=== PATIENT | female | born 1950 | race Caucasian/White ===

== ENCOUNTER 2023-02-24 13:36 | Emergency (ER) | payer OTHER ==
--- OUTSIDE RECORDS SUMMARY | 2023-02-24 13:38 | XMS REPORT | Continuity of Care Document ---
:1950 Author Organization [facility] t Address [address] [facility] [address] [place] [id number] Care Team Providers Name Role Phone KATHERINE NAPIER Primary Care Physician Unavailable Justin Hobbs MD Attending Clinician JUSTIN HOBBS Attending Clinician Unavailable Doctor Unassigned, [place] Attending Clinician Unavailable Radiology Attending Clinician Unavailable RADIOLOGY Attending Clinician Unavailable Justin Hobbs MD Admitting Clinician JUSTIN HOBBS Admitting Clinician Unavailable Payers Payer Name Policy Type Policy Number Effective Date Expiration Date S ource Problems Condition Condition Condition Status Onset Resolution Last Treating Co mments Source Name Details Category Date Date Treatment Clinician Date 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 0-21 [place] [facility] MDD MDD Disease Active 2004-10 Univers 2-14 ity of 00:00: [address] Chronic Chronic Disease Active 2004-10 Univers depressive depressive 2-09 it y of [place] disorder 00 D[place] dical Branch Allergies, Adverse Reactions, Alerts Allergy Allergy Status Severity Reaction(s) Onset Inactive Treating Comm ents Source Name Type Date Date Clinician NO KNOWN Drug Active Univers ALLERGIE Class ity of [facility] Social History Social Habit Start Date Stop Date Quantity Comments Source History of Cigarette Smoker Universi ty of tobacco use [facility] [place] Exposure to 2022-07-02 2022-07-12 Not sure University SARS-CoV-2 00:00:00 16:31:00 [place] [facility] (event) Branch Tobacco use and 2022-07-12 2022-07-12 Smokeless tobacco Un iversity of exposure 00:00:00 00:00:00 non-user [facility] [place] Alcohol intake 2022-07-12 2022-07-12 Current University of 00:00:00 00:00:00 [facility] alcohol [facility]finding) [place] Tobacco Comment 2022-07-12 2022-07-12 Quit smoking in [facility] of 00:00:00 00:00:November, [facility] smoked 1- 1.5 PPD Branch X 30 years Sex Assigned At [birth year] Universit y of 00:00:00 00:00:00 [facility] [place] Smoking Status Start Date Stop Date Source Smokes tobacco daily 2022-07-12 00:00:00 [facility] Former smoker 2016-01-12 00:00:00 2016-01-12 00:00:00 [facility] Medications Ordered Filled Start Stop Current Ordering Indication Dosage Frequency Signature Comments Components Source Medication Medication Date Date Medication? Clinician (SIG) Name Name lactated 2021-10 Yes 1000mL at 100 Unive rs ringers IV 0-17 mL/hr, ity of infusion 13:15: 1,000 [place] 1[place]000 [place] 00 IV Medical Infusion, Branch CONTINUOUS , Starting on Sun07/17/22 at 0815, Until Discontinu ed, Routine, PACU lactated 2021-10- No 1000mL at 100 Univ ers ringers IV 0-17 10-17 mL/hr, ity of infusion 13:15: 16:01 1,000 mL, [place] as 1,000 mL 00 :00 IV Medical Infusion, Branch CONTINUOUS , Starting on Sun07/17/22 at 0815, Until Sun07/17/22 at 1101, Routine, PACU FENTanyl PF 2021-10 Yes 25ug 25 mcg, Uni vers (SUBLIMAZE 0-17 Slow IV ity of (PF)) 13:10: Push, [place] injection 02 Q5MIN PRN, Medi haritha 25 mcg 4 doses, Branch Starting on Sun07/17/22 at 0810, Until Discontinu ed, Routine, Pain (scale 7-10), PACU FENTanyl PF 2021-10 Yes 25ug 25 mcg, Uni vers (SUBLIMAZE 0-17 Slow IV ity of (PF)) 13:10: Push, [place] injection 02 Q5MIN PRN, Medi haritha 25 mcg 4 doses, Branch Starting on Sun07/17/22 at 0810, Until Discontinu ed, Routine, Pain (scale 4-6), PACU ondansetron 2021-10 Yes 4mg 4 mg, Slow Univers (ZOFRAN 0-17 IV Push, ity of (PF)) 13:10: PRN, 1 [place] injection 4 02 dose, Medical mg Starting Branch on Sun07/17/22 at 0810, Until Discontinu ed, Routine, Nausea and Vomiting (N/V), PACU FENTanyl PF 2021-10- No 25ug 25 mcg, Un arely (SUBLIMAZE 0-17 10-17 Slow IV ity o f (PF)) 13:10: 16:01 Push, [place] injection 02 :00 Q5MIN PRN, Medi haritha 25 mcg 4 doses, Branch Starting on Sun07/17/22 at 0810, Until Sun07/17/22 at 1101, Routine, Pain (scale 7-10), PACU FENTanyl PF 2021-10- No 25ug 25 mcg, Un arely (SUBLIMAZE 0-17 10-17 Slow IV ity o f (PF)) 13:10: 16:01 Push, [place] injection 02 :00 Q5MIN PRN, Medi haritha 25 mcg 4 doses, Branch Starting on Sun07/17/22 at 0810, Until Sun07/17/22 at 1101, Routine, Pain (scale 4-6), PACU ondansetron 2021-10- No 4mg 4 mg, Slow Univers (ZOFRAN 0-17 10-17 IV Push, ity of (PF)) 13:10: 16:01 PRN, 1 [place] injection 4 02 :00 dose, Medical mg Starting Branch on Sun07/17/22 at 0810, Until 10/17/22 at 1101, Routine, Nausea and Vomiting (N/V), PACU bupivacaine 2021-10- No PRN, Unive rs -epinephrin 0-17 10-17 Starting ity of e-pf 12:54: 13:55 on Sun [place] (SENSORCAIN 00 :11 07/17/22 Medi haritha E at 0754, Branch W/EPINEPHRI Until Sun NE) 0.25 07/17/22 %-1:200,000 at 0855, injection Routine, Intra-op lactated 2021-10- No 1000mL at 42 Unive rs ringers IV 0-17 10-17 mL/hr, ity of infusion 11:45: 11:58 1,000 mL, [place] as 1,000 mL 00 :00 IV Medical Infusion, Branch ONCE, 1 dose, On Sun07/17/22 at 0645, Routine, DSU Pre-op lactated 2021-10- No 1000mL at 42 Unive rs ringers IV 0-17 10-17 mL/hr, ity of infusion 11:45: 11:58 1,000 mL, [place] as 1,000 mL 00 :00 IV Medical Infusion, Branch ONCE, 1 dose, On Sun07/17/22 at 0645, Routine, DSU Pre-op Doxepin 2021-10 Yes 6mg Take 6 mg Unive rs (SILENOR) 6 0-17 by mouth ity of mg Tab 08:55: daily. [address] oxybutynin 2021-10 Yes 5mg Take 5 mg Un arely chloride 5 0-17 by mouth ity o f mg tablet 08:55: in the [place] [address] morning Medical and 5 mg Branch in the evening. ibuprofen 2021-10 Yes 800mg Take 800 Uni vers 800 mg 0-17 mg by ity of tablet 08:55: mouth in [place] [address] the Medical morning Branch and 800 mg in the evening. Take with meals. donepeziL 2021-10 Yes 10mg Take 10 mg Un arely 10 mg 0-17 by mouth ity of tablet 08:55: in the [place] [address] morning Medical and 10 mg Branch in the evening. amitriptyli 2021-10 Yes 25mg Take 25 mg Univers ne 25 mg 0-17 by mouth ity of tablet 08:55: as needed. [place] [address] 1 or 2 as Medical needed at Branch bedtime aspirin 81 2021-10 Yes 81mg Take 81 mg U nivers mg EC 0-17 by mouth ity of tablet 08:55: in the [place] [address] morning. Medical Branch ARIPiprazol 2021-10 Yes 5mg Take 5 mg U nivers e 5 mg 0-17 by mouth ity of tablet 08:55: in the [place] 52 morning. Medical Branch clonazePAM 2021-10 Yes 1mg Take 1 mg Un arely (KLONOPIN) 0-17 by mouth 3 ity of 1 mg tablet 08:55: (three) [place] as 52 times Medical daily as Branch needed. As nee DULoxetine 2021-10 Yes 120mg Take 120 Un arely (CYMBALTA) 0-17 mg by ity of 60 mg 08:55: mouth in [place] capsule 52 the Medical morning. Branch HYDROmorpho 2021-10 Yes 8mg Take 8 mg U nivers ne 0-17 by mouth 4 ity of (DILAUDID) 08:55: (four) [place] 8 mg tablet 52 times Medical daily. Branch levomefolat 2021-10 Yes 1{capsu Take 1 Cap Univers e-algal oil 0-17 le} by mouth ity of (DEPLIN, 08:55: daily. [place] ALGAL OIL,) 52 Medical 15.314 Branch mg Cap traZODONE 2021-10 Yes 200mg Take Univers (DESYREL) 0-17 200-300 mg ity of 100 mg 08:55: by mouth [place] tablet 52 at Medical bedtime. Branch KCL 2021-10 Yes 20meq Take 20 Univers (KLOR-CON 0-17 mEq by ity of M20) 20 mEq 08:55: mouth [place] tablet 52 daily. Medical Branch amLODIPine 2021-10 Yes 5mg Take 5 mg Un arely (NORVASC) 5 0-17 by mouth 2 it y of mg tablet 08:55: (two) [place] 52 times Medical daily. Branch meloxicam 2021-10 Yes 7.5mg Take 7.5 Uni vers (MOBIC) 7.5 0-17 mg by ity of mg tablet 08:55: mouth [place] 52 daily. Medical Branch Doxepin 2021-10 Yes 6mg Take 6 mg Unive rs (SILENOR) 6 0-17 by mouth ity of mg Tab 08:55: daily. [place] 52 Medical Branch oxybutynin 2021-10 Yes 5mg Take 5 mg Un arely chloride 5 0-17 by mouth ity o f mg tablet 08:55: in the [place] [address] morning Medical and 5 mg Branch in the evening. ibuprofen 2021-10 Yes 800mg Take 800 Uni vers 800 mg 0-17 mg by ity of tablet 08:55: mouth in [place] [address] the Medical morning Branch and 800 mg in the evening. Take with meals. donepeziL 2021-10 Yes 10mg Take 10 mg Un arely 10 mg 0-17 by mouth ity of tablet 08:55: in the [place] [address] morning Medical and 10 mg Branch in the evening. amitriptyli 2021-10 Yes 25mg Take 25 mg Univers ne 25 mg 0-17 by mouth ity of tablet 08:55: as needed. [place] [address] 1 or 2 as Medical needed at Branch bedtime aspirin 81 2021-10 Yes 81mg Take 81 mg U nivers mg EC 0-17 by mouth ity of tablet 08:55: in the [place] [address] morning. Medical Branch ARIPiprazol 2021-10 Yes 5mg Take 5 mg U nivers e 5 mg 0-17 by mouth ity of tablet 08:55: in the [place] [address] morning. Medical Branch clonazePAM 2021-10 Yes 1mg Take 1 mg Un arely (KLONOPIN) 0-17 by mouth 3 ity of 1 mg tablet 08:55: (three) [place] 52 times Medical daily as Branch needed. As nee DULoxetine 2021-10 Yes 120mg Take 120 Un arely (CYMBALTA) 0-17 mg by ity of 60 mg 08:55: mouth in [place] [address] the Medical morning. Branch HYDROmorpho 2021-10 Yes 8mg Take 8 mg U nivers ne 0-17 by mouth 4 ity of (DILAUDID) 08:55: (four) [place] 8 mg tablet 52 times Medical daily. Branch levomefolat 2021-10 Yes 1{capsu Take 1 Cap Univers e-algal oil 0-17 le} by mouth ity of (DEPLIN, 08:55: daily. [place] ALGAL OIL,) Medical 15-90.314 Branch mg Cap traZODONE 2021-10 Yes 200mg Take Univers (DESYREL) 0-17 200-300 mg ity of 100 mg 08:55: by mouth [place] tablet 52 at Medical bedtime. Branch KCL 2021-10 Yes 20meq Take 20 Univers (KLOR-CON 0-17 mEq by ity of M20) 20 mEq 08:55: mouth [place] tablet 52 daily. Medical Branch amLODIPine 2021-10 Yes 5mg Take 5 mg Un arely (NORVASC) 5 0-17 by mouth 2 it y of mg tablet 08:55: (two) [place] [address] times Medical daily. Branch meloxicam 2021-10 Yes 7.5mg Take 7.5 Uni vers (MOBIC) 7.5 0-17 mg by ity of mg tablet 08:55: mouth [place] [address] daily. Medical Branch Doxepin 2021-10 Yes 6mg Take 6 mg Unive rs (SILENOR) 6 0-17 by mouth ity of mg Tab 08:55: daily. [place] [address] Medical Branch oxybutynin 2021-10 Yes 5mg Take 5 mg Un arely chloride 5 0-17 by mouth ity o f mg tablet 08:55: in the [place] [address] morning Medical and 5 mg Branch in the evening. ibuprofen 2021-10 Yes 800mg Take 800 Uni vers 800 mg 0-17 mg by ity of tablet 08:55: mouth in [place] [address] the Medical morning Branch and 800 mg in the evening. Take with meals. donepeziL 2021-10 Yes 10mg Take 10 mg Un arely 10 mg 0-17 by mouth ity of tablet 08:55: in the [place] [address] morning Medical and 10 mg Branch in the evening. amitriptyli 2021-10 Yes 25mg Take 25 mg Univers ne 25 mg 0-17 by mouth ity of tablet 08:55: as needed. [place] [address] 1 or 2 as Medical needed at Branch bedtime aspirin 81 2021-10 Yes 81mg Take 81 mg U nivers mg EC 0-17 by mouth ity of tablet 08:55: in the [place] [address] morning. Medical Branch ARIPiprazol 2021-10 Yes 5mg Take 5 mg U nivers e 5 mg 0-17 by mouth ity of tablet 08:55: in the [place] [address] morning. Medical Branch clonazePAM 2021-10 Yes 1mg Take 1 mg Un arely (KLONOPIN) 0-17 by mouth 3 ity of 1 mg tablet 08:55: (three) [place] 52 times Medical daily as Branch needed. As nee DULoxetine 2021-10 Yes 120mg Take 120 Un arely (CYMBALTA) 0-17 mg by ity of 60 mg 08:55: mouth in [place] capsule 52 the Medical morning. Branch HYDROmorpho 2021-10 Yes 8mg Take 8 mg U nivers ne 0-17 by mouth 4 ity of (DILAUDID) 08:55: (four) [place] 8 mg tablet 52 times Medical daily. Branch levomefolat 2021-10 Yes 1{capsu Take 1 Cap Univers e-algal oil 0-17 le} by mouth ity of (DEPLIN, 08:55: daily. [place] ALGAL OIL,) 52 Medical 1590.314 Branch mg Cap traZODONE 2021-10 Yes 200mg Take Univers (DESYREL) 0-17 200-300 mg ity of 100 mg 08:55: by mouth [place] tablet 52 at Medical bedtime. Branch KCL 2021-10 Yes 20meq Take 20 Univers (KLOR-CON 0-17 mEq by ity of M20) 20 mEq 08:55: mouth [place] tablet 52 daily. Medical Branch amLODIPine 2021-10 Yes 5mg Take 5 mg Un arely (NORVASC) 5 0-17 by mouth 2 it y of mg tablet 08:55: (two) [place] 52 times Medical daily. Branch meloxicam 2021-10 Yes 7.5mg Take 7.5 Uni vers (MOBIC) 7.5 0-17 mg by ity of mg tablet 08:55: mouth [place] 52 daily. Medical Branch ARIPiprazol Yes 10mg Take 10 mg Univers e (ABILIFY) 2-15 by mouth ity of 10 mg 18:29: at [place] tablet 04 bedtime. Medical Branch clonazePAM Yes 1mg Take 1 mg Un arely (KLONOPIN) 2-15 by mouth 3 ity of 1 mg tablet 18:29: (three) [place] as 04 times Medical daily. Branch DULoxetine Yes 120mg Take 120 Un arely (CYMBALTA) 2-15 mg by ity of 60 mg 18:29: mouth at [place] capsule 04 bedtime. Medical Branch HYDROmorpho Yes 8mg Take 8 mg U nivers ne 2-15 by mouth 4 ity of (DILAUDID) 18:29: (four) [place] 8 mg tablet 04 times Medical daily. Branch levomefolat Yes 1{capsu Take 1 Cap Univers e-algal oil 2-15 le} by mouth ity of (DEPLIN, 18:29: daily. [place] ALGAL OIL,) 04 Medical .314 Branch mg Cap traZODONE Yes 200mg Take Univers (DESYREL) 2-15 200-300 mg ity of 100 mg 18:29: by mouth [place] tablet 04 at Medical bedtime. Branch KCL Yes 20meq Take 20 Univers (KLOR-CON 2-15 mEq by ity of M20) 20 mEq 18:29: mouth [place] tablet 04 daily. Medical Branch amLODIPine Yes 5mg Take 5 mg Un arely (NORVASC) 5 2-15 by mouth 2 it y of mg tablet 18:29: (two) [place] 04 times Medical daily. Branch meloxicam Yes 7.5mg Take 7.5 Uni vers (MOBIC) 7.5 2-15 mg by ity of mg tablet 18:29: mouth [place] 04 daily. Medical Branch Doxepin Yes 6mg Take 6 mg Unive rs (SILENOR) 6 2-15 by mouth ity of mg Tab 18:29: daily. [place] [facility] VENLAFAXINE 2004- Yes 1 Cap Oral Univers 75 MG ORAL 2-14 QAM WITH ity o f CP24 00:00: BREAKFAST [place] [facility] QUETIAPINE 2004- Yes 1 tab po Uni vers 300 MG ORAL 2-14 qhs ity of TAB 00:00: [place] [facility] VENLAFAXINE 2004- Yes 1 Cap Oral Univers 75 MG ORAL 2-14 QAM WITH ity o f CP24 00:00: BREAKFAST [place] [facility] QUETIAPINE 2004- Yes 1 tab po Uni vers 300 MG ORAL 2-14 qhs ity of TAB 00:00: [place] [facility] VENLAFAXINE 2004- Yes 1 Cap Oral Univers 75 MG ORAL 2-14 QAM WITH ity o f CP24 00:00: BREAKFAST [place] [facility] QUETIAPINE 2004- Yes 1 tab po Uni vers 300 MG ORAL 2-14 qhs ity of TAB 00:00: [place] 00 Medical Branch Vital Signs Vital Name Observation Time Observation Value Comments Source Heart rate 2022-07-17 13:30:00 76 /min Universi ty of [facility] [place] Respiratory rate 2022-07-17 13:30:00 20 /min Univ ersity of [facility] [place] Oxygen saturation in 2022-07-17 13:30:00 93 /min University of Arterial blood by [facility] Pulse oximetry Branch Systolic blood 2022-07-17 13:30:00 127 mm[Hg] Univer sity of pressure [facility] [place] Diastolic blood 2022-07-17 13:30:00 62 mm[Hg] Unive rsity of pressure [facility] [place] Body temperature 2022-07-17 13:10:00 36.78 [place] Univ ersity of [facility] [place] Body height 2022-07-04 16:26:00 154.9 cm Universi ty of [facility] [place] Body weight 2022-07-04 16:26:00 78 kg Universi ty of [facility] [place] BMI 2022-07-04 16:26:00 32.51 kg/m2 Universi ty of [facility] [place] Systolic blood 2022-07-17 13:30:00 127 mm[Hg] Univer sity of pressure [facility] Branch Diastolic blood 2022-07-17 13:30:00 62 mm[Hg] Unive rsity of [facility] Heart rate 2022-07-17 13:30:00 76 /min Universi ty of [facility] [place] Respiratory rate 2022-07-17 13:30:00 20 /min Univ ersity of [facility] [place] Oxygen saturation in 2022-07-17 13:30:00 93 /min University of Arterial blood by [facility] Pulse oximetry Branch Body temperature 2022-07-17 13:10:00 36.78 [place] Univ ersity of [facility] [place] Body height 2022-07-04 16:26:00 154.9 cm Universi ty of [place] [facility] Body weight 2022-07-04 16:26:00 78 kg Universi ty of [facility] Branch BMI 2022-07-04 16:26:00 32.51 kg/m2 Universi ty of [facility] [place] Procedures Procedure Date / Time Performing Clinician Source Performed INTRATHECAL INFUSION 2022-07-17 12:09:00 Justin Hobbs [facility] ersity of [place] PUMP REVISION Medical [place] DAY SURGERY - ADC 2022-07-17 05:01:00 Doctor Unassigned, No Univ ersity of [place] Name Medical Branch EXTERNAL PROVIDER 2022-06-21 05:01:00 Doctor Unassigned, No Univ ersity of [place] RECORDS Name Medical Branch EXTERNAL PROVIDER 2022-06-21 05:01:00 Doctor Unassigned, No Univ ersity of [place] RECORDS Name [facility] XR ANKLE 3+ VW RIGHT 2021-03-02 17:25:47 Iveth Ramirez iversity of [facility] [place] Encounters Start End Encounter Admission Attending Care Care Encounter Source Date/Time Date/Time Type Type Clinicians Facility Department ID 2022-07-17 2022-07-17 [facility] [id number] Univers 06:33:00 08:54:00 Encounter Justin DE [place] [id number] it[facility] [id number] [place] [id number] [facility] 071 [place] 2022-07-17 2022-07-17 [facility] [id number] Univers 06:33:00 08:54:00 JUSTIN ity of [facility] [place] 2022-07-17 2022-07-17 Surgery [facility] [id number] Univers 07:15:00 08:52:00 Justinnori ELLINGTONCALEB [id number] ity [facility] [id number] [place] [id number] [facility] 020 Branch 2022-07-17 2022-07-17 Orders Doctor LUNDBERG [id number] Univers 00:00:00 00:00:00 Only Unassigned, HARDY [id number] ity of [facility] [facility] [id number] Daniele as [id number] [place] [address] Branch 2022-07-14 2022-07-14 [facility] [id number] Univers 08:15:00 08:15:00 JUSTIN ity of [facility] [place] 2021-03-02 2021-03-02 Hospital Radiology [facility] [id number] Univers 12:13:44 23:59:00 Encounter Nate [id number] ity [place] [id number] [facility] [id number] [facility] 807 Branch 2021-03-02 2021-03-02 Outpatient R RADIOLOGY [facility] [id number] Univers 00:00:00 00:00:00 ity [facility] Results Test Description Test Time Test Comments Results Result Comments Source HEMOGLOBIN A1c 2021-12-28 06:29:45 Test Item Value Reference Range Interpretation Comme nts HEMOGLOBIN A1c (test code = 6.7 % 4.2-5.6 H [employer] 53240) GUIDELINES FOR HGB A1C: PREDIABETES/INC REASED RISK . . . . . . . 5.7-6.4% DIAGNO SIS OF DIABETES . . . . . . . . . >=6.5% WITH CONFIRMATION OR APPROPRIATE SYM PTOMS NOTE: ASSAY MAY BE AFFECTED BY HEM OGLOBINOPATHIES (SICKLE CELL ANEMIA, S- C DISEASE, OTHERS) OR ARTIFICIALLY LO WERED BY DECREASED RED CELL SURVIVAL ( HEMOLYTIC ANEMIAS, BLOOD LOSS, ETC.). CO NSIDER ALTERNATE TESTING OR LABORATORY C ONSULTATION. UNLESS OTHERWISE INDIC ATED, ALL TESTING PERFORMED [facility], [address] DIRECTOR: JACKELINE ANTOINE M.D. CLIA NUMBER [id number] [place] [id number] BASIC METABOLIC [id number] 06:15:06 Test Item Value Reference Range Interpretation Comments GLUCOSE (test code 126 MG/DL 70-99 H = 2216) BUN (test code = 9 MG/DL 8-23 2207) CREATININE (test 0.69 MG/DL 0.60-1.30 code = 2214) eGFR (2020 CKD-EPI) 93 ML/MIN/1.73 >60 (test code = 65505) SODIUM (test code = 140 MEQ/L 614-171 0262) POTASSIUM (test 3.8 MEQ/L 3.5-5.4 code = 2228) CHLORIDE (test code 101 MEQ/L 95-107 = 2215) CARBON DIOXIDE 23 MEQ/L 19-31 (test code = 2206) CALCIUM (test code 9.2 MG/DL 8.5-10.5 UNLESS O THERWISE = 2209) INDICATED, ALL TESTING PERFORM [facility]. [address] [place] [address] [facility] DIRECTOR: Juan J REYESIA NUMBER [id number] CAP ACCREDITATION N O. [id number] XR ANKLE 3+ VW [id number] 17:28:50HISTORY: ?Pain. FINDINGS: AP, lateral, oblique views of right ankle showed slightlyseparated fracture at the base of the fifth metatarsal bone. No significantankle joint effusion. Soft tissue swelling noted along the lateral aspectof ankle. Metallic hardware is seen supporting calcaneum. No hardwarerelated complication seen. Mild subtalar degenerative arthritis andarthritis of the talonavicular jointnoted. CONCLUSIONS: Fracture at the base of right fifth metatarsal bone. [facility], Radiant Results Inft User - 03/02/2021 12:29 PM CDT HISTORY: Pain.FINDINGS: AP, lateral, oblique views of right ankle showed slightlyseparated fracture at the baseof the fifth metatarsal bone. No significantankle joint effusion. Soft tissue swelling noted along the lateral aspectof ankle. Metallic hardware is seen supporting calcaneum. No hardwarerelated complication seen. 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
--- NOTE | 2023-02-24 14:21 | RAD REPORT ---
EXAM DESCRIPTION: RAD - Hip Right 2 View - 02/24/2023 2:01 pm CLINICAL HISTORY: fall COMPARISON: Hip Right 1 View dated 09/19/2022; Hip Right 2 View dated 08/22/2021; Pelvis dated 2022 TECHNIQUE: Right hip, AP and frog-leg views. FINDINGS: Posterosuperior dislocation of the femoral head component of the right total hip arthropla sty. No periprostatic fracture. No acute or destructive bony process seen. Pain pump battery pack is seen on a single two-view. 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
--- NOTE | 2023-02-24 14:30 | RAD REPORT ---
EXAM DESCRIPTION: RAD - Pelvis - 02/24/2023 2:01 pm CLINICAL HISTORY: PAIN COMPARISON: Hip Right 2 View dated 02/24/2023 TECHNIQUE: Single AP view of the pelvis. FINDINGS: Re- demonstration of superior dislocation of the femoral head component of the right total hip arthroplasty relative to the acetabular cup. The visualized pelvic ring is intact. No suspicious osseous lesions. No significant degenerative changes or erosions of the left hip. Right flank pain p ump back and lower aspects of lumbar fusion hardware partially visualized Visualized aspects of the a bdomen and soft tissues are unremarkable. 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
--- NOTE | 2023-02-24 14:32 | RAD REPORT ---
EXAM DESCRIPTION: RAD - Femur Right - 02/24/2023 2:01 pm CLINICAL HISTORY: PAIN COMPARISON: Hip Right 2 View dated 02/24/2023 TECHNIQUE: Right femur, 2 views. FINDINGS: No fracture is identified. Dislocated femoral head component of right total hip arthroplas ty is visualized on the hip radiographs. Total knee arthroplasty components in satisfactory alignment without evidence of complications. There is no periosteal reaction noted. No acute or suspicious bon y finding. Opacification just above the patella, may relate to sequelae of remote injury to the quad riceps. IMPRESSION: As above.
--- NOTE | 2023-02-24 17:00 | EDPHYS ---
Physician Documentation [facility] Name: Suzi Vee Age: 72 yrs Sex: Female : 1950 Arrival Date: 02/24/2023 Time: 13:36 Bed 17 Private MD: ED Physician Александр Grimes HPI: 02/24 13:40 This 72 yrs old Female presents to ER via EMS with complaints of Fall Injury. cp 13:40 The patient or guardian reports decreased range of motion, deformity, an injury. that cp occurred outside of home, sustained from a fall, from standing, the right lower extremity is shortened, The patient is not able to ambulate. Patient is not able to bear weight. 13:40 The complaints affect the right hip. Onset: The symptoms/episode began/occurred just cp prior to arrival. Associated signs and symptoms: Loss of consciousness: the patient experienced no loss of consciousness, Pertinent negatives: abdominal pain, chest pain, fever. Patient reports having total hip replacement surgery by DR Harrison in August 2022. Historical: - Allergies: 13:43 No Known Allergies; db - PMHx: 13:43 Chronic Lumbar Pain; Depression; Weak Bladder; db - Immunization history:: Client reports receiving the 2nd dose of the Covid vaccine. - Social history:: Smoking status: Patient/guardian denies using tobacco, Stopped _ months ago 5. - Immunization history: Last tetanus immunization: unknown. ROS: 13:45 MS/extremity: Positive for injury or acute deformity, decreased range of motion, pain, cp tenderness. 13:45 Constitutional: Negative for body aches, chills, fever, poor PO intake. cp 13:45 Cardiovascular: Negative for chest pain, palpitations. 13:45 Abdomen/GI: Negative for abdominal pain, nausea, vomiting, and diarrhea. 13:45 Back: Negative for pain at rest, pain with movement. 13:45 Neuro: Negative for altered mental status, headache, loss of consciousness, syncope, near syncope. Exam: 13:50 Constitutional: The patient appears in no acute distress, alert, awake, non-toxic, well cp developed, well nourished, uncomfortable. 13:50 Head/Face: Normocephalic, atraumatic. cp 13:50 Eyes: Periorbital structures: appear normal, Conjunctiva: normal, no exudate, no injection, Sclera: no appreciated abnormality, Lids and lashes: appear normal, bilaterally. 13:50 ENT: External ear(s): are unremarkable, Nose: is normal, Mouth: Lips: moist, Oral mucosa: pink and intact, moist, Posterior pharynx: is normal, airway is patent, no erythema, no exudate. 13:50 Neck: ROM/movement: is normal, is supple, without pain, no range of motions limitations. 13:50 Chest/axilla: Inspection: normal, Palpation: is normal, no crepitus, no tenderness. 13:50 Cardiovascular: Rate: normal, Rhythm: regular, Edema: is not appreciated, JVD: is not appreciated. 13:50 Respiratory: the patient does not display signs of respiratory distress, Respirations: normal, no use of accessory muscles, no retractions, labored breathing, is not present, Breath sounds: are clear throughout, no decreased breath sounds, no stridor, no wheezing. 13:50 Abdomen/GI: Inspection: abdomen appears normal, Palpation: abdomen is soft and non-tender, in all quadrants. 13:50 Back: pain, is absent, ROM is normal. 13:50 Musculoskeletal/extremity: Extremities: grossly normal except: noted in the right hip: decreased ROM, deformity, pain, ROM: limited passive range of motion, in the right hip, Pulses: noted to be 2+ in the right dorsalis pedis artery, the right leg and right hip Sensation intact. 13:50 Neuro: Orientation: to person, place \T\ time. Mentation: is normal, Motor: moves all fours, strength is normal. Vital Signs: 13:39 BP 143 / 67; Pulse 69; Resp 16; Temp 98.2(O); Pulse Ox 97% ; Weight 58.06 kg; Height 5 db ft. 1 in. ; Pain 8/10; 15:15 BP 161 / 69; Pulse 65; Resp 18; Pulse Ox 100% on 2 lpm NC; db 15:20 BP 132 / 69; Pulse 61; Resp 16; Pulse Ox 100% on 2 lpm NC; db 15:25 BP 153 / 70; Pulse 62; Resp 16; Pulse Ox 100% on 4 lpm NC; db 15:30 BP 146 / 65; Pulse 63; Resp 16; Pulse Ox 100% on 4 lpm NC; db 15:35 BP 165 / 63; Pulse 65; Resp 12; Pulse Ox 100% on 4 lpm NC; db 15:45 BP 164 / 66; Pulse 64; Resp 16; Pulse Ox 100% on 2 lpm NC; db 15:55 BP 139 / 65; Pulse 64; Resp 16; Pulse Ox 100% on R/A; db 16:00 BP 154 / 60; Pulse 72; Resp 18; Pulse Ox 100% on R/A; db 16:15 BP 146 / 65; Pulse 66; Resp 14; Pulse Ox 100% on R/A; db 16:45 BP 131 / 54; Pulse 68; Resp 16; Pulse Ox 100% on R/A; db 17:30 BP 118 / 63; Pulse 64; Resp 12; Pulse Ox 100% on R/A; db 13:39 Body Mass Index 24.19 (58.06 kg, 154.94 cm) db 13:39 Pain Scale: Adult db Yadira Coma Score: 13:45 Eye Response: spontaneous(4). Motor Response: obeys commands(6). Verbal Response: db oriented(5). Total: 15. Trauma Score (Adult): 13:45 Eye Response: spontaneous(1); Verbal Response: oriented(1); Motor Response: obeys db commands(2); Systolic BP: > 89 mm Hg(4); Respiratory Rate: 10 to 29 per min(4); Yadira Score: 15; Trauma Score: 12 Procedures: 15:34 Reduction: of the right hip, using traction, Patient tolerated well. Post reduction cp film - reveals normal alignment. Moderate sedation: Pre-procedure assessment: the patient has been NPO 2 hour(s) prior to arrival, Airway assessment: able to hyperextend neck, able to maintain airway, can open mouth without difficulty, Monitoring during procedure: diagnostic cardiac sonographer, continuous pulse oximetry, nurse at bedside at all times, Medications employed: Etomidate, 10 mg(s), Versed, 4 mg(s), Post-procedure assessment: a reversal agent was not used. MDM: 13:43 Patient medically screened. jmm 15:57 Data reviewed: vital signs, nurses notes, radiologic studies, plain films. cp Consideration of Admission/Observation Escalation of care including admission/observation considered. Independent interpretation of the following test(s) in the Emergency Department X-Ray: My interpretation is post reduction xrays of right hip show normal alignment. Response to treatment: the patient's symptoms have markedly improved after treatment. 02/24 13:38 Order name: Hip Right 2 View XRAY; Complete Time: 14:44 eb 02/24 13:44 Order name: XRAY Pelvis; Complete Time: 14:44 cp 02/24 13:46 Order name: XRAY Femur RIGHT; Complete Time: 14:44 cp 02/24 15:47 Order name: XRAY Hip RIGHT 2 view; Complete Time: 18:11 cp 02/24 18:11 Interpretation: Report reviewed. cp 02/24 13:46 Order name: IV; Complete Time: 14:40 cp 02/24 15:49 Order name: Wrist Splint; Complete Time: 18:08 cp Administered Medications: 13:46 CANCELLED (Physician Discretion): morphine IVP or IV 2 mg IVP once over 4 mins cp 13:46 CANCELLED (Physician Discretion): morphine IVP or IV 2 mg IVP once over 4 mins cp 14:35 Drug: Ondansetron IVP 4 mg Route: IVP; Site: right forearm; db 17:40 Follow up: Response: No adverse reaction db 14:35 Drug: morphine IVP or IV 4 mg Route: IVP; Infused Over: 4 mins; Site: right forearm; db 17:40 Follow up: Response: No adverse reaction db 14:35 Drug: NS 0.9% IV 500 ml Route: IV; Rate: 75 ml/hr; Site: right forearm; db 17:40 Follow up: IV Status: Completed infusion; IV Intake: 500ml db 15:23 Drug: Midazolam IVP or IV 4 mg Route: IVP; Site: right forearm; db 18:08 Follow up: Response: No adverse reaction db 15:25 Drug: Etomidate IVP 10 mg Route: IVP; Site: right forearm; db 18:08 Follow up: Response: No adverse reaction db 15:41 Not Given (Physician Discretion; patient did not needd): Etomidate IVP 10 mg IVP once db Disposition Summary: 02/24/23 16:59 Discharge Ordered Location: Home cp Problem: new cp Symptoms: have improved cp Condition: Stable cp Diagnosis - Posterior dislocation of right hip, initial encounter cp Followup: cp - With: Oscar Harrison MD - When: 2 - 3 days - Reason: Recheck today's complaints Discharge Instructions: - Discharge Summary Sheet cp - Hip Dislocation cp Forms: - Medication Reconciliation Form cp - Thank You Letter cp - Antibiotic Education cp - Prescription Opioid Use cp Signatures: Dispatcher [employer] EDKrystian Gallardo PA PA jmm Page, Corey, PA PA cp Benton, Danielle, RN RN db Corrections: (The following items were deleted from the chart) 13:46 13:46 morphine IVP or IV 2 mg IVP once over 4 mins ordered. cp cp 13:46 13:46 morphine IVP or IV 2 mg IVP once over 4 mins ordered. cp cp
--- NOTE | 2023-02-24 17:00 | ER ---
Nurse's Notes [facility] Name: Suzi Vee Age: 72 yrs Sex: Female : 1950 Arrival Date: 02/24/2023 Time: 13:36 Bed 17 Private MD: Diagnosis: Posterior dislocation of right hip, initial encounter Presentation: 02/24 13:39 Chief complaint: EMS states: right hip injury after a fall today [employer]. slipped and fell db outside while working on [employer]. Coronavirus screen:. Ebola Screen: Patient negative for fever greater than or equal to 101.5 degrees Fahrenheit, and additional compatible Ebola Virus Disease symptoms Patient denies exposure to infectious person. Patient denies travel to an Ebola-affected area in the 21 days before illness onset. No symptoms or risks identified at this time. Initial Sepsis Screen: Does the patient meet any 2 criteria? No. Patient's initial sepsis screen is negative. Does the patient have a suspected source of infection? No. Patient's initial sepsis screen is negative. Risk Assessment: Do you want to hurt yourself or someone else? Patient reports no desire to harm self or others. Onset of symptoms was February 24, 2023. Mechanism of Injury: Fall from standing position. 13:39 Method Of Arrival: EMS: [facility] 13:39 Acuity: NIEVES 3 17:40 Care prior to arrival: None. Trauma event details: Injury occurred in the [facility]. 17:40 Mechanism of Injury: Fall. db Triage Assessment: 13:42 General: Appears in no apparent distress. comfortable, Behavior is calm, cooperative. db Pain: Complains of pain in right leg. Trauma Activation: Not Applicable Physician: ED Physician; Name: ; Notified At: ; Arrived At: Physician: General Surgeon; Name: ; Notified At: ; Arrived At: Physician: Radiology; Name: ; Notified At: ; Arrived At: Physician: Respiratory; Name: ; Notified At: ; Arrived At: Physician: Lab; Name: ; Notified At: ; Arrived At: Historical: - Allergies: 13:43 No Known Allergies; db - PMHx: 13:43 Chronic Lumbar Pain; Depression; Weak Bladder; db - Immunization history:: Client reports receiving the 2nd dose of the Covid vaccine. - Social history:: Smoking status: Patient/guardian denies using tobacco, Stopped _ months ago 5. - Immunization history: Last tetanus immunization: unknown. Screenin:44 [facility] ED Fall Risk Assessment (Adult) History of falling in the last 3 months, db including since admission Yes- fall prone (multiple falls) (3 pts) Confusion or Disorientation No (0 pts) Intoxicated or Sedated No (0 pts) Impaired Gait Yes (1 pt) Mobility Assist Device Used Yes (1 pt) Altered Elimination No (0 pt) Score/Fall Risk Level 3 or more points = High Risk Oriented to surroundings, Maintained a safe environment, Educated pt \T\ family on fall prevention, incl call for assistance when getting out of bed. Abuse screen: Denies threats or abuse. Denies injuries from another. Nutritional screening: No deficits noted. Tuberculosis screening: No symptoms or risk factors identified. Primary Survey: 13:45 NO uncontrolled hemorrhage observed. A: The client is awake and alert. The airway is db patent. The client is alert. Airway: patent, No supplemental oxygen in use on arrival. Breathing/Chest: Spontaneous respiratory effort, equal unlabored respirations, breath sounds clear bilaterally, regular pattern, symmetrical chest rise and fall. Respiratory effort: spontaneous, unlabored, Breath sounds: clear, Respiratory pattern: regular, Chest inspection: symmetrical rise and fall of the chest. Circulation: No external hemorrhage present. Regular and strong central pulse, skin warm/dry/normal color. Disability Pupils are equal, round, reactive to light and accommodation. Client is alert. Exposure/Environment: All clothing and personal items were removed. There is no evidence of uncontrolled external bleeding. Obvious injury(ies) are noted at this time: right hip A warming method has been applied: A warm blanket has been provided to the patient. Reassessment Alertness and Airway: Awake and alert. The airway is patent. Airway Patent Oxygen No O2 Breathing: Spontaneous respiratory effort, equal unlabored respirations, breath sounds clear bilaterally, regular pattern with symmetrical chest rise and fall. Respiratory effort Spontaneous Unlabored Breath sounds Clear Respiratory pattern Regular Chest inspection Symmetrical Circulation: No external hemorrhage noted. Regular and strong central pulse, skin warm/dry/normal color. Disability: Alert. Assessment: 13:43 Reassessment: xray at bedside. db 14:00 Reassessment: Patient appears in no apparent distress at this time. Patient and/or db family updated on plan of care and expected duration. Pain level reassessed. Patient is alert, oriented x 3, equal unlabored respirations, skin warm/dry/pink. 15:00 Reassessment: Patient appears in no apparent distress at this time. Patient and/or db family updated on plan of care and expected duration. Pain level reassessed. Patient is alert, oriented x 3, equal unlabored respirations, skin warm/dry/pink. Pain: Complains of pain in right hip. Neuro: Level of Consciousness is awake, alert, obeys commands, Oriented to person, place, time, situation. 15:20 Reassessment: Time out for procedure done. db 15:30 Reassessment: Patient appears in no apparent distress at this time. post reduction. db Radiology at patient bedside. See Conscious sedation flow sheet. Consents signed and on chart. 16:48 Reassessment: patient family is at bedside. db 16:48 Reassessment: Patient appears in no apparent distress at this time. Patient and/or db family updated on plan of care and expected duration. Pain level reassessed. Patient is alert, oriented x 3, equal unlabored respirations, skin warm/dry/pink. General: Appears in no apparent distress. comfortable, Behavior is calm, cooperative. 17:40 Reassessment: Patient appears in no apparent distress at this time. Patient and/or db family updated on plan of care and expected duration. Pain level reassessed. Patient is alert, oriented x 3, equal unlabored respirations, skin warm/dry/pink. Patient states feeling better. Patient states symptoms have improved. Vital Signs: 13:39 BP 143 / 67; Pulse 69; Resp 16; Temp 98.2(O); Pulse Ox 97% ; Weight 58.06 kg; Height 5 db ft. 1 in. ; Pain 8/10; 15:15 BP 161 / 69; Pulse 65; Resp 18; Pulse Ox 100% on 2 lpm NC; db 15:20 BP 132 / 69; Pulse 61; Resp 16; Pulse Ox 100% on 2 lpm NC; db 15:25 BP 153 / 70; Pulse 62; Resp 16; Pulse Ox 100% on 4 lpm NC; db 15:30 BP 146 / 65; Pulse 63; Resp 16; Pulse Ox 100% on 4 lpm NC; db 15:35 BP 165 / 63; Pulse 65; Resp 12; Pulse Ox 100% on 4 lpm NC; db 15:45 BP 164 / 66; Pulse 64; Resp 16; Pulse Ox 100% on 2 lpm NC; db 15:55 BP 139 / 65; Pulse 64; Resp 16; Pulse Ox 100% on R/A; db 16:00 BP 154 / 60; Pulse 72; Resp 18; Pulse Ox 100% on R/A; db 16:15 BP 146 / 65; Pulse 66; Resp 14; Pulse Ox 100% on R/A; db 16:45 BP 131 / 54; Pulse 68; Resp 16; Pulse Ox 100% on R/A; db 17:30 BP 118 / 63; Pulse 64; Resp 12; Pulse Ox 100% on R/A; db 13:39 Body Mass Index 24.19 (58.06 kg, 154.94 cm) db 13:39 Pain Scale: Adult db Yadira Coma Score: 13:45 Eye Response: spontaneous(4). Motor Response: obeys commands(6). Verbal Response: db oriented(5). Total: 15. Trauma Score (Adult): 13:45 Eye Response: spontaneous(1); Verbal Response: oriented(1); Motor Response: obeys db commands(2); Systolic BP: > 89 mm Hg(4); Respiratory Rate: 10 to 29 per min(4); [place] Score: 15; Trauma Score: 12 ED Course: 13:37 Patient arrived in ED. am2 13:39 Christine Cruz, RN is Primary Nurse. db 13:42 Triage completed. db 13:42 Arm band placed on Patient placed in an exam room. db 13:43 Krystian Patino PA is PHCP. jmm 13:43 Александр Grimes MD is Attending Physician. jmm 13:44 PHCP role handed off by Krystian Patino PA cp 13:44 Александр Jimenez PA is PHCP. cp 14:03 Hip Right 2 View XRAY In Process Unspecified. EDMS 14:03 XRAY Pelvis In Process Unspecified. EDMS 14:03 XRAY Femur RIGHT In Process Unspecified. EDMS 14:30 Inserted saline lock: 20 gauge in right forearm, using aseptic technique. db 15:10 Warm blanket given. db 15:44 Patient has correct armband on for positive identification. Placed in gown. Bed in low db position. Call light in reach. Side rails up X2. Client placed on continuous cardiac and pulse oximetry monitoring. NIBP monitoring applied. 16:08 XRAY Hip RIGHT 2 view In Process Unspecified. EDMS 16:59 Oscar Harrison MD is Referral Physician. cp 17:00 Thermoregulation: warm blanket given to patient. db 17:40 No provider procedures requiring assistance completed. IV discontinued, intact, db bleeding controlled, No redness/swelling at site. 17:40 Patient maintains SpO2 saturation greater than 95% on room air. db 17:40 right wrist. db Administered Medications: 13:46 CANCELLED (Physician Discretion): morphine IVP or IV 2 mg IVP once over 4 mins cp 13:46 CANCELLED (Physician Discretion): morphine IVP or IV 2 mg IVP once over 4 mins cp 14:35 Drug: Ondansetron IVP 4 mg Route: IVP; Site: right forearm; db 17:40 Follow up: Response: No adverse reaction db 14:35 Drug: morphine IVP or IV 4 mg Route: IVP; Infused Over: 4 mins; Site: right forearm; db 17:40 Follow up: Response: No adverse reaction db 14:35 Drug: NS 0.9% IV 500 ml Route: IV; Rate: 75 ml/hr; Site: right forearm; db 17:40 Follow up: IV Status: Completed infusion; IV Intake: 500ml db 15:23 Drug: Midazolam IVP or IV 4 mg Route: IVP; Site: right forearm; db 18:08 Follow up: Response: No adverse reaction db 15:25 Drug: Etomidate IVP 10 mg Route: IVP; Site: right forearm; db 18:08 Follow up: Response: No adverse reaction db 15:41 Not Given (Physician Discretion; patient did not needd): Etomidate IVP 10 mg IVP once db Medication: 17:40 VIS not applicable for this client. db Intake: 17:40 IV: 500ml; Total: 500ml. db 17:40 PO: 0ml; Total: 500ml. db Outcome: 16:59 Discharge ordered by . cp 17:40 Discharged to home via wheelchair, with family. db 17:40 Condition: stable 17:40 Patient's length of stay in the Emergency Department was greater than 2 hours. HIp reductionPatient's length of stay extended due to 17:40 Discharge instructions given to patient, friend, Instructed on discharge instructions, db follow up and referral plans. 18:12 Patient left the ED. eb Signatures: Dispatcher [employer] EDKrystian Gallardo PA PA jmm Page, Corey, PA PA cp Moreno, Amanda am2 Botello, Elizabeth eb Benton, Danielle, RN RN db
--- NOTE | 2023-02-24 18:07 | RAD REPORT ---
EXAM DESCRIPTION: RAD - Hip Right 2 View - 02/24/2023 4:07 pm CLINICAL HISTORY: post reduction COMPARISON: Hip Right 2 View dated 02/24/2023; Hip Right 1 View dated 09/19/2022 TECHNIQUE: Right hip, AP and frog-leg views. FINDINGS: Improved alignment of the right total hip arthroplasty following closed reduction. There i s shallow positioning of the femoral head component within the acetabular socket however. No peripros thetic fractures. Other aspects of the visualized pelvic ring are intact. IMPRESSION: Improved alignment of the right total hip arthroplasty although there is shadow position ing of the femoral head component within the acetabular cup.
[2023-02-24 19:00] VITALS: TEMP 98.6
[2023-02-24 19:02] VITALS: O2SAT 99
[2023-02-24 19:04] VITALS: BP 148/88
== END 2023-02-24 18:12 | disposition home or self-care (01) ==
LOC: ER 13:36
PROC: 0SS9XZZ Reposition Right Hip Joint, External Approach (ICD-10-PCS; principal; 2023-02-24)
DX: T84.020A Dislocation of internal right hip prosthesis, initial encounter (principal)
CPT/HCPCS: 72170; 96361; 96374; 96375; 99285

== ENCOUNTER 2023-02-25 13:12 | Emergency (ER) | payer OTHER ==
--- OUTSIDE RECORDS SUMMARY | 2023-02-25 13:16 | XMS REPORT | Continuity of Care Document ---
:1950 Author Organization [facility] t Address [address] [facility] [address] [place] [id number] Care Team Providers Name Role Phone KATHERINE NAPIER Primary Care Physician Unavailable Justin Hobbs MD Attending Clinician JUSTIN HOBBS Attending Clinician Unavailable Doctor Unassigned, [place] Attending Clinician Unavailable Radiology Attending Clinician Unavailable [...] [place] [facility] MDD MDD Disease Active 2004-10 Univers 2-14 ity of 00:00: [address] Chronic Chronic Disease Active 2004-10 Univers depressive depressive 2-09 it y of [place] y disorder 00 [place] d[place] Branch Allergies, Adverse Reactions, Alerts Allergy Allergy Status Severity Reaction(s) Onset Inactive Treating Comm ents Source Name Type Date Date Clinician NO KNOWN Drug Active Univers ALLERGIE Class ity of [facility] Social History Social Habit Start Date Stop Date Quantity Comments Source History of Cigarette Smoker Universi ty of tobacco use [facility] Exposure to 2022-07-02 2022-07-12 Not sure University SARS-CoV-2 00:00:00 16:31:00 [place] [facility] (event) Branch Tobacco use and 2022-07-12 2022-07-12 Smokeless tobacco Un iversity of exposure 00:00:00 00:00:00 non-user [facility] Alcohol intake 2022-07-12 2022-07-12 Current University of 00:00:00 00:00:00 non-drinker of [facility] alcohol (finding) [place] Tobacco Comment 2022-07-12 2022-07-12 Quit smoking in [facility] of 00:00:00 00:00:November, [facility] smoked 1- 1.5 PPD Branch X 30 years Sex Assigned At [birth year] Universit y of 00:00:00 00:00:00 [facility] Smoking Status Start Date Stop Date Source Smokes tobacco daily 2022-07-12 00:00:00 [facility] Former smoker 2016-01-12 00:00:00 2016-01-12 00:00:00 [facility] Medications Ordered Filled Start Stop Current Ordering [...] ity of e-pf 12:54: 13:55 on Sun [place] (SENSORCAIN 00 :11 07/17/22 Medi haritha E [...] mouth ity of mg Tab 08:55: daily. [address] oxybutynin 2021-10 Yes 5mg Take 5 mg Un arely chloride 5 0-17 by mouth ity o f mg tablet 08:55: in the [place] [address] morning Medical and 5 mg Branch in the evening. ibuprofen 2021-10 Yes 800mg Take 800 Uni vers 800 mg 0-17 mg by ity of tablet 08:55: mouth in [place] [address] the Medical morning Branch and 800 mg in the evening. Take with meals. donepeziL 2021-10 Yes 10mg Take 10 mg Un arely 10 mg 0-17 by mouth ity of tablet 08:55: in the [place] [address] morning Medical and 10 mg Branch in the evening. amitriptyli 2021-10 Yes 25mg Take 25 mg Univers ne 25 mg 0-17 by mouth ity of tablet 08:55: as needed. [place] [address] 1 or 2 as Medical needed at Branch bedtime aspirin 81 2021-10 Yes 81mg Take 81 mg U nivers mg EC 0-17 by mouth ity of tablet 08:55: in the [place] [address] morning. Medical Branch ARIPiprazol 2021-10 Yes 5mg Take 5 mg U nivers e 5 mg 0-17 by mouth ity of tablet 08:55: in the [place] 52 morning. Medical Branch clonazePAM 2021-10 Yes 1mg Take 1 mg Un arely (KLONOPIN) 0-17 by mouth 3 ity of 1 mg tablet 08:55: (three) [place] 52 times Medical daily as Branch needed. As nee DULoxetine 2021-10 Yes 120mg Take 120 Un arely (CYMBALTA) 0-17 mg by ity of 60 mg 08:55: mouth in [place] capsule 52 the Medical morning. Branch HYDROmorpho 2021-10 Yes 8mg Take 8 mg U nivers ne 0-17 by mouth 4 ity of (DILAUDID) 08:55: (four) [place] 8 mg tablet 52 times Medical daily. Branch levomefolat 2021-10 Yes 1{capsu Take 1 Cap Univers e-algal oil 0-17 le} by mouth ity of (DEPLIN, 08:55: daily. [place] ALGAL OIL,) 52 Medical 15.314 Branch mg [...] o f mg tablet 08:55: in the [place] [address] morning Medical and 5 mg Branch in the evening. ibuprofen 2021-10 Yes 800mg Take 800 Uni vers 800 mg 0-17 mg by ity of tablet 08:55: mouth in [place] [address] the Medical morning Branch and 800 mg in the evening. Take with meals. donepeziL 2021-10 Yes 10mg Take 10 mg Un arely 10 mg 0-17 by mouth ity of tablet 08:55: in the [place] [address] morning Medical and 10 mg Branch in the evening. amitriptyli 2021-10 Yes 25mg Take 25 mg Univers ne 25 mg 0-17 by mouth ity of tablet 08:55: as needed. [place] [address] 1 or 2 as Medical needed at Branch bedtime aspirin 81 2021-10 Yes 81mg Take 81 mg U nivers mg EC 0-17 by mouth ity of tablet 08:55: in the [place] [address] morning. Medical Branch ARIPiprazol 2021-10 Yes 5mg Take 5 mg U nivers e 5 mg 0-17 by mouth ity of tablet 08:55: in the [place] [address] morning. Medical Branch clonazePAM 2021-10 Yes 1mg Take 1 mg Un arely (KLONOPIN) 0-17 by mouth 3 ity of 1 mg tablet 08:55: (three) [place] 52 times Medical daily as Branch needed. As nee DULoxetine 2021-10 Yes 120mg Take 120 Un arely (CYMBALTA) 0-17 mg by ity of 60 mg 08:55: mouth in [place] [address] the Medical morning. Branch HYDROmorpho 2021-10 Yes 8mg Take 8 mg U nivers ne 0-17 by mouth 4 ity of (DILAUDID) 08:55: (four) [place] 8 mg tablet 52 times Medical daily. Branch levomefolat 2021-10 Yes 1{capsu Take 1 Cap Univers e-algal oil 0-17 le} by mouth ity of (DEPLIN, 08:55: daily. [place] ALGAL OIL,) Medical 15-90.314 Branch mg Cap [...] it y of mg tablet 08:55: (two) [place] [address] times Medical daily. Branch meloxicam 2021-10 Yes 7.5mg Take 7.5 Uni vers (MOBIC) 7.5 0-17 mg by ity of mg tablet 08:55: mouth [place] [address] daily. Medical Branch Doxepin 2021-10 Yes 6mg Take 6 mg Unive rs (SILENOR) 6 0-17 by mouth ity of mg Tab 08:55: daily. [place] [address] Medical Branch oxybutynin 2021-10 Yes 5mg Take 5 mg Un arely chloride 5 0-17 by mouth ity o f mg tablet 08:55: in the [place] [address] morning Medical and 5 mg Branch in the evening. ibuprofen 2021-10 Yes 800mg Take 800 Uni vers 800 mg 0-17 mg by ity of tablet 08:55: mouth in [place] [address] the Medical morning Branch and 800 mg in the evening. Take with meals. donepeziL 2021-10 Yes 10mg Take 10 mg Un arely 10 mg 0-17 by mouth ity of tablet 08:55: in the [place] [address] morning Medical and 10 mg Branch in the evening. amitriptyli 2021-10 Yes 25mg Take 25 mg Univers ne 25 mg 0-17 by mouth ity of tablet 08:55: as needed. [place] [address] 1 or 2 as Medical needed at Branch bedtime aspirin 81 2021-10 Yes 81mg Take 81 mg U nivers mg EC 0-17 by mouth ity of tablet 08:55: in the [place] [address] morning. Medical Branch ARIPiprazol 2021-10 Yes 5mg Take 5 mg U nivers e 5 mg 0-17 by mouth ity of tablet 08:55: in the [place] [address] morning. Medical Branch clonazePAM 2021-10 Yes 1mg [...] mouth ity of mg Tab 18:29: daily. [place] [facility] VENLAFAXINE 2004- Yes 1 Cap Oral Univers 75 MG ORAL 2-14 QAM WITH ity o f CP24 00:00: BREAKFAST [place] [facility] QUETIAPINE 2004- Yes 1 tab po Uni vers 300 MG ORAL 2-14 qhs ity of TAB 00:00: [place] [facility] VENLAFAXINE 2004- Yes 1 Cap Oral Univers 75 MG ORAL 2-14 QAM WITH ity o f CP24 00:00: BREAKFAST [place] [facility] QUETIAPINE 2004- Yes 1 tab po Uni vers 300 MG ORAL 2-14 qhs ity of TAB 00:00: [place] [facility] VENLAFAXINE 2004- Yes 1 Cap Oral Univers 75 MG ORAL 2-14 QAM WITH ity o f CP24 00:00: BREAKFAST [place] [facility] QUETIAPINE 2004- Yes 1 tab po Uni vers 300 MG ORAL 2-14 qhs ity of TAB 00:00: [place] 00 Medical Branch Vital Signs Vital Name Observation Time Observation Value Comments Source Heart rate 2022-07-17 13:30:00 76 /min Universi ty of [facility] Respiratory rate 2022-07-17 13:30:00 20 /min Univ ersity of [facility] Oxygen saturation in 2022-07-17 13:30:00 93 /min University of Arterial blood by [facility] Pulse oximetry Branch Systolic blood 2022-07-17 13:30:00 127 mm[Hg] Univer sity of pressure [facility] Diastolic blood 2022-07-17 13:30:00 62 mm[Hg] Unive rsity of pressure [facility] Body temperature 2022-07-17 13:10:00 36.78 Monica Univ ersity of [facility] Body height 2022-07-04 16:26:00 154.9 cm Universi ty of [facility] Body weight 2022-07-04 16:26:00 78 kg Universi ty of [facility] BMI 2022-07-04 16:26:00 32.51 kg/m2 Universi ty of [facility] Systolic blood 2022-07-17 13:30:00 127 mm[Hg] Univer sity of pressure [facility] Branch Diastolic blood 2022-07-17 13:30:00 62 mm[Hg] Unive rsity of [facility] Heart rate 2022-07-17 13:30:00 76 /min Universi ty of [facility] Respiratory rate 2022-07-17 13:30:00 20 /min Univ ersity of [facility] Oxygen saturation in 2022-07-17 13:30:00 93 /min University of Arterial blood by [facility] Pulse oximetry Branch Body temperature 2022-07-17 13:10:00 36.78 [place] Univ ersity of [facility] Body height 2022-07-04 16:26:00 154.9 cm Universi ty of [place] [facility] Body weight 2022-07-04 16:26:00 78 kg Universi ty of [facility] Branch BMI 2022-07-04 16:26:00 32.51 kg/m2 Universi ty of [facility] Procedures Procedure Date / Time Performing Clinician Source Performed INTRATHECAL INFUSION 2022-07-17 12:09:00 Justin Hobbs [facility] ersity of [place] PUMP REVISION Medical [place] DAY SURGERY - ADC 2022-07-17 05:01:00 Doctor Unassigned, No Univ ersity of [place] Name Medical Branch EXTERNAL PROVIDER 2022-06-21 05:01:00 Doctor Unassigned, No Univ ersity of [place] RECORDS Name Medical Branch EXTERNAL PROVIDER 2022-06-21 05:01:00 Doctor Unassigned, No Univ ersity of [place] RECORDS Name [facility] XR ANKLE 3+ VW RIGHT 2021-03-02 17:25:47 Iveth Ramirez iversity of [facility] Encounters Start End Encounter Admission Attending Care Care Encounter Source Date/Time Date/Time Type Type Clinicians Facility Department ID 2022-07-17 2022-07-17 [facility] [id number] Univers 06:33:00 08:54:00 Encounter Justin DE [place] [id number] [facility] [id number] [id number] 071 [place] 2022-07-17 2022-07-17 [facility] [id number] Univers 06:33:00 08:54:00 JUSTIN ity of [facility] 2022-07-17 2022-07-17 Surgery [facility] [id number] Univers 07:15:00 08:52:00 Justinnori ELLINGTONCALEB [id number] [facility] [id number] [id number] [facility] 020 Branch 2022-07-17 2022-07-17 Orders Doctor LUNDBERG [id number] Univers 00:00:00 00:00:00 Only Unassigned, HARDY [id number] ity of [facility] [id number] Daniele as [id number] [place] [address] Branch 2022-07-14 2022-07-14 [facility] [id number] Univers 08:15:00 08:15:00 JUSTIN ity of [facility] 2021-03-02 2021-03-02 Hospital Radiology [facility] [id number] Univers 12:13:44 23:59:00 Encounter Nate [id number] ity [place] [id number] [facility] [id number] [facility] 807 Branch 2021-03-02 2021-03-02 Outpatient R RADIOLOGY [facility] [id number] Univers 00:00:00 00:00:00 ity [facility] Results Test Description Test Time Test Comments Results Result Comments Source HEMOGLOBIN A1c 2021-12-28 06:29:45 Test Item Value Reference Range Interpretation Comme nts HEMOGLOBIN A1c (test code = 6.7 % 4.2-5.6 H [employer] 93357) GUIDELINES FOR HGB A1C: PREDIABETES/INC REASED RISK [...] UNLESS OTHERWISE INDIC ATED, ALL TESTING PERFORMED [facility], [address] DIRECTOR: JACKELINE ANTOINE M.D. CLIA NUMBER [id number] [facility] [place]. [id number] BASIC METABOLIC [id number] 06:15:06 Test Item Value Reference Range Interpretation Comments GLUCOSE (test code 126 MG/DL 70-99 H = 2216) BUN (test code = 9 MG/DL 8-23 2207) CREATININE (test 0.69 MG/DL 0.60-1.30 code = 2214) eGFR (2020 CKD-EPI) 93 ML/MIN/1.73 >60 (test code = 88955) SODIUM (test code = 140 MEQ/L 719-306 0280) POTASSIUM (test 3.8 MEQ/L 3.5-5.4 code = 2228) CHLORIDE (test code 101 MEQ/L 95-107 = 2215) CARBON DIOXIDE 23 MEQ/L 19-31 (test code = 2206) CALCIUM (test code 9.2 MG/DL 8.5-10.5 UNLESS O THERWISE = 2209) INDICATED, ALL TESTING PERFORM ED ATCLINICAL PATH [facility], [facility]. [address] [place] [address] [facility] DIRECTOR: Juan J REYESIA NUMBER [id number] CAP ACCREDITATION N O. [id number] XR ANKLE 3+ VW [id number] 17:28:50HISTORY: ?Pain. FINDINGS: AP, lateral, oblique views of right ankle showed slightlyseparated fracture at the base of the fifth metatarsal bone. No significantankle joint effusion. Soft tissue swelling noted along the lateral aspectof ankle. Metallic hardware is seen supporting calcaneum. No hardwarerelated complication seen. Mild subtalar degenerative arthritis andarthritis of the talonavicular jointnoted. CONCLUSIONS: Fracture at the base of right fifth metatarsal bone. [facility], Radiant Results Inft User - 03/02/2021 [...] at the base of right fifth metatarsal bone.[facility]
[2023-02-25] MEDS ORDERED: MORPHINE 4 MG/ML SYR ONE (13:48)
[2023-02-25 13:59] LABS: Absolute Lymphocytes (CBC) 1.4 K/uL (0.7-4.9); Hematocrit 34.4 % (36.0-45.0); Lymphocytes % 14.2 % (15.3-44.8); MCV 84.5 fL (80-100); RBC Red Blood Cell Count 4.08 M/uL (3.86-4.86)
[2023-02-25 14:03] LABS: Protime INR 1.12
--- NOTE | 2023-02-25 14:04 | RAD REPORT ---
EXAM DESCRIPTION: RAD - Pelvis - 02/25/2023 1:49 pm CLINICAL HISTORY: hip pain COMPARISON: Pelvis dated 02/24/2023; Hip Right 2 View dated 02/24/2023 FINDINGS/IMPRESSION: Dislocated right hip arthroplasty. The arthroplasty is dislocated superiorly an d laterally. No fractures seen. Fusion hardware in the lower lumbar spine. Epidural pain pump.
--- NOTE | 2023-02-25 14:04 | RAD REPORT ---
EXAM DESCRIPTION: RAD - Hip Right 2 View - 02/25/2023 1:49 pm CLINICAL HISTORY: PAIN COMPARISON: Hip Right 2 View dated 02/24/2023; Hip Right 2 View dated 02/24/2023 FINDINGS/IMPRESSION: The right hip arthroplasty is dislocated superiorly and laterally. No fracture.
[2023-02-25] MEDS ORDERED: FENTANYL CITR 100 MCG/2 ML ONE (15:37)
[2023-02-25] MEDS ORDERED: MIDAZOLAM HCL 2 MG/2 ML INJ ONE (15:37)
[2023-02-25] MEDS ORDERED: ETOMIDATE 20 MG/10 ML VIAL IV ONE (15:37)
[2023-02-25] MEDS ORDERED: ONDANSETRON 4 MG/2 ML VIAL ONE (15:37)
[2023-02-25] MEDS ORDERED: NA CHLORIDE 0.9% 500 ML ONE (15:38)
[2023-02-25 16:06] LABS: Potassium 4.3 mEq/L (3.5-5.1)
--- NOTE | 2023-02-25 16:33 | RAD REPORT ---
EXAM DESCRIPTION: RAD - Hip Right 2 View - 02/25/2023 4:22 pm CLINICAL HISTORY: post reduction COMPARISON: Hip Right 2 View dated 02/25/2023; Hip Right 2 View dated 02/24/2023 FINDINGS/IMPRESSION: Relocated right hip arthroplasty. No fracture.
--- NOTE | 2023-02-25 17:37 | ER ---
Nurse's Notes [facility] Name: Suzi Vee Age: 72 yrs Sex: Female : 1950 Arrival Date: 02/25/2023 Time: 13:12 Bed 8 Private MD: Diagnosis: Posterior dislocation of right hip, initial encounter Presentation: 02/25 13:20 Chief complaint: EMS states: Seen in ED yesterday for right hip dislocation, reports hb increased pain upon waking today. Denies new injury. Right leg shortened and internally rotated. Coronavirus screen: At this time, the client does not indicate any symptoms associated with coronavirus-19. Ebola Screen: No symptoms or risks identified at this time. Initial Sepsis Screen: Does the patient meet any 2 criteria? No. Patient's initial sepsis screen is negative. Does the patient have a suspected source of infection? No. Patient's initial sepsis screen is negative. Risk Assessment: Do you want to hurt yourself or someone else? Patient reports no desire to harm self or others. Onset of symptoms was February 25, 2023. 13:20 Method Of Arrival: EMS: [facility] hb 13:20 Acuity: NIEVES 3 hb Historical: - Allergies: 13:24 No Known Allergies; hb - PMHx: 13:24 Chronic Lumbar Pain; Depression; Weak Bladder; hb - PSHx: 13:24 Total Knee Replacement - Right; Back; Appendectomy; Cholecystectomy; Hysterectomy; hb - Immunization history:: Adult Immunizations up to date. - Social history:: Smoking status: Patient denies any tobacco usage or history of. Screenin:46 [facility] ED Fall Risk Assessment (Adult) History of falling in the last 3 months, ko1 including since admission Yes- single mechanical fall (1 pt) Confusion or Disorientation No (0 pts) Intoxicated or Sedated No (0 pts) Impaired Gait Yes (1 pt) Mobility Assist Device Used Yes (1 pt) Altered Elimination No (0 pt) Score/Fall Risk Level 0 - 2 = Low Risk Oriented to surroundings, Maintained a safe environment, Educated pt \T\ family on fall prevention, incl call for assistance when getting out of bed, Assessed \T\ reinforced patient's understanding of fall precautions, Provided non-skid footwear, Hourly rounding (assess needs \T\ fall precautionary measures) done, Used ambulatory aids as needed (educated on \T\ assisted with), Used gait belt as appropriate. Abuse screen: Denies threats or abuse. Denies injuries from another. Nutritional screening: No deficits noted. Tuberculosis screening: No symptoms or risk factors identified. Assessment: 13:47 General: Appears in no apparent distress. uncomfortable, Behavior is calm, cooperative, ko1 appropriate for age. Pain: Complains of pain in hip. Neuro: No deficits noted. Cardiovascular: No deficits noted. Respiratory: No deficits noted. GI: No deficits noted. : No deficits noted. EENT: No deficits noted. Derm: No deficits noted. Musculoskeletal: right leg rotated and shortened. 16:00 Reassessment: PT CONSENTED FOR CLOSED REDUCTION OF RIGHT HIP WITH CONSCIOUS SEDATION, bp PLACED ON FULL MONITORING WITH 2LNC. 16:57 Reassessment: PT RETURNED TO BASELINE MENTATION, XRAY CONFIRMS REDUCTION OF R HIP PER bp MD. Vital Signs: 13:20 BP 137 / 63; Pulse 65; Resp 16; Temp 98.4(O); Pulse Ox 98% on R/A; Weight 58.06 kg; hb Height 5 ft. 0 in. ; Pain 8/10; 13:46 BP 142 / 53; Pulse 66; Resp 18; Pulse Ox 98% ; ko1 16:00 BP 128 / 63; Pulse 61; Resp 15; Pulse Ox 100% ; bp 17:00 BP 134 / 49; Pulse 60; Resp 18; Pulse Ox 100% ; ko1 13:20 Body Mass Index 25.00 (58.06 kg, 152.4 cm) hb 13:20 Pain Scale: Adult hb ED Course: 13:13 Patient arrived in ED. eb 13:18 Александр Jimenez PA is PHCP. cp 13:18 Александр Grimes MD is Attending Physician. cp 13:21 Adolph Kelly, RN is Primary Nurse. bp 13:24 Triage completed. hb 13:46 Patient has correct armband on for positive identification. Bed in low position. Call ko1 light in reach. Side rails up X 1. Pulse ox on. NIBP on. Door closed. Noise minimized. Warm blanket given. Head of bed elevated. 13:50 Inserted saline lock: 22 gauge in right forearm, using aseptic technique. Blood bp collected. 13:51 XRAY Hip RIGHT 2 view In Process Unspecified. EDMS 13:51 XRAY Pelvis In Process Unspecified. EDMS 16:24 XRAY Hip RIGHT 2 view In Process Unspecified. EDMS 17:34 Oscar Harrison MD is Referral Physician. cp 17:44 IV discontinued, intact, bleeding controlled, No redness/swelling at site. Pressure ko1 dressing applied. Administered Medications: 13:50 Drug: morphine IVP or IV 4 mg Route: IVP; Infused Over: 4 mins; Site: right forearm; bp 16:53 Follow up: Response: No adverse reaction bp 15:48 Drug: NS 0.9% IV 500 ml Route: IV; Rate: 75 ml/hr; Site: right forearm; ko1 15:49 Drug: Ondansetron IVP 4 mg Route: IVP; Site: right forearm; ko1 16:53 Follow up: Response: No adverse reaction bp 15:50 Drug: Midazolam IVP or IV 2 mg Route: IVP; Site: right antecubital; bp 16:50 Follow up: Response: No adverse reaction bp 16:00 Drug: Midazolam IVP or IV 2 mg Route: IVP; Site: right antecubital; bp 16:50 Follow up: Response: No adverse reaction bp 16:00 Drug: Etomidate IVP 10 mg Route: IVP; Site: right antecubital; bp 16:50 Follow up: Response: No adverse reaction bp 16:30 Not Given (Physician Discretion): fentaNYL (PF) IVP 25 mcg IVP once bp 16:31 Not Given (Physician Discretion): Etomidate IVP 10 mg IVP once bp Medication: 13:46 VIS not applicable for this client. ko1 Outcome: 17:36 Discharge ordered by . cp 18:38 Patient left the ED. hb Signatures: Dispatcher [employer] EDMS Александр Jimenez PA PA cp Baxter, Heather RN RN Adolph Olmedo, RN RN Sri Funes Kathy, RN RN ko1
--- NOTE | 2023-02-25 17:37 | EDPHYS ---
Physician Documentation [facility] Name: Suzi Vee Age: 72 yrs Sex: Female : 1950 Arrival Date: 02/25/2023 Time: 13:12 Bed 8 Private MD: ED Physician Александр Grimes HPI: 02/25 13:40 This 72 yrs old Female presents to ER via EMS with complaints of Hip Injury. cp 13:40 The patient or guardian reports decreased range of motion, deformity, pain. sustained cp from unknown reason, The patient is not able to ambulate. Patient is not able to bear weight. Patient reports she awoke today with pain to right hip and attempted to ambulate with use of walker to restroom. The complaints affect the right hip. Historical: - Allergies: 13:24 No Known Allergies; hb - PMHx: 13:24 Chronic Lumbar Pain; Depression; Weak Bladder; hb - PSHx: 13:24 Total Knee Replacement - Right; Back; Appendectomy; Cholecystectomy; Hysterectomy; hb - Immunization history:: Adult Immunizations up to date. - Social history:: Smoking status: Patient denies any tobacco usage or history of. ROS: 13:45 MS/extremity: Positive for decreased range of motion, deformity, pain, of the right hip.cp 13:45 Abdomen/GI: Negative for abdominal pain, vomiting, diarrhea, constipation. cp Exam: 13:50 Constitutional: The patient appears in no acute distress, alert, awake, non-toxic, well cp developed, well nourished, uncomfortable. 13:50 Head/Face: Normocephalic, atraumatic. cp 13:50 Eyes: Periorbital structures: appear normal, Conjunctiva: normal, no exudate, no injection, Sclera: no appreciated abnormality, Lids and lashes: appear normal, bilaterally. 13:50 ENT: External ear(s): are unremarkable, Nose: is normal, Mouth: Lips: moist, Oral mucosa: moist, Posterior pharynx: is normal, airway is patent, no erythema, no exudate. 13:50 Neck: ROM/movement: is normal, is supple, without pain, no range of motions limitations. 13:50 Chest/axilla: Inspection: normal, Palpation: is normal, no crepitus, no tenderness. 13:50 Cardiovascular: Rate: normal, Rhythm: regular, Edema: is not appreciated, JVD: is not appreciated. 13:50 Respiratory: the patient does not display signs of respiratory distress, Respirations: normal, no use of accessory muscles, no retractions, labored breathing, is not present, Breath sounds: are clear throughout, no decreased breath sounds, no stridor, no wheezing. 13:50 Abdomen/GI: Inspection: abdomen appears normal, Bowel sounds: active, all quadrants, Palpation: abdomen is soft and non-tender, in all quadrants. 13:50 Back: pain, is absent, ROM is normal. 13:50 Musculoskeletal/extremity: Extremities: grossly normal except: noted in the right hip: decreased ROM, deformity, pain, tenderness, ROM: limited active range of motion, in the right hip, Pulses: noted to be 2+ in the right dorsalis pedis artery. 13:50 Neuro: Orientation: to person, place \T\ time. Mentation: is normal. Vital Signs: 13:20 BP 137 / 63; Pulse 65; Resp 16; Temp 98.4(O); Pulse Ox 98% on R/A; Weight 58.06 kg; hb Height 5 ft. 0 in. ; Pain 8/10; 13:46 BP 142 / 53; Pulse 66; Resp 18; Pulse Ox 98% ; ko1 16:00 BP 128 / 63; Pulse 61; Resp 15; Pulse Ox 100% ; bp 17:00 BP 134 / 49; Pulse 60; Resp 18; Pulse Ox 100% ; ko1 13:20 Body Mass Index 25.00 (58.06 kg, 152.4 cm) hb 13:20 Pain Scale: Adult hb Procedures: 17:35 Reduction: of the right hip, using traction, Patient tolerated well. Post reduction cp film - reveals improved alignment. 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 MDM: 13:19 Patient medically screened. phong 14:07 Independent interpretation of the following test(s) in the Emergency Department X-Ray: cp My interpretation is xrays right hip show superior and lateral dislocation. 14:10 ED course: consult with DR Harrison who will not be available to assist with cp relocation. 15:00 Differential diagnosis: femoral shaft fracture, fractured hardware, pelvic fracture. cp 17:35 Data reviewed: vital signs, nurses notes, radiologic studies, plain films. 17:35 Consideration of Admission/Observation Escalation of care including cp admission/observation considered. 17:35 I considered the following discharge prescriptions or medication management in the emergency department Medications were administered in the Emergency Department. See MAR. Counseling: I had a detailed discussion with the patient and/or guardian regarding: the historical points, exam findings, and any diagnostic results supporting the discharge/admit diagnosis, radiology results, the need for outpatient follow up, a orthopedic surgeon, to return to the emergency department if symptoms worsen or persist or if there are any questions or concerns that arise at home. Response to treatment: the patient's symptoms have resolved after treatment, right hip reduced. 02/25 13:25 Order name: CBC with Diff; Complete Time: 14:20 cp 02/25 14:21 Interpretation: Normal except: HGB 11.4; HCT 34.4; PLT 447; MPV 7.0; KARENA% 74.3; LYM% cp 14.2. 02/25 13:25 Order name: BMP; Complete Time: 16:20 cp 02/25 16:20 Interpretation: Normal except: GLUC 107. cp 02/25 13:25 Order name: PT-INR; Complete Time: 14:20 cp 02/25 13:25 Order name: XRAY Hip RIGHT 2 view; Complete Time: 14:20 cp 02/25 13:25 Order name: XRAY Pelvis; Complete Time: 14:20 cp 02/25 16:10 Order name: XRAY Hip RIGHT 2 view; Complete Time: 16:36 cp 02/25 13:25 Order name: IV; Complete Time: 13:52 cp 02/25 14:15 Order name: Labs - recollect needed: recollect chemistries; Complete Time: 15:23 eb 02/25 16:40 Order name: Jeanmarie Wrap: pelvis; Complete Time: 17:36 cp Administered Medications: 13:50 Drug: morphine IVP or IV 4 mg Route: IVP; Infused Over: 4 mins; Site: right forearm; bp 16:53 Follow up: Response: No adverse reaction bp 15:48 Drug: NS 0.9% IV 500 ml Route: IV; Rate: 75 ml/hr; Site: right forearm; ko1 15:49 Drug: Ondansetron IVP 4 mg Route: IVP; Site: right forearm; ko1 16:53 Follow up: Response: No adverse reaction bp 15:50 Drug: Midazolam IVP or IV 2 mg Route: IVP; Site: right antecubital; bp 16:50 Follow up: Response: No adverse reaction bp 16:00 Drug: Midazolam IVP or IV 2 mg Route: IVP; Site: right antecubital; bp 16:50 Follow up: Response: No adverse reaction bp 16:00 Drug: Etomidate IVP 10 mg Route: IVP; Site: right antecubital; bp 16:50 Follow up: Response: No adverse reaction bp 16:30 Not Given (Physician Discretion): fentaNYL (PF) IVP 25 mcg IVP once bp 16:31 Not Given (Physician Discretion): Etomidate IVP 10 mg IVP once bp Disposition Summary: 02/25/23 17:36 Discharge Ordered Location: Home cp Problem: new cp Symptoms: have improved cp Condition: Stable cp Diagnosis - Posterior dislocation of right hip, initial encounter cp Followup: cp - With: Oscar Harrison MD - When: 2 - 3 days - Reason: Recheck today's complaints Discharge Instructions: - Discharge Summary Sheet cp - Hip Dislocation cp Forms: - Medication Reconciliation Form cp - Thank You Letter cp - Antibiotic Education cp - Prescription Opioid Use cp Signatures: Dispatcher [employer] EDMS Александр Grimes MD MD cha Page, Corey, PA PA cp Sheila Garcia RN RN hb Peltier, Brian, RN RN Sri Funes Kathy, RN RN ko1 Corrections: (The following items were deleted from the chart) 16:40 16:36 Jeanmarie wrap-joint ordered. cp cp 17:37 14:07 Independent interpretation of the following test(s) in the Emergency Department cp X-Ray: My interpretation is xrays right hip show superior and inferior dislocation. cp
[2023-02-25 19:13] VITALS: TEMP 98.4
[2023-02-25 19:29] VITALS: O2SAT 100
[2023-02-25 19:31] VITALS: BP 134/49
== END 2023-02-25 18:38 | disposition home or self-care (01) ==
LOC: ER 13:12
PROC: 0SS9XZZ Reposition Right Hip Joint, External Approach (ICD-10-PCS; principal; 2023-02-25)
DX: S73.014A Posterior dislocation of right hip, initial encounter (principal); Z96.651 Presence of right artificial knee joint
CPT/HCPCS: 85025; 80048; 36415; 85610; 72170; 73502 ×2; 99284; 27252; J2250; J3010; J2405; J7040

== ENCOUNTER 2023-02-28 08:45 | Emergency (ER) | payer OTHER ==
--- OUTSIDE RECORDS SUMMARY | 2023-02-28 09:20 | XMS REPORT | Continuity of Care Document ---
:[address] [facility] t Address [address] [place] [id number] Care Team Providers Name Role Phone KATHERINE NAPIER Primary Care Physician Unavailable Justin Hobbs MD Attending Clinician JUSTIN HOBBS Attending Clinician Unavailable Doctor Unassigned, [place] Attending Clinician Unavailable Radiology Attending Clinician Unavailable [...] [place] [facility] MDD MDD Disease Active 2004-10 Univers 2-14 ity of 00:00: [address] Chronic Chronic Disease Active 2004-10 Univers depressive depressive 2-09 it y of [place]it [place] y disorder 00 N[place] dical Branch Allergies, Adverse Reactions, Alerts Allergy Allergy Status Severity Reaction(s) Onset Inactive Treating Comm ents Source Name Type Date Date Clinician NO KNOWN Drug Active Univers ALLERGIE Class ity of [facility] Social History Social Habit Start Date Stop Date Quantity Comments Source History of Cigarette Smoker Universi ty of tobacco use [facility] Exposure to 2022-07-02 2022-07-12 Not sure University SARS-CoV-2 00:00:00 16:31:00 [place] [facility] (event) Branch Tobacco use and 2022-07-12 2022-07-12 Smokeless tobacco Un iversity of exposure 00:00:00 00:00:00 non-user [facility] Alcohol intake 2022-07-12 2022-07-12 Current University of 00:00:00 00:00:00 non-drinker of [facility] alcohol (finding) [place] Tobacco Comment 2022-07-12 2022-07-12 Quit smoking in [facility] of 00:00:00 00:00:November, [facility] smoked 1- 1.5 PPD Branch X 30 years Sex Assigned At [birth year] Universit y of 00:00:00 00:00:00 [facility] Smoking Status Start Date Stop Date Source Smokes tobacco daily 2022-07-12 00:00:00 [facility] Former smoker 2016-01-12 00:00:00 2016-01-12 00:00:00 [facility] Medications Ordered Filled Start Stop [...] mouth ity of mg Tab 08:55: daily. [address] oxybutynin 2021-10 Yes 5mg Take 5 mg Un arely chloride 5 0-17 by mouth ity o f mg tablet 08:55: in the [place] [address] morning Medical and 5 mg Branch in the evening. ibuprofen 2021-10 Yes 800mg Take 800 Uni vers 800 mg 0-17 mg by ity of tablet 08:55: mouth in [place] [address] the Medical morning Branch and 800 mg in the evening. Take with meals. donepeziL 2021-10 Yes 10mg Take 10 mg Un arely 10 mg 0-17 by mouth ity of tablet 08:55: in the [place] [address] morning Medical and 10 mg Branch in the evening. amitriptyli 2021-10 Yes 25mg Take 25 mg Univers ne 25 mg 0-17 by mouth ity of tablet 08:55: as needed. [place] [address] 1 or 2 as Medical needed at Branch bedtime aspirin 81 2021-10 Yes 81mg Take 81 mg U nivers mg EC 0-17 by mouth ity of tablet 08:55: in the [place] [address] morning. Medical Branch ARIPiprazol 2021-10 Yes 5mg [...] o f mg tablet 08:55: in the [place] [address] morning Medical and 5 mg Branch in the evening. ibuprofen 2021-10 Yes 800mg Take 800 Uni vers 800 mg 0-17 mg by ity of tablet 08:55: mouth in [place] [address] the Medical morning Branch and 800 mg in the evening. Take with meals. donepeziL 2021-10 Yes 10mg Take 10 mg Un arely 10 mg 0-17 by mouth ity of tablet 08:55: in the [place] [address] morning Medical and 10 mg Branch in the evening. amitriptyli 2021-10 Yes 25mg Take 25 mg Univers ne 25 mg 0-17 by mouth ity of tablet 08:55: as needed. [place] [address] 1 or 2 as Medical needed at Branch bedtime aspirin 81 2021-10 Yes 81mg Take 81 mg U nivers mg EC 0-17 by mouth ity of tablet 08:55: in the [place] [address] morning. Medical Branch ARIPiprazol 2021-10 Yes 5mg Take 5 mg U nivers e 5 mg 0-17 by mouth ity of tablet 08:55: in the [place] [address] morning. Medical Branch clonazePAM 2021-10 Yes 1mg Take 1 mg Un arely (KLONOPIN) 0-17 by mouth 3 ity of 1 mg tablet 08:55: (three) Daniele as 52 times Medical daily as Branch needed. As nee DULoxetine 2021-10 Yes 120mg Take 120 Un arely (CYMBALTA) 0-17 mg by ity of 60 mg 08:55: mouth in [place] [address] the Medical morning. Branch HYDROmorpho 2021-10 Yes [...] it y of mg tablet 08:55: (two) [place] [address] times Medical daily. Branch meloxicam 2021-10 Yes 7.5mg Take 7.5 Uni vers (MOBIC) 7.5 0-17 mg by ity of mg tablet 08:55: mouth [place] [address] daily. Medical Branch Doxepin 2021-10 Yes 6mg Take 6 mg Unive rs (SILENOR) 6 0-17 by mouth ity of mg Tab 08:55: daily. [place] [address] Medical Branch oxybutynin 2021-10 Yes 5mg Take 5 mg Un arely chloride 5 0-17 by mouth ity o f mg tablet 08:55: in the [place] [address] morning Medical and 5 mg Branch in the evening. ibuprofen 2021-10 Yes 800mg Take 800 Uni vers 800 mg 0-17 mg by ity of tablet 08:55: mouth in [place] [address] the Medical morning Branch and 800 mg in the evening. Take with meals. donepeziL 2021-10 Yes 10mg Take 10 mg Un arely 10 mg 0-17 by mouth ity of tablet 08:55: in the [place] [address] morning Medical and 10 mg Branch in the evening. amitriptyli 2021-10 Yes 25mg Take 25 mg Univers ne 25 mg 0-17 by mouth ity of tablet 08:55: as needed. [place] [address] 1 or 2 as Medical needed at Branch bedtime aspirin 81 2021-10 Yes 81mg Take 81 mg U nivers mg EC 0-17 by mouth ity of tablet 08:55: in the [place] [address] morning. Medical Branch ARIPiprazol 2021-10 Yes 5mg Take 5 mg U nivers e 5 mg 0-17 by mouth ity of tablet 08:55: in the [place] [address] morning. Medical Branch clonazePAM 2021-10 Yes 1mg [...] 2022-07-17 13:30:00 76 /min Universi ty of [facility] Respiratory rate 2022-07-17 13:30:00 20 /min Univ ersity of [facility] Oxygen saturation in 2022-07-17 13:30:00 93 /min University of Arterial blood by [facility] Pulse oximetry Branch Systolic blood 2022-07-17 13:30:00 127 mm[Hg] Univer sity of pressure [facility] Diastolic blood 2022-07-17 13:30:00 62 mm[Hg] Unive rsity of pressure [facility] Body temperature 2022-07-17 13:10:00 36.78 Monica Univ ersity of [facility] Body height 2022-07-04 16:26:00 154.9 cm Universi ty of [facility] Body weight 2022-07-04 16:26:00 78 kg Universi ty of [facility] BMI 2022-07-04 16:26:00 32.51 kg/m2 Universi ty of [facility] Systolic blood 2022-07-17 13:30:00 127 mm[Hg] Univer sity of pressure [facility] Branch Diastolic blood 2022-07-17 13:30:00 62 mm[Hg] Unive rsity of [facility] Heart rate 2022-07-17 13:30:00 76 /min Universi ty of [facility] Respiratory rate 2022-07-17 13:30:00 20 /min Univ ersity of [facility] Oxygen saturation in 2022-07-17 13:30:00 93 /min University of Arterial blood by [facility] Pulse oximetry Branch Body temperature 2022-07-17 13:10:00 36.78 [place] Univ ersity of [facility] Body height 2022-07-04 16:26:00 154.9 cm Universi ty of [place] [facility] Body weight 2022-07-04 16:26:00 78 kg Universi ty of [facility] Branch BMI 2022-07-04 16:26:00 32.51 kg/m2 Universi ty of [facility] Procedures Procedure Date / Time Performing Clinician Source Performed INTRATHECAL INFUSION 2022-07-17 12:09:00 Justin Hobbs [facility] ersity of [place] PUMP REVISION Medical [place] DAY SURGERY - ADC 2022-07-17 05:01:00 Doctor Unassigned, No Univ ersity of [place] Name Medical Branch EXTERNAL PROVIDER 2022-06-21 05:01:00 Doctor Unassigned, No Univ ersity of [place] RECORDS Name Medical Branch EXTERNAL PROVIDER 2022-06-21 05:01:00 Doctor Unassigned, No Univ ersity of [place] RECORDS Name [facility] XR ANKLE 3+ VW RIGHT 2021-03-02 17:25:47 Iveth Ramirez iversity of [facility] Encounters Start End Encounter Admission Attending Care Care Encounter Source Date/Time Date/Time Type Type Clinicians Facility Department ID 2022-07-17 2022-07-17 [facility] [id number] Univers 06:33:00 08:54:00 Encounter Justin DE [place] [id number] [facility]y [facility] [id number] [id number] [facility] 071 [place] 2022-07-17 2022-07-17 [facility] [id number] Univers 06:33:00 08:54:00 JUSTIN ity of [facility] 2022-07-17 2022-07-17 Surgery [facility] [id number] Univers 07:15:00 08:52:00 Justinnori ELLINGTONCALEB [id number] ity [facility] [id number] [id number] [facility] 020 Branch 2022-07-17 2022-07-17 Orders Doctor LUNDBERG [id number] Univers 00:00:00 00:00:00 Only Unassigned, HARDY [id number] ity of [place] [facility] [id number] Daniele as [id number] [place] [address] Branch 2022-07-14 2022-07-14 [facility] [id number] Univers 08:15:00 08:15:00 JUSTIN ity of [facility] 2021-03-02 2021-03-02 Hospital Radiology [facility] [id number] Univers 12:13:44 23:59:00 Encounter Nate [id number] ity [place] 4.2.7.2.686 [facility] [id number] [facility] 807 Branch 2021-03-02 2021-03-02 Outpatient R RADIOLOGY [facility] [id number] Univers 00:00:00 00:00:00 ity [facility] Results Test Description Test Time Test Comments Results Result Comments Source HEMOGLOBIN A1c 2021-12-28 06:29:45 Test Item Value Reference Range Interpretation Comme nts HEMOGLOBIN A1c (test code = 6.7 % 4.2-5.6 H [employer] 32102) GUIDELINES FOR HGB A1C: PREDIABETES/INC REASED RISK [...] UNLESS OTHERWISE INDIC ATED, ALL TESTING PERFORMED [facility], [address] DIRECTOR: JACKELINE ANTOINE M.D. CLIA NUMBER [id number] [place] [id number] BASIC METABOLIC [id number] 06:15:06 Test Item Value Reference Range Interpretation Comments GLUCOSE (test code 126 MG/DL 70-99 H = 2216) BUN (test code = 9 MG/DL 8-23 2207) CREATININE (test 0.69 MG/DL 0.60-1.30 code = 2214) eGFR (2020 CKD-EPI) 93 ML/MIN/1.73 >60 (test code = 74731) SODIUM (test code = 140 MEQ/L 778-492 8054) POTASSIUM (test 3.8 MEQ/L 3.5-5.4 code = 2228) CHLORIDE (test code 101 MEQ/L 95-107 = 2215) CARBON DIOXIDE 23 MEQ/L 19-31 (test code = 2206) CALCIUM (test code 9.2 MG/DL 8.5-10.5 UNLESS O THERWISE = 2209) INDICATED, ALL TESTING PERFORM ED ATCLINICAL PATH [facility] [address] [place] [address] [facility] DIRECTOR: Juan J REYESIA NUMBER [id number] CAP ACCREDITATION N O. [id number] XR ANKLE 3+ VW [id number] 17:28:50HISTORY: ?Pain. FINDINGS: AP, lateral, oblique views of right ankle showed slightlyseparated fracture at the base of the fifth metatarsal bone. No significantankle joint effusion. Soft tissue swelling noted along the lateral aspectof ankle. Metallic hardware is seen supporting calcaneum. No hardwarerelated complication seen. Mild subtalar degenerative arthritis andarthritis of the talonavicular jointnoted. CONCLUSIONS: Fracture at the base of right fifth metatarsal bone. [facility], Radiant Results Inft User - 03/02/2021 [...] at the base of right fifth metatarsal bone.[facility]
[2023-02-28] MEDS ORDERED: MORPHINE 4 MG/ML SYR ONE (09:23)
[2023-02-28] MEDS ORDERED: ONDANSETRON 4 MG/2 ML VIAL ONE (09:23)
[2023-02-28] MEDS ORDERED: propofoL 200 MG/20 ML VIAL IV ONE (09:24)
[2023-02-28] MEDS ORDERED: NA CHLORIDE 0.9% 500 ML ONE (09:24)
--- NOTE | 2023-02-28 10:02 | RAD REPORT ---
EXAM DESCRIPTION: RAD - Hip Right 2 View - 02/28/2023 9:36 am CLINICAL HISTORY: Right hip pain FINDINGS: Right hip arthroplasty Right femoral prosthesis is dislocated superior laterally. No fracture seen
--- NOTE | 2023-02-28 11:49 | RAD REPORT ---
EXAM DESCRIPTION: RAD - Hip Right 2 View - 02/28/2023 11:43 am CLINICAL HISTORY: Right hip dislocation FINDINGS: Previously described femoral prostatic dislocation appears reduced on this single view
--- NOTE | 2023-02-28 12:07 | ER ---
Nurse's Notes [facility] Name: Suzi Vee Age: 72 yrs Sex: Female : 1950 Arrival Date: 02/28/2023 Time: 08:45 Bed 4 Private MD: Adán Vega Diagnosis: Recurrent dislocation, right hip Presentation: 02/28 09:01 Chief complaint: Patient states: SPONTANEOUS R HIP DISLOCATION, DENIES FALL OR OTHER bp TRAUMA. SEEN FOR SAME REPEATEDLY. Coronavirus screen: At this time, the client does not indicate any symptoms associated with coronavirus-19. Ebola Screen: No symptoms or risks identified at this time. Initial Sepsis Screen: Does the patient meet any 2 criteria? No. Patient's initial sepsis screen is negative. Does the patient have a suspected source of infection? No. Patient's initial sepsis screen is negative. Risk Assessment: Do you want to hurt yourself or someone else? Patient reports no desire to harm self or others. Onset of symptoms is unknown. 09:01 Method Of Arrival: Wheelchair bp 09:01 Acuity: NIEVES 3 bp Triage Assessment: 09:03 General: Appears distressed, uncomfortable, Behavior is calm, cooperative, appropriate bp for age. Pain: Complains of pain in right hip. EENT: No deficits noted. Neuro: No deficits noted. Cardiovascular: No deficits noted. Respiratory: No deficits noted. GI: No signs and/or symptoms were reported involving the gastrointestinal system. : No signs and/or symptoms were reported regarding the genitourinary system. Derm: No deficits noted. Musculoskeletal: Bony deformity noted of right hip. Injury Description: Deformity sustained to right hip. - Immunization history:: Adult Immunizations up to date. - Social history:: Smoking status: Patient denies any tobacco usage or history of. - Family history:: not pertinent. - Hospitalizations: : No recent hospitalization is reported. Screenin:04 [facility] ED Fall Risk Assessment (Adult) History of falling in the last 3 months, bp including since admission Yes- single mechanical fall (1 pt). Abuse screen: Denies threats or abuse. Denies injuries from another. Nutritional screening: No deficits noted. Tuberculosis screening: No symptoms or risk factors identified. Assessment: 09:04 General: SEE TRIAGE NOTE. bp 10:00 Reassessment: AFTER MD C/S WITH ORTHO, PT CONSENTED FOR CLOSED R HIP REDUCTION WITH bp CONSCIOUS SEDATION. PLACED ON FULL MONITORING WITH 2LNC, CRASH CART AND SUCTION AT B/S. 10:28 Reassessment: PROCEDURE UNSUCCESSFUL. PT TOLERATED WELL, VS WITHIN 10% OF BASELINE. bp ORTHO NOTIFIED AND WILL RE-ATTEMPT \T\1200. 12:56 Reassessment: DC HOME VIA WC WITH FAMILY. bp Vital Signs: 09:15 BP 168 / 67; Pulse 74; Resp 16; Temp 98; Pulse Ox 97% ; bp 10:05 BP 122 / 90; Pulse 70; Resp 16; Pulse Ox 100% ; bp 10:30 BP 116 / 50; Pulse 64; Resp 12; Pulse Ox 100% ; bp 12:56 BP 167 / 60; Pulse 59; Resp 15; Pulse Ox 100% ; bp ED Course: 08:50 Patient arrived in ED. am2 08:50 Adán Vega MD is Private Physician. am2 08:51 [facility]aly [facility]C [facility] iw 08:54 Adolph Kelly, [place] is Primary Nurse. bp 08:55 Lalo Massey MD is Attending Physician. rn 09:02 Triage completed. bp 09:03 Arm band placed on. bp 09:04 Patient has correct armband on for positive identification. Bed in low position. Call bp light in reach. Side rails up X2. 09:21 Inserted saline lock: 22 gauge in right forearm, using aseptic technique. Blood bp collected. 09:38 XRAY Hip RIGHT 2 view In Process Unspecified. EDMS 10:05 Assist provider with reduction of right pathologic or non traumatic hip using bp manipulation, Set up for procedure. Performed by Lalo Massey MD Immobilized with knee immobilizer Patient tolerated well. Knee immobilizer applied on right knee. 11:44 XRAY Hip RIGHT 2 view In Process Unspecified. EDMS 12:06 Oscar Harrison MD is Referral Physician. rn 12:56 IV discontinued, intact, bleeding controlled, No redness/swelling at site. Pressure bp dressing applied. Administered Medications: 09:20 Drug: morphine IVP or IV 4 mg Route: IVP; Infused Over: 4 mins; Site: right forearm; bp 09:20 Drug: Ondansetron IVP 4 mg Route: IVP; Site: right forearm; bp 10:05 Drug: NS 0.9% IV 500 ml Route: IV; Rate: bolus; Site: right forearm; bp 10:05 Drug: Propofol IVP 70 mg Route: IVP; Site: right forearm; bp Medication: 09:04 VIS not applicable for this client. bp Outcome: 12:07 Discharge ordered by . rn 12:57 Patient left the ED. iw 12:58 Discharged to home via wheelchair, with family. bp 12:58 Condition: stable bp 12:58 Discharge instructions given to patient, Instructed on discharge instructions, follow up and referral plans. medication usage, Demonstrated understanding of instructions, follow-up care, medications, splint care, Prescriptions given X 1. Signatures: Dispatcher [employer] EDMS Rosmery Killian RN RN iw Lalo Massey MD MD rn Moreno, Amanda am2 Peltier, Brian, RN RN bp Corrections: (The following items were deleted from the chart) 09:04 09:01 General: Appears distressed, uncomfortable, Behavior is calm, cooperative, bp appropriate for age, bp 09:04 09:01 Pain: bp bp 10:31 10:28 Reassessment: PROCEDURE UNSUCCESSFUL. PT TOLERATED WELL, VS WITHIN 10% OF bp BASELINE. ORTHO NOTIFIED bp
--- NOTE | 2023-02-28 12:07 | EDPHYS ---
Physician Documentation [facility] Name: Suzi Vee Age: 72 yrs Sex: Female : 1950 Arrival Date: 02/28/2023 Time: 08:45 Bed 4 Private MD: Adán Vega ED Physician Lalo Massey HPI: 02/28 09:03 This 72 yrs old Female presents to ER via Wheelchair with complaints of Hip Pain. rn 09:03 The patient or guardian reports decreased range of motion, deformity, possible rn dislocation. that occurred at home, sustained from walking, twisting the right lower extremity is shortened, The patient is able to ambulate with assistance. The complaints affect the right hip. Onset: The symptoms/episode began/occurred last night. Modifying factors: The symptoms are alleviated by nothing, the symptoms are aggravated by any movement. Associated signs and symptoms: Pertinent negatives: incontinence, weakness. Severity of symptoms: At their worst the symptoms were moderate, in the emergency department the symptoms are unchanged. The patient has experienced similar episodes in the past. The patient has been recently seen by a physician:. Sent by Dr. Harrison for dislocated hip, has been dislocated twice recently, reports walking and flexed leg with rotation, and felt it pop out, went to Dr. Harrison's office. No fall or trauma. . - Immunization history:: Adult Immunizations up to date. - Social history:: Smoking status: Patient denies any tobacco usage or history of. - Family history:: not pertinent. - Hospitalizations: : No recent hospitalization is reported. ROS: 09:03 Constitutional: Negative for fever, chills, and weight loss, Cardiovascular: Negative rn for chest pain, palpitations, and edema, Respiratory: Negative for shortness of breath, cough, wheezing, and pleuritic chest pain, Abdomen/GI: Negative for abdominal pain, nausea, vomiting, diarrhea, and constipation, Back: Negative for injury and pain, MS/Extremity: + right hip pain Skin: Negative for injury, rash, and discoloration, Neuro: Negative for headache, weakness, numbness, tingling, and seizure. Exam: 09:03 Constitutional: This is a well developed, well nourished patient who is awake, alert, rn and in no acute distress. Cardiovascular: Regular rate and rhythm. No pulse deficits. Skin: Warm, dry, no cyanosis MS/ Extremity: Pulses equal, no cyanosis. RLE shortened and rotated Neuro: Awake and alert, GCS 15 Vital Signs: 09:15 BP 168 / 67; Pulse 74; Resp 16; Temp 98; Pulse Ox 97% ; bp 10:05 BP 122 / 90; Pulse 70; Resp 16; Pulse Ox 100% ; bp 10:30 BP 116 / 50; Pulse 64; Resp 12; Pulse Ox 100% ; bp 12:56 BP 167 / 60; Pulse 59; Resp 15; Pulse Ox 100% ; bp Procedures: 12:02 Reduction: of the right hip, using traction, manipulation, Immobilized with knee rn immobilizer ( per Dr. Harrison's request). Patient tolerated well. Post reduction film - reveals normal alignment. Moderate sedation: Pre-procedure assessment: the patient has been NPO 8 hour(s) prior to arrival, ASA physical classification: I - healthy, no underlying organic disease, Airway assessment: able to hyperextend neck, able to maintain airway, can open mouth without difficulty, Monitoring during procedure: monitoring coordinator, continuous pulse oximetry, nurse at bedside at all times, Medications employed: propofol, Post-procedure assessment: the patient is not sedated, Respiratory status: even and unlabored, a reversal agent was not used. MDM: 08:55 Patient medically screened. rn 12:02 Differential diagnosis: hip fracture, femoral neck fracture, femoral shaft fracture, rn hip dislocation. Data reviewed: vital signs, nurses notes, radiologic studies, plain films, and as a result, I will discharge patient. Independent interpretation of the following test(s) in the Emergency Department X-Ray: My interpretation is Xray right hip images show dislocation, and post-reduction shows successful reduction per my interpretation. Counseling: I had a detailed discussion with the patient and/or guardian regarding: the historical points, exam findings, and any diagnostic results supporting the discharge/admit diagnosis, radiology results, the need for outpatient follow up, to return to the emergency department if symptoms worsen or persist or if there are any questions or concerns that arise at home. Special discussion: I discussed with the patient/guardian in detail that at this point there is no indication for admission to the hospital. It is understood, however, that if the symptoms persist or worsen the patient needs to return immediately for re-evaluation. Based on the history and exam findings, there is no indication for further emergent testing or inpatient evaluation. I discussed with the patient/guardian the need to see the orthopedic surgeon for further evaluation of the symptoms. ED course: Pt evaluated in ER by Dr. Harrison, believes hip is back in, patient feels better, post reduction xray shows successful reduction, will dc home in knee immobilizer per Dr. Harrison. He is going to make her an appt with revision specialist in [place].. 02/28 09:02 Order name: XRAY Hip RIGHT 2 view; Complete Time: 10:03 rn 02/28 11:16 Order name: XRAY Hip RIGHT 2 view; Complete Time: 12:02 rn 02/28 09:02 Order name: IV Start; Complete Time: 09:21 rn Administered Medications: 09:20 Drug: morphine IVP or IV 4 mg Route: IVP; Infused Over: 4 mins; Site: right forearm; bp 09:20 Drug: Ondansetron IVP 4 mg Route: IVP; Site: right forearm; bp 10:05 Drug: NS 0.9% IV 500 ml Route: IV; Rate: bolus; Site: right forearm; bp 10:05 Drug: Propofol IVP 70 mg Route: IVP; Site: right forearm; bp Disposition Summary: 02/28/23 12:07 Discharge Ordered Location: Home rn Problem: new rn Symptoms: have improved rn Condition: Stable rn Diagnosis - Recurrent dislocation, right hip rn Followup: rn - With: Oscar Harrison MD - When: As needed - Reason: Recheck today's complaints, Re-evaluation by your physician Discharge Instructions: - Discharge Summary Sheet rn - Hip Dislocation rn Forms: - Medication Reconciliation Form rn - Thank You Letter rn - 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
[2023-02-28 13:39] VITALS: TEMP 98
[2023-02-28 13:40] VITALS: O2SAT 100
[2023-02-28 13:42] VITALS: BP 167/60
== END 2023-02-28 12:57 | disposition home or self-care (01) ==
LOC: ER 08:45
PROC: 0SS9XZZ Reposition Right Hip Joint, External Approach (ICD-10-PCS; principal; 2023-02-28)
DX: M24.451 Recurrent dislocation, right hip (principal)
CPT/HCPCS: 73502 ×2; 96375; 96374; 99285; 27252; J2704; J2405; J7040

== ENCOUNTER 2023-03-01 09:44 | Emergency (ER) | payer OTHER ==
--- OUTSIDE RECORDS SUMMARY | 2023-03-01 09:48 | XMS REPORT | Continuity of Care Document ---
:1950 Author Organization [facility] t Address [address] [facility] [address] [place] [id number] Care Team Providers Name Role Phone KATHERINE NAPIER Primary Care Physician Unavailable Justin Hobbs MD Attending Clinician JUSTIN HOBBS Attending Clinician Unavailable Doctor Unassigned, [place] Attending Clinician Unavailable Radiology Attending Clinician Unavailable [...] [place] [facility] MDD MDD Disease Active 2004-10 Univers 2-14 ity of 00:00: [address] Chronic Chronic Disease Active 2004-10 Univers depressive depressive 2-09 it y of [place] disorder 00 Sd dical Branch Allergies, Adverse Reactions, Alerts Allergy Allergy Status Severity Reaction(s) Onset Inactive Treating Comm ents Source Name Type Date Date Clinician NO KNOWN Drug Active Univers ALLERGIE Class ity of [facility] Social History Social Habit Start Date Stop Date Quantity Comments Source History of Cigarette Smoker Universi ty of tobacco use [facility] Exposure to 2022-07-02 2022-07-12 Not sure University SARS-CoV-2 00:00:00 16:31:00 [place] [facility] (event) Branch Tobacco use and 2022-07-12 2022-07-12 Smokeless tobacco Un iversity of exposure 00:00:00 00:00:00 non-user [facility] Alcohol intake 2022-07-12 2022-07-12 Current University of 00:00:00 00:00:00 non-drinker of [facility] alcohol (finding) [place] Tobacco Comment 2022-07-12 2022-07-12 Quit smoking in [facility] of 00:00:00 00:00:November, [facility] smoked 1- 1.5 PPD Branch X 30 years Sex Assigned At [birth year] Universit y of 00:00:00 00:00:00 [facility] Smoking Status Start Date Stop Date Source Smokes tobacco daily 2022-07-12 00:00:00 [facility] Former smoker 2016-01-12 00:00:00 2016-01-12 00:00:00 [facility] Medications Ordered Filled Start Stop [...] ity of e-pf 12:54: 13:55 on Sun [place] (SENSORCAIN 00 :11 07/17/22 Medi haritha E [...] mouth ity of mg Tab 08:55: daily. [address] oxybutynin 2021-10 Yes 5mg Take 5 mg Un arely chloride 5 0-17 by mouth ity o f mg tablet 08:55: in the [place] [address] morning Medical and 5 mg Branch in the evening. ibuprofen 2021-10 Yes 800mg Take 800 Uni vers 800 mg 0-17 mg by ity of tablet 08:55: mouth in [place] [address] the Medical morning Branch and 800 mg in the evening. Take with meals. donepeziL 2021-10 Yes 10mg Take 10 mg Un arely 10 mg 0-17 by mouth ity of tablet 08:55: in the [place] [address] morning Medical and 10 mg Branch in the evening. amitriptyli 2021-10 Yes 25mg Take 25 mg Univers ne 25 mg 0-17 by mouth ity of tablet 08:55: as needed. [place] [address] 1 or 2 as Medical needed at Branch bedtime aspirin 81 2021-10 Yes 81mg Take 81 mg U nivers mg EC 0-17 by mouth ity of tablet 08:55: in the [place] [address] morning. Medical Branch ARIPiprazol 2021-10 Yes 5mg Take 5 mg U nivers e 5 mg 0-17 by mouth ity of tablet 08:55: in the [place] 52 morning. Medical Branch clonazePAM 2021-10 Yes 1mg Take 1 mg Un arely (KLONOPIN) 0-17 by mouth 3 ity of 1 mg tablet 08:55: (three) [place] 52 times Medical daily as Branch needed. As nee DULoxetine 2021-10 Yes 120mg Take 120 Un arely (CYMBALTA) 0-17 mg by ity of 60 mg 08:55: mouth in [place] capsule 52 the Medical morning. Branch HYDROmorpho 2021-10 Yes 8mg Take 8 mg U nivers ne 0-17 by mouth 4 ity of (DILAUDID) 08:55: (four) [place] 8 mg tablet 52 times Medical daily. Branch levomefolat 2021-10 Yes 1{capsu Take 1 Cap Univers e-algal oil 0-17 le} by mouth ity of (DEPLIN, 08:55: daily. [place] ALGAL OIL,) 52 Medical 15.314 Branch mg [...] o f mg tablet 08:55: in the [place] [address] morning Medical and 5 mg Branch in the evening. ibuprofen 2021-10 Yes 800mg Take 800 Uni vers 800 mg 0-17 mg by ity of tablet 08:55: mouth in [place] [address] the Medical morning Branch and 800 mg in the evening. Take with meals. donepeziL 2021-10 Yes 10mg Take 10 mg Un arely 10 mg 0-17 by mouth ity of tablet 08:55: in the [place] [address] morning Medical and 10 mg Branch in the evening. amitriptyli 2021-10 Yes 25mg Take 25 mg Univers ne 25 mg 0-17 by mouth ity of tablet 08:55: as needed. [place] [address] 1 or 2 as Medical needed at Branch bedtime aspirin 81 2021-10 Yes 81mg Take 81 mg U nivers mg EC 0-17 by mouth ity of tablet 08:55: in the [place] [address] morning. Medical Branch ARIPiprazol 2021-10 Yes 5mg Take 5 mg U nivers e 5 mg 0-17 by mouth ity of tablet 08:55: in the [place] [address] morning. Medical Branch clonazePAM 2021-10 Yes 1mg Take 1 mg Un arely (KLONOPIN) 0-17 by mouth 3 ity of 1 mg tablet 08:55: (three) [place] 52 times Medical daily as Branch needed. As nee DULoxetine 2021-10 Yes 120mg Take 120 Un arely (CYMBALTA) 0-17 mg by ity of 60 mg 08:55: mouth in [place] [address] the Medical morning. Branch HYDROmorpho 2021-10 Yes 8mg Take 8 mg U nivers ne 0-17 by mouth 4 ity of (DILAUDID) 08:55: (four) [place] 8 mg tablet 52 times Medical daily. Branch levomefolat 2021-10 Yes 1{capsu Take 1 Cap Univers e-algal oil 0-17 le} by mouth ity of (DEPLIN, 08:55: daily. [place] ALGAL OIL,) Medical 15-90.314 Branch mg Cap [...] it y of mg tablet 08:55: (two) [place] [address] times Medical daily. Branch meloxicam 2021-10 Yes 7.5mg Take 7.5 Uni vers (MOBIC) 7.5 0-17 mg by ity of mg tablet 08:55: mouth [place] [address] daily. Medical Branch Doxepin 2021-10 Yes 6mg Take 6 mg Unive rs (SILENOR) 6 0-17 by mouth ity of mg Tab 08:55: daily. [place] [address] Medical Branch oxybutynin 2021-10 Yes 5mg Take 5 mg Un arely chloride 5 0-17 by mouth ity o f mg tablet 08:55: in the [place] [address] morning Medical and 5 mg Branch in the evening. ibuprofen 2021-10 Yes 800mg Take 800 Uni vers 800 mg 0-17 mg by ity of tablet 08:55: mouth in [place] [address] the Medical morning Branch and 800 mg in the evening. Take with meals. donepeziL 2021-10 Yes 10mg Take 10 mg Un arely 10 mg 0-17 by mouth ity of tablet 08:55: in the [place] [address] morning Medical and 10 mg Branch in the evening. amitriptyli 2021-10 Yes 25mg Take 25 mg Univers ne 25 mg 0-17 by mouth ity of tablet 08:55: as needed. [place] [address] 1 or 2 as Medical needed at Branch bedtime aspirin 81 2021-10 Yes 81mg Take 81 mg U nivers mg EC 0-17 by mouth ity of tablet 08:55: in the [place] [address] morning. Medical Branch ARIPiprazol 2021-10 Yes 5mg Take 5 mg U nivers e 5 mg 0-17 by mouth ity of tablet 08:55: in the [place] [address] morning. Medical Branch clonazePAM 2021-10 Yes 1mg [...] mouth ity of mg Tab 18:29: daily. [place] [facility] VENLAFAXINE 2004- Yes 1 Cap Oral Univers 75 MG ORAL 2-14 QAM WITH ity o f CP24 00:00: BREAKFAST [place] [facility] QUETIAPINE 2004- Yes 1 tab po Uni vers 300 MG ORAL 2-14 qhs ity of TAB 00:00: [place] [facility] VENLAFAXINE 2004- Yes 1 Cap Oral Univers 75 MG ORAL 2-14 QAM WITH ity o f CP24 00:00: BREAKFAST [place] [facility] QUETIAPINE 2004- Yes 1 tab po Uni vers 300 MG ORAL 2-14 qhs ity of TAB 00:00: [place] [facility] VENLAFAXINE 2004- Yes 1 Cap Oral Univers 75 MG ORAL 2-14 QAM WITH ity o f CP24 00:00: BREAKFAST [place] [facility] QUETIAPINE 2004- Yes 1 tab po Uni vers 300 MG ORAL 2-14 qhs ity of TAB 00:00: [place] 00 Medical Branch Vital Signs Vital Name Observation Time Observation Value Comments Source Heart rate 2022-07-17 13:30:00 76 /min Universi ty of [facility] Respiratory rate 2022-07-17 13:30:00 20 /min Univ ersity of [facility] Oxygen saturation in 2022-07-17 13:30:00 93 /min University of Arterial blood by [facility] Pulse oximetry Branch Systolic blood 2022-07-17 13:30:00 127 mm[Hg] Univer sity of pressure [facility] Diastolic blood 2022-07-17 13:30:00 62 mm[Hg] Unive rsity of pressure [facility] Body temperature 2022-07-17 13:10:00 36.78 Monica Univ ersity of [facility] Body height 2022-07-04 16:26:00 154.9 cm Universi ty of [facility] Body weight 2022-07-04 16:26:00 78 kg Universi ty of [facility] BMI 2022-07-04 16:26:00 32.51 kg/m2 Universi ty of [facility] Systolic blood 2022-07-17 13:30:00 127 mm[Hg] Univer sity of pressure [facility] Branch Diastolic blood 2022-07-17 13:30:00 62 mm[Hg] Unive rsity of [facility] Heart rate 2022-07-17 13:30:00 76 /min Universi ty of [facility] Respiratory rate 2022-07-17 13:30:00 20 /min Univ ersity of [facility] Oxygen saturation in 2022-07-17 13:30:00 93 /min University of Arterial blood by [facility] Pulse oximetry Branch Body temperature 2022-07-17 13:10:00 36.78 Monica Univ ersity of [facility] Body height 2022-07-04 16:26:00 154.9 cm Universi ty of [place] [facility] Branch Body weight 2022-07-04 16:26:00 78 kg Universi ty of [facility] Branch BMI 2022-07-04 16:26:00 32.51 kg/m2 Universi ty of [facility] Procedures Procedure Date / Time Performing Clinician Source Performed INTRATHECAL INFUSION 2022-07-17 12:09:00 Justin Hobbs [facility] ersity of [place] PUMP REVISION Medical [place] DAY SURGERY - ADC 2022-07-17 05:01:00 Doctor Unassigned, No Univ ersity of [place] Name Medical Branch EXTERNAL PROVIDER 2022-06-21 05:01:00 Doctor Unassigned, No Univ ersity of [place] RECORDS Name Medical Branch EXTERNAL PROVIDER 2022-06-21 05:01:00 Doctor Unassigned, No Univ ersity of [place] RECORDS Name [facility] XR ANKLE 3+ VW RIGHT 2021-03-02 17:25:47 Iveth Ramirez iversity of [facility] Encounters Start End Encounter Admission Attending Care Care Encounter Source Date/Time Date/Time Type Type Clinicians Facility Department ID 2022-07-17 2022-07-17 [facility] [id number] Univers 06:33:00 08:54:00 Encounter Justin DE LA ROSA [id number] ity of [facility] [id number] [place] [id number] [facility] 071 [place] 2022-07-17 2022-07-17 [facility] [id number] Univers 06:33:00 08:54:00 JUSTIN ity of [facility] 2022-07-17 2022-07-17 Surgery formerly [facility] [id number] Univers 07:15:00 08:52:00 Justinnori ELLINGTONCALEB [id number] ity of [facility] [id number] [place] [id number] [facility] 020 Branch 2022-07-17 2022-07-17 Orders Doctor LUNDBERG [id number] Univers 00:00:00 00:00:00 Only Unassigned, HARDY [id number] ity of [place] [facility] [id number] [place] [id number] [place] [address] Branch 2022-07-14 2022-07-14 [facility] [id number] Univers 08:15:00 08:15:00 JUSTIN ity of [facility] 2021-03-02 2021-03-02 Hospital Radiology [facility] [id number] Univers 12:13:44 23:59:00 Encounter Nate [id number] ity [place] 4.2.7.2.686 [facility] [id number] [facility] 807 Branch 2021-03-02 2021-03-02 Outpatient R RADIOLOGY [facility] [id number] Univers 00:00:00 00:00:00 ity [facility] Results Test Description Test Time Test Comments Results Result Comments Source HEMOGLOBIN A1c 2021-12-28 06:29:45 Test Item Value Reference Range Interpretation Comme nts HEMOGLOBIN A1c (test code = 6.7 % 4.2-5.6 H [employer] 35911) GUIDELINES FOR HGB A1C: PREDIABETES/INC REASED RISK [...] UNLESS OTHERWISE INDIC ATED, ALL TESTING PERFORMED [facility], [address] DIRECTOR: JACKELINE ANTOINE M.D. CLIA NUMBER [id number] [place] [id number] BASIC METABOLIC [id number] 06:15:06 Test Item Value Reference Range Interpretation Comments GLUCOSE (test code 126 MG/DL 70-99 H = 2216) BUN (test code = 9 MG/DL 8-23 2207) CREATININE (test 0.69 MG/DL 0.60-1.30 code = 2214) eGFR (2020 CKD-EPI) 93 ML/MIN/1.73 >60 (test code = 85307) SODIUM (test code = 140 MEQ/L 183-841 0559) POTASSIUM (test 3.8 MEQ/L 3.5-5.4 code = 2228) CHLORIDE (test code 101 MEQ/L 95-107 = 2215) CARBON DIOXIDE 23 MEQ/L 19-31 (test code = 2206) CALCIUM (test code 9.2 MG/DL 8.5-10.5 UNLESS O THERWISE = 2209) INDICATED, ALL TESTING PERFORM ED ATCLINICAL PATH [facility], [facility]. [address] [place] [address] [facility] DIRECTOR: Juan J REYESIA NUMBER [id number] CAP ACCREDITATION N O. [id number] XR ANKLE 3+ VW [id number] 17:28:50HISTORY: ?Pain. FINDINGS: AP, lateral, oblique views of right ankle showed slightlyseparated fracture at the base of the fifth metatarsal bone. No significantankle joint effusion. Soft tissue swelling noted along the lateral aspectof ankle. Metallic hardware is seen supporting calcaneum. No hardwarerelated complication seen. Mild subtalar degenerative arthritis andarthritis of the talonavicular jointnoted. CONCLUSIONS: Fracture at the base of right fifth metatarsal bone. [facility], Radiant Results Inft User - 03/02/2021 [...] at the base of right fifth metatarsal bone.[facility]
--- NOTE | 2023-03-01 11:05 | RAD REPORT ---
EXAM DESCRIPTION: RAD - Hip Right 2 View - 03/01/2023 10:58 am CLINICAL HISTORY: PAIN COMPARISON: Hip Right 2 View dated 02/28/2023; Hip Right 2 View dated 02/28/2023 FINDINGS/IMPRESSION: Dislocated right hip arthroplasty. No fracture. The dislocation is superior and lateral. .
--- NOTE | 2023-03-01 11:38 | ER ---
Nurse's Notes [facility] Name: Suzi Vee Age: 72 yrs Sex: Female : 1950 Arrival Date: 03/01/2023 Time: 09:44 Bed 8 Private MD: Diagnosis: Dislocation of internal right hip prosthesis;Anemia, unspecified Presentation: 03/01 09:48 Chief complaint: EMS states: patient called due to right hip popped out of place again. ko1 Coronavirus screen: At this time, the client does not indicate any symptoms associated with coronavirus-19. Ebola Screen: No symptoms or risks identified at this time. Initial Sepsis Screen: Does the patient meet any 2 criteria? No. Patient's initial sepsis screen is negative. Does the patient have a suspected source of infection? No. Patient's initial sepsis screen is negative. Risk Assessment: Do you want to hurt yourself or someone else? Patient reports no desire to harm self or others. Onset of symptoms. 09:48 Method Of Arrival: EMS: [facility] ko1 09:48 Acuity: NIEVES 3 ko1 Triage Assessment: 09:49 General: Appears in no apparent distress. uncomfortable, Behavior is calm, cooperative, ko1 appropriate for age. Pain: Complains of pain in right hip. Historical: - PMHx: 09:49 Chronic Lumbar Pain; Depression; Weak Bladder; ko1 - PSHx: 09:49 Appendectomy; hysterectomy; Cholecystectomy; back; Total Knee Replacement - Right; ko1 - Immunization history:: Adult Immunizations up to date. - Social history:: Smoking status: Patient denies any tobacco usage or history of. Screenin:27 [facility] ED Fall Risk Assessment (Adult) History of falling in the last 3 months, bp including since admission No falls in past 3 months (0 pts). Abuse screen: Denies threats or abuse. Denies injuries from another. Nutritional screening: No deficits noted. Tuberculosis screening: No symptoms or risk factors identified. Assessment: 11:50 General: PT CONSENTED FOR CLOSED REDUCTION OF R HIP WITH CONSCIOUS SEDATION. PT PLACED bp ON FULL MONITORING WITH 2LNC, CRASH CART AND SUCTION AT B/S. PT STATES UNDERSTANDING OF INTENDED PROCEDURE AND MEDICATION.. 12:15 Reassessment: REDUCTION CONFIRMED BY XRAY. PT TOLERATED PROCEDURE WELL, VS REMAINED bp WITHIN 10% OF BASELINE. TRANSFER INITIATED. 14:00 Reassessment: No changes from previously documented assessment. Patient is alert, bp oriented x 3, equal unlabored respirations, skin warm/dry/pink. TRANSFER INITIATED. 16:00 Reassessment: No changes from previously documented assessment. Patient is alert, bp oriented x 3, equal unlabored respirations, skin warm/dry/pink. 18:00 Reassessment: No changes from previously documented assessment. Patient is alert, bp oriented x 3, equal unlabored respirations, skin warm/dry/pink. 19:00 Reassessment: Patient appears in no apparent distress at this time. Patient and/or jb4 family updated on plan of care and expected duration. Pain level reassessed. Patient is alert, oriented x 3, equal unlabored respirations, skin warm/dry/pink. 19:57 Reassessment: Patient appears in no apparent distress at this time. Patient and/or jb4 family updated on plan of care and expected duration. Pain level reassessed. Patient is alert, oriented x 3, equal unlabored respirations, skin warm/dry/pink. 20:55 Reassessment: Patient appears in no apparent distress at this time. Patient and/or jb4 family updated on plan of care and expected duration. Pain level reassessed. Patient is alert, oriented x 3, equal unlabored respirations, skin warm/dry/pink. 22:09 Reassessment: Patient appears in no apparent distress at this time. Patient and/or jb4 family updated on plan of care and expected duration. Pain level reassessed. Patient is alert, oriented x 3, equal unlabored respirations, skin warm/dry/pink. 22:58 Reassessment: Patient appears in no apparent distress at this time. Patient and/or jb4 family updated on plan of care and expected duration. Pain level reassessed. Patient is alert, oriented x 3, equal unlabored respirations, skin warm/dry/pink. Vital Signs: 11:50 BP 130 / 56; Pulse 66; Resp 19; Temp 98; Pulse Ox 100% ; bp 12:15 BP 123 / 52; Pulse 61; Resp 16; Pulse Ox 100% ; bp 14:00 BP 123 / 79; Pulse 71; Resp 17; Pulse Ox 99% ; bp 16:00 BP 142 / 64; Pulse 67; Resp 12; Pulse Ox 98% ; bp 18:00 BP 155 / 67; Pulse 77; Resp 18; Pulse Ox 99% ; bp 19:57 BP 151 / 51; Pulse 70; Resp 14; Pulse Ox 96% on R/A; jb4 20:55 BP 144 / 76; Pulse 74; Resp 11; Pulse Ox 94% on R/A; jb4 22:09 BP 141 / 62; Pulse 61; Resp 14; Pulse Ox 97% on R/A; jb4 22:58 BP 156 / 67; Pulse 64; Resp 20; Pulse Ox 100% on R/A; jb4 ED Course: 09:48 Patient arrived in ED. ko1 09:48 Christelle Collado, RN is Primary Nurse. ko1 09:49 Triage completed. ko1 09:49 Claude Villar DO is Attending Physician. ms3 09:49 Arm band placed on right wrist. Patient placed in an exam room, on a stretcher, on ko1 pulse oximetry, Patient notified of wait time. 10:59 Hip Right 2 View XRAY In Process Unspecified. EDMS 11:30 Inserted saline lock: 22 gauge in right forearm, using aseptic technique. Blood bp collected. 12:15 CALLED TRANSFER CENTER TO REQUEST TRANSFER 1215. kj1 12:34 Hip Right 2 View XRAY In Process Unspecified. EDMS 14:23 1400 CALLED BACK TRANSFER CENTER ,[place] SAID THE DR FOR APPROVAL AND CONSULT WAS kaylin IN SURGERY, AND AND SOON SHE HEARD BACK FROM HIM SHE WOULD CALL BACK ABOUT TRANSFER ,I THEN INFORMED DR VILLAR OF SITUATION. 19:00 Patient has correct armband on for positive identification. Call light in reach. Side jb4 rails up X 1. Client placed on continuous cardiac and pulse oximetry monitoring. NIBP monitoring applied. shelter monitor on. 20:37 Attending Physician role handed off by Claude Villar DO phong 20:37 Александр Grimes MD is Attending Physician. phong 20:39 Pt accepted to [facility] Rm [address] Rodgers. rv1 22:58 No provider procedures requiring assistance completed. Patient transferred, IV remains jb4 in place. Administered Medications: 19:26 Not Given (Other Intervention Used): morphine IVP or IV 4 mg IVP once over 4 mins jb4 19:34 Drug: HYDROmorphone IVP 0.5 mg Route: IVP; Site: right forearm; jb4 Medication: 22:58 VIS not applicable for this client. jb4 Outcome: 11:38 ER care complete, transfer ordered by . ms3 22:58 Transferred by ground EMS to [facility], Transfer form completed. jb4 X-rays sent w/ patient. 22:58 Condition: stable 22:58 Discharge instructions given to patient, Instructed on the need for transfer, Demonstrated understanding of instructions. 22:59 Patient left the ED. jb4 Signatures: Dispatcher [employer] EDАлександр Mann MD MD cha Bryson, James, RN RN jb4 Adolph Kelly, RN RN Jayshree Urrutia kj1 Claude Villar DO DO ms3 Christelle Collado, RN RN ko1 Deanna [place] rv1
--- NOTE | 2023-03-01 11:38 | EDPHYS ---
Physician Documentation [facility] Name: Suzi Vee Age: 72 yrs Sex: Female : 1950 Arrival Date: 03/01/2023 Time: 09:44 Bed 8 Private MD: ED Physician Александр Grimes HPI: 03/01 10:08 This 72 yrs old Female presents to ER via EMS with complaints of hip dislocation. ms3 10:08 72-year-old female with past medical history of chronic lumbar pain, depression, weak ms3 bladder presents via [facility] for right hip dislocation. Patient states she has been seen in the emergency department multiple times this week for hip dislocation. Patient states Dr. Harrison was to send her to [place] for her hip to be fixed.. Historical: - PMHx: 09:49 Chronic Lumbar Pain; Depression; Weak Bladder; ko1 - PSHx: 09:49 Appendectomy; hysterectomy; Cholecystectomy; back; Total Knee Replacement - Right; ko1 - Immunization history:: Adult Immunizations up to date. - Social history:: Smoking status: Patient denies any tobacco usage or history of. ROS: 10:08 Constitutional: Negative for fever, and chills. ENT: Negative for injury, pain, and ms3 discharge, Neck: Negative for injury, pain, and swelling, Cardiovascular: Negative for chest pain, and palpitations. Respiratory: Negative for shortness of breath, cough, wheezing, and pleuritic chest pain, Abdomen/GI: Negative for abdominal pain, nausea, vomiting, diarrhea, and constipation. 10:08 MS/extremity: Positive for Right hip dislocation. 10:08 All other systems are negative. Exam: 10:08 Constitutional: This is a well developed, well nourished patient who is awake, alert, ms3 and in no acute distress. Head/Face: Normocephalic, atraumatic. Chest/axilla: Normal chest wall appearance and motion. Nontender with no deformity. Cardiovascular: Regular rate and rhythm with a normal S1 and S2. No gallops, murmurs, or rubs. Normal PMI, no JVD. No pulse deficits. Respiratory: Lungs have equal breath sounds bilaterally, clear to auscultation and percussion. No rales, rhonchi or wheezes noted. No increased work of breathing, no retractions or nasal flaring. Abdomen/GI: Soft, non-tender, with normal bowel sounds. No distension or tympany. No guarding or rebound. No evidence of tenderness throughout. Skin: Warm, dry with normal turgor. Normal color with no rashes, no lesions, and no evidence of cellulitis. 10:08 Musculoskeletal/extremity: Extremities: noted in the right hip: tenderness. Vital Signs: 11:50 BP 130 / 56; Pulse 66; Resp 19; Temp 98; Pulse Ox 100% ; bp 12:15 BP 123 / 52; Pulse 61; Resp 16; Pulse Ox 100% ; bp 14:00 BP 123 / 79; Pulse 71; Resp 17; Pulse Ox 99% ; bp 16:00 BP 142 / 64; Pulse 67; Resp 12; Pulse Ox 98% ; bp 18:00 BP 155 / 67; Pulse 77; Resp 18; Pulse Ox 99% ; bp 19:57 BP 151 / 51; Pulse 70; Resp 14; Pulse Ox 96% on R/A; jb4 20:55 BP 144 / 76; Pulse 74; Resp 11; Pulse Ox 94% on R/A; jb4 22:09 BP 141 / 62; Pulse 61; Resp 14; Pulse Ox 97% on R/A; jb4 22:58 BP 156 / 67; Pulse 64; Resp 20; Pulse Ox 100% on R/A; jb4 Procedures: 11:58 Reduction: of the right hip, using traction, Patient tolerated well. Post reduction ms3 film - reveals normal alignment. Moderate sedation: Pre-procedure assessment: ASA physical classification: I - healthy, no underlying organic disease, Airway assessment: able to hyperextend neck, able to maintain airway, can open mouth without difficulty, Mallampati classification of tongue size: II - faucial pillars and soft palate can be visualized, but uvula is masked by the base of the tongue, Monitoring during procedure: electrician deck, continuous pulse oximetry, nurse at bedside at all times, Medications employed: Propofol 30 mg, Post-procedure assessment: the patient is not sedated, Respiratory status: even and unlabored, a reversal agent was not used. MDM: 10:05 Patient medically screened. ms3 10:08 Differential diagnosis: Prosthetic hip dislocation. ms3 11:57 Data reviewed: vital signs, nurses notes, radiologic studies, plain films, and as a ms3 result, I will transfer. Management of patient was discussed with the following: Juke Box Mechanic: Dr Harrison- Patient with hip replacement 6 months ago. S/P with multiple dislocations. Patient will need transfer to medical center for hip revision. Unable to perform hip revision at [facility]. 15:40 ED course: Discussed case with Dr Patel at [facility]. [facility] total joint surgeon is out ms3 of town at this time. [facility] has referred to [facility] to see if possible acceptance.. 18:13 ED course: Discussed case with Dr Miller at [facility]. 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 Recommends discharge and make an appointment for follow up.. 03/01 12:22 Order name: CBC with Diff; Complete Time: 13:11 ms3 03/01 12:22 Order name: BMP; Complete Time: 13:11 ms3 03/01 10:05 Order name: Hip Right 2 View XRAY; Complete Time: 11:07 ms3 03/01 11:55 Order name: Hip Right 2 View XRAY; Complete Time: 13:35 ms3 Administered Medications: 19:26 Not Given (Other Intervention Used): morphine IVP or IV 4 mg IVP once over 4 mins jb4 19:34 Drug: HYDROmorphone IVP 0.5 mg Route: IVP; Site: right forearm; jb4 Disposition Summary: 03/01/23 11:38 Transfer Ordered Reason: Higher level of care ms3 Condition: Stable ms3 Problem: new ms3 Symptoms: are unchanged ms3 Transfer Location: [facility](03/01/23 20:39) phong Accepting Physician: to [facility](03/01/23 22:59) jb4 Diagnosis - Dislocation of internal right hip prosthesis ms3 - Anemia, unspecified ms3 Forms: - Medication Reconciliation Form ms3 - SBAR form ms3 Signatures: Dispatcher [employer] EDАлександр Mann MD MD cha Bryson, James, RN RN jb4 Claude Maharaj DO DO ms3 Christelle Collado, RN RN ko1 Corrections: (The following items were deleted from the chart) 18:25 11:38 Dr rivers ms3 18:25 18:25 Dr Vishal may3 ms3 20:38 11:38 [facility] ms3 phong 20:38 18:25 Dr Rodgers ms3 phong 20:39 20:38 to сергей darling phong 20:39 20:[address] [facility] phong phong 22:59 20:39 to [facility] phong jb4
[2023-03-01] MEDS ORDERED: propofoL 200 MG/20 ML VIAL IV ONE (11:53)
[2023-03-01] MEDS ORDERED: NA CHLORIDE 0.9% 500 ML ONE (11:55)
[2023-03-01 12:40] LABS: Absolute Lymphocytes (CBC) 1.9 K/uL (0.7-4.9); Hematocrit 29.4 % (36.0-45.0); Lymphocytes % 16.7 % (15.3-44.8); MCV 84.4 fL (80-100); MPV 6.5 fL (7.6-11.3); RBC Red Blood Cell Count 3.48 M/uL (3.86-4.86)
[2023-03-01 12:54] LABS: Potassium 3.7 mEq/L (3.5-5.1)
--- NOTE | 2023-03-01 13:15 | RAD REPORT ---
EXAM DESCRIPTION: RAD - Hip Right 2 View - 03/01/2023 12:32 pm CLINICAL HISTORY: Post - reduction COMPARISON: Hip Right 2 View dated 03/01/2023; Hip Right 2 View dated 02/28/2023 TECHNIQUE: Right hip, 2 views. FINDINGS: Improved alignment of right hip arthroplasty following closed reduction. Stable crescentic density posterior to the greater trochanter, which may be related to heterotopic opacification. The visualized aspects of the bony pelvis are intact appear IMPRESSION: Improved alignment of the right hip total arthroplasty following closed reduction.
[2023-03-01] MEDS ORDERED: MORPHINE 4 MG/ML SYR ONE (19:28)
[2023-03-01] MEDS ORDERED: HYDROMORPHONE HCL 0.5 MG/0.5 ML INJ ONE (19:36)
[2023-03-01 23:28] VITALS: TEMP 98
[2023-03-01 23:38] VITALS: BP 156/67; O2SAT 100
== END 2023-03-01 22:59 | disposition short-term general hospital (02) ==
LOC: ER 09:44
PROC: 0SS9XZZ Reposition Right Hip Joint, External Approach (ICD-10-PCS; principal; 2023-03-01)
DX: T84.020A Dislocation of internal right hip prosthesis, initial encounter (principal); Z96.651 Presence of right artificial knee joint
CPT/HCPCS: 85025; 80048; 36415; 73502 ×2; 96374; 99285; 27250; J2704; J1170; J7040

== ENCOUNTER 2023-03-30 16:08 | Emergency (ER) | payer OTHER ==
--- OUTSIDE RECORDS SUMMARY | 2023-03-30 16:13 | XMS REPORT | Continuity of Care Document ---
:1950 Author Organization [facility] t Address [address] [place] [address] Care Team Providers Name Role Phone MEHRDADANNIAHECTOR KATHERINE Primary Care Physician Unavailable DIMITRIS PARRY Attending Clinician Unavailable Dimitris Parry MD Attending Clinician [phone] Aisha LUNA, Cj Aden Attending Clinician Chucky Dwyer MD Attending Clinician Kris LUNA, Eden Stevenson Attending Clinician [phone] Chito Mccullough MD Attending Clinician Lady Hardwick MD Attending Clinician CHITO MCCULLOUGH Attending Clinician Unavailable FOG_A_Provider Attending Clinician Unavailable Justin Hobbs MD Attending Clinician JUSTIN HOBBS Attending Clinician Unavailable Doctor Unassigned, [place] Attending Clinician Unavailable Radiology Attending Clinician Unavailable RADIOLOGY Attending Clinician Unavailable DIMITRIS PARRY Admitting Clinician Unavailable LADY HARDWICK Admitting Clinician Unavailable FOG_A_Provider Admitting Clinician Unavailable Justin Hobbs MD Admitting Clinician JUSTIN HOBBS Admitting Clinician Unavailable Payers Payer Name Policy Type Policy Number Effective Date Expiration Date Rony NIELSON MEDICARE PPO [id number] 2022 00:00:00 [facility] [id number] (PPO) 00:00:00 Problems Condition Condition Condition Status Onset Resolution Last Treating Co mments Source Name Details Category Date Date Treatment Clinician Date History of History of Disease Active [facility] total hip total hip 608 [facility] arthroplas arthroplas 00:00: Me dical ty, right ty, right 00 Cent er Closed Closed Disease Active [facility] dislocatio 02 Luisa kes n of right n of right 00:00: Me dical hip, hip, 00 Center subsequent subsequent encounter encounter 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 0-21 [place] 00 [facility] MDD MDD Disease Active 2004-10 Univers 2-14 ity of 00:00: [place] 00 [facility] Branch Chronic Chronic Disease Active 2004-10 Univers depressive depressive 2-09 [place] y [place] disorder 00 [facility] Allergies, Adverse Reactions, Alerts Allergy Allergy Status Severity Reaction(s) Onset Inactive Treating Comm ents Source Name Type Date Date Clinician NO KNOWN Allergy Active TETE H[facility] NO KNOWN Drug Active Univers ALLERGIE Class ity of S [facility] Social History Social Habit Start Date Stop Date Quantity Comments Source History of Current smoker [facility] tobacco use [facility] Cent[facility] Alcohol intake 2023-03-09 2023-03-09 Ex-drinker [facility] 00:[facility]00 00:00:00 (finding) Medical Center Exposure to 2023-02-26 2023-03-[address] [facility] SARS-CoV-2 00:00:00 10:55:00 Medical Center (event) Tobacco use and 2023-03-08 2023-03-[address] [facility] exposure 00:00:00 00:00:00 non-user Medical Center Tobacco Comment 2022-07-12 2022-07-12 Quit smoking in Univ ersity of 00:00:00 00:00:November, [facility] [place] [facility] smoked 1- 1.5 PPD Branch X 30 years Sex Assigned At [birth year] TETE [facility] 00:00:00 00:00:00 Medical Center Smoking Status Start Date Stop Date Source Ex-smoker 2023-03-08 00:00:00 2023-03-08 00:00:00 TETE [facility] Smokes tobacco daily 2022-07-12 00:00:00 Univers ity [facility] Medications Ordered Filled Start Stop Current Ordering Indication Dosage Frequency Signature Comments Components Source Medication Medication Date Date Medication? Clinician (SIG) Name Name oxybutynin 2022-0 Yes 5mg Q.5D Take 1 [facility] (DITROPAN) 6-09 tablet (5 Luke s 5 MG tablet 14:27: mg total) M edical 38 by mouth Center in the morning and 1 tablet (5 mg total) before bedtime. DULoxetine 2022-0 Yes anxiety 120mg QD Take [address] (CYMBALTA) 6-09 with capsules [facility] 60 MG 14:27: depression (120 mg Med ical capsule 38 total) by Center mouth in the morning. ARIPiprazol 3-0 Yes 5mg QD Take [address] [facility] (ABILIFY) 6-09 tablet (5 [facility] es 5 MG tablet 14:27: mg total) M edical 38 by mouth Center in the morning. donepeziL 2022-0 Yes 10mg Q.5D Take [address] (ARICEPT) 6-09 tablet (10 Luke s 10 MG 14:27: mg total) Medical tablet 38 by mouth Center in the morning and 1 tablet (10 mg total) before bedtime. aspirin 81 3-0 Yes 81mg QD Take 1 [facility] MG EC 6-09 tablet (81 [facility] tablet 14:27: mg total) Medica l 38 by mouth Center in the morning. clonazePAM 3-0 Yes .5mg Take 1 [facility] (KlonoPIN) 6-09 tablet [facility] 0.5 MG 14:27: (0.5 mg Medical tablet 38 total) by Center mouth 2 (two) times daily as needed for Anxiety. acetaminoph 2022-0 Yes 1{tbl} Take [address] en-codeine 6-09 tablet by Ben alvarenga (TYLENOL 14:27: mouth Medical #3) 300-30 38 every 4 Center mg per (four) tablet hours as needed for Pain. senna-docus 2022-0 Yes 1{tbl} QD Take [address] ate 6-09 tablet by Johana (SENOKOT S) 14:27: mouth in Me dical 8.6-50 mg 38 the Center per tablet morning. meloxicam 2022-0 Yes 7.5mg Q.5D Take 1 [facility] (MOBIC) 7.5 6-09 tablet [facility] MG tablet 14:27: (7.5 mg Medic al 38 total) by Center mouth in the morning and 1 tablet (7.5 mg total) before bedtime. ibuprofen 2022-0 3- No pain 800mg Q.5D Take [address] (ADVIL,MOTR 03-08 tablet [facility] IN) 800 MG 15:50: 00:00 (800 mg Med ical tablet 02 :00 total) by Center mouth in the morning and 1 tablet (800 mg total) before bedtime. acetaminoph 2022-0 2022- No pain 1000mg Take [address] en 03-08- tablets [facility]ukes (TYLENOL) 15:50: 00:00 (1,000 mg Me dical 500 MG 02 :00 total) by Center tablet mouth every 6 (six) hours as needed for Pain. oxybutynin 2022-0 Yes 5mg Q.5D Take 1 [facility] (DITROPAN) - tablet (5 Luke s 5 MG tablet 16:30: mg total) M edical 58 by mouth Center in the morning and 1 tablet (5 mg total) before bedtime. DULoxetine 2022-0 Yes anxiety 120mg QD Take [address] (CYMBALTA) -07 with capsules [facility] 60 MG 16:30: depression (120 mg Med ical capsule 58 total) by Center mouth in the morning. ARIPiprazol 3-0 Yes 5mg QD Take [address] (ABILIFY) - tablet (5 Dayana es 5 MG tablet 16:30: mg total) M edical 58 by mouth Center in the morning. donepeziL 2023-0 Yes 10mg Q.5D Take [address] (ARICEPT) 6-07 tablet (10 Luke s 10 MG 16:30: mg total) Medical tablet 58 by mouth Center in the morning and 1 tablet (10 mg total) before bedtime. aspirin 81 2023-0 Yes 81mg QD Take 1 [facility] MG EC 6-07 tablet (81 [facility] tablet 16:30: mg total) Medica l 58 by mouth Center in the morning. clonazePAM 2023-0 Yes .5mg Take 1 [facility] (KlonoPIN) 6-07 tablet [facility] 0.5 MG 16:30: (0.5 mg Medical tablet 58 total) by Center mouth 2 (two) times daily as needed for Anxiety. Max Daily Amount: 1 mg acetaminoph 2023-0 Yes 1{tbl} Take [address] en-codeine 6-07 tablet by Ben al[place]ga (TYLENOL 16:30: mouth Medical #3) 300-30 58 every 4 Center mg per (four) tablet hours as needed for Pain. Max Daily Amount: 6 tablets senna-docus 3-0 Yes 1{tbl} QD Take [address] ate 6-07 tablet by Johana (sennosides 16:30: mouth in Ut dical -docusate 58 the Center sodium) morning. 8.6-50 mg per tablet meloxicam 3-0 Yes 7.5mg Q.5D Take 1 [facility] (MOBIC) 7.5 6-07 tablet [facility] MG tablet 16:30: (7.5 mg Medic al 58 total) by Center mouth in the morning and 1 tablet (7.5 mg total) before bedtime. oxybutynin 2023-0 Yes 5mg Q.5D Take 1 [facility] (DITROPAN) 6-07 tablet (5 Luke s 5 MG tablet 16:12: mg total) M edical 36 by mouth Center in the morning and 1 tablet (5 mg total) before bedtime. DULoxetine 3-0 Yes anxiety 120mg QD Take [address] (CYMBALTA) 6-07 with capsules [facility] 60 MG 16:12: depression (120 mg Med ical capsule 36 total) by Center mouth in the morning. ARIPiprazol 2023-0 Yes 5mg QD Take [address] [facility] (ABILIFY) 6-07 tablet (5 Dayana es 5 MG tablet 16:12: mg total) M edical 36 by mouth Center in the morning. donepeziL 2023-0 Yes 10mg Q.5D Take [address] (ARICEPT) 6-07 tablet (10 Luke s 10 MG 16:12: mg total) Medical tablet 36 by mouth Center in the morning and 1 tablet (10 mg total) before bedtime. aspirin 81 3-0 Yes 81mg QD Take 1 [facility] MG EC 6-07 tablet (81 [facility] tablet 16:12: mg total) Medica l 36 by mouth Center in the morning. clonazePAM 2023-0 Yes .5mg Take 1 [facility] (KlonoPIN) 6-07 tablet [facility] 0.5 MG 16:12: (0.5 mg Medical tablet 36 total) by Center mouth 2 (two) times daily as needed for Anxiety. Max Daily Amount: 1 mg acetaminoph 3-0 Yes 1{tbl} Take [address] en-codeine -07 tablet by Ben alvarenga (TYLENOL 16:12: mouth Medical #3) 300-30 36 every 4 Center mg per (four) tablet hours as needed for Pain. Max Daily Amount: 6 tablets senna-docus 3-0 Yes 1{tbl} QD Take [address] ate 6-07 tablet by Johana (sennosides 16:12: mouth in Ut dical -docusate 36 the Center sodium) morning. 8.6-50 mg per tablet meloxicam 3-0 Yes 7.5mg Q.5D Take 1 [facility] (MOBIC) 7.5 6-07 tablet [facility] MG tablet 16:12: (7.5 mg Medic al 36 total) by Center mouth in the morning and 1 tablet (7.5 mg total) before bedtime. ibuprofen 3-0 2023- No pain 800mg Q.5D Take [address] (ADVIL,MOTR -04 05-07 tablet [facility] IN) 800 MG 09:06: 00:00 (800 mg Med ical tablet 56 :00 total) by Center mouth in the morning and 1 tablet (800 mg total) before bedtime. acetaminoph 2023-0 2023- No pain 1000mg Take [address] en 03-07- tablets [facility]ukes (TYLENOL) 09:06: 00:00 (1,000 mg Me dical 500 MG 56 :00 total) by Center tablet mouth every 6 (six) hours as needed for Pain. ibuprofen 2022- No pain 800mg Q.5D Take [address] (ADVIL,MOTR 03-07 tablet [facility] IN) 800 MG 09:06: 00:00 (800 mg Med ical tablet 56 :00 total) by Center mouth in the morning and 1 tablet (800 mg total) before bedtime. acetaminoph 2022- No pain 1000mg Take [address] en 03-07- tablets [facility]ukes (TYLENOL) 09:06: 00:00 (1,000 mg Me dical 500 MG 56 :00 total) by Center tablet mouth every 6 (six) hours as needed for Pain. amLODIPine 0 2023- Yes 10mg QD Take [address] (NORVASC) 03-07- tablet (10 Dayana es 10 MG 00:00: 23:59 mg total) Medica l tablet 00 :00 by mouth Center in the morning. amLODIPine 2023- Yes 10mg QD Take [address] (NORVASC) 03-07- tablet (10 Day[facility] es 10 MG 00:00: 23:59 mg total) Medica l tablet 00 :00 by mouth Center in the morning. amLODIPine 2023- Yes 10mg QD Take [address] (NORVASC) 03-07- tablet (10 Dayana es 10 MG 00:00: 23:59 mg total) Medica l tablet 00 :00 by mouth Center in the morning. traMADoL 2022-0 Yes 50mg Take [address] [facility] (ULTRAM) 50 5-31 tablet (50 Luisa kes mg tablet 00:00: mg total) Med ical 00 by mouth Center every 8 (eight) hours as needed. Max Daily Amount: 150 mg traMADoL 2022-0 Yes 50mg Take [address] (ULTRAM) 50 5-31 tablet (50 Luisa kes mg tablet 00:00: mg total) Med ical 00 by mouth Center every 8 (eight) hours as needed. Max Daily Amount: 150 mg traMADoL Yes 50mg Take [address] (ULTRAM) 50 5-31 tablet (50 Luisa kes mg tablet 00:00: mg total) Med ical 00 by mouth Center every 8 (eight) hours as needed. lactated 2021-10 Yes 1000mL at 100 Unive [...] Pain (scale 7-10), PACU FENTanyl PF 2021-10 No 25ug 25 mcg, Un arely (SUBLIMAZE 007-17 Slow IV ity o f (PF)) 13:10: 16:01 Push, [place] injection 02 :00 Q5MIN PRN, Medi haritha 25 mcg 4 doses, Branch Starting on Sun07/17/22 at 0810, Until Sun07/17/22 at 1101, Routine, Pain (scale 4-6), PACU ondansetron 2021-10 No 4mg 4 mg, Slow Univers (ZOFRAN 07-17 IV Push, ity of (PF)) 13:10: 16:01 PRN, 1 [place] injection 4 02 :00 dose, Medical mg Starting Branch on Sun07/17/22 at 0810, Until Sun07/17/22 at 1101, Routine, Nausea and Vomiting (N/V), PACU bupivacaine 2021-10- No PRN, Unive rs -epinephrin 007-17 Starting ity of e-pf 12:54: 13:55 on Sun [place] (SENSORCAIN 00 :11 07/17/22 Medi haritha E at 0754, Branch W/EPINEPHRI Until [facility] [place]) 0.25 07/17/22 %-1:200,000 at 0855, injection [...] On Sun07/17/22 at 0645, Routine, DSU Pre-op ARIPiprazol 2021-10 Yes 5mg Take 5 mg U nivers e 5 mg 0-17 by mouth ity of tablet 08:55: in the [place] [address] morning. Medical Branch clonazePAM 2021-10 Yes 1mg [...] by mouth ity of (DEPLIN, 08:55: daily. [place] ALGAL OIL,) 52 Medical 15.314 Branch mg [...] mouth ity of mg Tab 08:55: daily. [place] [address] Medical Branch oxybutynin 2021-10 Yes 5mg Take 5 mg Un arely chloride 5 0-17 by mouth ity o f mg tablet 08:55: in the [place] [address] morning Medical and 5 mg Branch in the evening. ibuprofen 2021-10 Yes 800mg Take 800 Uni vers 800 mg 0-17 mg by ity of tablet 08:55: mouth in [place] 52 the Medical morning Branch and 800 mg in the evening. Take with meals. donepeziL 2021-10 Yes 10mg Take 10 mg Un arely 10 mg 0-17 by mouth ity of tablet 08:55: in the [place] [address] morning Medical and 10 mg Branch in the evening. amitriptyli 2021-10 Yes 25mg Take 25 mg Univers ne 25 mg 0-17 by mouth ity of tablet 08:55: as needed. [place] [address] 1 or 2 as Medical needed at Branch bedtime aspirin 81 2021-10 Yes 81mg Take 81 mg U nivers mg EC 0-17 by mouth ity of tablet 08:55: in the [place] [address] morning. Medical Branch ARIPiprazol 2021-10 Yes 5mg Take 5 mg U nivers e 5 mg 0-17 by mouth ity of tablet 08:55: in the [place] [address] morning. Medical Branch clonazePAM 2021-10 Yes 1mg Take 1 mg Un arely (KLONOPIN) 0-17 by mouth 3 ity of 1 mg tablet 08:55: (three) Daniele as 52 times Medical daily as Branch needed. As nee DULoxetine 2021-10 Yes 120mg Take 120 Un arely (CYMBALTA) 0-17 mg by ity of 60 mg 08:55: mouth in [place] [address] the Medical morning. Branch HYDROmorpho 2021-10 Yes 8mg Take 8 mg U nivers ne 0-17 by mouth 4 ity of (DILAUDID) 08:55: (four) [place] 8 mg tablet 52 times Medical daily. Branch levomefolat 2021-10 Yes 1{capsu Take 1 Cap Univers e-algal oil 0-17 le} by mouth ity of (DEPLIN, 08:55: daily. [place] ALGAL OIL,) 52 Medical 15.314 Branch mg [...] mouth ity of mg Tab 08:55: daily. [place] [address] Medical Branch oxybutynin 2021-10 Yes 5mg Take 5 mg Un arely chloride 5 0-17 by mouth ity o f mg tablet 08:55: in the [place] [address] morning Medical and 5 mg Branch in the evening. ibuprofen 2021-10 Yes 800mg Take 800 Uni vers 800 mg 0-17 mg by ity of tablet 08:55: mouth in [place] [address] the Medical morning Branch and 800 mg in the evening. Take with meals. donepeziL 2021-10 Yes 10mg Take 10 mg Un arely 10 mg 0-17 by mouth ity of tablet 08:55: in the [place] [address] morning Medical and 10 mg Branch in the evening. amitriptyli 2021-10 Yes 25mg Take 25 mg Univers ne 25 mg 0-17 by mouth ity of tablet 08:55: as needed. [place] [address] 1 or 2 as Medical needed at Branch bedtime aspirin 81 2021-10 Yes 81mg Take 81 mg U nivers mg EC 0-17 by mouth ity of tablet 08:55: in the [place] [address] morning. Medical Branch ARIPiprazol 2021-10 Yes 5mg Take 5 mg U nivers e 5 mg 0-17 by mouth ity of tablet 08:55: in the [place] [address] morning. Medical Branch clonazePAM 2021-10 Yes 1mg Take 1 mg Un arely (KLONOPIN) 0-17 by mouth 3 ity of 1 mg tablet 08:55: (three) [place] as 52 times Medical daily as Branch needed. As nee DULoxetine 2021-10 Yes 120mg Take 120 Un arely (CYMBALTA) 0-17 mg by ity of 60 mg 08:55: mouth in [place] capsule 52 the Medical morning. Branch HYDROmorpho 2021-10 Yes 8mg Take 8 mg U nivers ne 0-17 by mouth 4 ity of (DILAUDID) 08:55: (four) [place] 8 mg tablet 52 times Medical daily. Branch levomefolat 2021-10 Yes 1{capsu Take 1 Cap Univers e-algal oil 0-17 le} by mouth ity of (DEPLIN, 08:55: daily. [place] ALGAL OIL,) 52 Medical 15.314 Branch mg [...] it y of mg tablet 08:55: (two) [place] 52 times Medical daily. Branch meloxicam 2021-10 Yes 7.5mg Take 7.5 Uni vers (MOBIC) 7.5 0-17 mg by ity of mg tablet 08:55: mouth [place] [address] daily. Medical Branch Doxepin 2021-10 Yes 6mg Take 6 mg Unive rs (SILENOR) 6 0-17 by mouth ity of mg Tab 08:55: daily. [place] [address] Medical Branch oxybutynin 2021-10 Yes 5mg Take 5 mg Un arely chloride 5 0-17 by mouth ity o f mg tablet 08:55: in the [place] [address] morning Medical and 5 mg Branch in the evening. ibuprofen 2021-10 Yes 800mg Take 800 Uni vers 800 mg 0-17 mg by ity of tablet 08:55: mouth in [place] [address] the Medical morning Branch and 800 mg in the evening. Take with meals. donepeziL 2021-10 Yes 10mg Take 10 mg Un arely 10 mg 0-17 by mouth ity of tablet 08:55: in the [place] [address] morning Medical and 10 mg Branch in the evening. amitriptyli 2021-10 Yes 25mg Take 25 mg Univers ne 25 mg 0-17 by mouth ity of tablet 08:55: as needed. [place] 52 1 or 2 as Medical needed at Branch bedtime aspirin 81 2021-10 Yes 81mg Take 81 mg U nivers mg EC 0-17 by mouth ity of tablet 08:55: in the [place] 52 morning. Medical Branch ARIPiprazol Yes 10mg Take 10 [...] mouth [place] 04 daily. Medical Branch Doxepin 2015-0 Yes 6mg Take 6 mg Unive rs (SILENOR) 6 2-15 by mouth ity of mg Tab 18:29: daily. [address] VENLAFAXINE 2004- Yes 1 Cap Oral Univers 75 MG ORAL 2-14 QAM WITH ity o f CP24 00:00: BREAKFAST [place] [facility] Branch QUETIAPINE 2004-10 Yes 1 tab po Uni vers 300 MG ORAL 2-14 qhs ity of TAB 00:00: [address] Branch VENLAFAXINE 2004- Yes 1 Cap Oral Univers 75 MG ORAL 2-14 QAM WITH ity o f CP24 00:00: BREAKFAST [address] Branch QUETIAPINE 2004- Yes 1 tab po Uni vers 300 MG ORAL 2-14 qhs ity of TAB 00:00: [address] Branch VENLAFAXINE 2004- Yes 1 Cap Oral Univers 75 MG ORAL 2-14 QAM WITH ity o f CP24 00:00: BREAKFAST [address] Branch QUETIAPINE 2004-10 Yes 1 tab po Uni vers 300 MG ORAL 2-14 qhs ity of TAB 00:00: [address] Vital Signs Vital Name Observation Time Observation Value Comments Source HEIGHT 2023-03-08 11:13:00 154.9 cm WEIGHT 2023-03-08 11:13:00 55.475 kg HEIGHT 2023-03-08 11:13:00 154.9 cm WEIGHT 2023-03-08 11:13:00 55.475 kg HEIGHT 2023-03-08 11:13:00 154.9 cm WEIGHT 2023-03-08 11:13:00 55.475 kg WEIGHT 2023-03-05 07:35:00 61.508 kg HEIGHT 2023-03-02 18:26:00 155 cm WEIGHT 2023-03-02 18:26:00 135 kg WEIGHT 2023-03-05 07:35:00 61.508 kg HEIGHT 2023-03-02 18:26:00 155 cm WEIGHT 2023-03-02 18:26:00 135 kg WEIGHT 2023-03-05 07:35:00 61.508 kg HEIGHT 2023-03-02 18:26:00 155 cm WEIGHT 2023-03-02 18:26:00 135 kg Systolic blood 2022-07-17 13:30:00 127 mm[Hg] Univer sity of pressure [place] [facility] Diastolic blood 2022-07-17 13:30:00 62 mm[Hg] Unive rsity of pressure [place] [facility] Heart rate 2022-07-17 13:30:00 76 /min [facility] [place] [facility] Respiratory rate 2022-07-17 13:30:00 20 /min Univ ersity of [place] [facility] Oxygen saturation in 2022-07-17 13:30:00 93 /min University of Arterial blood by [facility] haritha Pulse oximetry Branch Body temperature 2022-07-17 13:10:00 36.78 Monica [facility] [place] [facility] Body height 2022-07-04 16:26:00 154.9 cm [facility] [place] [facility] Body weight 2022-07-04 16:26:00 78 kg [facility] [place] [facility] BMI 2022-07-04 16:26:00 32.51 kg/m2 [facility] [place] [facility] Systolic blood 2022-07-17 13:30:00 127 mm[Hg] Univer sity of pressure [place] [facility] Diastolic blood 2022-07-17 13:30:00 62 mm[Hg] Unive rsity of pressure [place] [facility] Heart rate 2022-07-17 13:30:00 76 /min [facility] [place] [facility] Respiratory rate 2022-07-17 13:30:00 20 /min Univ ersity [facility] [place] [facility] Oxygen saturation in 2022-07-17 13:30:00 93 /min University of Arterial blood by [facility] haritha Pulse oximetry Branch Body temperature 2022-07-17 13:10:00 36.78 Monica [facility] [place] [facility] Body height 2022-07-04 16:26:00 154.9 cm [facility] [place] [facility] Body weight 2022-07-04 16:26:00 78 kg [facility] [place] [facility] BMI 2022-07-04 16:26:00 32.51 kg/m2 [facility] [place] [facility] Systolic blood 2023-03-09 06:57:00 160 mm[Hg] [facility] Diastolic blood 2023-03-09 06:57:00 70 mm[Hg] [facility] Heart rate 2023-03-09 06:57:00 60 /min [facility] Body temperature 2023-03-09 06:57:00 36.89 Monica [facility] Respiratory rate 2023-03-09 06:57:00 18 /min [facility] Oxygen saturation in 2023-03-09 06:57:00 99 /min [facility] Arterial blood by Medical Ce nter Pulse oximetry Body height 2023-03-08 11:13:00 154.9 cm [facility] Body weight 2023-03-08 11:13:00 55.475 kg [facility] BMI 2023-03-08 11:13:00 23.11 kg/m2 [facility] Systolic blood 2023-03-08 07:16:00 132 mm[Hg] [facility] Diastolic blood 2023-03-08 07:16:00 65 mm[Hg] [facility] Heart rate 2023-03-08 07:16:00 74 /min [facility] Body temperature 2023-03-08 07:16:00 37.17 Monica [facility] Respiratory rate 2023-03-08 07:16:00 18 /min [facility] Oxygen saturation in 2023-03-08 07:16:00 97 /min [facility] Arterial blood by Medical Ce nter Pulse oximetry Systolic blood 2023-03-07 14:19:00 139 mm[Hg] [facility] Diastolic blood 2023-03-07 14:19:00 64 mm[Hg] [facility] Heart rate 2023-03-07 14:19:00 77 /min [facility] Body temperature 2023-03-07 14:19:00 37 Monica [facility] Respiratory rate 2023-03-07 14:19:00 18 /min [facility] Oxygen saturation in 2023-03-07 14:19:00 97 /min [facility] Arterial blood by Medical Ce nter Pulse oximetry Body weight 2023-03-05 07:35:00 61.508 kg [facility] BMI 2023-03-05 07:35:00 25.60 kg/m2 [facility] Body height 2023-03-02 18:26:00 155 cm [facility] Procedures Procedure Date / Time Performing Clinician Source Performed HEMOGLOBIN AND 2023-03-09 05:10:00 Steven Garcia [facility] HEMATOCRIT [facility] XR PELVIS 1 OR 2 VIEWS 2023-03-08 15:24:26 Odilia Robles [facility] ARTHROPLASTY, HIP 2023-03-08 13:33:00 Parry, Dimitris [facility] ARTHROPLASTY, HIP 2023-03-08 13:30:00 Parry, Dimitris [facility] ARTHROPLASTY, HIP 2023-03-08 13:28:00 Parry, [facility] ECG 12-LEAD 2023-03-08 11:46:24 Unknown, Hl7 Doctor [facility] TYPE AND SCREEN, 2023-03-07 18:13:00 Mer Middleton [facility] AUTOMATED [place] BASIC METABOLIC PANEL 2023-03-07 05:29:00 [facility] CBC W/PLT COUNT & AUTO 2023-03-07 05:29:00 [facility] DIFFERENTIAL [place] CBC W/PLT COUNT & AUTO 2023-03-07 05:29:00 [facility] CBC W/PLT COUNT & AUTO 2023-03-05 05:18:00 Paul [facility] DIFFERENTIAL [facility] CBC W/PLT COUNT & AUTO 2023-03-05 05:18:00 [facility] DIFFERENTIAL [facility] BASIC METABOLIC PANEL 2023-03-05 05:15:00 Paul [facility] BASIC METABOLIC PANEL 2023-03-03 12:20:00 Paul [facility] CBC W/PLT COUNT & AUTO 2023-03-03 12:20:00 Miller [facility] DIFFERENTIAL [facility] CBC W/PLT COUNT & AUTO 2023-03-03 12:20:00 Americo Miller [facility] DIFFERENTIAL [facility] XR HIP 1 VIEW RIGHT 2023-03-02 10:56:00 Arely Browning Brittani [facility] XR BILATERAL HIPS TO 2023-03-02 10:13:00 Lady Hardwick [facility] INCLUDE PELVIS Center ABORH, MANUAL 2023-03-02 04:38:00 Aracelis Lovett [facility] CBC W/PLT COUNT & AUTO 2023-03-02 02:53:00 Lady Hardwick [facility] DIFFERENTIAL Center COMPREHENSIVE METABOLIC 2023-03-02 02:53:00 Lady Hardwick [facility] PANEL Center PROTHROMBIN TIME/INR 2023-03-02 02:53:00 Lady Hardwick [facility] TYPE AND SCREEN, 2023-03-02 02:53:00 Lady Hardwick [facility] AUTOMATED Center CBC W/PLT COUNT & AUTO 2023-03-02 02:53:00 Lady Hardwick [facility] DIFFERENTIAL Center INTRATHECAL INFUSION 2022-07-17 12:09:00 Justin Hobbs [facility] PUMP REVISION Medical Branch DAY SURGERY - ADC 2022-07-17 05:01:00 Doctor Unassigned, No [facility] EXTERNAL PROVIDER 2022-06-21 05:01:00 Doctor Unassigned, No [facility] Medical Branch EXTERNAL PROVIDER 2022-06-21 05:01:00 Doctor Unassigned, No [facility] Medical Branch XR ANKLE 3+ VW RIGHT 2021-03-02 17:25:47 [facility] Planned Activity Planned Date Details Comments Source Future Scheduled 2024-03-[address] [facility] 00:00:00 Counseling and Medical Cente r Screening (12+) [code = Tobacco Cessation Counseling and Screening (12+)] Future Scheduled 2023-06-[address] [facility] 00:00:00 (Season Ended) [code = Medic al Center INFLUENZA VACCINE (Season Ended)] Future Scheduled 2023-06-[address] [facility] 00:00:00 (Season Ended) [code = Medic al Center INFLUENZA VACCINE (Season Ended)] Future Scheduled 2023-06-[address] [facility] 00:00:00 (Season Ended) [code = Medic al Center Influenza Vaccine (Season Ended)] Future Scheduled 2022-10-01 FALLS RISK SCREENING [facility] 00:00:00 [code = FALLS RISK Medical C enter SCREENING] Future Scheduled 2022-10-01 FALLS RISK SCREENING [facility] 00:00:00 [code = FALLS RISK Medical C enter SCREENING] Future Scheduled 2022-10-01 FALLS RISK SCREENING [facility] 00:00:00 [code = FALLS RISK Medical C enter SCREENING] Future Scheduled 2016 PNEUMOCOCCAL 65+ YRS ([address] [facility] 00:00:00 - PCV) [code = Medical Cente r PNEUMOCOCCAL 65+ YRS (1 - PCV)] Future Scheduled 2016 PNEUMOCOCCAL 65+ YRS ([address] [facility] 00:00:00 - PCV) [code = Medical Cente r PNEUMOCOCCAL 65+ YRS (1 - PCV)] Future Scheduled 2016 PNEUMOCOCCAL 65+ YRS ([address] [facility] 00:00:00 - PCV) [code = Medical Cente r PNEUMOCOCCAL 65+ YRS (1 - PCV)] Future Scheduled 2001 SHINGLES VACCINES ([address] [facility] 00:00:00 2) [code = SHINGLES Medical Center VACCINES (1 of 2)] Future Scheduled 2001 SHINGLES VACCINES ([address] [facility] 00:00:00 2) [code = SHINGLES Medical Center VACCINES (1 of 2)] Future Scheduled 2001 SHINGLES VACCINES ([address] [facility] 00:00:00 2) [code = SHINGLES Medical Center VACCINES (1 of 2)] Future Scheduled 1970 DTAP/TDAP/TD [facility]ACCINES [facility] 00:00:00 (1 - Tdap) [code = Medical C enter DTAP/TDAP/TD VACCINES (1 - Tdap)] Future Scheduled 1970 DTAP/TDAP/TD [facility]ACCINES [facility] 00:00:00 (1 - Tdap) [code = Medical C enter DTAP/TDAP/TD VACCINES (1 - Tdap)] Future Scheduled 1970 DTAP/TDAP/TD [facility]ACCINES [facility] 00:00:00 (1 - Tdap) [code = Medical C enter DTAP/TDAP/TD VACCINES (1 - Tdap)] Future Scheduled 1969 HEPATITIS C [facility]CRE[facility]ING [facility]:00 [code = HEPATITIS C Medical Center SCREENING] Future Scheduled 1969 HEPATITIS C [facility]CRE[facility]ING [facility]:00 [code = HEPATITIS C Medical Center SCREENING] Future Scheduled 1969 HEPATITIS C [facility]CRE[facility]ING [facility]:00:00 [code = HEPATITIS C Medical Center SCREENING] Future Scheduled [address] [facility] 00:00:00 Counseling and Medical Cente r Screening (12+) [code = Tobacco Cessation Counseling and Screening (12+)] Future Scheduled [address] [facility] 00:00:00 Counseling and Medical Cente r Screening (12+) [code = Tobacco Cessation Counseling and Screening (12+)] Future Scheduled 1952[birth year]-26 COVID-19 VACCINE (#1) [facility] 00:00:00 [code = COVID-[address] VACCINE (#1)] Future Scheduled 1951-03-26 COVID-19 VACCINE (#1) [facility] 00:00:00 [code = COVID-[address] VACCINE (#1)] Future Scheduled 1951-03-26 COVID-19 VACCINE (#1) [facility] 00:00:00 [code = COVID-[address] VACCINE (#1)] Future Scheduled 1950 Screening for malignant [facility] 00:00:00 neoplasm of colon Medical Ce nter (procedure) [code = 730126704] Future Scheduled 1950 Screening for malignant [facility] 00:00:00 neoplasm of colon Medical Ce nter (procedure) [code = 436356858] Future Scheduled 1950 Sigmoidoscopy [code = [facility] r Future Scheduled 1950 Screening for malignant [facility] 00:00:00 neoplasm of breast Medical C enter (procedure) [code = 108308651] Future Scheduled 1950 CT Colonography (combo) [facility] 00:00:00 [code = CT Colonography [facility] (combo)] Future Scheduled 1950 Screening for malignant [facility] 00:00:00 neoplasm of colon Medical Ce nter (procedure) [code = 151474776] Future Scheduled 1951 Screening for malignant [facility] 00:00:00 neoplasm of colon Medical Ce nter (procedure) [code = 932323744] Future Scheduled 1950 DXA SCAN [code = DXA [facility] 00:00:00 SCAN] [facility] Future Scheduled 1950 Screening for malignant [facility] 00:00:00 neoplasm of colon Medical Ce nter (procedure) [code = 828054176] Future Scheduled 1951 Screening for malignant [facility] 00:00:00 neoplasm of colon Medical Ce nter (procedure) [code = 206575093] Future Scheduled 1950 S[facility]oid[facility] 1950 Screening for malignant [facility] 00:00:00 neoplasm of breast Medical C enter (procedure) [code = 270133238] Future Scheduled 1951 CT Colonography (combo) [facility] 00:00:00 [code = CT Colonography [facility] (combo)] Future Scheduled 1951 Screening for malignant [facility] 00:00:00 neoplasm of colon Medical Ce nter (procedure) [code = 457865779] Future Scheduled 1951 Screening for malignant [facility] 00:00:00 neoplasm of colon Medical Ce nter (procedure) [code = 949821019] Future Scheduled 1950 DXA SCAN [code = DXA [facility] 00:00:00 SCAN] [facility] Future Scheduled 1951 Screening for malignant [facility] 00:00:00 neoplasm of breast Medical C enter (procedure) [code = 487410905] Future Scheduled 1951 CT Colonography (combo) [facility] 00:00:00 [code = CT Colonography [facility] (combo)] Future Scheduled 1951 Screening for malignant [facility] 00:00:00 neoplasm of colon Medical Ce nter (procedure) [code = 293431267] Future Scheduled 1951 Screening for malignant [facility] 00:00:00 neoplasm of colon Medical Ce nter (procedure) [code = 255766725] Future Scheduled 1950 DXA SCAN [code = DXA [facility] 00:00:00 SCAN] [facility] Future Scheduled 1951 Screening for malignant [facility] 00:00:00 neoplasm of colon Medical Ce nter (procedure) [code = 389991902] Future Scheduled 1951 Screening for malignant [facility] 00:00:00 neoplasm of colon Medical Ce nter (procedure) [code = 015343657] Future Scheduled 1950 Sigmoidoscopy [code = [facility] S[facility]oidoscopy] Medical [facility] Encounters Start End Encounter Admission Attending Care Care Encounter Source Date/Time Date/Time Type Type Clinicians Facility Department ID 2023-03-08 Inpatient ESTHELA PARRY [facility] [id number] SLE 15:16:15 DIMITRIS 2023-03-08 Inpatient SOHAN [facility] [id number] SLE 11:54:44 DIMITRIS 2023-03-07 2023-03-09 [facility] [id number] [id number] 16:30:00 14:26:00 Encounter Dimitris alvarenga [facility] 2023-03-07 2023-03-09 Outpatient ESTHELA PARRY [facility] Orthopedics [id number] SLE 16:30:00 14:26:00 DIMITRIS 2023-03-08 2023-03-08 Surgery [facility] [id number] 13:30:00 15:30:00 [facility] 2023-03-08 2023-03-08 Anesthesia Cj Leonard [facility] [id number] 13:30:00 15:17:00 Event Chucky Dwyer [facility] 2023-03-08 2023-03-08 Surgery Parry, [facility] [id number] 13:00:00 15:00:00 [facility] 2023-03-08 2023-03-08 Anesthesia , [facility] [id number] 13:33:00 13:33:00 Event Chucky [facility] 2023-03-08 2023-03-08 Travel [facility] [id number] [facility] 00:[facility]:00 [facility] 2023-03-02 2023-03-07 [facility] [id number] [facility] 00[facility] 15:50:00 [facility] 2023-03-07 [facility] [id number] [facility] 00:19:00 15:50:00 Encounter Chito Mccullough [facility] 2023-03-02 2023-03-07 [facility] Orthopaedic [id number] [facility] 00:19:00 15:50:00 , CHITO 2023-03-02 2023-03-02 Outpatient FOG_A_Provi AOSM AOSM [id number] Christine 00:00:00 00:00:00 ami [id number] Orthop e dic Sports Medicin e 2022-07-17 2022-07-17 [facility] [id number] Univers 06:33:00 08:54:00 Encounter Justin [place] [id number] [place] [id number] [facility] 071 Branch 2022-07-17 2022-07-17 Outpatient R [facility] ANS [id number] Univers 06:33:00 08:54:00 JUSTIN ity [facility] 2022-07-17 2022-07-17 Surgery [facility] [id number] Univers 07:15:00 08:52:00 Justin S [place] [id number] [place] [id number] [facility] 020 Branch 2022-07-17 2022-07-17 Orders Doctor TOÑO [id number] Univers 00:00:00 00:00:00 Only Unassigned, HARDY 350.1.13.10 ity of [place] [facility] 4.2.7.2.686 Daniele as [id number] [facility] 009 Branch 2022-07-14 2022-07-14 Outpatient R [facility] [id number] Univers 08:15:00 08:15:00 JUSTIN ity [facility] 2021-03-02 2021-03-02 Hospital Radiology [facility] [id number] Univers 12:13:44 23:59:00 Encounter [place] [id number] [place] [id number] [facility] 807 Branch 2021-03-02 2021-03-02 Outpatient R RADIOLOGY [facility] [id number] Univers 00:00:00 00:00:00 ity of [facility] Results Test Description Test Time Test Comments Results Result Comments Source HEMOGLOBIN AND HEMATOCRIT 2023-03-09 05:43:27 Test Item Value Reference Range Interpretation Comme nts HEMOGLOBIN (BEAKER) (test code = 410) 10.1 GM/DL 11.2-15.7 L HEMATOCRIT (BEAKER) (test code = 411) 31.1 % 34.1-44.9 L XR PELVIS 1 OR 2 [id number] 15:30:53 [facility] CENTERName: STALIN GILLIS : 1950 Sex: FRight hip one view:HISTORY: Postop evaluationCompared to 03/02/2023.The film was obtained with attentionto the right hip, excluding theiliac crests. The visualized bony structures appear intact, with noevidence of fracture. A new right hip replacement is now noted, with aconstraining ring projecting overthe proximal femoral neck component.BASIC METABOLIC [id number] 07:00:24 Test Item Value Reference Range Interpretation Comments SODIUM (BEAKER) 141 meq/L 136-145 (test code = 381) POTASSIUM 3.9 meq/L 3.5-5.1 (BEAKER) (test code = 379) CHLORIDE (BEAKER) 105 meq/L 98-107 (test code = 382) CO2 (BEAKER) 28 meq/L 22-29 (test code = 355) BLOOD UREA 21 mg/dL 7-21 NITROGEN (BEAKER) (test code = 354) CREATININE 0.71 mg/dL 0.57-1.25 (BEAKER) (test code = 358) GLUCOSE RANDOM 141 mg/dL 70-105 H (BEAKER) (test code = 652) CALCIUM (BEAKER) 8.8 mg/dL 8.4-10.2 (test code = 697) EGFR (BEAKER) 91 Interpretatio n of eGFR (test code = mL/min/1.73 values Stage De scription 1092) sq m Result G1 Renee l or high >=90 G2 Mildly decreased 60-89 G3a Mildl y to moderately 45-5 9 G3b Moderately to s everely 30-44 G4 Severl y decreased 15-29 G5 Kidney failure <15Reported eGF R is based on the CKD-EPI 2020 equation that d oes not use a race coefficientEsti mated GFR is not as accur ate as Creatinine Amanda lawson in predicting glom erular filtration rate . Estimated GFR is not appl icable for dialysis patien ts Solar Energy Engineer ID - ADMINCBC W/PLT COUNT & AUTO [id number] 06:01:08 Test Item Value Reference Range Interpretation Comments WHITE BLOOD CELL COUNT (BEAKER) 11.5 K/ L 3.5-10.5 H (test code = 775) RED BLOOD CELL COUNT (BEAKER) 4.19 M/ L 3.93-5.22 (test code = 761) HEMOGLOBIN (BEAKER) (test code = 11.7 GM/DL 11.2-15.7 410) HEMATOCRIT (BEAKER) (test code = 37.0 % 34.1-44.9 411) MEAN CORPUSCULAR VOLUME (BEAKER) 88 fL 79-95 (test code = 753) MEAN CORPUSCULAR HEMOGLOBIN 27.9 pg 25.6-32.2 (BEAKER) (test code = 751) MEAN CORPUSCULAR HEMOGLOBIN CONC 31.6 GM/DL 32.2-35.5 L (BEAKER) (test code = 752) RED CELL DISTRIBUTION WIDTH 14.5 % 11.7-14.4 H (BEAKER) (test code = 412) PLATELET COUNT (BEAKER) (test 432 K/CU MM 150-450 code = 756) MEAN PLATELET VOLUME (BEAKER) 8.8 fL 9.4-12.3 L (test code = 754) NUCLEATED RED BLOOD CELLS 0 /100 WBC 0-0 (BEAKER) (test code = 413) NEUTROPHILS RELATIVE PERCENT 65 % (BEAKER) (test code = 429) LYMPHOCYTES RELATIVE PERCENT 21 % (BEAKER) (test code = 430) MONOCYTES RELATIVE PERCENT 7 % (BEAKER) (test code = 431) EOSINOPHILS RELATIVE PERCENT 5 % (BEAKER) (test code = 432) BASOPHILS RELATIVE PERCENT 1 % (BEAKER) (test code = 437) NEUTROPHILS ABSOLUTE COUNT 7.42 K/ L 1.56-6.13 H (BEAKER) (test code = 670) LYMPHOCYTES ABSOLUTE COUNT 2.44 K/ L 1.18-3.74 (BEAKER) (test code = 414) MONOCYTES ABSOLUTE COUNT (BEAKER) 0.79 K/ L 0.24-0.36 H (test code = 415) EOSINOPHILS ABSOLUTE COUNT 0.56 K/ L 0.04-0.36 H (BEAKER) (test code = 416) BASOPHILS ABSOLUTE COUNT (BEAKER) 0.06 K/ L 0.01-0.08 (test code = 417) IMMATURE GRANULOCYTES-RELATIVE 1.60 % 0.00-1.00 H PERCENT (BEAKER) (test code = 2801) BASIC METABOLIC [id number] 06:31:27 Test Item Value Reference Range Interpretation Comments SODIUM (BEAKER) 140 meq/L 136-145 (test code = 381) POTASSIUM 4.6 meq/L 3.5-5.1 (BEAKER) (test code = 379) CHLORIDE (BEAKER) 104 meq/L 98-107 (test code = 382) CO2 (BEAKER) 28 meq/L 22-29 (test code = 355) BLOOD UREA 11 mg/dL 7-21 NITROGEN (BEAKER) (test code = 354) CREATININE 0.66 mg/dL 0.57-1.25 (BEAKER) (test code = 358) GLUCOSE RANDOM 106 mg/dL 70-105 H (BEAKER) (test code = 652) CALCIUM (BEAKER) 9.0 mg/dL 8.4-10.2 (test code = 697) EGFR (BEAKER) 94 Interpretatio n of eGFR (test code = mL/min/1.73 values Stage De scription 1092) sq m Result G1 Renee l or high >=90 G2 Mildly decreased 60-89 G3a Mildl y to moderately 45-5 9 G3b Moderately to s everely 30-44 G4 Severl y decreased 15-29 G5 Kidney failure <15Reported eGF R is based on the CKD-EPI 2021 equation that d oes not use a race coefficientEsti mated GFR is not as accur ate as Creatinine Amanda lawson in predicting glom erular filtration rate . Estimated GFR is not appl icable for dialysis patien ts Solar Energy Engineer ID - EDWIGE WCBC W/PLT COUNT & AUTO [id number] 06:09:24 Test Item Value Reference Range Interpretation Comments WHITE BLOOD CELL COUNT (BEAKER) 9.7 K/ L 3.5-10.5 (test code = 775) RED BLOOD CELL COUNT (BEAKER) 4.11 M/ L 3.93-5.22 (test code = 761) HEMOGLOBIN (BEAKER) (test code = 11.2 GM/DL 11.2-15.7 410) HEMATOCRIT (BEAKER) (test code = 35.5 % 34.1-44.9 411) MEAN CORPUSCULAR VOLUME (BEAKER) 86 fL 79-95 (test code = 753) MEAN CORPUSCULAR HEMOGLOBIN 27.3 pg 25.6-32.2 (BEAKER) (test code = 751) MEAN CORPUSCULAR HEMOGLOBIN CONC 31.5 GM/DL 32.2-35.5 L (BEAKER) (test code = 752) RED CELL DISTRIBUTION WIDTH 14.0 % 11.7-14.4 (BEAKER) (test code = 412) PLATELET COUNT (BEAKER) (test 445 K/CU MM 150-450 code = 756) MEAN PLATELET VOLUME (BEAKER) 8.8 fL 9.4-12.3 L (test code = 754) NUCLEATED RED BLOOD CELLS 0 /100 WBC 0-0 (BEAKER) (test code = 413) NEUTROPHILS RELATIVE PERCENT 58 % (BEAKER) (test code = 429) LYMPHOCYTES RELATIVE PERCENT 27 % (BEAKER) (test code = 430) MONOCYTES RELATIVE PERCENT 9 % (BEAKER) (test code = 431) EOSINOPHILS RELATIVE PERCENT 5 % (BEAKER) (test code = 432) BASOPHILS RELATIVE PERCENT 1 % (BEAKER) (test code = 437) NEUTROPHILS ABSOLUTE COUNT 5.55 K/ L 1.56-6.13 (BEAKER) (test code = 670) LYMPHOCYTES ABSOLUTE COUNT 2.64 K/ L 1.18-3.74 (BEAKER) (test code = 414) MONOCYTES ABSOLUTE COUNT (BEAKER) 0.86 K/ L 0.24-0.36 H (test code = 415) EOSINOPHILS ABSOLUTE COUNT 0.47 K/ L 0.04-0.36 H (BEAKER) (test code = 416) BASOPHILS ABSOLUTE COUNT (BEAKER) 0.06 K/ L 0.01-0.08 (test code = 417) IMMATURE GRANULOCYTES-RELATIVE 0.80 % 0.00-1.00 PERCENT (BEAKER) (test code = 2801) CBC W/PLT COUNT & AUTO [id number] 13:08:23 Test Item Value Reference Range Interpretation Comments WHITE BLOOD CELL COUNT (BEAKER) 10.3 K/ L 3.5-10.5 (test code = 775) RED BLOOD CELL COUNT (BEAKER) 3.92 M/ L 3.93-5.22 L (test code = 761) HEMOGLOBIN (BEAKER) (test code = 11.0 GM/DL 11.2-15.7 L 410) HEMATOCRIT (BEAKER) (test code = 33.7 % 34.1-44.9 L 411) MEAN CORPUSCULAR VOLUME (BEAKER) 86 fL 79-95 (test code = 753) MEAN CORPUSCULAR HEMOGLOBIN 28.1 pg 25.6-32.2 (BEAKER) (test code = 751) MEAN CORPUSCULAR HEMOGLOBIN CONC 32.6 GM/DL 32.2-35.5 (BEAKER) (test code = 752) RED CELL DISTRIBUTION WIDTH 13.7 % 11.7-14.4 (BEAKER) (test code = 412) PLATELET COUNT (BEAKER) (test 411 K/CU MM 150-450 code = 756) MEAN PLATELET VOLUME (BEAKER) 9.0 fL 9.4-12.3 L (test code = 754) NUCLEATED RED BLOOD CELLS 0 /100 WBC 0-0 (BEAKER) (test code = 413) NEUTROPHILS RELATIVE PERCENT 75 % (BEAKER) (test code = 429) LYMPHOCYTES RELATIVE PERCENT 15 % (BEAKER) (test code = 430) MONOCYTES RELATIVE PERCENT 7 % (BEAKER) (test code = 431) EOSINOPHILS RELATIVE PERCENT 2 % (BEAKER) (test code = 432) BASOPHILS RELATIVE PERCENT 0 % (BEAKER) (test code = 437) NEUTROPHILS ABSOLUTE COUNT 7.65 K/ L 1.56-6.13 H (BEAKER) (test code = 670) LYMPHOCYTES ABSOLUTE COUNT 1.58 K/ L 1.18-3.74 (BEAKER) (test code = 414) MONOCYTES ABSOLUTE COUNT (BEAKER) 0.73 K/ L 0.24-0.36 H (test code = 415) EOSINOPHILS ABSOLUTE COUNT 0.25 K/ L 0.04-0.36 (BEAKER) (test code = 416) BASOPHILS ABSOLUTE COUNT (BEAKER) 0.03 K/ L 0.01-0.08 (test code = 417) IMMATURE GRANULOCYTES-RELATIVE 0.50 % 0.00-1.00 PERCENT (BEAKER) (test code = 2801) BASIC METABOLIC [id number] 13:02:37 Test Item Value Reference Range Interpretation Comments SODIUM (BEAKER) 142 meq/L 136-145 (test code = 381) POTASSIUM 4.1 meq/L 3.5-5.1 (BEAKER) (test code = 379) CHLORIDE (BEAKER) 104 meq/L 98-107 (test code = 382) CO2 (BEAKER) 29 meq/L 22-29 (test code = 355) BLOOD UREA 9 mg/dL 7-21 NITROGEN (BEAKER) (test code = 354) CREATININE 0.59 mg/dL 0.57-1.25 (BEAKER) (test code = 358) GLUCOSE RANDOM 117 mg/dL 70-105 H (BEAKER) (test code = 652) CALCIUM (BEAKER) 8.9 mg/dL 8.4-10.2 (test code = 697) EGFR (BEAKER) 96 Interpretatio n of eGFR (test code = mL/min/1.73 values Stage De scription 1092) sq m Result G1 Renee l or high >=90 G2 Mildly decreased 60-89 G3a Mildl y to moderately 45-5 9 G3b Moderately to s everely 30-44 G4 Severl y decreased 15-29 G5 Kidney failure <15Reported eGF R is based on the CKD-EPI 2020 equation that d oes not use a race coefficientEsti mated GFR is not as accur ate as Creatinine Amanda renny in predicting glom erular filtration rate . Estimated GFR is not appl icable for dialysis patien ts Solar Energy Engineer ID - mmRAD, HIPS, BILATERALTO INCLUDE [id number] 14:57:00Reason for exam:->recent right hip dislocation [facility] CENTERName: STALIN GILLIS : 1950 Sex: FFINAL REPORT CLINICAL HISTORY: possible DAMIAN dislocation TECHNIQUE: AP view of the pelvis with AP and lateral views of the bilateral hips. COMPARISON: None IMPRESSION: The patient isstatus post right total hip arthroplasty. The acetabular component appears slightly rotated within the acetabulum and comparison with earlier imaging is recommended to evaluate for abnormal movement. However, the femoral arthroplasty component is not dislocated out of the acetabular component. There is no evidence for an acute pelvic fracture or hip fracture. Signed: Frank Sortoort Verified Date/Time: 03/02/2023 14:57:54 , HIP, 1 VIEW, [id number] 14:57:00Please obtain cross table lateralReason for exam:->possible DAMIAN dislocationShould this be performed at the bedside?->No [facility] 1950 Sex: FFINAL REPORT CLINICAL HISTORY: possible DAMIAN dislocation TECHNIQUE: AP view of thepelvis with AP and lateral views of the bilateral hips. COMPARISON: None IMPRESSION: The patient is status post right total hip arthroplasty. The acetabular component appears slightly rotated within the acetabulum and comparison with earlier imaging is recommended to evaluate for abnormal movement. However, the femoral arthroplasty component is not dislocated out of the acetabular component. There isno evidence for an acute pelvic fracture or hip fracture. Signed: Sorto, Frank MDReport Verified Date/Time: 03/02/2023 14:57:54 REHENSIVE METABOLIC [id number] 05:48:30 Test Item Value Reference Range Interpretation Comments TOTAL PROTEIN 6.8 gm/dL 6.0-8.3 (BEAKER) (test code = 770) ALBUMIN (BEAKER) 3.3 g/dL 3.5-5.0 L (test code = 1145) ALKALINE 124 U/L 40-150 PHOSPHATASE (BEAKER) (test code = 346) BILIRUBIN TOTAL 0.3 mg/dL 0.2-1.2 (BEAKER) (test code = 377) SODIUM (BEAKER) 140 meq/L 136-145 (test code = 381) POTASSIUM (BEAKER) 3.9 meq/L 3.5-5.1 (test code = 379) CHLORIDE (BEAKER) 101 meq/L 98-107 (test code = 382) CO2 (BEAKER) (test 27 meq/L 22-29 code = 355) BLOOD UREA 10 mg/dL 7-21 NITROGEN (BEAKER) (test code = 354) CREATININE 0.64 mg/dL 0.57-1.25 (BEAKER) (test code = 358) GLUCOSE RANDOM 154 mg/dL 70-105 H (BEAKER) (test code = 652) CALCIUM (BEAKER) 9.2 mg/dL 8.4-10.2 (test code = 697) AST (SGOT) 39 U/L 5-34 H (BEAKER) (test code = 353) ALT (SGPT) 31 U/L 6-55 (BEAKER) (test code = 347) EGFR (BEAKER) 94 Interpretatio n of eGFR (test code = 1092) mL/min/1.[address] age Description sq m Result G1 Renee l or high >=90 G2 Mildly decreased 60-89 G3a Mildl y to moderately 45-5 9 G3b Moderately to s everely 30-44 G4 Severl y decreased 15-29 G5 Kidney failure <15Reported eGF R is based on the CKD-EPI 2020 equation that d oes not use a race coefficientEsti mated GFR is not as accur ate as Creatinine Amanda renny in predicting glom erular filtration rate . Estimated GFR is not appl icable for dialysis patien ts [employer] ID - [id number] W/PLT COUNT & AUTO [id number] 03:28:55 Test Item Value Reference Range Interpretation Comments WHITE BLOOD CELL COUNT (BEAKER) 12.1 K/ L 3.5-10.5 H (test code = 775) RED BLOOD CELL COUNT (BEAKER) 3.97 M/ L 3.93-5.22 (test code = 761) HEMOGLOBIN (BEAKER) (test code = 11.1 GM/DL 11.2-15.7 L 410) HEMATOCRIT (BEAKER) (test code = 34.7 % 34.1-44.9 411) MEAN CORPUSCULAR VOLUME (BEAKER) 87 fL 79-95 (test code = 753) MEAN CORPUSCULAR HEMOGLOBIN 28.0 pg 25.6-32.2 (BEAKER) (test code = 751) MEAN CORPUSCULAR HEMOGLOBIN CONC 32.0 GM/DL 32.2-35.5 L (BEAKER) (test code = 752) RED CELL DISTRIBUTION WIDTH 13.7 % 11.7-14.4 (BEAKER) (test code = 412) PLATELET COUNT (BEAKER) (test 436 K/CU MM 150-450 code = 756) MEAN PLATELET VOLUME (BEAKER) 8.8 fL 9.4-12.3 L (test code = 754) NUCLEATED RED BLOOD CELLS 0 /100 WBC 0-0 (BEAKER) (test code = 413) NEUTROPHILS RELATIVE PERCENT 81 % (BEAKER) (test code = 429) LYMPHOCYTES RELATIVE PERCENT 11 % (BEAKER) (test code = 430) MONOCYTES RELATIVE PERCENT 5 % (BEAKER) (test code = 431) EOSINOPHILS RELATIVE PERCENT 2 % (BEAKER) (test code = 432) BASOPHILS RELATIVE PERCENT 0 % (BEAKER) (test code = 437) NEUTROPHILS ABSOLUTE COUNT 9.77 K/ L 1.56-6.13 H (BEAKER) (test code = 670) LYMPHOCYTES ABSOLUTE COUNT 1.33 K/ L 1.18-3.74 (BEAKER) (test code = 414) MONOCYTES ABSOLUTE COUNT (BEAKER) 0.64 K/ L 0.24-0.36 H (test code = 415) EOSINOPHILS ABSOLUTE COUNT 0.24 K/ L 0.04-0.36 (BEAKER) (test code = 416) BASOPHILS ABSOLUTE COUNT (BEAKER) 0.03 K/ L 0.01-0.08 (test code = 417) IMMATURE GRANULOCYTES-RELATIVE 0.70 % 0.00-1.00 PERCENT (BEAKER) (test code = 2801) PROTHROMBIN [id number] 03:25:27 Test Item Value Reference Range Interpretation Comments PROTIME (BEAKER) (test code = 13.9 seconds 11.9-14.2 759) INR (BEAKER) (test code = 370) 1.09 <=5.90 RECOMMENDED COUMADIN/WARFARIN INR THERAPY RANGESSTANDARD DOSE: 2.0 - 3.0 Includes: PROPHYLAXIS for venous thrombosis, systemic embolization; TREATMENT for venous thrombosis and/or pulmonary embolus.HIGH RISK: Target INR is 2.5-3.5 for patients with mechanical heart valves.HEMOGLOBIN [id number] 06:29:45 Test Item Value Reference Range Interpretation Comments HEMOGLOBIN A1c (test 6.7 % 4.2-5.6 H [employer] AN DIABETES code = 88954) ASSOCIATION IDELINES FOR HGB A1C: PREDIABETES/INC REASED RISK . . . . . . . 5.7 -6.4% DIAGNOSIS OF DI ABETES . . . . . . . . . >=6 .5% WITH CONFIRMATION OR APPROPRIATE SYMPTOMS NOTE: ASSAY MAY BE AFFECTED BY HEMOGLOBINOPATH IES (SICKLE CELL ANEMIA, S- C DISEASE, OTHERS) OR MANAN FICIALLY LOWERED BY DECR EASED RED CELL SURVIVAL ( HEMOLYTIC ANEMIAS, BLOOD LOSS, ETC.). CONSIDER ALTERN ATE TESTING OR LABORATORY C ONSULTATION. UNLESS OTHERWIS E INDICATED, ALL TESTING PER FORMED ATCLINICAL PATH [facility], [facility]. [address] [place] [address] 3917 LABORATORY DIRE CTOR: JACKELINE ANTOINE M.D. CLIA NUMBER [id number] [place]. [id number] BASIC METABOLIC [id number] 06:15:06 Test Item Value Reference Range Interpretation Comments GLUCOSE (test code 126 MG/DL 70-99 H = 7) BUN (test code = 9 MG/DL 8-2207) CREATININE (test 0.69 MG/DL 0.60-1.30 code = 2214) eGFR (2020 CKD-EPI) 93 ML/MIN/1.73 >60 (test code = 23219) SODIUM (test code = 140 MEQ/L 561-475 4963) POTASSIUM (test 3.8 MEQ/L 3.5-5.4 code = 2228) CHLORIDE (test code 101 MEQ/L 95-107 = 2215) CARBON DIOXIDE 23 MEQ/L 19-31 (test code = 2206) CALCIUM (test code 9.2 MG/DL 8.5-10.5 UNLESS O THERWISE = 2209) INDICATED, ALL TESTING PERFORM ED ATCLINICAL PATH [facility], [facility]. [address] [place] [address] [facility] DIRECTOR: JACKELINE ANTOINE M.D. CLIA NUMBER [id number] CAP ACCREDITATION N O. [id number] XR ANKLE 3+ VW [id number] 17:28:50HISTORY: ?Pain. FINDINGS: AP, lateral, oblique views of right ankle showed slightlyseparated fracture at the base of the fifth metatarsal bone. No significantankle joint effusion. Soft tissue swelling noted along the lateral aspectof ankle. Metallic hardware is seen supporting calcaneum. No hardwarerelated complication seen. Mild subtalar degenerative arthritis andarthritis of the talonavicular jointnoted. CONCLUSIONS: Fracture at the base of right fifth metatarsal bone. 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 POSTOPERATIVE DIAGNOSIS: Recurrent instability w ith dislocation of right total hip arthroplasty. PROCEDURE: Revision of right total hip arthropla sty with exchange of femoral head and placement of a cons trained acetabular liner. CPT code 37446-07. ASSISTANTS: 1. Jose Ohara MD. 2. Beau Garcia MD. ANESTHESIA: General endotracheal anesthesia. ESTIMATED BLOOD LOSS: 300 cc. IV FLUIDS: 1500 mL of crystalloid. COMPLICATIONS: None. SPECIMENS REMOVED: Prosthesis. IMPLANTS: Viola 6.5 mm bone screw placed in th e acetabulum with a Trident constrained acetabular liner size E for a 22 mm head and a C-taper LFIT femoral head size 22 mm/ +5. INDICATIONS: The patient is a 72-year-old woman with a history of lumbar spine fusion, who underwent a right to lizbet hip arthroplasty in August 2022 at an outside inst [facility]. Postoperatively, she sustained approximately fou r dislocations. The initials were all treated with closed reduc tion in the emergency department. She sustained another disl ocation around March 01 and was transferred to [facility] for further management. Radiographs demon strated an intra-prosthetic dislocation of her dual mobilit y liner. The patient was therefore felt to be indicated for r evision surgery. Her components appeared to be in satisf actory position. Given the recurrence of her instabilit y, it was felt that she would best be served by revision to a c onstrained acetabular liner. Preoperatively, the nature of the procedure, the risks, benefits, and alternatives were discu ssed in detail with the patient. She appeared to understand the se many issues and desired to proceed with surgery. All of her questions were answered preoperatively. DESCRIPTION OF PROCEDURE: On the afternoon of 2022, the patient was brought to the operating room an d following administration of general endotracheal anesthesi a by the anesthesiology service, the patient was given 2 g of Ancef IV as antibiotic prophylaxis. She was also given 1 g of tranexamic acid IV. She was placed on the operat ing table in a lateral decubitus position with right side up. S he was held in position using hip positioners. An axillary roll was placed. Care was taken to pad all bony prominences inclu ding the ulnar and peroneal nerves. Her right lower extremity w as then prepped and draped in the usual sterile fashion. Following time-out to again identify the appropr iate operative site which had been previously marked, her previ ous Sparkle-Langenbeck incision was used in its entir ety. Dissection was carried through the skin and subc utaneous tissue down to the deep fascia. Distally, the IT band w as divided in line with the incision proximally. The fascia an d fibers of the gluteus tracie were identified. The hip was noted to be dislocated posteriorly. The dual mobility bearin g was in the posterior soft tissues and was removed. The femo ral head was mobilized into the wound and the femoral head wa s disimpacted. The femoral component was noted to be well fixed . Scar tissue was debrided around the interface for exposure a nd there was some scar tissue in the anterior trochanter that was also debrided. The acetabulum was then exposed. The r emaining intervening capsule and labral tissues were exci sed. The dual mobility liner was able to be removed without di fficulty. The acetabular component appeared to be well fixed. The overall position was felt to be satisfactory. It was sli ghtly abducted, but anteversion was appropriate. It sh ould be noted that prior to removal of the implants, the hip w as reduced with a trial dual mobility liner. The hip was stable for the most part through range of motion; however, at nikhil l flexion and maximum internal rotation, there was a posterior -superior dislocation due to impingement of some scar tiss ue anteriorly off the trochanter. All of the impinging tissue was debrided. The wound was copiously irrigated with several l iters of pulsatile lavage normal saline soaked with Betad ine and the 10-degree lipped constrained liner was placed. T he elevation of the liner was placed posterior superiorly at approximately the 10 o'clock position. The liner seated well. It was elected to place a 22 +5 mm femoral head to prov fei slight lengthening and more importantly increased offse t to avoid impingement. The 22 mm/+5 head was impacted onto the well prepared and dried Mitchell taper and then reduced into the constrained liner. The patient's hip was noted t o be stable through a full range of motion without further i mpingement. This was felt to be acceptable. The wound was co piously irrigated with pulsatile lavage normal saline so lution. Hemostasis was achieved and attention was turned to wound closure. The deep fascia was closed with #1 PDS sutures. Subcutaneous tissues were closed in layers using 0 and 2-0 Monocryl sutures. The skin was closed with 2-0 n ylon sutures and a MICHELE incisional VAC dressing was placed. T he patient was awakened, extubated, and taken to the recovery r oom in stable condition. The patient tolerated this procedure well. MICHAEL/PRINCESS /[id number] Electronically signed by: DIMITRIS PARRY at 2023-03-09 18:56:24.000
--- NOTE | 2023-03-30 16:53 | EDPHYS ---
Physician Documentation [facility] Name: Suzi Vee Age: 72 yrs Sex: Female : 1950 Arrival Date: 03/30/2023 Time: 16:08 Bed 2 Private MD: ED Physician Александр Grimes HPI: 03/30 16:43 This 72 yrs old Female presents to ER via EMS with complaints of Hip Injury. phong 16:43 The patient or guardian reports decreased range of motion, deformity, possible phong dislocation, swelling. that occurred at home, sustained from a fall, the right lower extremity is shortened, The patient is not able to ambulate. Patient is not able to bear weight. There is no radiation of the patient's discomfort. The complaints affect the right hip. Onset: The symptoms/episode began/occurred just prior to arrival. Modifying factors: The symptoms are alleviated by remaining still, the symptoms are aggravated by any movement. Associated signs and symptoms: Loss of consciousness: the patient experienced no loss of consciousness. Severity of symptoms: At their worst the symptoms were moderate, in the emergency department the symptoms are unchanged. The patient has experienced similar episodes in the past, several times. Historical: - Allergies: 16:20 No Known Allergies; hb - PMHx: 16:20 Chronic Lumbar Pain; Depression; Weak Bladder; hb - PSHx: 16:20 Appendectomy; back; Cholecystectomy; hysterectomy; Total Knee Replacement - Right; hb - Immunization history: Last tetanus immunization: - up to date. - Social history:: Smoking status: Patient denies any tobacco usage or history of. ROS: 16:46 Constitutional: Negative for fever, chills, and weight loss, Eyes: Negative for injury, phong pain, redness, and discharge, ENT: Negative for injury, pain, and discharge, Neck: Negative for injury, pain, and swelling, Cardiovascular: Negative for chest pain, palpitations, and edema, Respiratory: Negative for shortness of breath, cough, wheezing, and pleuritic chest pain, Abdomen/GI: Negative for abdominal pain, nausea, vomiting, diarrhea, and constipation, Back: Negative for injury and pain, : Negative for injury, bleeding, discharge, and swelling, Neuro: Negative for headache, weakness, numbness, tingling, and seizure, Psych: Negative for depression, anxiety, suicide ideation, homicidal ideation, and hallucinations, Allergy/Immunology: Negative for hives, rash, and allergies, Endocrine: Negative for neck swelling, polydipsia, polyuria, polyphagia, and marked weight changes, Hematologic/Lymphatic: Negative for swollen nodes, abnormal bleeding, and unusual bruising. 16:46 MS/extremity: Positive for decreased range of motion, laceration, pain, swelling, of the right hip. Exam: 16:46 Constitutional: This is a well developed, well nourished patient who is awake, alert, phong and in no acute distress. Head/Face: Normocephalic, atraumatic. Eyes: Pupils equal round and reactive to light, extra-ocular motions intact. Lids and lashes normal. Conjunctiva and sclera are non-icteric and not injected. Cornea within normal limits. Periorbital areas with no swelling, redness, or edema. ENT: Nares patent. No nasal discharge, no septal abnormalities noted. Tympanic membranes are normal and external auditory canals are clear. Oropharynx with no redness, swelling, or masses, exudates, or evidence of obstruction, uvula midline. Mucous membranes moist. Neck: Trachea midline, no thyromegaly or masses palpated, and no cervical lymphadenopathy. Supple, full range of motion without nuchal rigidity, or vertebral point tenderness. No Meningismus. Chest/axilla: Normal chest wall appearance and motion. Nontender with no deformity. No lesions are appreciated. Cardiovascular: Regular rate and rhythm with a normal S1 and S2. No gallops, murmurs, or rubs. Normal PMI, no JVD. No pulse deficits. Respiratory: Lungs have equal breath sounds bilaterally, clear to auscultation and percussion. No rales, rhonchi or wheezes noted. No increased work of breathing, no retractions or nasal flaring. Abdomen/GI: Soft, non-tender, with normal bowel sounds. No distension or tympany. No guarding or rebound. No evidence of tenderness throughout. Back: No spinal tenderness. No costovertebral tenderness. Full range of motion. Female : Normal external genitalia. Neuro: Awake and alert, GCS 15, oriented to person, place, time, and situation. Cranial nerves II-XII grossly intact. Motor strength 5/5 in all extremities. Sensory grossly intact. Cerebellar exam normal. Normal gait. Psych: Awake, alert, with orientation to person, place and time. Behavior, mood, and affect are within normal limits. 16:46 Skin: injury, laceration(s), the wound is approximately 9 cm(s), with a depth of 2.5 cm(s), of the right hip. 16:55 ECG was reviewed by the Attending Physician. phong Vital Signs: 16:15 BP 137 / 82; Pulse 68; Resp 16; Temp 98.2(O); Pulse Ox 98% on R/A; Weight 58.06 kg; hb Height 5 ft. 1 in. ; Pain 7/10; 17:10 BP 165 / 67; Pulse 67; Resp 15; Pulse Ox 99% on R/A; Pain 5/10; hb 18:14 BP 160 / 67; Pulse 67; Resp 18; Pulse Ox 97% on R/A; ld1 19:26 BP 144 / 67; Pulse 62; Resp 16; Pulse Ox 96% on R/A; jb4 21:03 BP 158 / 64; Pulse 64; Resp 17 S; Pulse Ox 97% on R/A; lg3 22:26 BP 165 / 64; Pulse 65; Resp 16; Pulse Ox 97% on R/A; lg3 16:15 Body Mass Index 24.19 (58.06 kg, 154.94 cm) hb 16:15 Pain Scale: Adult hb 17:10 Pain Scale: Adult hb Yadira Coma Score: 16:15 Eye Response: spontaneous(4). Motor Response: obeys commands(6). Verbal Response: hb oriented(5). Total: 15. Trauma Score (Adult): 16:15 Eye Response: spontaneous(1); Verbal Response: oriented(1); Motor Response: obeys hb commands(2); Systolic BP: > 89 mm Hg(4); Respiratory Rate: 10 to 29 per min(4); Yadira Score: 15; Trauma Score: 12 17:10 Eye Response: spontaneous(1); Verbal Response: oriented(1); Motor Response: obeys hb commands(2); Systolic BP: > 89 mm Hg(4); Respiratory Rate: 10 to 29 per min(4); [place] Score: 15; Trauma Score: 12 Laceration: 16:46 Wound Repair of 9cm ( 3.5in ) subcutaneous laceration to right hip. Linear shaped.. phong Distal neuro/vascular/tendon intact. Anesthesia: none with 0 mls of none. Wound prep: Moderate cleansing with betadine by nurse by me. Skin closed with 1-0 packed, dressed using simple sutures and sterile technique. Dressed with pressure dressing, non-adherent dressing. Patient tolerated well. MDM: 16:11 Patient medically screened. phong 16:50 Differential diagnosis: vascular injury, intertrochanteric fracture. Data reviewed: [facility] vital signs, nurses notes, EMS record, lab test result(s), EKG, radiologic studies, plain films. Consideration of Admission/Observation Escalation of care including admission/observation considered. I considered the following discharge prescriptions or medication management in the emergency department Medications were administered in the Emergency Department. See MAR. Test considered but Not performed: CT: no ct hip. Care significantly affected by the following chronic conditions: deoression, wak bladder, cbp, recent right hip sx. 03/30 16:43 Order name: CBC with Diff; Complete Time: 18:22 [facility] 03/30 16:43 Order name: Comprehensive Metabolic Panel; Complete Time: 18:22 [facility] 03/30 16:43 Order name: PT-INR; Complete Time: 17:29 [facility] 03/30 16:43 Order name: Pelvis XRAY; Complete Time: 18:22 [facility] 03/30 16:43 Order name: Hip Right 2 View XRAY; Complete Time: 18:22 [facility] 03/30 16:43 Order name: EKG; Complete Time: 16:43 [facility] 03/30 16:43 Order name: EKG - Nurse/Tech; Complete Time: 16:54 [facility] 03/30 16:43 Order name: Wound Care; Complete Time: 16:52 [facility] 03/30 16:43 Order name: Wound dressing; Complete Time: 16:52 [facility] 03/30 16:43 Order name: NPO; Complete Time: 16:51 [facility] EC:55 Rate is 61 beats/min. Rhythm is regular. QRS [place] is Normal. [place] interval is normal. QRS phong interval is normal. QT interval is normal. No Q waves. T waves are Normal. No ST changes noted. Clinical impression: Normal ECG and No evidence of ischemia. Interpreted by me. Reviewed by me. Administered Medications: 17:03 Drug: HYDROmorphone IVP 1 mg Route: IVP; Site: right forearm; hb 22:25 Follow up: Response: No adverse reaction lg3 17:03 Drug: Ondansetron IVP 4 mg Route: IVP; Site: right forearm; hb 22:25 Follow up: Response: No adverse reaction lg3 17:05 Drug: NS 0.9% IV 500 ml Route: IV; Rate: bolus; Site: right forearm; hb 22:25 Follow up: IV Status: Completed infusion; IV Intake: 500ml lg3 17:05 Drug: ceFAZolin IVPB 2 grams Route: IVPB; Infused Over: 30 mins; Site: right forearm; hb 22:25 Follow up: Response: No adverse reaction; IV Status: Completed infusion; IV Intake: lg3 100ml 17:20 Drug: NS 0.9% IV 1000 ml Route: IV; Rate: 125 ml/hr; Site: right forearm; hb 22:26 Follow up: IV Status: Infusion continued upon transfer lg3 22:25 Drug: HYDROmorphone IVP 1 mg Route: IVP; Site: right forearm; lg3 22:25 Follow up: Response: No adverse reaction; RASS: Alert and Calm (0) lg3 22:25 Drug: Ondansetron IVP 4 mg Route: IVP; Site: right forearm; lg3 22:25 Follow up: Response: No adverse reaction lg3 Disposition Summary: 03/30/23 16:53 Transfer Ordered Transfer Location: [facility] phong Reason: Higher level of care phong Condition: Stable phong Problem: new phong Symptoms: have improved phong Accepting Physician: to [facility](03/30/23 22:27) lg3 Diagnosis - Fall on same level, unspecified phong - Dislocation of internal right hip prosthesis - open , laceration w/o foreign body , phong 9 cm - Disruption of wound, unspecified phong - Disruption of external operation (surgical) wound, not elsewhere classified phong Forms: - Medication Reconciliation Form phong - SBAR form phong Signatures: Dispatcher [employer] Александр Molina MD MD cha Mickail, Joel, PA PA jmm Baxter, Heather, RN RN Regis Howard, RN RN jb4 Angelica Leonardo RN RN lg3 Corrections: (The following items were deleted from the chart) 22:27 16:53 to [facility] phong lg3
--- NOTE | 2023-03-30 16:53 | ER ---
Nurse's Notes [facility] Name: Suzi Vee Age: 72 yrs Sex: Female : 1950 Arrival Date: 03/30/2023 Time: 16:08 Bed 2 Private MD: Diagnosis: Fall on same level, unspecified;Dislocation of internal right hip prosthesis-open , laceration w/o foreign body , 9 cm;Disruption of wound, unspecified;Disruption of external operation (surgical) wound, not elsewhere classified Presentation: 03/30 16:12 Chief complaint: EMS states: Pt had right hip revision 03/08, today fell in bathroom and hb landed on right side, surgical wound open and right leg shortened. Care prior to arrival: Injury dressed. Mechanism of Injury: Fall from standing position. Trauma event details: Injury occurred in the [facility], Injury occurred: at home. Injury occurred: March 30, 2023 Injury occurred at: 13:15. 16:12 Acuity: NIEVES 3 hb 16:12 Method Of Arrival: EMS: [facility] hb 16:20 Coronavirus screen: At this time, the client does not indicate any symptoms associated hb with coronavirus-19. Ebola Screen: No symptoms or risks identified at this time. Initial Sepsis Screen: Does the patient meet any 2 criteria? No. Patient's initial sepsis screen is negative. Does the patient have a suspected source of infection? No. Patient's initial sepsis screen is negative. Risk Assessment: Do you want to hurt yourself or someone else? Patient reports no desire to harm self or others. Onset of symptoms was March 30, 2023. Trauma Activation: Alert Physician: ED Physician; Name: ; Notified At: ; Arrived At: Physician: General Surgeon; Name: ; Notified At: ; Arrived At: Physician: Radiology; Name: ; Notified At: ; Arrived At: Physician: Respiratory; Name: ; Notified At: ; Arrived At: Physician: Lab; Name: ; Notified At: ; Arrived At: Historical: - Allergies: 16:20 No Known Allergies; hb - PMHx: 16:20 Chronic Lumbar Pain; Depression; Weak Bladder; hb - PSHx: 16:20 Appendectomy; back; Cholecystectomy; hysterectomy; Total Knee Replacement - Right; hb - Immunization history: Last tetanus immunization: - up to date. - Social history:: Smoking status: Patient denies any tobacco usage or history of. Screenin:15 Abuse screen: Denies threats or abuse. Denies injuries from another. Tuberculosis hb screening: No symptoms or risk factors identified. 16:21 [facility] ED Fall Risk Assessment (Adult) Score/Fall Risk Level 3 or more points = High hb Risk Oriented to surroundings, Maintained a safe environment. Nutritional screening: No deficits noted. Primary Survey: 16:12 NO uncontrolled hemorrhage observed. A: The client is awake and alert. The airway is hb patent. Breathing/Chest: Spontaneous respiratory effort, equal unlabored respirations, breath sounds clear bilaterally, regular pattern, symmetrical chest rise and fall. Circulation: No external hemorrhage present. Regular and strong central pulse, skin warm/dry/normal color. Disability Client is alert. Exposure/Environment: Obvious injury(ies) are noted at this time: right leg shortened, surgical site open A warming method has been applied: A warm blanket has been provided to the patient. 17:00 Reassessment Alertness and Airway: Awake and alert. The airway is patent. Breathing: hb Spontaneous respiratory effort, equal unlabored respirations, breath sounds clear bilaterally, regular pattern with symmetrical chest rise and fall. Circulation: No external hemorrhage noted. Regular and strong central pulse, skin warm/dry/normal color. Disability: Alert. 18:00 Reassessment Alertness and Airway: Awake and alert. The airway is patent. Breathing: hb Spontaneous respiratory effort, equal unlabored respirations, breath sounds clear bilaterally, regular pattern with symmetrical chest rise and fall. Circulation: No external hemorrhage noted. Regular and strong central pulse, skin warm/dry/normal color. Disability: Alert. Secondary Survey: 16:15 HEENT: No deficits noted. Gastrointestinal: No deficits noted. : No signs and/or hb symptoms were reported regarding the genitourinary system. Musculoskeletal: Reports right hip pain, right noted to be shortened, right hip surgical site open. Assessment: 16:12 General: Appears in no apparent distress. Behavior is calm, cooperative. Pain: Pain hb currently is 7 out of 10 on a pain scale. Neuro: Level of Consciousness is awake, alert, obeys commands, Oriented to person, place, time, situation. EENT: No signs and/or symptoms were reported regarding the EENT system. Cardiovascular: Patient's skin is warm and dry. Respiratory: Respiratory effort is even, unlabored, Respiratory pattern is regular, symmetrical. GI: No signs and/or symptoms were reported involving the gastrointestinal system. : No signs and/or symptoms were reported regarding the genitourinary system. Derm: Wound noted Other: right hip surgical site open. Musculoskeletal: right leg shortened. 17:10 Reassessment: Patient appears in no apparent distress at this time. Patient and/or hb family updated on plan of care and expected duration. Pain level reassessed. Patient is alert, oriented x 3, equal unlabored respirations, skin warm/dry/pink. 18:00 Reassessment: Patient appears in no apparent distress at this time. Patient and/or hb family updated on plan of care and expected duration. Pain level reassessed. Patient is alert, oriented x 3, equal unlabored respirations, skin warm/dry/pink. 21:03 Reassessment: Patient appears in no apparent distress at this time. No changes from lg3 previously documented assessment. Patient and/or family updated on plan of care and expected duration. Pain level reassessed. Patient is alert, oriented x 3, equal unlabored respirations, skin warm/dry/pink. Patient states feeling better. Vital Signs: 16:15 BP 137 / 82; Pulse 68; Resp 16; Temp 98.2(O); Pulse Ox 98% on R/A; Weight 58.06 kg; hb Height 5 ft. 1 in. ; Pain 7/10; 17:10 BP 165 / 67; Pulse 67; Resp 15; Pulse Ox 99% on R/A; Pain 5/10; hb 18:14 BP 160 / 67; Pulse 67; Resp 18; Pulse Ox 97% on R/A; ld1 19:26 BP 144 / 67; Pulse 62; Resp 16; Pulse Ox 96% on R/A; jb4 21:03 BP 158 / 64; Pulse 64; Resp 17 S; Pulse Ox 97% on R/A; lg3 22:26 BP 165 / 64; Pulse 65; Resp 16; Pulse Ox 97% on R/A; lg3 16:15 Body Mass Index 24.19 (58.06 kg, 154.94 cm) hb 16:15 Pain Scale: Adult hb 17:10 Pain Scale: Adult hb [place] Coma Score: 16:15 Eye Response: spontaneous(4). Motor Response: obeys commands(6). Verbal Response: hb oriented(5). Total: 15. Trauma Score (Adult): 16:15 Eye Response: spontaneous(1); Verbal Response: oriented(1); Motor Response: obeys hb commands(2); Systolic BP: > 89 mm Hg(4); Respiratory Rate: 10 to 29 per min(4); [place] Score: 15; Trauma Score: 12 17:10 Eye Response: spontaneous(1); Verbal Response: oriented(1); Motor Response: obeys hb commands(2); Systolic BP: > 89 mm Hg(4); Respiratory Rate: 10 to 29 per min(4); [place] Score: 15; Trauma Score: 12 ED Course: 16:11 Patient arrived in ED. ll1 16:11 Александр Grimes MD is Attending Physician. phong 16:17 Triage completed. hb 16:20 Patient has correct armband on for positive identification. hb 16:20 Patient maintains SpO2 saturation greater than 95% on room air. hb 16:21 Arm band placed on. hb 16:21 Thermoregulation: warm blanket given to patient. hb 16:[address] Vick patients orthopedic called at [phone]/ Lexis says the on eb call Dr. Browning will call us back/. 16:44 Sheila Garcia, RN is Primary Nurse. hb 17:02 Inserted saline lock: 22 gauge in right forearm, using aseptic technique. Blood hb collected. 17:21 Hip Right 2 View XRAY Sent. hb 17:21 Pelvis XRAY Sent. hb 17:22 initiated a transfer with John Hooks from the [facility]. eb 17:27 Pelvis XRAY In Process Unspecified. EDMS 17:27 Hip Right 2 View XRAY In Process Unspecified. EDMS 17:[address] Vick patient orthopedic with Dr. Grimes for patient transfer eb consultation. 18:[address] Ritter the hospitalist saloonkeeper for [facility] with Dr. Grimes for eb patient transfer consultation. 18:57 administrative approval given by John Hooks/ patient has been accepted to [facility] 15 tower bed 1562/ Dr. Ritter has accepted the patient in transfer/ report to be called to [phone]. 19:52 No provider procedures requiring assistance completed. Patient transferred, IV remains lg3 in place. No redness/swelling at site. 22:06 Primary Nurse role handed off by Sheila Garcia RN wm Administered Medications: 17:03 Drug: HYDROmorphone IVP 1 mg Route: IVP; Site: right forearm; hb 22:25 Follow up: Response: No adverse reaction lg3 17:03 Drug: Ondansetron IVP 4 mg Route: IVP; Site: right forearm; hb 22:25 Follow up: Response: No adverse reaction lg3 17:05 Drug: NS 0.9% IV 500 ml Route: IV; Rate: bolus; Site: right forearm; hb 22:25 Follow up: IV Status: Completed infusion; IV Intake: 500ml lg3 17:05 Drug: ceFAZolin IVPB 2 grams Route: IVPB; Infused Over: 30 mins; Site: right forearm; hb 22:25 Follow up: Response: No adverse reaction; IV Status: Completed infusion; IV Intake: lg3 100ml 17:20 Drug: NS 0.9% IV 1000 ml Route: IV; Rate: 125 ml/hr; Site: right forearm; hb 22:26 Follow up: IV Status: Infusion continued upon transfer lg3 22:25 Drug: HYDROmorphone IVP 1 mg Route: IVP; Site: right forearm; lg3 22:25 Follow up: Response: No adverse reaction; RASS: Alert and Calm (0) lg3 22:25 Drug: Ondansetron IVP 4 mg Route: IVP; Site: right forearm; lg3 22:25 Follow up: Response: No adverse reaction lg3 Medication: 16:21 VIS not applicable for this client. hb Intake: 16:15 PO: 0ml; Total: 0ml. hb 22:25 IV: 500ml; Total: 500ml. lg3 22:25 IV: 100ml; Total: 600ml. lg3 Outcome: 16:53 ER care complete, transfer ordered by . phong 19:52 Transferred by ground EMS Transfer form completed. lg3 19:52 Condition: stable 19:52 Instructed on the need for transfer, Demonstrated understanding of instructions. 22:27 Patient left the ED. lg3 Signatures: Dispatcher [employer] EDMS Александр Grimes MD MD cha Baxter, Heather, RN RN Regis Howard RN RN jb4 Sri Gonzalez Lacie RN RN lg3 Santana Jordan, RN RN ll1 Jessica Maharaj RN RN ld1 Sarah Suazo Corrections: (The following items were deleted from the chart) 16:21 16:12 Trauma Activation: Not Applicable hb hb
[2023-03-30] MEDS ORDERED: CEFAZOLIN SODIUM 1 GM/VIAL ONE (16:54)
[2023-03-30] MEDS ORDERED: NA CHLORIDE 0.9% 100 ML ONE (16:55)
[2023-03-30] MEDS ORDERED: NA CHLORIDE 0.9% 1,000 ML ONE ×2 (16:55→22:01)
[2023-03-30] MEDS ORDERED: ONDANSETRON 4 MG/2 ML VIAL ONE ×2 (16:55→22:33)
[2023-03-30] MEDS ORDERED: HYDROMORPHONE HCL 1 MG/ML INJ ONE ×2 (16:55→22:33)
[2023-03-30 17:19] LABS: Absolute Lymphocytes (CBC) 1.5 K/uL (0.7-4.9); Hematocrit 37.9 % (36.0-45.0); Lymphocytes % 16.3 % (15.3-44.8); MCV 87.1 fL (80-100); MPV 7.2 fL (7.6-11.3); RBC Red Blood Cell Count 4.35 M/uL (3.86-4.86)
[2023-03-30 17:26] LABS: Protime INR 0.98
[2023-03-30 17:43] LABS: Albumin 3.6 g/dL (3.4-5.0); Bilirubin Total 0.2 mg/dL (0.2-1.0); Potassium 4.4 mEq/L (3.5-5.1); Protein, Total 7.9 g/dL (6.4-8.2)
--- NOTE | 2023-03-30 17:51 | RAD REPORT ---
EXAM DESCRIPTION: RAD - Hip Right 2 View - 03/30/2023 5:25 pm CLINICAL HISTORY: Right hip pain FINDINGS: Right femoral prosthesis is dislocated superior laterally. No fracture is seen
--- NOTE | 2023-03-30 17:51 | RAD REPORT ---
EXAM DESCRIPTION: RAD - Pelvis - 03/30/2023 5:25 pm CLINICAL HISTORY: Pelvic pain status post injury FINDINGS: Right femoral prosthesis is dislocated superior laterally. No fracture is seen
[2023-03-30 22:33] VITALS: TEMP 98.2
[2023-03-30 22:40] VITALS: O2SAT 97
[2023-03-30 22:42] VITALS: BP 165/64
--- NOTE | 2023-04-01 11:18 | EKG ---
Test Date: 2023-03-30 Test Time: 16:51:31 Legal Office Administrator: NISHANT MEASUREMENT RESULTS: Intervals: Rate: 61 NE: 128 QRSD: 74 QT: 444 QTc: 446 [place]: P: 79 NE: 128 QRS: 44 T: 52 INTERPRETIVE STATEMENTS: Normal sinus rhythm Normal ECG Compared to ECG 08/23/2022 09:36:55 Myocardial infarct finding no longer present Electronically Signed On 04-01-23 11:17:19 CDT by Binh Rodgers
== END 2023-03-30 22:27 | disposition short-term general hospital (02) ==
LOC: ER 16:08
PROC: 0HQHXZZ Repair Right Upper Leg Skin, External Approach (ICD-10-PCS; principal; 2023-03-30)
DX: T84.020A Dislocation of internal right hip prosthesis, initial encounter (principal); T81.31XA Disruption of external operation (surgical) wound, not elsewhere classified, initial encounter; W18.30XA Fall on same level, unspecified, initial encounter; Z96.651 Presence of right artificial knee joint
CPT/HCPCS: 96365; 93005; 85025; 36415; 85610; 80053; 72170; 73502; 96375; 99285; 96366; 12004; J1170 ×2; J2405 ×2; J7030 ×2; J0690

== ENCOUNTER 2023-05-24 20:17 | Emergency (ER) | payer OTHER ==
--- NOTE | 2023-05-24 21:10 | RAD REPORT ---
EXAM DESCRIPTION: RAD - Pelvis - 05/24/2023 8:38 pm CLINICAL HISTORY: Pelvic pain status post injury FINDINGS: The femoral component of a right hip prosthesis is dislocated superior laterally. No fracture is seen
[2023-05-24] MEDS ORDERED: MORPHINE 4 MG/ML SYR ONE (21:44)
[2023-05-24] MEDS ORDERED: NA CHLORIDE 0.9% 2,000 ML ONE (21:44)
[2023-05-24] MEDS ORDERED: ONDANSETRON 4 MG/2 ML VIAL ONE (21:44)
[2023-05-24 21:54] LABS: Absolute Lymphocytes (CBC) 2.2 K/uL (0.7-4.9); Hematocrit 40.2 % (36.0-45.0); Lymphocytes % 21.8 % (15.3-44.8); MCV 86.9 fL (80-100); MPV 8.2 fL (7.6-11.3); Platelets 277 thou/uL (152-406); RBC Red Blood Cell Count 4.63 M/uL (3.86-4.86)
[2023-05-24 22:09] LABS: SARS-CoV-2 Antigen Rapid Res Negative (Negative)
[2023-05-24] MEDS ORDERED: ETOMIDATE 20 MG/10 ML VIAL IV ONE (22:31)
--- NOTE | 2023-05-24 23:59 | ER ---
Nurse's Notes [facility] Name: Suzi Vee Age: 72 yrs Sex: Female : 1950 Arrival Date: 05/24/2023 Time: 20:17 Bed 8 Private MD: Diagnosis: Dislocation of internal right hip prosthesis;Right hip superior dislocation. Unstable right hip prosthetic dislocation Presentation: 05/24 20:25 Chief complaint: Patient states: I was moving cement bricks with my foot and I felt my vc1 right hip dislocate. Coronavirus screen: Vaccine status: Patient reports receiving the 2nd dose of the covid vaccine. Moderna Client denies travel out of the [place] in the last 14 days. At this time, the client does not indicate any symptoms associated with coronavirus-19. Ebola Screen: Patient negative for fever greater than or equal to 101.5 degrees Fahrenheit, and additional compatible Ebola Virus Disease symptoms Patient denies exposure to infectious person. Patient denies travel to an Ebola-affected area in the 21 days before illness onset. No symptoms or risks identified at this time. Initial Sepsis Screen: Does the patient meet any 2 criteria? No. Patient's initial sepsis screen is negative. Does the patient have a suspected source of infection? No. Patient's initial sepsis screen is negative. Risk Assessment: Do you want to hurt yourself or someone else? Patient reports no desire to harm self or others. Onset of symptoms was May 24, 2023. Care prior to arrival: Medication(s) given: Tylenol 3 Klonopin. 20:25 Method Of Arrival: EMS: [facility] vc1 20:25 Acuity: NIEVES 2 vc1 Triage Assessment: 20:29 General: Appears in no apparent distress. uncomfortable, Behavior is calm, cooperative, vc1 appropriate for age. Pain: Complains of pain in right leg Pain currently is 8 out of 10 on a pain scale. at worst was 10 out of 10 on a pain scale. EENT: No deficits noted. No signs and/or symptoms were reported regarding the EENT system. Neuro: Level of Consciousness is awake, alert, obeys commands, Oriented to person, place, time, situation, Appropriate for age. Cardiovascular: No deficits noted. Respiratory: Airway is patent Respiratory effort is even, unlabored, Respiratory pattern is regular, symmetrical. GI: No deficits noted. No signs and/or symptoms were reported involving the gastrointestinal system. : No deficits noted. No signs and/or symptoms were reported regarding the genitourinary system. Derm: No deficits noted. No signs and/or symptoms reported regarding the dermatologic system. Musculoskeletal: Reports pain in right hip. Historical: - Allergies: 20:28 No Known Allergies; vc1 - PMHx: 20:28 Chronic Lumbar Pain; Depression; Weak Bladder; vc1 - PSHx: 20:28 Appendectomy; back; Cholecystectomy; hysterectomy; Total Knee Replacement - Right; vc1 - Immunization history:: Client reports receiving the 2nd dose of the Covid vaccine. - Social history:: Smoking status: Patient/guardian denies using tobacco, the patient reports quitting approximately 2 years ago. - Family history:: not pertinent. Screenin:25 [facility] ED Fall Risk Assessment (Adult) History of falling in the last 3 months, vc1 including since admission No falls in past 3 months (0 pts) Confusion or Disorientation No (0 pts) Intoxicated or Sedated No (0 pts) Impaired Gait No (0 pts) Mobility Assist Device Used No (0 pt) Altered Elimination No (0 pt) Score/Fall Risk Level 0 - 2 = Low Risk Oriented to surroundings, Maintained a safe environment, Educated pt \T\ family on fall prevention, incl call for assistance when getting out of bed. Abuse screen: Denies threats or abuse. Nutritional screening: No deficits noted. Tuberculosis screening: No symptoms or risk factors identified. Assessment: 21:00 Reassessment: No changes from previously documented assessment. Patient and/or family vc1 updated on plan of care and expected duration. Pain level reassessed. Patient is alert, oriented x 3, equal unlabored respirations, skin warm/dry/pink. 22:00 Reassessment: No changes from previously documented assessment. Patient and/or family vc1 updated on plan of care and expected duration. Pain level reassessed. Patient is alert, oriented x 3, equal unlabored respirations, skin warm/dry/pink. 23:00 Reassessment: Patient and/or family updated on plan of care and expected duration. Pain vc1 level reassessed. Patient is alert, oriented x 3, equal unlabored respirations, skin warm/dry/pink. Patient states symptoms have improved. 05/25 00:00 Reassessment: No changes from previously documented assessment. Patient and/or family vc1 updated on plan of care and expected duration. Pain level reassessed. Patient is alert, oriented x 3, equal unlabored respirations, skin warm/dry/pink. 01:00 Reassessment: No changes from previously documented assessment. Patient and/or family vc1 updated on plan of care and expected duration. Pain level reassessed. Patient is alert, oriented x 3, equal unlabored respirations, skin warm/dry/pink. 02:00 Reassessment: No changes from previously documented assessment. Patient and/or family vc1 updated on plan of care and expected duration. Pain level reassessed. Patient is alert, oriented x 3, equal unlabored respirations, skin warm/dry/pink. 03:00 Reassessment: Patient and/or family updated on plan of care and expected duration. Pain vc1 level reassessed. Patient states symptoms have improved. Vital Signs: 05/24 20: BP 146 / 68; Pulse 65; Resp 18; Temp 98.2; Pulse Ox 97% ; Weight 58.97 kg; Height 5 ft. vc1 1 in. ; Pain 8/10; 22:00 BP 186 / 87; Pulse 59; Resp 16; Pulse Ox 100% on R/A; vc1 23:00 BP 213 / 74; Pulse 61; Resp 15; Pulse Ox 97% on R/A; vc1 05/25 00:00 BP 193 / 73; Pulse 65; Resp 15; Pulse Ox 100% on 4 lpm NC; vc1 01:00 BP 121 / 61; Pulse 65; Resp 15; Pulse Ox 98% on 4 lpm NC; vc1 02:00 BP 131 / 56; Pulse 68; Resp 16; Pulse Ox 99% on 4 lpm NC; vc1 03:00 BP 133 / 60; Pulse 62; Temp 15; Pulse Ox 97% on R/A; vc1 05/24 20:25 Body Mass Index 24.56 (58.97 kg, 154.94 cm) vc1 05/24 20:25 Pain Scale: Adult vc1 ED Course: 05/24 20:25 Patient arrived in ED. vc1 20:25 Gonzalo Woo MD is Attending Physician. sp4 20:25 Arm band placed on right wrist. vc1 20:25 Patient has correct armband on for positive identification. Bed in low position. Call vc1 light in reach. Pulse ox on. NIBP on. 20:28 Triage completed. vc1 20:40 XRAY Pelvis In Process Unspecified. EDMS 21:25 Inserted saline lock: 22 gauge in right forearm, using aseptic technique. Blood mb9 collected. 21:40 SARS RAPID Sent. mb9 21:40 Basic Metabolic Panel Sent. mb9 21:40 CBC with Diff Sent. mb9 21:40 Type And Screen Sent. mb9 21:56 Susanne Hill, RN is Primary Nurse. vc1 22:50 Assist provider with reduction of right pathologic or non traumatic hip using vc1 manipulation, Set up for procedure. Performed by Gonzalo Woo MD Immobilized with Foam tape and pillow Patient tolerated well. 22:52 Barry cath inserted, using sterile technique, 18 Fr., by az, balloon inflated, to vc1 gravity drainage. 22:55 Provided Education on: Conscious Sedation. vc1 23:06 Pelvis XRAY In Process Unspecified. EDMS 05/25 00:24 Initiated transfer to [facility], spoke with Sophie. wm 01:19 CT Pelvis wo Cont In Process Unspecified. EDMS 02:11 Pt. accepted for transfer to [facility] [address]m [address] Nerissa Naidu per Sophie Henson. wm 02:25 Called EMS for transport, ETA \T\ 0330 per Chucky. wm 03:41 Patient transferred, IV remains in place. vc1 Administered Medications: 05/24 20:26 Not Given (Duplicate Order): NS 0.9% IV 1000 ml IV at 125 ml/hr continuous sp4 21:45 Drug: morphine IVP or IV 4 mg Route: IVP; Infused Over: 4 mins; Site: right forearm; vc1 22:00 Follow up: Response: No adverse reaction; Marked relief of symptoms vc1 21:45 Drug: Ondansetron IVP 4 mg Route: IVP; Site: right forearm; vc1 22:00 Follow up: Response: No adverse reaction; Marked relief of symptoms; Pain is decreased vc1 22:45 Drug: NS 0.9% IV 1000 ml Route: IV; Rate: 125 ml/hr; Site: right forearm; vc1 22:45 Drug: Etomidate IVP 10 mg Route: IVP; Site: right forearm; vc1 22:50 Follow up: Response: No adverse reaction; RASS: Deep sedation (-4) vc1 22:55 Follow up: Response: No adverse reaction; Marked relief of symptoms; RASS: Drowsy (-1) vc1 Medication: 05/25 00:07 VIS not applicable for this client. vc1 Outcome: 05/24 23:59 ER care complete, transfer ordered by . sp4 05/25 03:41 Transferred by ground EMS to [facility], Transfer form completed. vc1 X-rays sent w/ patient. Condition: good Instructed on the need for transfer. 04:01 Patient left the ED. kl Signatures: Dispatcher [employer] EDMS Argenis Jordan RN RN kl Marsh, Wendy wm Calcote, Vanessa, RN RN vc1 Charity Gomez RN RN mb9 Gonzalo Woo MD MD sp4
--- NOTE | 2023-05-24 23:59 | EDPHYS ---
Physician Documentation [facility] Name: Suzi Vee Age: 72 yrs Sex: Female : 1950 Arrival Date: 05/24/2023 Time: 20:17 Bed 8 Private MD: ED Physician Gonzalo Woo HPI: 05/24 20:28 This 72 yrs old Female presents to ER via Unassigned with complaints of Hip sp4 Injury. 20:28 Very pleasant 72-year-old female presents with acute right hip injury possible sp4 dislocation. Patient states that she was working on a yard and heard a pop in her right hip . Patient states she has previous dislocation of the right hip and a history of right total hip replacement at [facility] in [place] by Dr. Crespo several years ago. Patient has had several right hip dislocations since then. . Historical: - Allergies: 20:28 No Known Allergies; vc1 - PMHx: 20:28 Chronic Lumbar Pain; Depression; Weak Bladder; vc1 - PSHx: 20:28 Appendectomy; back; Cholecystectomy; hysterectomy; Total Knee Replacement - Right; vc1 - Immunization history:: Client reports receiving the 2nd dose of the Covid vaccine. - Social history:: Smoking status: Patient/guardian denies using tobacco, the patient reports quitting approximately 2 years ago. - Family history:: not pertinent. ROS: 20:28 Constitutional: Negative for fever, chills, and weight loss, MS/Extremity: Positive sp4 right hip pain, and the right hip immobility. 20:28 All other systems are negative. Exam: 20:31 Constitutional: This is a well developed, well nourished patient who is awake, alert, sp4 and in no acute distress. Head/Face: Normocephalic, atraumatic. Eyes: Pupils equal round and reactive to light, extra-ocular motions intact. Lids and lashes normal. Conjunctiva and sclera are not injected. Cornea within normal limits. Periorbital areas with no swelling, redness, or edema. ENT: Nares patent. No nasal discharge, no septal abnormalities noted. Tympanic membranes are normal and external auditory canals are clear. Oropharynx with no redness, swelling, or masses, exudates, or evidence of obstruction, uvula midline. Mucous membranes moist. Neck: Trachea midline, no thyromegaly or masses palpated, and no cervical lymphadenopathy. Supple, full range of motion without nuchal rigidity, or vertebral point tenderness. Chest/axilla: Normal chest wall appearance and motion. Nontender with no deformity. No lesions are appreciated. Cardiovascular: Regular rate and rhythm with a normal S1 and S2. No gallops, murmurs, or rubs. Normal PMI, no JVD. No pulse deficits. Respiratory: Lungs have equal breath sounds bilaterally, clear to auscultation and percussion. No rales, rhonchi or wheezes noted. No increased work of breathing, no retractions or nasal flaring. Abdomen/GI: Soft, non-tender, with normal bowel sounds. No distension or tympany. No guarding or rebound. No evidence of tenderness throughout. Back: No spinal tenderness. No costovertebral tenderness. Skin: Warm, dry with normal turgor. Normal color with no rashes, no lesions, and no evidence of cellulitis. MS/ Extremity: Pulses equal, no cyanosis. Neurovascular intact. Right lower extremity is shortened associated with no mobility in the right hip also right hip deformity consistent with right hip dislocation. Appears to be posterior dislocation Neuro: Awake and alert, GCS 15, oriented to person, place, time, and situation. Cranial nerves II-XII grossly intact. Motor strength 5/5 in all extremities. Sensory grossly intact. Psych: Awake, alert, with orientation to person, place and time. Behavior, mood, and affect are within normal limits Vital Signs: 20:25 BP 146 / 68; Pulse 65; Resp 18; Temp 98.2; Pulse Ox 97% ; Weight 58.97 kg; Height 5 ft. vc1 1 in. ; Pain 8/10; 22:00 BP 186 / 87; Pulse 59; Resp 16; Pulse Ox 100% on R/A; vc1 23:00 BP 213 / 74; Pulse 61; Resp 15; Pulse Ox 97% on R/A; vc1 05/25 00:00 BP 193 / 73; Pulse 65; Resp 15; Pulse Ox 100% on 4 lpm NC; vc1 01:00 BP 121 / 61; Pulse 65; Resp 15; Pulse Ox 98% on 4 lpm NC; vc1 02:00 BP 131 / 56; Pulse 68; Resp 16; Pulse Ox 99% on 4 lpm NC; vc1 03:00 BP 133 / 60; Pulse 62; Temp 15; Pulse Ox 97% on R/A; vc1 05/24 20:25 Body Mass Index 24.56 (58.97 kg, 154.94 cm) vc1 05/24 20:25 Pain Scale: Adult vc1 Procedures: 00:00 Reduction: of the right hip, using traction, manipulation, Anterior pull with rotation, sp4 internal rotation, Immobilized with Pillow applied between the 2 thighs and taped with the foam tape to provide immobilization. Patient tolerated well. Post reduction film - reveals normal alignment. Etomidate sedation used for right prosthetic hip reduction. Moderate sedation: Pre-procedure assessment: the patient has been NPO 5 hour(s) prior to arrival, ASA physical classification: II - mild/mod systemic disease that does not interfere with daily routines, Airway assessment: able to hyperextend neck, able to maintain airway, can open mouth without difficulty, Mallampati classification of tongue size: II - faucial pillars and soft palate can be visualized, but uvula is masked by the base of the tongue, Monitoring during procedure: clinical research monitor, continuous pulse oximetry, nurse at bedside at all times, Blood pressure monitor, Medications employed: Etomidate, 10 mg(s), Patient was also administered 4 mg IV morphine, Post-procedure assessment: the patient is moderately sedated, Respiratory status: requires supplemental oxygen to maintain acceptable oxygen saturation, a reversal agent was not used, Moderate sedation accomplished and the hip was successfully reduced, No complications. MDM: 05/24 20:27 Patient medically screened. sp4 05/25 00:03 Differential diagnosis: hip fracture, intertrochanteric fracture, femoral neck sp4 fracture, femoral shaft fracture, bursitis, arthritis, strain. Data reviewed: vital signs, nurses notes, EMS record, old medical records, lab test result(s), radiologic studies, plain films. Consideration of Admission/Observation Patient was admitted/placed on observation. Escalation of care including admission/observation considered. 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 local orthopedist advised transfer to [facility] for further management of unstable right hip prosthetic dislocation. ED course: Right hip was reduced with moderate sedation. We feel at the right hip prosthetic joint is unstable at this time and patient warrants physical rehabilitation and further assessment by the orthopedist at [facility] Dr. Vick , patient states that Dr. Vick performed right total hip replacement several years ago. . 00:46 ED course: Initial X ray - [address] [address] [facility] REPORT Name: SUZI VEE Acct Number: [id number] Exam Date: 05/24/23 EXAM DESCRIPTION: RAD - Pelvis - 05/24/2023 8:38 pm CLINICAL HISTORY: Pelvic pain status post injury FINDINGS: The femoral component of a right hip prosthesis is dislocated superior laterally. No fracture is seen. ED course: After Reduction - EXAM: XR Pelvis, 1 or 2 Views CLINICAL HISTORY: The patient is 72 years old and is Female; after reduction TECHNIQUE: Frontal view of the pelvis. COMPARISON: Radiographs performed the same day at 2034 hours FINDINGS: BONES/JOINTS: The bones are osteopenic. The left femoral head is well located. Postsurgical change of the lumbar spine is present. A right hip prosthesis is noted. A radiopaque ring is noted slightly displaced laterally in relationship to the right femoral head prosthesis. The right femoral head prosthesis component does not appear to be fully located. No acute fracture. SOFT TISSUES: Unremarkable. IMPRESSION: Findings are suspicious for displacement of the locking ring component of the right hip prosthesis which may cause difficulty with closed reduction. Consider orthopedic consultation. Recommend comparison with any available prior studies of this hip prosthesis as the appearance could also represent desired surgical results. . 01:38 ED course: Patient was discussed with [facility] orthopedist, who has reported sp4 that patient should be admitted to the hospital floor to or internal medicine with consultation to orthopedic service. . 02:32 ED course: CT pelvis - COMPARISON: 05/24/2023 and 02/28/2023 pelvic radiographs FINDINGS: sp4 BOWEL: Unremarkable as visualized. No obstruction. No mucosal thickening. APPENDIX: No findings to suggest acute appendicitis. INTRAPERITONEAL SPACE: No free air. No significant fluid collection. BLADDER: Urinary bladder is decompressed around the indwelling Barry catheter and bulb. REPRODUCTIVE: Hysterectomy. BONES/JOINTS: Femoral head component of total right hip arthroplasty demonstrated near the acetabular component, with near coronal orientation of the displaced locking ring. Locking ring appears intact. Single fixation screw within the posterior superior acetabular margin demonstrates no evidence of fracture or loosening. Single left L5 transpedicular screw demonstrates no evidence of fracture, failure, or loosening. No dislocation. No evidence of periprosthetic fracture. No evidence of loosening of the femoral component, though there is slight lucency demonstrated along the medial anterior inferior and anterior superior acetabular component margins. No periprosthetic fracture. SOFT TISSUES: Asymmetric soft tissue swelling lateral and posterior to the right hip arthroplasty with adjacent large intramuscular hematoma measuring approximately 10.9 x 5.1 x 11.1 cm within the right gluteal muscles. VASCULATURE: Dense calcification of the visualized abdominal aorta and bilateral iliac arteries. . No lower abdominal aortic aneurysm. LYMPH NODES: Unremarkable. No enlarged lymph nodes. IMPRESSION: 1. Asymmetric soft tissue swelling lateral and posterior to the right hip arthroplasty with adjacent large intramuscular hematoma measuring approximately 10.9 x 5.1 x 11.1 cm within the right gluteal muscles. 2. Femoral head component of total right hip arthroplasty demonstrated near the acetabular component, with near coronal orientation of the displaced locking ring. Locking ring appears intact. Recommend orthopedic consultation. 3. No evidence of periprosthetic fracture. No evidence of loosening of the femoral component, though there is slight lucency demonstrated along the medial anterior inferior and anterior superior acetabular component margins, possibly reflecting loosening or particle disease. Electronically signed by: Kt Gerber MD 05/25/2023 2:12 AM. 05/24 20:26 Order name: Basic Metabolic Panel; Complete Time: 02:06 [facility] 05/24 20:26 Order name: CBC with Diff; Complete Time: 22:44 [facility] 05/24 20:26 Order name: Type And Screen; Complete Time: 04:00 4 05/24 20:27 Order name: SARS RAPID; Complete Time: 22:44 4 05/24 20:26 Order name: XRAY Pelvis; Complete Time: 22:44 4 05/24 22:53 Order name: Pelvis XRAY 4 05/25 00:48 Order name: CT Pelvis wo Cont 05/24 20:26 Order name: Labs collected and sent; Complete Time: 21:40 4 05/24 20:27 Order name: Saline Lock; Complete Time: 21:40 4 05/24 20:28 Order name: Conscious Sedation; Complete Time: 00:11 4 05/24 22:56 Order name: Barry; Complete Time: 00:07 sp4 Administered Medications: 05/24 20:26 Not Given (Duplicate Order): NS 0.9% IV 1000 ml IV at 125 ml/hr continuous sp4 21:45 Drug: morphine IVP or IV 4 mg Route: IVP; Infused Over: 4 mins; Site: right forearm; vc1 22:00 Follow up: Response: No adverse reaction; Marked relief of symptoms vc1 21:45 Drug: Ondansetron IVP 4 mg Route: IVP; Site: right forearm; vc1 22:00 Follow up: Response: No adverse reaction; Marked relief of symptoms; Pain is decreased vc1 22:45 Drug: NS 0.9% IV 1000 ml Route: IV; Rate: 125 ml/hr; Site: right forearm; vc1 22:45 Drug: Etomidate IVP 10 mg Route: IVP; Site: right forearm; vc1 22:50 Follow up: Response: No adverse reaction; RASS: Deep sedation (-4) vc1 22:55 Follow up: Response: No adverse reaction; Marked relief of symptoms; RASS: Drowsy (-1) vc1 Disposition Summary: 05/24/23 23:59 Transfer Ordered Transfer Location: [facility] sp4 Reason: Higher level of care sp4 Condition: Stable sp4 Problem: new sp4 Symptoms: have improved sp4 Accepting Physician: [facility] Marciano LUNA (05/25/23 04:01) luis alberto Diagnosis - Dislocation of internal right hip prosthesis sp4 - Right hip superior dislocation. Unstable right hip prosthetic dislocation sp4 Forms: - Medication Reconciliation Form sp4 - SBAR form sp4 Signatures: Dispatcher [employer] Argenis Ward RN RN Susanne Zapien RN RN vc1 Gonzalo Woo MD MD sp4 Corrections: (The following items were deleted from the chart) 05/25 04:01 05/24 23:59 [facility] Marciano sahu
[2023-05-25 00:46] LABS: Potassium 3.7 mEq/L (3.5-5.1)
[2023-05-25 04:20] VITALS: BP 133/60; TEMP 15; O2SAT 97
--- NOTE | 2023-05-25 13:43 | RAD REPORT ---
EXAM DESCRIPTION: XR Pelvis, 1 or 2 Views CLINICAL HISTORY: The patient is 72 years old and is Female; after reduction TECHNIQUE: Frontal view of the pelvis. COMPARISON: Radiographs performed the same day at 2034 hours FINDINGS: BONES/JOINTS: The bones are osteopenic. The left femoral head is well located. Postsurgi haritha change of the lumbar spine is present. A right hip prosthesis is noted. A radiopaque ring is note d slightly displaced laterally in relationship to the right femoral head prosthesis. The right femo ral head prosthesis component does not appear to be fully located. No acute fracture. SOFT TISSUES: Unremarkable. IMPRESSION: Findings are suspicious for displacement of the locking ring component of the right hip prosthesis which may cause difficulty with closed reduction. Consider orthopedic consultation. Recommend comparison with any available prior studies of this hip prosthesis as the appearance could also represent desired surgical results. Electronically signed by: Faiza Dickerson MD 05/25/2023 12:12 AM CDT Due to temporary technical issues with the PACS/Fluency reporting system, reports are being signed by the in house radiologists without review as a courtesy to insure prompt reporting. The interpreting radiologist is fully responsible for the content of the report.
--- NOTE | 2023-05-25 14:26 | RAD REPORT ---
EXAM DESCRIPTION: CT Pelvis Without Intravenous Contrast CLINICAL HISTORY: The patient is 72 years old and is Female; Right hip displacement [facility] MA[facility] TECHNIQUE: Axial computed tomography images of the pelvis without intravenous contrast. Sagittal a nd coronal reformatted images were created and reviewed. This CT exam was performed using one or mo re of the following dose reduction techniques: automated exposure control, adjustment of the mA and /or kV according to patient size, and/or use of iterative reconstruction technique. COMPARISON: 05/24/2023 and 02/28/2023 pelvic radiographs FINDINGS: BOWEL: Unremarkable as visualized. No obstruction. No mucosal thickening. APPENDIX: No findings to suggest acute appendicitis. INTRAPERITONEAL SPACE: No free air. No significant fluid collection. BLADDER: Urinary bladder is decompressed around the indwelling Barry catheter and bulb. REPRODUCTIVE: Hysterectomy. BONES/JOINTS: Femoral head component of total right hip arthroplasty demonstrated near the acetabul ar component, with near coronal orientation of the displaced locking ring. Locking ring appears intac t. Single fixation screw within the posterior superior acetabular margin demonstrates no evidenc e of fracture or loosening. Single left L5 transpedicular screw demonstrates no evidence of fracture, failure, or looseni ng. No dislocation. No evidence of periprosthetic fracture. No evidence of loosening of the femoral component, th ough there is slight lucency demonstrated along the medial anterior inferior and anterior superior ac etabular component margins. No periprosthetic fracture. SOFT TISSUES: Asymmetric soft tissue swelling lateral and posterior to the right hip arthroplasty w ith adjacent large intramuscular hematoma measuring approximately 10.9 x 5.1 x 11.1 cm within the rig ht gluteal muscles. VASCULATURE: Dense calcification of the visualized abdominal aorta and bilateral iliac arteries. . No lower abdominal aortic aneurysm. LYMPH NODES: Unremarkable. No enlarged lymph nodes. IMPRESSION: 1. Asymmetric soft tissue swelling lateral and posterior to the right hip arthroplasty with adjacent large intramuscular hematoma measuring approximately 10.9 x 5.1 x 11.1 cm within the r ight gluteal muscles. 2. Femoral head component of total right hip arthroplasty demonstrated near the acetabular componen t, with near coronal orientation of the displaced locking ring. Locking ring appears intact. Recomm end orthopedic consultation. 3. No evidence of periprosthetic fracture. No evidence of loosening of the femoral component, thoug h there is slight lucency demonstrated along the medial anterior inferior and anterior superior aceta bular component margins, possibly reflecting loosening or particle disease. Electronically signed by: Kt Gerber MD 05/25/2023 2:12 AM CDT Due to temporary technical issues with the PACS/Fluency reporting system, reports are being signed by the in house radiologists without review as a courtesy to insure prompt reporting. The interpreting radiologist is fully responsible for the content of the report.
--- NOTE | 2023-05-28 12:18 | EKG ---
Test Date: 2023-05-24 Test Time: 21:37:04 Cloth Grader: ALIZA MEASUREMENT RESULTS: Intervals: Rate: 57 UT: 134 QRSD: 74 QT: 464 QTc: 451 [place]: P: 75 UT: 134 QRS: 39 T: 75 INTERPRETIVE STATEMENTS: Sinus bradycardia Otherwise normal ECG Compared to ECG 03/30/2023 16:51:31 Sinus rhythm no longer present Electronically Signed On 05-28-23 12:14:20 CDT by Binh Rodgers
== END 2023-05-25 04:01 | disposition short-term general hospital (02) ==
LOC: ER 20:17
PROC: 0SS9XZZ Reposition Right Hip Joint, External Approach (ICD-10-PCS; principal; 2023-05-25)
DX: T84.020A Dislocation of internal right hip prosthesis, initial encounter (principal); Z96.651 Presence of right artificial knee joint; Z20.822 Contact with and (suspected) exposure to COVID-19
CPT/HCPCS: 85025; 80048; 36415; 86900; 86850; 86901; 72192; 72170 ×2; 51702; 96375; 96374; 99285; 87811; 27257; J2405; J7030; 93005

== ENCOUNTER 2023-06-03 11:41 | Emergency (ER) | payer OTHER ==
--- OUTSIDE RECORDS SUMMARY | 2023-06-03 11:47 | XMS REPORT | Continuity of Care Document ---
:1950 Author Organization [facility] t Address [address] [facility] [address] [place] [id number] Care Team Providers Name Role Phone KATHERINE NAPIER Primary Care Physician Unavailable BIRTTANY HOWARD Attending Clinician Unavailable DIMITRIS PARYR Attending Clinician Unavailable RM REEVES Attending Clinician Unavailable ELISHA NAIDU Attending Clinician Unavailable ARY WEISS Attending Clinician Unavailable [id number] Attending Clinician Unavailable RENETTA FUNG Attending Clinician Unavailable TERESA MONTAÑO Attending Clinician Unavailable Elisha Naidu MD Attending Clinician [phone] Brittany Howard MD Attending Clinician Teresa Montaño MD Attending Clinician Dimitris Parry MD Attending Clinician [phone] Chucky Dwyer MD Attending Clinician Rodríguez Rodrigues Attending Clinician [phone] Renetta Fung MD Attending Clinician Ary Weiss MD Attending Clinician Saba Santos Attending Clinician Yordan MONTILLA, Papa Morales Attending Clinician [phone] Cj Mcclure MD Attending Clinician CHITO MCCULLOUGH Attending Clinician Unavailable Kris LUNA, Eden Stevenson Attending Clinician [phone] Chito Mccullough MD Attending Clinician Lady Hardwick MD Attending Clinician FOG_A_Provider Attending Clinician Unavailable Justin Hobbs MD Attending Clinician JUSTIN HOBBS Attending Clinician Unavailable Doctor Unassigned, [place] Attending Clinician Unavailable Radiology Attending Clinician Unavailable RADIOLOGY Attending Clinician Unavailable ELISHA NAIDU Admitting Clinician Unavailable ARY WEISS Admitting Clinician Unavailable [id number] Admitting Clinician Unavailable RENETTA FUNG Admitting Clinician Unavailable DIMITRIS PARRY Admitting Clinician Unavailable LADY HARDWICK Admitting Clinician Unavailable FOG_A_Provider Admitting Clinician Unavailable Justin Hobbs MD Admitting Clinician JUSTIN HOBBS Admitting Clinician Unavailable Payers Payer Name Policy Type Policy Number Effective Date Expiration Date Royn olea [facility] [id number] 2023 00:00:00 [facility] [id number] 2022 [facility] [id number] [facility] MEDICARE PPO [id number] 2022 00:00:00 [facility] HEALTHCARE [id number] 2022 (PPO) 00:00:00 Problems Condition Condition Condition Status Onset Resolution Last Treating Co mments Source Name Details Category Date Date Treatment Clinician Date 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 00:00: Me dical hip hip 00 Center Dementia Dementia Disease [facility] Medical [facility] Urinary Urinary Disease Active [facility] incontinen incontinen 8-25 [facility]isa kes ce ce 00:00: Medical 00 Center Open Open Disease Recurre [facility] dislocatio dislocatio nce 7-01 Luisa kes n of right n of right 00:00: Me dical hip, hip, 00 Center initial initial encounter encounter History of History of Disease Active [facility] total hip total hip 6-08 [facility] arthroplas arthroplas 00:00: Me dical ty, right ty, right 00 Cent er Closed Closed Disease Active [facility] dislocatio dislocatio 6-02 Luisa kes n of right n of right 00:00: Me dical hip, hip, 00 Center subsequent subsequent encounter encounter 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 0-21 [place] [place] Medical Branch Major Major Disease Recurre 2004-[address] [facility] [address] depressive depressive nce 2-14 Luisa kes disorder, disorder, 00:00: Medi haritha single single 00 Center episode, episode, moderate moderate Chronic Chronic Disease Active 2004-10 Univers depressive depressive 2-09 it y [place] y disorder 00 [facility] Allergies, Adverse Reactions, Alerts Allergy Allergy Status Severity Reaction(s) Onset Inactive Treating Comm ents Source Name Type Date Date Clinician NO KNOWN Allergy Active [facility]NOWN Drug Active [facility] ALLERGIE Class ity of [facility] Family History Family Member Diagnosis Comments Start Date Stop Date Source Natural mother Cancer [facility] Natural mother Diabetes [facility] Social History Social Habit Start Date Stop Date Quantity Comments Source History of Cigarette Smoker [facility] L uk tobacco use Medical Cente r History SDOH [facility] Non-Med Medical Center Alcohol intake 2023-05-28 2023-05-28 [facility]finding[facility] Medical Center Exposure to 2023-05-15 2023-05-25 Not sure [facility] SARS-CoV-2 00:00:00 07:56:00 Medical Center (event) History SDOH 2023-05-25 2023-05-[address] [facility] Transport Med 00:00:00 00:00:[address] History [facility] 2023-05-25 2023-05-[address] [facility] Unable to 00:00:00 00:00:00 Medical Center Pay History [facility] 2023-05-25 2023-05-[address] [facility] Places 00:00:00 00:00:00 Medical Ce nter Lived History [facility] 2023-05-25 2023-05-[address] [facility] Homeless 00:00:00 00:00:00 Medical Center Last Year Tobacco use and 2023-03-08 2023-03-[address] [facility] exposure 00:00:00 00:00:00 non-user Medical Center Tobacco Comment 2022-07-12 2022-07-12 Quit smoking in Univ ersity of 00:00:00 00:00:November, [facility] smoked 1- 1.5 PPD Branch X 30 years Sex Assigned At [birth year] [facility] 00:00:00 00:00:00 [facility] Center Smoking Status Start Date Stop Date Source Ex-smoker 2023-03-08 00:00:00 2023-03-08 00:00:00 [facility] Smokes tobacco daily 2022-07-12 00:00:00 Kenan itbonnie [facility] Medications Ordered Filled Start Stop Current Ordering Indication Dosage Frequency Signature Comments Components Source Medication Medication Date Date Medication? Clinician (SIG) Name Name oxybutynin Yes 5mg Q.5D Take 1 [facility] (DITROPAN) 27 tablet (5 Luke s 5 MG tablet 18:59: mg total) M edical 53 by mouth 2 Center (two) times daily. DULoxetine Yes anxiety 120mg QD Take [address] (CYMBALTA) 8-27 with capsules [facility] 60 MG 18:59: depression (120 mg Med ical capsule 53 total) by Center mouth daily. ARIPiprazol Yes 5mg QD Take [address] [facility] e (ABILIFY) 8-27 tablet (5 Dayana es 5 MG tablet 18:59: mg total) M edical 53 by mouth Center daily. donepeziL 0 Yes 10mg Q.5D Take [address] (ARICEPT) 8-27 tablet (10 Luke s 10 MG 18:59: mg total) Medical tablet 53 by mouth 2 Center (two) times daily. clonazePAM 2022-0 Yes .5mg Take 1 [facility] (KlonoPIN) 8-27 tablet [facility] 0.5 MG 18:59: (0.5 mg Medical tablet 53 total) by Center mouth 2 (two) times daily as needed for Anxiety. acetaminoph 0 Yes 1{tbl} Take [address] en-codeine 8-27 tablet by Luke s (TYLENOL 18:59: mouth Medical #3) 300-30 53 every 4 Center mg per (four) tablet hours as needed for Pain. senna-docus 0 Yes 1{tbl} QD Take [address] ate 8-27 tablet by [facility] (SENOKOT S) 18:59: mouth Medic al 8.6-50 mg 53 daily. Center per tablet docusate 0 Yes 100mg QD Take [address] [facility] [facility] sodium 8-27 capsule [facility] (COLACE) 18:59: (100 mg Medica l 100 MG 53 total) by Center capsule mouth daily. aspirin 81 0 2022- No 81mg QD Take [address] MG EC 8-27 - tablet (81 [facility] tablet 16:44: 00:00 mg total) Medic al 36 :00 by mouth Center daily. famotidine 0 Yes 20mg Q.5D Take 1 [facility] (PEPCID) 20 8-27 tablet (20 Luisa kes MG tablet 00:00: mg total) Med ical 00 by mouth 2 Center (two) times daily. aspirin 81 0 2023- Yes 81mg Q.5D Take [address] MG EC 8-27 08-26 tablet (81 [facility] tablet 00:00: 23:59 mg total) Medic al 00 :00 by mouth 2 Center (two) times daily. acetaminoph 0 2023- Yes 650mg Take [address] en 8-27 08-21 tablets [facility]ukes (TYLENOL) 00:00: 23:59 (650 mg Medi haritha 325 MG 00 :00 total) by Center tablet mouth every 4 (four) hours as needed for up to 360 days. acetaminoph 2023-0 2023- Yes 1{tbl} Take [address] en-codeine 8-27 09-06 tablet by Dayana es (TYLENOL 00:00: 23:59 mouth Medical #4) 300-60 00 :00 every 4 Center mg per (four) tablet hours as needed for Pain for up to 10 days. Max Daily Amount: 6 tablets docusate 2023-0 Yes 100mg QD Take [address] [facility] [facility] sodium 7-08 capsule [facility] (COLACE) 14:35: (100 mg Medica l 100 MG 02 total) by Center capsule mouth daily. ibuprofen 2023-0 2023- No 800mg Take [address] [facility] (ADVIL,MOTR 04-07- tablet [facility] IN) 800 MG 14:35: 00:00 (800 mg Med ical tablet 02 :00 total) by Center mouth every 6 (six) hours as needed for Pain. ibuprofen 2023-0 2023- No 800mg Take [address] [facility] [address] (ADVIL,MOTR 04-07- tablet [facility] IN) 800 MG 14:35: 00:00 (800 mg Med ical tablet 02 :00 total) by Center mouth every 6 (six) hours as needed for Pain. oxybutynin 2023-0 Yes 5mg Q.5D Take 1 [facility] (DITROPAN) 7-07 tablet (5 Luke s 5 MG tablet 14:48: mg total) M edical 01 by mouth 2 Center (two) times daily. DULoxetine 2023-0 Yes anxiety 120mg QD Take [address] (CYMBALTA) 7-07 with capsules [facility] 60 MG 14:48: depression (120 mg Med ical capsule 01 total) by Center mouth daily. ARIPiprazol 2023-0 Yes 5mg QD Take [address] [facility] e (ABILIFY) 7-07 tablet (5 Dayana es 5 MG tablet 14:48: mg total) M edical 01 by mouth Center daily. donepeziL 2023-0 Yes 10mg Q.5D Take [address] (ARICEPT) 7-07 tablet (10 Luke s 10 MG 14:48: mg total) Medical tablet 01 by mouth 2 Center (two) times daily. aspirin 81 2023-0 Yes 81mg QD Take 1 [facility] MG EC 7-07 tablet (81 [facility] tablet 14:48: mg total) Medica l 01 by mouth Center daily. clonazePAM 3-0 Yes .5mg Take 1 [facility] (KlonoPIN) 7-07 tablet [facility] 0.5 MG 14:48: (0.5 mg Medical tablet 01 total) by Center mouth 2 (two) times daily as needed for Anxiety. acetaminoph 2022-0 Yes 1{tbl} Take [address] en-codeine 7-07 tablet by Ben alvarenga (TYLENOL 14:48: mouth Medical #3) 300-30 01 every 4 Center mg per (four) tablet hours as needed for Pain. senna-docus 2022-0 Yes 1{tbl} QD Take [address] ate 7-07 tablet by Johana (SENOKOT S) 14:48: mouth in Va dical 8.6-50 mg 01 the Center per tablet morning. meloxicam 3-0 2023- No 7.5mg Q.5D Take [address] (MOBIC) 7.5 7-06 07-06 tablet [facility] MG tablet 15:19: 00:00 (7.5 mg Medi haritha 09 :00 total) by Center mouth 2 (two) times daily. meloxicam 2023-0 2023- No 7.5mg Q.5D Take [address] (MOBIC) 7.5 7-06 07-06 tablet [facility]ukes MG tablet 15:19: 00:00 (7.5 mg Medi haritha 09 :00 total) by Center mouth 2 (two) times daily. oxybutynin 3-0 Yes 5mg Q.5D Take 1 [facility] (DITROPAN) 6- tablet (5 Luke s 5 MG tablet [...] (10 mg total) before bedtime. aspirin 81 2022-0 Yes 81mg QD Take 1 [facility] [...] I St en-codeine 6-09 tablet by Ben s (TYLENOL 14:27: mouth Medical #3) 300-30 38 every 4 Center mg per (four) tablet hours as needed for Pain. senna-docus 2022-0 Yes 1{tbl} QD Take [address] ate 6-09 tablet by Lukes (SENOKOT S) 14:27: mouth in Me dical 8.6-50 mg 38 the Center per tablet morning. meloxicam 2022-0 Yes 7.5mg Q.5D Take 1 [facility] (MOBIC) 7.5 6-09 tablet [facility] MG tablet 14:27: (7.5 mg Medic al 38 total) by Center mouth in the morning and 1 tablet (7.5 mg total) before bedtime. ibuprofen 2022-0 2022- No pain 800mg Q.5D Take [address] (ADVIL,MOTR 03-08 06-07 tablet [facility]ukes IN) 800 MG 15:50: 00:00 (800 mg Med ical tablet 02 :00 total) by Center mouth in the morning and 1 tablet (800 mg total) before bedtime. acetaminoph 0 2022- No pain 1000mg Take [address] en 03-08 06-07 tablets [facility]ukes (TYLENOL) 15:50: 00:00 (1,000 mg Me dical 500 MG 02 :00 total) by Center tablet mouth every 6 (six) hours as needed for Pain. ibuprofen 2023-0 2023- No pain 800mg Q.5D Take [address] (ADVIL,MOTR 03-08 tablet [facility] IN) 800 MG 15:50: 00:00 (800 mg Med ical tablet 02 :00 total) by Center mouth in the morning and 1 tablet (800 mg total) before bedtime. acetaminoph 2023-0 2023- No pain 1000mg Take [address] en 03-08 tablets [facility]ukes (TYLENOL) 15:50: 00:00 (1,000 mg Me dical 500 MG 02 :00 total) by Center tablet mouth every 6 (six) hours as needed for Pain. ibuprofen 2023-0 2023- No pain 800mg Q.5D Take [address] (ADVIL,MOTR 03-08 tablet [facility] IN) 800 MG 15:50: 00:00 (800 mg Med ical tablet 02 :00 total) by Center mouth in the morning and 1 tablet (800 mg total) before bedtime. acetaminoph 2023-0 2022- No pain 1000mg Take [address] en 03-08 tablets [facility]ukes (TYLENOL) 15:50: 00:00 (1,000 mg Me dical 500 MG 02 :00 total) by Center tablet mouth every 6 (six) hours as needed for Pain. oxybutynin 2023-0 Yes 5mg Q.5D Take 1 [facility] (DITROPAN) -07 tablet (5 Luke s 5 MG tablet 16:30: mg total) M edical 58 by mouth Center in the morning and 1 tablet (5 mg total) before bedtime. DULoxetine 2023-0 Yes anxiety 120mg QD Take 2 C [...] Pain. Max Daily Amount: 6 tablets senna-docus 2023-0 Yes 1{tbl} QD Take [address] ate 6-07 tablet by Johana (sennosides 16:30: mouth in Va dical -docusate 58 the Center sodium) morning. 8.6-50 mg per tablet meloxicam 2023-0 Yes 7.5mg Q.5D Take 1 [facility] [...] tablet (5 mg total) before bedtime. DULoxetine 2023-0 Yes anxiety 120mg QD Take 2 C [...] en-codeine 6-07 tablet by Ben alvarenga (TYLENOL 16:12: mouth Medical #3) 300-30 36 every 4 Center mg per (four) tablet hours as needed for Pain. Max Daily Amount: 6 tablets senna-docus 3-0 Yes 1{tbl} QD Take [address] ate 6-07 tablet by Johana (sennosides 16:12: mouth in Me dical -docusate 36 the Center sodium) morning. 8.6-50 mg per tablet meloxicam 3-0 Yes 7.5mg Q.5D Take 1 [facility] (MOBIC) 7.5 6-07 tablet [facility] MG tablet 16:12: (7.5 mg Medic al 36 total) by Center mouth in the morning and 1 tablet (7.5 mg total) before bedtime. ibuprofen 3-0 2023- No pain 800mg Q.5D Take [address] (ADVIL,MOTR - 06-07 tablet [facility] IN) 800 MG 09:06: 00:00 (800 mg Med ical tablet 56 :00 total) by Center mouth in the morning and 1 tablet (800 mg total) before bedtime. acetaminoph 2023-0 2023- No pain 1000mg Take [address] en 6- 06-07 tablets [facility]ukes (TYLENOL) 09:06: 00:00 (1,000 mg [...] 1000mg Take [address] en 03-07 tablets [facility] (TYLENOL) 09:06: 00:00 (1,000 mg Me dical 500 MG 56 :00 total) by Center tablet mouth every 6 (six) hours as needed for Pain. amLODIPine 2023- Yes 10mg QD Take [address] [facility] (NORVASC) 03-07 tablet (10 Dayana es 10 MG 00:00: 23:59 mg total) Medica l tablet 00 :00 by mouth Center in the morning. amLODIPine 2023- Yes 10mg QD Take [address] [facility] (NORVASC) 03-07 tablet (10 Dayana es 10 MG 00:00: 23:59 mg total) Medica l tablet 00 :00 by mouth Center in the morning. amLODIPine 2023- Yes 10mg QD Take [address] [facility] (NORVASC) 03-07 tablet (10 Dayana es 10 MG 00:00: 23:59 mg total) Medica l tablet 00 :00 by mouth Center in the morning. amLODIPine 2023- Yes 10mg QD Take [address] [facility] (NORVASC) 03-07 tablet (10 Dayana es 10 MG 00:00: 23:59 mg total) Medica l tablet 00 :00 by mouth Center in the morning. amLODIPine 2023- Yes 10mg QD Take [address] [facility] (NORVASC) 03-07 tablet (10 Dayana es 10 MG 00:00: 23:59 mg total) Medica l tablet 00 :00 by mouth Center in the morning. traMADoL Yes 50mg Take [address] [facility] (ULTRAM) 50 5-31 tablet (50 Luisa kes mg tablet 00:00: mg total) Med ical 00 by mouth Center every 8 (eight) hours as needed. Max Daily Amount: 150 mg traMADoL 2023-0 Yes 50mg Take [address] [facility] (ULTRAM) 50 5-31 tablet (50 Luisa kes mg tablet 00:00: mg total) Med ical 00 by mouth Center every 8 (eight) hours as needed. traMADoL 2023-0 Yes 50mg Take [address] [facility] (ULTRAM) 50 5-31 tablet (50 Luisa kes mg tablet 00:00: mg total) Med ical 00 by mouth Center every 8 (eight) hours as needed. traMADoL 2023-0 Yes 50mg Take [address] [facility] (ULTRAM) 50 5-31 tablet (50 Luisa kes mg tablet 00:00: mg total) Med ical 00 by mouth Center every 8 (eight) hours as needed. Max Daily Amount: 150 mg traMADoL 2023-0 Yes 50mg Take [address] [facility] (ULTRAM) [...] ity of e-pf 12:54: 13:55 on Sun (SENSORCAIN 00 :11 07/17/22 Medi haritha E [...] mouth ity of mg Tab 08:55: daily. [address] oxybutynin 2021-10 Yes 5mg Take 5 mg Un arely chloride 5 0-17 by mouth ity o f mg tablet 08:55: in the [place] [address] morning Medical and 5 mg Branch in the evening. ibuprofen 2021-10 Yes 800mg Take 800 Uni vers 800 mg 0-17 mg by ity of tablet 08:55: mouth in [place] [address] the Medical morning Branch and 800 mg in the evening. Take with meals. donepeziL 2021-10 Yes 10mg Take 10 mg Un arely 10 mg 0-17 by mouth ity of tablet 08:55: in the [place] [address] morning Medical and 10 mg Branch in the evening. amitriptyli 2021-10 Yes 25mg Take 25 mg Univers ne 25 mg 0-17 by mouth ity of tablet 08:55: as needed. [place] [address] 1 or 2 as Medical needed at Ernul bedtime aspirin 81 2021-10 Yes 81mg Take 81 mg U nivers mg EC 0-17 by mouth ity of tablet 08:55: in the [place] [address] morning. [facility] ARIPiprazol 2021-10 Yes 5mg Take 5 mg U nivers e 5 mg 0-17 by mouth ity of tablet 08:55: in the [place] [address] morning. Medical Branch clonazePAM 2021-10 Yes 1mg Take 1 mg Un arely (KLONOPIN) 0-17 by mouth 3 ity of 1 mg tablet 08:55: (three) Dan[place] as 52 times Medical daily as Branch needed. As nee DULoxetine 2021-10 Yes 120mg Take 120 Un arely (CYMBALTA) 0-17 mg by ity of 60 mg 08:55: mouth in [facility] 52 the Medical morning. Branch HYDROmorpho 2021-10 Yes 8mg Take 8 mg U nivers ne 0-17 by mouth 4 ity of (DILAUDID) 08:55: (four) [place] 8 mg tablet 52 times Medical daily. Branch levomefolat 2021-10 Yes 1{capsu Take 1 Cap Univers e-algal oil 0-17 le} by mouth ity of (DEPLIN, 08:55: daily. [place] ALGAL OIL,) 52 Medical .314 Branch mg Cap traZODONE 2021-10 Yes 200mg [...] it y of mg tablet 08:55: (two) [place] 52 times Medical daily. Branch meloxicam 2021-10 Yes 7.5mg Take 7.5 Uni vers (MOBIC) 7.5 0-17 mg by ity of mg tablet 08:55: mouth [place] 52 daily. Medical Branch Doxepin 2021-10 Yes 6mg Take 6 mg Unive rs (SILENOR) 6 0-17 by mouth ity of mg Tab 08:55: daily. [place] [address] Medical Branch oxybutynin 2021-10 Yes 5mg Take 5 mg Un arely chloride 5 0-17 by mouth ity o f mg tablet 08:55: in the [place] [address] morning Medical and 5 mg Branch in the evening. ibuprofen 2021-10 Yes 800mg Take 800 Uni vers 800 mg 0-17 mg by ity of tablet 08:55: mouth in [place] [address] the Medical morning Branch and 800 mg in the evening. Take with meals. donepeziL 2021-10 Yes 10mg Take 10 mg Un arely 10 mg 0-17 by mouth ity of tablet 08:55: in the [place] [address] morning Medical and 10 mg Branch in the evening. amitriptyli 2021-10 Yes 25mg Take 25 mg Univers ne 25 mg 0-17 by mouth ity of tablet 08:55: as needed. [place] [address] 1 or 2 as Medical needed at Branch bedtime aspirin 81 2021-10 Yes 81mg Take 81 mg U nivers mg EC 0-17 by mouth ity of tablet 08:55: in the [place] [address] morning. Medical Branch ARIPiprazol 2021-10 Yes 5mg Take 5 mg U nivers e 5 mg 0-17 by mouth ity of tablet 08:55: in the [place] [address] morning. Medical Branch clonazePAM 2021-10 Yes 1mg Take 1 mg Un arely (KLONOPIN) 0-17 by mouth 3 ity of 1 mg tablet 08:55: (three) [place] 52 times Medical daily as Branch needed. As nee DULoxetine 2021-10 Yes 120mg Take 120 Un arely (CYMBALTA) 0-17 mg by ity of 60 mg 08:55: mouth in [place] [address] the Medical morning. Branch HYDROmorpho 2021-10 Yes [...] [place] tablet 52 daily. Medical Branch amLODIPine 2022-1 Yes 5mg Take 5 mg Un arely (NORVASC) 5 0-17 by mouth 2 it y of mg tablet 08:55: (two) [place] [address] times Medical daily. Branch meloxicam 2021-10 Yes 7.5mg Take 7.5 Uni vers (MOBIC) 7.5 0-17 mg by ity of mg tablet 08:55: mouth [place] [address] daily. Medical Branch Doxepin 2021-10 Yes 6mg Take 6 mg Unive rs (SILENOR) 6 0-17 by mouth ity of mg Tab 08:55: daily. [place] [address] Medical Branch oxybutynin 2021-10 Yes 5mg Take 5 mg Un arely chloride 5 0-17 by mouth ity o f mg tablet 08:55: in the [place] [address] morning Medical and 5 mg Branch in the evening. ibuprofen 2021-10 Yes 800mg Take 800 Uni vers 800 mg 0-17 mg by ity of tablet 08:55: mouth in [place] [address] the Medical morning Branch and 800 mg in the evening. Take with meals. donepeziL 2021-10 Yes 10mg Take 10 mg Un arely 10 mg 0-17 by mouth ity of tablet 08:55: in the [place] [address] morning Medical and 10 mg Branch in the evening. amitriptyli 2021-10 Yes 25mg Take 25 mg Univers ne 25 mg 0-17 by mouth ity of tablet 08:55: as needed. [place] [address] 1 or 2 as Medical needed at Branch bedtime aspirin 81 2021-10 Yes 81mg Take 81 mg U nivers mg EC 0-17 by mouth ity of tablet 08:55: in the [place] [address] morning. Medical Branch ARIPiprazol 2021-10 Yes 5mg Take 5 mg U nivers e 5 mg 0-17 by mouth ity of tablet 08:55: in the [place] [address] morning. Medical Branch clonazePAM 2021-10 Yes 1mg Take 1 mg Un arely (KLONOPIN) 0-17 by mouth 3 ity of 1 mg tablet 08:55: (three) [place] [address] times Medical daily as Branch needed. As nee DULoxetine 2021-10 Yes 120mg Take 120 Un arely (CYMBALTA) 0-17 mg by ity of 60 mg 08:55: mouth in [place] [address] the Medical morning. Branch HYDROmorpho 2021-10 Yes 8mg Take 8 mg U nivers ne 0-17 by mouth 4 ity of (DILAUDID) 08:55: (four) [place] 8 mg tablet 52 times Medical daily. Branch levomefolat 2021-10 Yes 1{capsu Take 1 Cap Univers e-algal oil 0-17 le} by mouth ity of (DEPLIN, 08:55: daily. [place] ALGAL OIL,) 52 Medical .314 Branch mg Cap traZODONE 2021-10 Yes 200mg [...] mouth ity of mg Tab 18:29: daily. [place] [address] Medical Branch VENLAFAXINE 2004-10 Yes 1 Cap Oral Univers 75 MG ORAL 2-14 QAM WITH ity o f CP24 00:00: BREAKFAST [place] [address] Medical Branch QUETIAPINE 2004- Yes 1 tab po Uni vers 300 MG ORAL 2-14 qhs ity of TAB 00:00: [place] [address] Medical Branch VENLAFAXINE 2004- Yes 1 Cap Oral Univers 75 MG ORAL 2-14 QAM WITH ity o f CP24 00:00: BREAKFAST [place] [address] Medical Branch QUETIAPINE 2004- Yes 1 tab po Uni vers 300 MG ORAL 2-14 qhs ity of TAB 00:00: [place] [address] Medical Branch VENLAFAXINE 2004- Yes 1 Cap Oral Univers 75 MG ORAL 2-14 QAM WITH ity o f CP24 00:00: BREAKFAST [place] [address] Medical Branch QUETIAPINE 2004- Yes 1 tab po Uni vers 300 MG ORAL 2-14 qhs ity of TAB 00:00: [place] [address] Medical Branch Vital Signs Vital Name Observation Time Observation Value Comments Source WEIGHT 2023-05-27 07:00:00 54.4 kg WEIGHT 2023-05-25 05:00:00 54.432 kg WEIGHT 2023-05-27 07:00:00 54.4 kg WEIGHT 2023-05-25 05:00:00 54.432 kg WEIGHT 2023-05-27 07:00:00 54.4 kg WEIGHT 2023-05-25 05:00:00 54.432 kg HEIGHT 2023-03-30 23:47:42 154.9 cm WEIGHT 2023-03-30 23:47:42 58.196 kg HEIGHT 2023-03-30 23:47:42 154.9 cm WEIGHT 2023-03-30 23:47:42 58.196 kg HEIGHT 2023-03-30 23:47:42 154.9 cm WEIGHT 2023-03-30 23:47:42 58.196 kg HEIGHT 2023-03-08 11:13:00 154.9 cm WEIGHT [...] 13:30:00 127 mm[Hg] Univer sity of pressure [facility] [place] Diastolic blood 2022-07-17 13:30:00 62 mm[Hg] Unive rsity of pressure [facility] [place] Heart rate 2022-07-17 13:30:00 76 /min Universi ty of [facility] [place] Respiratory rate 2022-07-17 13:30:00 20 /min Univ ersity of [facility] [place] Oxygen saturation in 2022-07-17 13:30:00 93 /min [facility] Arterial blood by [facility] Pulse oximetry Branch Body temperature 2022-07-17 13:10:00 36.78 [facility] ersity of [place] Medical Ernul Body height 2022-07-04 16:26:00 154.9 cm Universi ty of [place] Medical Ernul Body weight 2022-07-04 16:26:00 78 kg Universi ty of [place] Medical Ernul BMI 2022-07-04 16:26:00 32.51 kg/m2 Universi ty of [facility] [place] Systolic blood 2022-07-17 13:30:00 127 mm[Hg] Univer sity of pressure [facility] [place] Diastolic blood 2022-07-17 13:30:00 62 mm[Hg] Unive rsity of pressure [facility] [place] Heart rate 2022-07-17 13:30:00 76 /min Universi ty of [facility] Respiratory rate 2022-07-17 13:30:00 20 /min [facility] Oxygen saturation in 2022-07-17 13:30:00 93 /min University Arterial blood by [facility] Pulse oximetry Branch Body temperature 2022-07-17 13:10:00 36.78 Monica [facility] ersity of [facility] Body height 2022-07-04 16:26:00 154.9 cm [facility] [place] [facility] Body weight 2022-07-04 16:26:00 78 kg Universi ty of [facility] BMI 2022-07-04 16:26:00 32.51 kg/m2 Universi ty [facility] Systolic blood 2023-05-27 12:00:00 161 mm[Hg] [facility] Diastolic blood 2023-05-27 12:00:00 69 mm[Hg] [facility] t [facility] Heart rate 2023-05-27 12:00:00 75 /min [facility] Body temperature 2023-05-27 12:00:00 36.56 Monica [facility] Respiratory rate 2023-05-27 12:00:00 18 /min [facility] Oxygen saturation in 2023-05-27 12:00:00 96 /min [facility] Arterial blood by Medical nter Pulse oximetry Body weight 2023-05-27 07:00:00 54.4 kg [facility] BMI 2023-05-27 07:00:00 22.66 kg/m2 [facility] Systolic blood 2023-04-06 07:03:00 116 mm[Hg] [facility] Diastolic blood 2023-04-06 07:03:00 48 mm[Hg] [facility] S t [facility] Heart rate 2023-04-06 07:03:00 62 /min [facility] Body temperature 2023-04-06 07:03:00 36.56 Monica [facility] Respiratory rate 2023-04-06 07:03:00 18 /min [facility] Oxygen saturation in 2023-04-06 07:03:00 97 /min [facility] Arterial blood by Medical Ce nter Pulse oximetry Body weight 2023-03-30 23:47:42 58.196 kg [facility] BMI 2023-03-30 23:47:42 24.24 kg/m2 [facility] Body height 2023-03-30 23:47:42 154.9 cm [facility] Systolic blood 2023-03-09 06:57:00 160 mm[Hg] [facility] Diastolic blood 2023-03-09 06:57:00 70 mm[Hg] [facility] S [facility] Heart rate 2023-03-09 06:57:00 60 /min [facility] Body temperature 2023-03-09 06:57:00 36.89 Monica [facility] Respiratory rate 2023-03-09 06:57:00 18 /min [facility] Oxygen saturation in 2023-03-09 06:57:00 99 /min [facility] Arterial blood by Medical Ce nter Pulse oximetry Body height 2023-03-08 11:13:00 154.9 cm [facility] Body weight 2023-03-08 11:13:00 55.475 kg [facility] BMI 2023-03-08 11:13:00 23.11 kg/m2 [facility] Systolic blood 2023-03-08 07:16:00 132 mm[Hg] [facility] Diastolic blood 2023-03-08 07:16:00 65 mm[Hg] [facility] Heart rate 2023-03-08 07:16:00 74 /min [facility] Body temperature 2023-03-08 07:16:00 37.17 Monica [facility] Respiratory rate 2023-03-08 07:16:00 18 /min [facility] Oxygen saturation in 2023-03-08 07:16:00 97 /min [facility] Arterial blood by Medical Ce nter Pulse oximetry Systolic blood 2023-03-07 14:19:00 139 mm[Hg] [facility] Diastolic blood 2023-03-07 14:19:00 64 mm[Hg] [facility] Heart rate 2023-03-07 14:19:00 77 /min [facility] Body temperature 2023-03-07 14:19:00 37 Monica [facility] Respiratory rate 2023-03-07 14:19:00 18 /min [facility] Oxygen saturation in 2023-03-07 14:19:00 97 /min [facility] Arterial blood by Medical Ce nter Pulse oximetry Body weight 2023-03-05 07:35:00 61.508 kg [facility] BMI 2023-03-05 07:35:00 25.60 kg/m2 [facility] Body height 2023-03-02 18:26:00 155 cm [facility] Procedures Procedure Date / Time Performing Clinician Source Performed BASIC METABOLIC PANEL 2023-05-27 04:39:00 Madi Carvajal [facility] CBC (HEMOGRAM ONLY) 2023-05-27 04:39:00 Teresa Montaño [facility] XR PELVIS 1 OR 2 VIEWS 2023-05-26 11:13:00 Madi Carvajal [facility] TISSUE EXAM 2023-05-26 09:42:00 Dimitris Parry [facility] REVISION, TOTAL 2023-05-26 08:16:00 ParryDimitris garcía [facility] ARTHROPLASTY, HIP [facility] BASIC METABOLIC PANEL 2023-05-26 04:17:00 Brittany Howard [facility] CBC W/PLT COUNT & AUTO 2023-05-26 04:17:00 Brittany Howard Miller [facility] CBC W/PLT COUNT & AUTO 2023-05-26 04:17:00 Brittany Howard [facility] C-REACTIVE PROTEIN 2023-05-25 17:03:00 Madi Carvajal [facility] XR HIP 2 VIEWS RIGHT 2023-05-25 08:55:00 Rm Reeves [facility] XR PELVIS 1 OR 2 VIEWS 2023-05-25 08:54:00 Sincere [facility] CBC W/PLT COUNT & AUTO 2023-05-25 07:22:00 ElbingElisha [facility] DIFFERENTIAL [facility] COMPREHENSIVE METABOLIC 2023-05-25 07:22:00 ElbingElisha [facility] PANEL [facility] PROTHROMBIN TIME/INR 2023-05-25 07:22:00 Elbing [facility] MAGNESIUM 2023-05-25 07:22:00 Elbing [facility] TYPE AND SCREEN, 2023-05-25 07:22:00 Elbing [facility] AUTOMATED [facility] CBC W/PLT COUNT & AUTO 2023-05-25 07:22:00 ElbingSuElisha [facility] DIFFERENTIAL [facility] EKG-SCANNED 2023-05-25 00:00:00 Hossein Dixon [facility] Scanning [place] XR ABDOMEN/KUB 1 VIEW 2023-04-05 16:55:27 Ary Weiss [facility] PORTABLE [place] CBC W/PLT COUNT & AUTO 2023-04-05 04:46:00 Ary Weiss [facility] BASIC METABOLIC PANEL 2023-04-05 04:46:00 Ary Weiss [facility] CBC W/PLT COUNT & AUTO 2023-04-05 04:46:00 Ary Weiss [facility] VANCOMYCIN LEVEL, TROUGH 2023-04-04 02:39:00 Santa Sandhu [facility] CBC W/PLT COUNT & AUTO 2023-04-04 02:39:00 Ary Weiss [facility] BASIC METABOLIC PANEL 2023-04-04 02:39:00 Ary Weiss [facility] CBC W/PLT COUNT & AUTO 2023-04-04 02:39:00 Ary Weiss [facility] CBC W/PLT COUNT & AUTO 2023-04-03 05:18:00 Ary Weiss [facility] BASIC METABOLIC PANEL 2023-04-03 05:18:00 Ary Weiss [facility] CBC W/PLT COUNT & AUTO 2023-04-03 05:18:00 Ary Weiss [facility] VANCOMYCIN LEVEL, TROUGH 2023-04-02 04:38:00 Elena Hardwick [facility] CBC W/PLT COUNT & AUTO 2023-04-02 04:38:00 Ary Weiss [facility] BASIC METABOLIC PANEL 2023-04-02 04:38:00 Ary Weiss [facility] CBC W/PLT COUNT & AUTO 2023-04-02 04:38:00 Ary Weiss [facility] XR HIP 1 VIEW RIGHT 2023-04-01 07:39:00 Alena, Madi [facility] XR PELVIS 1 OR 2 VIEWS 2023-04-01 07:38:00 AlenaMadi [facility] CBC W/PLT COUNT & AUTO 2023-04-01 03:54:00 Ary Weiss [facility] BASIC METABOLIC PANEL 2023-04-01 03:54:00 Ary Weiss [facility] CBC W/PLT COUNT & AUTO 2023-04-01 03:54:00 Ary Weiss [facility] ARTHROPLASTY, HIP 2023-03-31 17:00:00 [facility] 2023-03-31 16:35:00 Parry, Dimitris [facility] XR PELVIS 1 OR 2 VIEWS 2023-03-31 07:07:00 Odilia Robles [facility] CBC (HEMOGRAM ONLY) 2023-03-31 03:27:00 Erica [facility] BASIC METABOLIC PANEL 2023-03-31 03:27:00 Erica [facility] PROTHROMBIN TIME/INR 2023-03-31 03:27:00 [facility] TYPE AND SCREEN, 2023-03-31 03:27:00 Steven Garcia [facility] AUTOMATED [facility] EKG-SCANNED 2023-03-30 00:00:00 Provider, Hossein [facility] Scanning [place] HEMOGLOBIN AND 2023-03-09 05:10:00 Steven Garcia [facility] HEMATOCRIT [facility] XR PELVIS 1 OR 2 VIEWS 2023-03-08 15:24:26 Odilia Robles [facility] ARTHROPLASTY, HIP 2023-03-08 13:33:00 Parry, [place] [facility] ARTHROPLASTY, HIP 2023-03-08 13:30:00 Parry, [facility] ARTHROPLASTY, HIP 2023-03-08 13:28:00 Parry, [facility] ECG 12-LEAD 2023-03-08 11:46:24 Unknown, Hl7 Doctor [facility] TYPE AND SCREEN, 2023-03-07 18:13:00 Mer Middleton [facility] BASIC METABOLIC PANEL 2023-03-07 05:29:00 Erica [facility] CBC W/PLT COUNT & AUTO 2023-03-07 05:29:00 Erica [facility] DIFFERENTIAL [place] CBC W/PLT COUNT & AUTO 2023-03-07 05:29:00 Erica [facility] DIFFERENTIAL Center CBC W/PLT COUNT & AUTO 2023-03-05 05:18:00 Paul [facility] DIFFERENTIAL [facility] CBC W/PLT COUNT & AUTO 2023-03-05 05:18:00 Paul [facility] DIFFERENTIAL [facility] BASIC METABOLIC PANEL 2023-03-05 05:15:[address] [facility] BASIC METABOLIC PANEL 2023-03-03 12:20:[address] [facility] CBC W/PLT COUNT & AUTO 2023-03-03 12:20:00 [facility] DIFFERENTIAL [facility] CBC W/PLT COUNT & AUTO 2023-03-03 12:20:00 [facility] DIFFERENTIAL [facility] XR HIP 1 VIEW RIGHT 2023-03-02 10:56:00 Arely Browning [facility] XR BILATERAL HIPS TO 2023-03-02 10:13:00 Lady Hardwick [facility] INCLUDE PELVIS Center ABORH, MANUAL 2023-03-02 04:38:00 Aracelis Lovett [facility] CBC W/PLT COUNT & AUTO 2023-03-02 02:53:00 Lady Hardwick [facility] COMPREHENSIVE METABOLIC 2023-03-02 02:53:00 Lady Hardwick [facility] PANEL Center PROTHROMBIN TIME/INR 2023-03-02 02:53:00 Lady Hardwick [facility] TYPE AND SCREEN, 2023-03-02 02:53:00 Lady Hardwick [facility] AUTOMATED Center CBC W/PLT COUNT & AUTO 2023-03-02 02:53:00 Lady Hardwick [facility] DIFFERENTIAL [place] INTRATHECAL INFUSION 2022-07-17 12:09:00 Justin Hobbs [facility] PUMP REVISION Medical Branch DAY SURGERY - ADC 2022-07-17 05:01:00 Doctor Unassigned, No Univ ersity [facility] Name Medical Branch EXTERNAL PROVIDER 2022-06-21 05:01:00 Doctor Unassigned, No Univ [facility] [place] [facility] Name Medical Branch EXTERNAL PROVIDER 2022-06-21 05:01:00 Doctor Unassigned, No [facility] ersity [facility] RECORDS Name Medical Branch XR ANKLE 3+ VW RIGHT 2021-03-02 17:25:47 [facility] Planned Activity Planned Date Details Comments Source Future Scheduled 2024-03-[address] [facility] 00:[facility]00 [facility] Screening (12+) [code = Tobacco Cessation Counseling and Screening (12+)] Future Scheduled 2024-03-[address] [facility] 00:00:00 [facility] Screening (12+) [code = Tobacco Cessation Counseling and Screening (12+)] Future Scheduled 2024-03-[address] [facility] Center Influenza Vaccine (Season Ended)] Future Scheduled 2023-06-01 Influenza Vaccine (#1) [facility] 00:[facility]00 [code = Influenza Medical Ce nter Vaccine (#1)] Future Scheduled 2023-06-[address] [facility] 00:00:00 (Season Ended) [code = Medic al Center INFLUENZA VACCINE (Season Ended)] Future Scheduled 2023-06-01 Influenza Vaccine (#1) [facility] 00:00:00 [code = Influenza Medical Ce nter Vaccine (#1)] Future Scheduled 2022-10-01 FALLS RISK SCREENING [facility] 00:00:00 [code = FALLS RISK Medical C enter SCREENING] Future Scheduled 2022-10-01 FALLS RISK SCREENING [facility] 00:00:00 [code = FALLS RISK Medical C enter SCREENING] Future Scheduled 2022-10-01 FALLS RISK SCREENING [facility] 00:00:00 [code = FALLS RISK Medical C enter SCREENING] Future Scheduled 2022-10-01 Medicare IPPE (WELCOME [facility] 00:00:00 TO MEDICARE) [code = Medical Center Medicare IPPE (WELCOME TO MEDICARE)] Future Scheduled 2022-10-01 FALLS RISK SCREENING [facility] 00:00:00 [code = FALLS RISK Medical C enter SCREENING] Future Scheduled 2022-10-01 Medicare IPPE (WELCOME [facility] 00:00:00 TO MEDICARE) [code = Medical Center Medicare IPPE (WELCOME TO MEDICARE)] Future Scheduled 2016 PNEUMOCOCCAL 65+ YRS (1 [...] colon Medical Ce nter (procedure) [code = 341985676] Future Scheduled 1951 Screening for malignant [facility] 00:00:00 neoplasm of colon Medical Ce nter (procedure) [code = 832779252] Future Scheduled 1951 Sigmoidoscopy [code = [facility] Future Scheduled 1951 Screening for malignant [facility] 00:00:00 neoplasm of breast Medical C enter (procedure) [code = 628673045] Future Scheduled 1951 CT Colonography (combo) [facility] 00:00:00 [code = CT Colonography Medi [facility] (combo)] Future Scheduled 1951 Screening for malignant [facility] 00:00:00 neoplasm of colon Medical Ce nter (procedure) [code = 669353124] Future Scheduled 1951 Screening for malignant [facility] 00:00:00 neoplasm of colon Medical Ce nter (procedure) [code = 282314378] Future Scheduled 1951 DXA SCAN [code = DXA [facility] 00:00:00 SCAN] [facility] Future Scheduled 1951 Screening for malignant [facility] 00:00:00 neoplasm of colon Medical Ce nter (procedure) [code = 162108638] Future Scheduled 1951 Screening for malignant [facility] 00:00:00 neoplasm of colon Medical Ce nter (procedure) [code = 583123454] Future Scheduled 1951 Sigmoidoscopy [code = [facility]:00 [facility]oscopy] [facility] Future Scheduled 1951 Screening for malignant [facility] 00:00:00 neoplasm of breast Medical C enter (procedure) [code = 957516591] Future Scheduled 1951 CT Colonography (combo) [facility] 00:00:00 [code = CT Colonography [facility] (combo)] Future Scheduled 1951 Screening for malignant [facility] 00:00:00 neoplasm of colon Medical Ce nter (procedure) [code = 440935565] Future Scheduled 1951 Screening for malignant [facility] 00:00:00 neoplasm of colon Medical Ce nter (procedure) [code = 523825345] Future Scheduled 1951 DXA SCAN [code = DXA [facility] 00:00:00 SCAN] [facility] Future Scheduled 1951 Screening for malignant [facility] 00:00:00 neoplasm of colon Medical Ce nter (procedure) [code = 717968089] Future Scheduled 1951 Screening for malignant [facility] 00:00:00 neoplasm of colon Medical Ce nter (procedure) [code = 263465692] Future Scheduled 1951 Sigmoidoscopy [facility]code = [facility]] [facility] Future Scheduled 1951 Screening for malignant [facility] 00:00:00 neoplasm of breast Medical C enter (procedure) [code = 996517525] Future Scheduled 1951 CT Colonography (combo) [facility] 00:00:00 [code = CT Colonography [facility] (combo)] Future Scheduled 1951 Screening for malignant [facility] 00:00:00 neoplasm of colon Medical Ce nter (procedure) [code = 480246752] Future Scheduled 1951 Screening for malignant [facility] 00:00:00 neoplasm of colon Medical Ce nter (procedure) [code = 842298450] Future Scheduled 1951 DXA SCAN [code = DXA [facility] 00:00:00 SCAN] [facility] Future Scheduled 1951 Screening for malignant [facility] 00:00:00 neoplasm of colon Medical Ce nter (procedure) [code = 252085699] Future Scheduled 1951 Screening for malignant [facility] 00:00:00 neoplasm of colon Medical Ce nter (procedure) [code = 229772972] Future Scheduled 1951 Sigmoidoscopy [code = [facility] 00:[facility] S[facility]oscopy] [facility] Future Scheduled 1951 Screening for malignant [facility] 00:00:00 neoplasm of breast Medical C enter (procedure) [code = 262880915] Future Scheduled 1951 CT Colonography (combo) [facility] 00:00:00 [code = CT Colonography [facility] (combo)] Future Scheduled 1951 Screening for malignant [facility] 00:00:00 neoplasm of colon Medical Ce nter (procedure) [code = 380919991] Future Scheduled 1951 Screening for malignant [facility] 00:00:00 neoplasm of colon Medical Ce nter (procedure) [code = 389724533] Future Scheduled 1951 DXA SCAN [code = DXA [facility] 00:00:00 SCAN] [facility] Future Scheduled 1951 Screening for malignant [facility] 00:00:00 neoplasm of breast Medical C enter (procedure) [code = 292019780] Future Scheduled 1951 CT Colonography (combo) [facility] 00:00:00 [code = CT Colonography [facility] (combo)] Future Scheduled 1951 Screening for malignant [facility] 00:00:00 neoplasm of colon Medical Ce nter (procedure) [code = 102755549] Future Scheduled 1951 Screening for malignant [facility] 00:00:00 neoplasm of colon Medical Ce nter (procedure) [code = 990562567] Future Scheduled 1951 DXA SCAN [code = DXA [facility] 00:00:00 SCAN] Medical Center Future Scheduled 1951 Screening for malignant [facility] 00:00:00 neoplasm of colon Medical Ce nter (procedure) [code = 117343888] Future Scheduled 1951 Screening for malignant [facility] 00:00:00 neoplasm of colon Medical Ce nter (procedure) [code = 179351621] Future Scheduled 1951 Sigmoidoscopy [code = [facility] S[facility]oscopy] Medical Cente r Encounters Start End Encounter Admission Attending Care Care Encounter Source Date/Time Date/Time Type Type Clinicians Facility Department ID 2023-05-26 Inpatient ER BRITTANY HOWARD [facility] [id number] SLE 10:47:03 2023-05-26 Inpatient ER SOHAN, [facility] [id number] SLE 09:23:32 DIMITRIS 2023-05-26 Inpatient ER SOHAN, [facility] [id number] [facility] 00:00:00 DIMITRIS 2023-05-26 Inpatient ER SOHAN, [facility] [id number] SLE 00:00:00 DIMITRIS 2023-05-25 Inpatient ER LALA, [facility] [id number] SLE 08:45:17 CHRISTOPHER 2023-05-25 Inpatient ER FELICIANO, [facility] [id number] [facility] 07:37:02 ELISHA 2023-04-05 Inpatient ER FRANCISCO, [facility] [id number] [facility] 15:46:44 YAASH 2023-04-05 Outpatient 3 [id number] [place] [id number] [facility] 11:01:43 [facility] [place] 2023-04-05 Inpatient ER FRANCISCO [facility] [id number] [facility] 3 [id number] ENC[place] REF [id number] [facility] 15:37:03 [facility] [place] 2023-04-01 Inpatient ER FRANCISCO [facility] [id number] [facility]:18[facility] ER FRANCISCO, [facility] [id number] [facility] 06:18:53 YASHASH 2023-03-31 Inpatient ER NALBRENDAN, [facility] [id number] [facility] 06:15:09 ERNETTA 2023-03-30 Inpatient PARRY, [facility] Surgery [id number] [facility] 20:40:23 DIMITRIS 2023-03-08 Inpatient EL PARRY, [facility] [id number] [facility] 15:16:15 DIMITRIS 2023-03-08 Inpatient EL PARRY, [facility]H [facility] [id number] [facility] 11:54:44 [facility] 2023-05-25 2023-05-27 Inpatient ER ERICA, [facility] Orthopaedic [id number] [facility] 04:50:00 18:59:00 [facility] 2023-05-25 2023-05-27 Hospital Elisha Naidu [facility] [id number] [facility] 04:50[facility] 18:59:00 Encounter Brittany [facility] 2023-05-26 2023-05-26 Surgery Webster, [facility] [id number] 08:00:00 12:03:00 [facility] 2023-05-26 2023-05-26 Anesthesia Chucky Dwyer [facility] [id number] 08:16:00 10:37:[address] [facility] 2023-05-25 2023-05-25 Travel [facility] [id number] [facility] 00:[facility]:00 [facility] 2023-03-30 2023-04-06 Inpatient ER FRANCISCO, [facility] Orthopaedic [id number] [facility] 23:30:00 [facility]:35[facility] Hospital ER Renetta Fung Brit [facility] [id number] 23:30:00 14:35:[address] [facility] 2023-03-30 2023-04-06 [facility] Renetta Fung [facility] [id number] 23:30:00 14:35:[address] [facility] 2023-03-31 2023-03-31 Surgery Parry, [facility] [id number] 17:00:00 18:55:00 [facility] 2023-03-31 2023-03-31 Surgery Webster, [facility] [id number] 17:00:00 18:55:00 [facility] 2023-03-31 2023-03-31 Anesthesia Saba Santos [facility] [id number] 14:31:00 16:54:00 Event Papa Farr [facility] 2023-03-31 2023-03-31 Anesthesia Saba Santos [facility] [id number] 14:31:00 16:54:00 Event Yordan Papa [facility] 2023-03-31 2023-03-31 Travel [facility] [id number] [facility]00 00:00:00 [facility] 2023-03-31 2023-03-31 Travel [facility] [id number] [facility] 00:[facility]:00 [facility] 2023-03-07 2023-03-09 Outpatient ESTHELA PARRY [facility] Orthopedics [id number] [facility] 16:30:00 14:26:00 DIMITRIS 2023-03-07 2023-03-09 [facility] [id number] 16[facility]30:00 14:26:00 Encounter Dimitris [facility] 2023-03-07 2023-03-09 [facility] [id number] 16:30:00 14:26:00 Encounter [facility] 2023-03-08 2023-03-08 Anesthesia Cj Leonard [facility] [id number] 13:30:00 15:17:00 Event Chucky Dwyer [facility] 2023-03-08 2023-03-08 Anesthesia Cj Leonard [facility] [id number] 13:30:00 15:17:00 Event Chucky Dwyer [facility] 2023-03-08 2023-03-08 Surgery Parry, [facility] [id number] 13:00:00 15:00:00 [facility] 2023-03-08 2023-03-08 Surgery Parry, [facility] [id number] 13:00:00 15:00:00 [facility] 2023-03-08 2023-03-08 Travel [facility] [id number] [facility] 00:00:00 00:00:00 [facility] 2023-03-08 2023-03-08 Travel [facility] [id number] [facility] 00[facility]:00 [facility] 2023-03-02 2023-03-07 [facility]patient [facility] Orthopaedic [id number] [facility] 00:19:00 15:50:00 , CHITO 2023-03-02 2023-03-07 Hospital ER [place] [facility] [id number] [facility] 00:19:00 15:50:00 Encounter Chito Mccullough ignacio [facility] 2023-03-02 2023-03-07 [facility] [id number] [facility] 00:19:00 15:50:00 Encounter Chito Mccullough ignacio [facility] 2023-03-02 2023-03-02 Outpatient FOG_A_Provi AOSM AO [id number] Christine 00:00:00 00:00:00 ami [id number] Orthop e dic Sports Medicin e 2022-07-17 2022-07-17 [facility] [id number] Univers 06:33:00 08:54:00 Encounter Justin Alvarenga [place] 350.1.13.10 [place] [id number] [facility] 071 Ernul 2022-07-17 2022-07-17 Outpatient R [facility] ANS [id number] Univers 06:33:00 08:54:00 JUSTIN ity of [facility] 2022-07-17 2022-07-17 Surgery [facility] [id number] Univers 07:15:00 08:52:00 Justin S [place] 350.1.13.10 [place]ICAL [id number] [facility] [address] 2022-07-17 2022-07-17 Orders Doctor TOÑO [id number] Univers 00:00:00 00:00:00 Only Unassigned, HARDY 350.1.13.10 ity of [place] 4.2.7.2.686 Daniele as [id number] [facility] 009 Ernul 2022-07-14 2022-07-14 Outpatient R [facility] [id number] Univers 08:15:00 08:15:00 JUSTIN ity [facility] 2021-03-02 2021-03-02 Hospital Radiology [facility] [id number] Univers 12:13:44 23:59:00 Encounter [place] 350.1.13.10 [place] [id number] [facility] [address] 2021-03-02 2021-03-02 Outpatient R RADIOLOGY [facility] [id number] Univers 00:00:00 00:00:00 ity of [facility] Results Test Description Test Time Test Comments Results Result Comments Source Tissue Exam 2023-06-01 18:28:20 Test Item Value Reference Range Interpretation Comme nts Case Report (test code = 104) Surgical Pathology Report Case: [id number] Authorizing Provider: Dimitris Parry Collected: 05/26/2023 09:42 AM MD Marly Ordering Location: [address] Received: 05/28/2023 09:38 AM Service Pathologist: Thomas Echevarria MD Specimen: Explant, FOR IDENTIFICATION DIAGNOSIS (test code = 3220) h9oxkEUsPSJmq9rxURZruQYlJuDwTvCmHlIqUu pcd [file] MFxzYmtwYWdlXHBnbmNvbnRccGduZGVjXHBsYWluX HBsYWluXGYwXGZzMjRccWxcbGFuZzEwMzNcaGljaF uuLDwfHuJsSFFkJLkrE8slFeJkYzRjDzo4UAPiwZG pEKCqFdv5HDYxzFVzEAIUsJuxiY8dFQLowPgbdV0d hXJ1JEZtbjKdmAMCgK3rYWBBnX9lOwO9YCVkMcf7K VH0SlQfcSOdoN5= CPT Code(s) (test code = 3357) t7ehdHBsEOYmtDIwUJThA7yxogDaGXDipFHw Z3Bhc dexAPlgUO7vPW0fwSoshGSxtVEyCJNyYyBdy9cxj1 98kXNgq0jmULNIcwpawPl3jLrpR85fm4D2RxheA18 ajVOtRML8JOJxMXEwiRWlKRUzMSE7MUTayVTvW1iw QRAfQH7lldemLVnxGGivGAZpvVK4KIHbmRTxD4AnT JCvKSaoMLBbdss3OuLhAi1hsTRtcCahRCgvXOApGY BsYWluXGZzMjAgODgzMDBccGFyfQ== CLINICAL HISTORY (test code = 3356) w6csbMObLFHdmROkIKDpC9dcwaYzIQK xsUKaI4Oeg hhlPBerVT7xAN3ruCktnZWgcNXkQSVyPoLgw3ivo9 38oWVbq1ckGBDRgrhddAd5jWhoU12xf4T3YeelI00 zcLZcVSS3URGhVQIptDKnHZFaIDM4XLUszYQhH8ka YFCyFJ6vkrejGRxvKGjtDADgrZQ4QQHdfVSgV2CtF UBeDHohFJFadgn7EyQtOh6iqZHvuZugXOipKJLjHF IjIQyfUJAjDiIdIHrgLBkvk7IjCzouyJT8WKEyaFl odFxwYXJ9 GROSS DESCRIPTION (test code = g9uorFYsIQVuiNZLJWYrDXPtSN1reOkhpNg0 cGdwY [id number]) [file] Qp9 MICROSCOPIC DESCRIPTION (test code = d1uldTLyWIJrwOLfHTZbV1gmpaD tVXStmLFvF6Nzt 337) njjJXfaJH2fYU2lzCrucSTlzXKrSHVcQhWgs5mbp7 98tWSit2mnBMGHbtpdlJq5bRtvO33bm8A1RlpyD41 otFIySNP9WFHiQTKzvOTnKFVsBCS3EAXlaCQxP2gf EDYeLO8aekqjIYbjRTooJHRrrNJ3MTUleDZuQ8MpT RYiUYfyDXCtazo9KiLyVm2inOGyiWtzHQmvYDPeTX FqOAaiGRXpNdLtBd63HCDxuzIjtu4oZXopRDB5 [facility] [id number] 18:28:20Surgical Pathology Report Case: [id number] Authorizing Provider: Dimitris Parry Collected: 05/26/2023 09:42 AM MD Marly Ordering Location: [address] Received: 05/28/2023 09:38 AM Service Pathologist: Thomas Echevarria MD Specimen: Explant, FOR IDENTIFICATION ORTHOPEDIC HARDWARE, RIGHT HIP, REMOVAL - HARDWARE IDENTIFIED (GROSS ONLY) Signing Pathologist Direct Phone Line: [phone] signed by Thomas Echevarria MD on 06/01/2023 at 6:28 [id number] instability, rightA. ExplantReceived fresh labeled with the patient's name, medical record number and "explant" is a pink metallic femoral head component measuring 2.0 cm in diameter inscribed with "BC-22 mm NK+ 506-11/02/2004," that is within a white plastic-like liner inscribed with "C KH 7Y VH I-3 8" which is within a white plastic like acetabular shell measuring 4.6 cm in diameter and 4.1 cm in height inscribed with "690-10-22ET." A gross photograph is taken. No sections are submitted-gross only.KENNETH LindS, PA (ASCP)cmNot performed BASIC METABOLIC [id number] 05:34:44 Test Item Value Reference Range Interpretation Comments SODIUM (BEAKER) 140 meq/L 136-145 (test code = 381) POTASSIUM 4.0 meq/L 3.5-5.1 (BEAKER) (test code = 379) CHLORIDE (BEAKER) 107 meq/L 98-107 (test code = 382) CO2 (BEAKER) 26 meq/L 22-29 (test code = 355) BLOOD UREA 11 mg/dL 7-21 NITROGEN (BEAKER) (test code = 354) CREATININE 0.66 mg/dL 0.57-1.25 (BEAKER) (test code = 358) GLUCOSE RANDOM 165 mg/dL 70-105 H (BEAKER) (test code = 652) CALCIUM (BEAKER) 8.0 mg/dL 8.4-10.2 L (test code = 697) EGFR (BEAKER) 94 [...] not appl icable for dialysis patien ts Fermenter Wine ID - MARCOCBC (HEMOGRAM ONLY)2023-05-27 05:17:00 Test Item Value Reference Range Interpretation Comments WHITE BLOOD CELL COUNT (BEAKER) 9.4 K/ L 3.5-10.5 (test code = 775) RED BLOOD CELL COUNT (BEAKER) 2.93 M/ L 3.93-5.22 L (test code = 761) HEMOGLOBIN (BEAKER) (test code = 8.5 GM/DL 11.2-15.7 L 410) HEMATOCRIT (BEAKER) (test code = 25.9 % 34.1-44.9 L 411) MEAN CORPUSCULAR VOLUME (BEAKER) 88 fL 79-95 (test code = 753) MEAN CORPUSCULAR HEMOGLOBIN 29.0 pg 25.6-32.2 (BEAKER) (test code = 751) MEAN CORPUSCULAR HEMOGLOBIN CONC 32.8 GM/DL 32.2-35.5 (BEAKER) (test code = 752) RED CELL DISTRIBUTION WIDTH 13.6 % 11.7-14.4 (BEAKER) (test code = 412) PLATELET COUNT (BEAKER) (test 192 K/CU MM 150-450 code = 756) MEAN PLATELET VOLUME (BEAKER) 10.2 fL 9.4-12.3 (test code = 754) NUCLEATED RED BLOOD CELLS 0 /100 WBC 0-0 (BEAKER) (test code = 413) XR PELVIS 1 OR 2 [id number] 12:15:34 [facility] : 1950 Sex: FRadiograph of the pelvisReason for exam: Postop EvalComparison: 3Discussion: Status post righttotal hip arthroplasty. Alignment is near-anatomic. Noacute fracture, or dislocation.Electronically Signed By: Melita Akins05/26/2023 12:17 CDTWorkstation Name: [id number] METABOLIC [id number] 05:30:57 Test Item Value Reference Range Interpretation Comments SODIUM (BEAKER) 141 meq/L 136-145 (test code = 381) POTASSIUM 3.8 meq/L 3.5-5.1 (BEAKER) (test code = 379) CHLORIDE (BEAKER) 106 meq/L 98-107 (test code = 382) CO2 (BEAKER) 29 meq/L 22-29 (test code = 355) BLOOD UREA 15 mg/dL 7-21 NITROGEN (BEAKER) (test code = 354) CREATININE 0.72 mg/dL 0.57-1.25 (BEAKER) (test code = 358) GLUCOSE RANDOM 136 mg/dL 70-105 H (BEAKER) (test code = 652) CALCIUM (BEAKER) 8.3 mg/dL 8.4-10.2 L (test code = 697) EGFR (BEAKER) 89 Interpretatio n of eGFR (test code = [...] not appl icable for dialysis patien ts Fer[employer] ID - ADMINCBC W/PLT COUNT & AUTO [id number] 05:07:06 Test Item Value Reference Range Interpretation Comments WHITE BLOOD CELL COUNT (BEAKER) 6.6 K/ L 3.5-10.5 (test code = 775) RED BLOOD CELL COUNT (BEAKER) 3.64 M/ L 3.93-5.22 L (test code = 761) HEMOGLOBIN (BEAKER) (test code = 10.4 GM/DL 11.2-15.7 L 410) HEMATOCRIT (BEAKER) (test code = 32.5 % 34.1-44.9 L 411) MEAN CORPUSCULAR VOLUME (BEAKER) 89 fL 79-95 (test code = 753) MEAN CORPUSCULAR HEMOGLOBIN 28.6 pg 25.6-32.2 (BEAKER) (test code = 751) MEAN CORPUSCULAR HEMOGLOBIN CONC 32.0 GM/DL 32.2-35.5 L (BEAKER) (test code = 752) RED CELL DISTRIBUTION WIDTH 13.4 % 11.7-14.4 (BEAKER) (test code = 412) PLATELET COUNT (BEAKER) (test 211 K/CU MM 150-450 code = 756) MEAN PLATELET VOLUME (BEAKER) 10.0 fL 9.4-12.3 (test code = 754) NUCLEATED RED BLOOD CELLS 0 /100 WBC 0-0 (BEAKER) (test code = 413) NEUTROPHILS RELATIVE PERCENT 58 % (BEAKER) (test code = 429) LYMPHOCYTES RELATIVE PERCENT 30 % (BEAKER) (test code = 430) MONOCYTES RELATIVE PERCENT 8 % (BEAKER) (test code = 431) EOSINOPHILS RELATIVE PERCENT 4 % (BEAKER) (test code = 432) BASOPHILS RELATIVE PERCENT 1 % (BEAKER) (test code = 437) NEUTROPHILS ABSOLUTE COUNT 3.86 K/ L 1.56-6.13 (BEAKER) (test code = 670) LYMPHOCYTES ABSOLUTE COUNT 1.96 K/ L 1.18-3.74 (BEAKER) (test code = 414) MONOCYTES ABSOLUTE COUNT (BEAKER) 0.51 K/ L 0.24-0.36 H (test code = 415) EOSINOPHILS ABSOLUTE COUNT 0.25 K/ L 0.04-0.36 (BEAKER) (test code = 416) BASOPHILS ABSOLUTE COUNT (BEAKER) 0.03 K/ L 0.01-0.08 (test code = 417) IMMATURE GRANULOCYTES-RELATIVE 0.30 % 0.00-1.00 PERCENT (BEAKER) (test code = 2801) C-REACTIVE [id number] 17:31:41 Test Item Value Reference Range Interpretation Comments C-REACTIVE PROTEIN (BEAKER) (test 1.10 mg/dL 0.00-0.50 H code = 676) Fermenter Wine ID - ADMINXR HIP 2 VIEWS [id number] 11:09:50 [facility] : 1950 Sex: FCLINICAL HISTORY: Right DAMIAN with dislocationTECHNIQUE: One view the pelvis and two views of the right hipCOMPARISON: NoneFINDINGS:Spinal fusion hardware extends to the L4 level, partially imaged. Apresumed baclofen pump overlies the right lower abdomen.Postoperative changes from a right total hip arthroplasty are present.There is suggestion of lateral rotation of the femoral head prosthesis.No acute fracture or malalignment.No radiopaque foreign body in the soft tissues. No significant softtissues swelling. IMPRESSION:Postoperative changes from a right total hip arthroplasty, withsuggestion of lateral rotation of the femoral head prosthesis. Noperiprosthetic fracture.Electronically Signed By: Cam Barraza05/25/2023 11:11 CDTWorkstation Name: [id number] PELVIS 1 OR 2 [id number] 11:09:50 [facility] : 1950 Sex: FCLINICAL HISTORY: Right DAMIAN with dislocationTECHNIQUE: One view the pelvis and two views of the right hipCOMPARISON: NoneFINDINGS:Spinal fusion hardware extends to the L4 level, partially imaged. Apresumed baclofen pump overlies the right lower abdomen.Postoperative changes from a right total hip arthroplasty are present.There is suggestion of lateral rotation of the femoral head prosthesis.No acute fracture or malalignment.No radiopaque foreign body in the soft tissues. No significant softtissues swelling. IMPRESSION:Postoperative changes from a right total hip arthroplasty, withsuggestion of lateral rotation of the femoral head prosthesis. Noperiprosthetic fracture.Electronically Signed By: Cam Barraza05/25/2023 11:11 CDTWorkstation Name: [id number] 2023-05-25 08:25:32 Test Item Value Reference Range Interpretation Comments MAGNESIUM (BEAKER) (test code = 1.8 mg/dL 1.6-2.6 627) Fermenter Wine ID - mmCOMPREHENSIVE METABOLIC [id number] 08:25:31 Test Item Value Reference Range Interpretation Comments TOTAL PROTEIN 6.4 gm/dL 6.0-8.3 (BEAKER) (test code = 770) ALBUMIN (BEAKER) 3.8 g/dL 3.5-5.0 (test code = 1145) ALKALINE 112 U/L 40-150 PHOSPHATASE (BEAKER) (test code = 346) BILIRUBIN TOTAL 0.5 mg/dL 0.2-1.2 (BEAKER) (test code = 377) SODIUM (BEAKER) 140 meq/L 136-145 (test code = 381) POTASSIUM (BEAKER) 3.8 meq/L 3.5-5.1 (test code = 379) CHLORIDE (BEAKER) 105 meq/L 98-107 (test code = 382) CO2 (BEAKER) (test 27 meq/L 22-29 code = 355) BLOOD UREA 18 mg/dL 7-21 NITROGEN (BEAKER) (test code = 354) CREATININE 0.71 mg/dL 0.57-1.25 (BEAKER) (test code = 358) GLUCOSE RANDOM 82 mg/dL 70-105 (BEAKER) (test code = 652) CALCIUM (BEAKER) 8.7 mg/dL 8.4-10.2 (test code = 697) AST (SGOT) 168 U/L 5-34 H (BEAKER) (test code = 353) ALT (SGPT) 101 U/L 6-55 H (BEAKER) (test code = 347) EGFR (BEAKER) 91 Interpretatio n of eGFR [...] not appl icable for dialysis patien ts Fermenter Wine ID - mmPROTHROMBIN TIME/[id number] 07:57:07 Test Item Value Reference Range Interpretation Comments PROTIME (BEAKER) 14.4 seconds 11.9-14.2 H (test code = 759) INR (BEAKER) (test 1.19 See_Comment [Automat ed message] code = 370) The system [employer] generated this result transmitted ref erence range: <=5.90. The reference range was not used to int erpret this result as normal/abnormal . RECOMMENDED COUMADIN/WARFARIN INR THERAPY RANGESSTANDARD DOSE: 2.0 - 3.0 Includes: PROPHYLAXIS for venous thrombosis, systemic embolization; TREATMENT for venous thrombosis and/or pulmonary embolus.HIGH RISK: Target INR is 2.5-3.5 for patients with mechanical heart valves.CBC W/PLT COUNT & AUTO [id number] 07:48:06 Test Item Value Reference Range Interpretation Comments WHITE BLOOD CELL COUNT (BEAKER) 6.5 K/ L 3.5-10.5 (test code = 775) RED BLOOD CELL COUNT (BEAKER) 4.12 M/ L 3.93-5.22 (test code = 761) HEMOGLOBIN (BEAKER) (test code = 11.8 GM/DL 11.2-15.7 410) HEMATOCRIT (BEAKER) (test code = 36.7 % 34.1-44.9 411) MEAN CORPUSCULAR VOLUME (BEAKER) 89 fL 79-95 (test code = 753) MEAN CORPUSCULAR HEMOGLOBIN 28.6 pg 25.6-32.2 (BEAKER) (test code = 751) MEAN CORPUSCULAR HEMOGLOBIN CONC 32.2 GM/DL 32.2-35.5 (BEAKER) (test code = 752) RED CELL DISTRIBUTION WIDTH 13.2 % 11.7-14.4 (BEAKER) (test code = 412) PLATELET COUNT (BEAKER) (test 225 K/CU MM 150-450 code = 756) MEAN PLATELET VOLUME (BEAKER) 9.8 fL 9.4-12.3 (test code = 754) NUCLEATED RED BLOOD CELLS 0 /100 WBC 0-0 (BEAKER) (test code = 413) NEUTROPHILS RELATIVE PERCENT 66 % (BEAKER) (test code = 429) LYMPHOCYTES RELATIVE PERCENT 24 % (BEAKER) (test code = 430) MONOCYTES RELATIVE PERCENT 7 % (BEAKER) (test code = 431) EOSINOPHILS RELATIVE PERCENT 2 % (BEAKER) (test code = 432) BASOPHILS RELATIVE PERCENT 0 % (BEAKER) (test code = 437) NEUTROPHILS ABSOLUTE COUNT 4.25 K/ L 1.56-6.13 (BEAKER) (test code = 670) LYMPHOCYTES ABSOLUTE COUNT 1.57 K/ L 1.18-3.74 (BEAKER) (test code = 414) MONOCYTES ABSOLUTE COUNT (BEAKER) 0.48 K/ L 0.24-0.36 H (test code = 415) EOSINOPHILS ABSOLUTE COUNT 0.13 K/ L 0.04-0.36 (BEAKER) (test code = 416) BASOPHILS ABSOLUTE COUNT (BEAKER) 0.02 K/ L 0.01-0.08 (test code = 417) IMMATURE GRANULOCYTES-RELATIVE 0.50 % 0.00-1.00 PERCENT (BEAKER) (test code = 2801) Tissue [id number] 13:55:50 Test Item Value Reference Range Interpretation Comments Case Report (test Surgical Pathology code = 104) Report Case: [id number] Authorizing Provider: Dimitris Parry Collected: 03/31/2023 04:35 PM MD Marly Ordering Location: [address] Received: 04/02/2023 08:34 AM Service Pathologist: Juvenal Steele MD Specimen: Explant, RIGHT HIP EXPLANTS FOR IDENTIFICATION DIAGNOSIS (test code j0uczUOhSXDlz0ciWCPbwLOr = 3220) ZzEwMzNcZnRuYmpcdWMxIHtc ylMoUAqhlCzcLHVwJSawZI9t gFnxpTz9xAguSBWokbL4zXNp ATqfb5tsBXZ0f6eyrklhUKJk GWuaPh4tyOYngAvtZzWqOWOk TAn1eM41OOMxeB4ahZAfLQo0 XHBhcGVydzEyMjQwXHBhcGVy xXC3ODYfWZ0gxdcjUCwqVVkd ZPMbdoI5AZOwqAZoC7ZsVRLf TK1vkuvkEYU2QIhsHMAzKAN1 XpFkTKLbs3Ekeja9XxHzsYIa ZFxwbGFpblxmczIwIEhJUCwg UklHSFQsIEhBUkRXQVJFIFJF ST8HOWb0JBHdqfFrNGTlJXAo JPCsCDOURLWVT5YKSRSVWUTO KGyHIBHFINfTSy9RQgOWQgvZ OIjgBFN8h7jhaYPcUVQekJMk ODAwMFxhbnNpXGRlZmxhbmcx DNYuGVR9xyApCZMfUHotNOIo WMnlFn0kuOXpxVotDnGtLANr q9dfxhMUpssiyZx2j9diFKZr DfT4rSFyASbpX8nimxEguBKl HJOoHMp2uK92JKPitI2jrBLw YMbvtqSpEmZ2XZwwFYGgSyT5 TBSgzJDdFZDmG7zlXZExTWzw TOYyDTcapNHmLCZ9jZmtt5F5 bGVzaGVldHtcZjBcZnMyMiBO j8RpBCu2eIejI4MkTHBiVpT7 bHQgUGFyYWdyYXBoIEZvbnQ7 pE08IHxopcQ3bJPuw7Yir55n s011pC5srRDuOGD9TLFtASGo xXZoRYHgAOA7QGSpmLEaO2fj RYJzGA5qzmqbVYehSPgkLADk kRK8DKRbxDLzQ3LcEHDsKZes JNSireg1HtSmVs7vuUXimVye URfts1pqe5wzsSGgFyh5KMIy QaEjJiklQGaet7Gnf8osIDAz ps3hCXW0qJJxhBhuc0D4hFJq SCXgkTBbJXWrJM5lsANeNSZk vL5nzcfbSNBmRwUeeeykQAZp wUaxtaNrVj4bnOncJTC0MJlf H8mzuP5jVuT5MQumE0guiA0y PRz0LChqSDCmxUI8sqD8ENRl kICwD7QwlW6mZZGrZY6idyr3 g3kpJBP4NMdjJIDjRwO1otP1 PKPosNMhAOSqfKzaUXuey832 MLZ4VvVmMIRtx3BcJ9IhjJuh J75hcTncN62sICLkcPshaE2p qYtyqN9cUcUyQgYjZFevjRar LN7zHVVjP6ruhQJgASOjQOEt R0nkNwBccU1ccDetYQyvyeGj CXXfBwi8QMHhhPUnMZHnZev9 UYAqQKQiW32aueksUSR6qQ7h v1fgz5BpUGdwLNX1KKNff87s DKvissQ6ZBojEm72FZfuLYL8 ZLhbUTF0yA== CPT Code(s) (test j6nrmBRbGXVeyZFuCVJlK8ix code = 3357) yhArRYUbjLPdE9QblibdWCnu ES2sDU7xzJpisGGiaLVbPJUk YvXop5lug964eEOwj0cxMNVJ iujoqZw9pEgjG48un7U1Lhie I39kcLQeCFS7VPGqYGKpmPRx NUWfNLG4JMVxgBFkG1qqZVDt BR4ostaeTJqqMLlhEZNcjPA0 BQZglSPsX1TvKROuQOenEDAl vjv2HxDpNs7ccYCnbRcoQOzj YXJkXHBsYWluXGZzMjAgODgz MDBccGFyfQ== CLINICAL HISTORY m5evtDUuDPCdvLQzTUNdG0by (test code = 4762) exFrEKUxcWTjB5ZrgegzWGui AT0qLK4etIyscRNuhOTtSZUa VdSah6oxz058vZKby1pdWJLO iwnqlJy2xBrgN89xb6Q3Qygs Y36riHQeTLH6PSXdTBSqdBOz IGTwMMT1TYTznLRbT5zaCEAk NP1dgmvwKBjuCHmyLUZldQS8 URBbnVMcR6WoTPFhNWmwURJl ptw8SsOvCs8efUUsuKedXQfq SLJiQOKiKSmiTWNeAdVdEN3u uCVyiQEpEXGoFMqwaN6kGJAo h89tu6LxuszgvAJbuNhwSYKr cn0= GROSS DESCRIPTION z9phyIVzPTYawPOYZXKrAWZy (test code = PD0zaGtpwHy2vQflMULiirE9 [id number]) vOBhSJkrk8bhOND7n2rscqWU CymhXPKxHT1kBEnnOSZoYM4j ZmUwXGRlZmYxXHBhcGVydzEy MlJvRYLspKBabJY3BNGlYR1c mrelSDwxNFaeWKHfsnU0KLBu sGYeV9FrYKHsDQ6bvwpsFLZ3 UAQNWlmzDq7tmFWrjZntQtBj ZmNoYXJzZXQwXGZuaWwgQXJp SPx0sY9CEexlAXF2RSLEJyqo RlitzHirh3SrrRXkMQDqZRur aWQgNTEwMDAgXFxkYiBPVlIg RuTqEAR4GRS2SMYtZSq9XVnq RgIOBKS9DaW1DUgrAAe5ZXdh XFxuaCBcXHQgMSBcXGZsIFxc fpC1h5tgXEFacCVrDNY4HSae z9tkSCoyCMW5VKMpAxWpDOFt HV4QMxPoEZIaTpW6KbVlEhQ5 OBk7NNDXGcGsLaGbQaMhWVY3 JBPpOZc2FGa6CEkTQzR7NuS9 MsB3GSpiIFS8DxRkKVf8KJWn KDsanzEuTTlcLivjTSsjP14w cGFyZCANClxwbGFpblxmczIy QVDzPWX4mCixerXmbJEaMP1Y JNWmmfPpGIorwQwxlI8oXoEg MlxsdHJjaFxlcGljTmVzdERv YzEgDQpcbHRycGFyXGxpbjBc dhcsHGZOMgkwgiUkOXBnY1Mg dmVkIGZyZXNoIGxhYmVsZWQg w8a7nRR1qCVjfBQ0xDYdwOfh KzHgDL3fqDSmJK6sJOmuPAgz zxHbd3LmUS11wSSnpzQazzUa McJ5nPcrjzRgNVfdBHMfj1fa pVGhlJiyi8XgTe3rmOssRCQh ANdmTS2jFEP6gkmhMnMdZfHq O16bnV3awBIrH5b5UJR9PgXc M85eaX4jFHjgaII4LIDthLcf qOZotbUqvlNlhltbMNRdt1a7 aCAiNjkwLTEwLTIyRVQsIiAg x8fyA3neeFTjFMDojHL4XMgw xPWddK53DCH1NPtasISfi9Jx eK9nXHGtMABxkIHrayKcaKKa UOTnjtE4ePC1SYavFQhfr0Ku aMFmMYM6iTYnBYFPTnO0GySe MFQAMVRnNU8VGgu3YiFkATXc G1Joa4IdpOnonC5gujLnqLLw gyI7QSbnux0iDN6eOXGpB6Cw r87bFAIwIWNyuTRfsQT3IYEb Z5Xrf7Gzf89niN8vsJZoPA3V XHBhciANClxzYTMwXGVwaWNY l7NqDKXXZoMrSNbpEZDoT9Ma lA0wEO7UNtubEXDiRPDKH6Km S37THptxeDtwDsZvvLRkIdH8 VSAvgZDmPIP6WH5qhPnfRYEt L7EaI3EgliA4LTXvusBIQzyl LIHmKD4EJMGbXhYkOHa1 MICROSCOPIC t7qdfLPtYFHjnEYtWBTmH8ea DESCRIPTION (test bvXvUOHztOFlW0HrnfkxWHmi code = 3376) RX0rCD9prUkdkLSwuZBzVQRp MjVnx7zgq694zXIyx2hkVBBK slesdVu0aQqjD43sa1J4Ykzo X85ozHEoMTS1UMRaGQOkjQUi EXSvGAJ6NVPrnPDhF0rdXMNa QT6mxiqvDIupEXjnIURelLG2 HPIqpYUuC5OuNECxZOndITVk thx8ZbKkLc4dsBTgyRagLSpo GAJzKPHgLSmgVEGrMxSaUh66 ORFjtgVaup0uCKcjODX5 Gross [address] [facility] performed at ([facility], code = 2777) Department of Pathology, [address] [place] [id number], [facility] CenterTISSUE [id number] 13:55:50Surgical Pathology Report Case: [id number] Authorizing Provider: Dimitris Parry Collected: 03/31/2023 04:35 PM MD Marly Ordering Location: [address] Received: 04/02/2023 08:34 AM Service Pathologist: Juvenal Steele MD Specimen: Explant, RIGHT HIP EXPLANTS FOR IDENTIFICATION HIP, RIGHT, HARDWARE REMOVAL: - HARDWARE IDENTIFIED (GROSS ONLY) Signing Pathologist Direct Phone Line:[phone] signed by Juvenal Steele MD on 04/10/2023 at 1:55 [id number] dislocation of right hipA. ExplantReceived fresh labeled with the patient's name, medical record number and "explant" is a white plastic-like shell measuring 3.5 cm in height, 4.3 cm in diameter that is inscribed with "690-10-22ET," which has a metallic interval measuring 1.8 cm in diameter that is inscribed with "AJ 8K53 BC-2 MMNK+5." A gross photograph is taken. No sections are submitted-gross only.MARJAN Lind, PA ([facility])cmNot performedBaylor Palomar [facility], Department of Pathology, [address] [place] [address], [place] [address], LO ABDOMEN/KUB 1 VIEW PORTABLE 2023-04-05 17:30:07 [facility] : 1950 Sex: FTECHNIQUE: XR ABDOMEN/KUB 1 VIEW PORTABLEINDICATION: constipation r/o impaction.COMPARISON: None.FINDINGS:Nonobstructive bowel gas pattern. Stool burden is low. Cholecystectomyclips are present. Thoracolumbar spinal fixation hardware and right hipreplacement. Implantable pump projects over the right abdomen withcatheter directed cephalad over the upper lumbar spine.IMPRESSION:Nonobstructive bowel gas pattern. Stool burden is low.Electronically Signed By: Arthur Lopez04/05/2023 17:32 CDTWorkstation Name: [id number] METABOLIC [id number] 06:29:53 Test Item Value Reference Range Interpretation Comments SODIUM (BEAKER) 140 meq/L 136-145 (test code = 381) POTASSIUM 4.4 meq/L 3.5-5.1 (BEAKER) (test code = 379) CHLORIDE (BEAKER) 103 meq/L 98-107 (test code = 382) CO2 (BEAKER) 31 meq/L 22-29 H (test code = 355) BLOOD UREA 13 mg/dL 7-21 NITROGEN (BEAKER) (test code = 354) CREATININE 0.66 mg/dL 0.57-1.25 (BEAKER) (test code = 358) GLUCOSE RANDOM 104 mg/dL 70-105 (BEAKER) (test code = 652) CALCIUM (BEAKER) 9.1 mg/dL 8.4-10.2 (test code = 697) EGFR (BEAKER) 94 Interpretatio n of eGFR (test code = mL/min/1.73 values Stage De scription 1092) sq m Result G1 Renee l or high >=90 G2 Mildly decreased 60-89 G3a Mildl y to moderately 45-5 9 G3b Moderately to s everely 30-44 G4 Severl y decreased 15-29 G5 Kidne y failure <15Reported eGF R is based on the CKD-EPI 2020 equation that d oes not use a race coefficientEsti mated GFR is not as accur ate as Creatinine Amanda lawson in predicting glom erular filtration rate . Estimated GFR is not appl icable for dialysis patien ts Fermenter Wine ID - MARCOCBC W/PLT COUNT & AUTO [id number] 05:56:21 Test Item Value Reference Range Interpretation Comments WHITE BLOOD CELL COUNT (BEAKER) 9.0 K/ L 3.5-10.5 (test code = 775) RED BLOOD CELL COUNT (BEAKER) 3.48 M/ L 3.93-5.22 L (test code = 761) HEMOGLOBIN (BEAKER) (test code = 10.0 GM/DL 11.2-15.7 L 410) HEMATOCRIT (BEAKER) (test code = 32.1 % 34.1-44.9 L 411) MEAN CORPUSCULAR VOLUME (BEAKER) 92 fL 79-95 (test code = 753) MEAN CORPUSCULAR HEMOGLOBIN 28.7 pg 25.6-32.2 (BEAKER) (test code = 751) MEAN CORPUSCULAR HEMOGLOBIN CONC 31.2 GM/DL 32.2-35.5 L (BEAKER) (test code = 752) RED CELL DISTRIBUTION WIDTH 14.1 % 11.7-14.4 (BEAKER) (test code = 412) PLATELET COUNT (BEAKER) (test 333 K/CU MM 150-450 code = 756) MEAN PLATELET VOLUME (BEAKER) 9.3 fL 9.4-12.3 L (test code = 754) NUCLEATED RED BLOOD CELLS 0 /100 WBC 0-0 (BEAKER) (test code = 413) NEUTROPHILS RELATIVE PERCENT 56 % (BEAKER) (test code = 429) LYMPHOCYTES RELATIVE PERCENT 27 % (BEAKER) (test code = 430) MONOCYTES RELATIVE PERCENT 9 % (BEAKER) (test code = 431) EOSINOPHILS RELATIVE PERCENT 7 % (BEAKER) (test code = 432) BASOPHILS RELATIVE PERCENT 1 % (BEAKER) (test code = 437) NEUTROPHILS ABSOLUTE COUNT 5.02 K/ L 1.56-6.13 (BEAKER) (test code = 670) LYMPHOCYTES ABSOLUTE COUNT 2.47 K/ L 1.18-3.74 (BEAKER) (test code = 414) MONOCYTES ABSOLUTE COUNT (BEAKER) 0.82 K/ L 0.24-0.36 H (test code = 415) EOSINOPHILS ABSOLUTE COUNT 0.60 K/ L 0.04-0.36 H (BEAKER) (test code = 416) BASOPHILS ABSOLUTE COUNT (BEAKER) 0.06 K/ L 0.01-0.08 (test code = 417) IMMATURE GRANULOCYTES-RELATIVE 0.80 % 0.00-1.00 PERCENT (BEAKER) (test code = 2801) VANCOMYCIN LEVEL, [id number] 03:16:03 Test Item Value Reference Range Interpretation Comments VANCOMYCIN TROUGH (BEAKER) (test 8.7 ug/mL 10.0-20.0 L code = 522) Fermenter Wine ID - bvBASIC METABOLIC [id number] 03:06:54 Test Item Value Reference Range Interpretation Comments SODIUM (BEAKER) 138 meq/L 136-145 (test code = 381) POTASSIUM 4.5 meq/L 3.5-5.1 Specimen slight ly (BEAKER) (test hemolyzed code = 379) CHLORIDE (BEAKER) 102 meq/L 98-107 (test code = 382) CO2 (BEAKER) 31 meq/L 22-29 H (test code = 355) BLOOD UREA 10 mg/dL 7-21 NITROGEN (BEAKER) (test code = 354) CREATININE 0.63 mg/dL 0.57-1.25 Specimen slight ly (BEAKER) (test hemolyzed code = 358) GLUCOSE RANDOM 104 mg/dL 70-105 (BEAKER) (test code = 652) CALCIUM (BEAKER) 9.0 mg/dL 8.4-10.2 (test code = 697) EGFR (BEAKER) 95 Interpretatio n of eGFR (test code = mL/min/1.73 values Stage De scription 1092) sq m Result G1 Renee l or high >=90 G2 Mildly decreased 60-89 G3a Mildl y to moderately 45-5 9 G3b Moderately to s everely 30-44 G4 Severl y decreased 15-29 G5 Kidney failure <15Reported eGF R is based on the CKD-EPI 1 equation that d oes not use a race coefficientEsti mated GFR is not as accur ate as Creatinine Amanda lawson in predicting glom erular filtration rate . Estimated GFR is not appl icable for dialysis patien ts Fermenter Wine ID - bvCBC W/PLT COUNT & AUTO [id number] 02:49:38 Test Item Value Reference Range Interpretation Comments WHITE BLOOD CELL COUNT (BEAKER) 10.6 K/ L 3.5-10.5 H (test code = 775) RED BLOOD CELL COUNT (BEAKER) 3.45 M/ L 3.93-5.22 L (test code = 761) HEMOGLOBIN (BEAKER) (test code = 10.0 GM/DL 11.2-15.7 L 410) HEMATOCRIT (BEAKER) (test code = 30.7 % 34.1-44.9 L 411) MEAN CORPUSCULAR VOLUME (BEAKER) 89 fL 79-95 (test code = 753) MEAN CORPUSCULAR HEMOGLOBIN 29.0 pg 25.6-32.2 (BEAKER) (test code = 751) MEAN CORPUSCULAR HEMOGLOBIN CONC 32.6 GM/DL 32.2-35.5 (BEAKER) (test code = 752) RED CELL DISTRIBUTION WIDTH 14.1 % 11.7-14.4 (BEAKER) (test code = 412) PLATELET COUNT (BEAKER) (test 286 K/CU MM 150-450 code = 756) MEAN PLATELET VOLUME (BEAKER) 8.9 fL 9.4-12.3 L (test code = 754) NUCLEATED RED BLOOD CELLS 0 /100 WBC 0-0 (BEAKER) (test code = 413) NEUTROPHILS RELATIVE PERCENT 59 % (BEAKER) (test code = 429) LYMPHOCYTES RELATIVE PERCENT 25 % (BEAKER) (test code = 430) MONOCYTES RELATIVE PERCENT 8 % (BEAKER) (test code = 431) EOSINOPHILS RELATIVE PERCENT 7 % (BEAKER) (test code = 432) BASOPHILS RELATIVE PERCENT 0 % (BEAKER) (test code = 437) NEUTROPHILS ABSOLUTE COUNT 6.24 K/ L 1.56-6.13 H (BEAKER) (test code = 670) LYMPHOCYTES ABSOLUTE COUNT 2.63 K/ L 1.18-3.74 (BEAKER) (test code = 414) MONOCYTES ABSOLUTE COUNT (BEAKER) 0.89 K/ L 0.24-0.36 H (test code = 415) EOSINOPHILS ABSOLUTE COUNT 0.70 K/ L 0.04-0.36 H (BEAKER) (test code = 416) BASOPHILS ABSOLUTE COUNT (BEAKER) 0.04 K/ L 0.01-0.08 (test code = 417) IMMATURE GRANULOCYTES-RELATIVE 0.60 % 0.00-1.00 PERCENT (BEAKER) (test code = 2801) CBC W/PLT COUNT & AUTO [id number] 06:02:31 Test Item Value Reference Range Interpretation Comments WHITE BLOOD CELL COUNT (BEAKER) 11.2 K/ L 3.5-10.5 H (test code = 775) RED BLOOD CELL COUNT (BEAKER) 3.41 M/ L 3.93-5.22 L (test code = 761) HEMOGLOBIN (BEAKER) (test code = 10.0 GM/DL 11.2-15.7 L 410) HEMATOCRIT (BEAKER) (test code = 31.3 % 34.1-44.9 L 411) MEAN CORPUSCULAR VOLUME (BEAKER) 92 fL 79-95 (test code = 753) MEAN CORPUSCULAR HEMOGLOBIN 29.3 pg 25.6-32.2 (BEAKER) (test code = 751) MEAN CORPUSCULAR HEMOGLOBIN CONC 31.9 GM/DL 32.2-35.5 L (BEAKER) (test code = 752) RED CELL DISTRIBUTION WIDTH 14.3 % 11.7-14.4 (BEAKER) (test code = 412) PLATELET COUNT (BEAKER) (test 286 K/CU MM 150-450 code = 756) MEAN PLATELET VOLUME (BEAKER) 9.7 fL 9.4-12.3 (test code = 754) NUCLEATED RED BLOOD CELLS 0 /100 WBC 0-0 (BEAKER) (test code = 413) NEUTROPHILS RELATIVE PERCENT 59 % (BEAKER) (test code = 429) LYMPHOCYTES RELATIVE PERCENT 25 % (BEAKER) (test code = 430) MONOCYTES RELATIVE PERCENT 9 % (BEAKER) (test code = 431) EOSINOPHILS RELATIVE PERCENT 7 % (BEAKER) (test code = 432) BASOPHILS RELATIVE PERCENT 0 % (BEAKER) (test code = 437) NEUTROPHILS ABSOLUTE COUNT 6.55 K/ L 1.56-6.13 H (BEAKER) (test code = 670) LYMPHOCYTES ABSOLUTE COUNT 2.79 K/ L 1.18-3.74 (BEAKER) (test code = 414) MONOCYTES ABSOLUTE COUNT (BEAKER) 0.96 K/ L 0.24-0.36 H (test code = 415) EOSINOPHILS ABSOLUTE COUNT 0.79 K/ L 0.04-0.36 H (BEAKER) (test code = 416) BASOPHILS ABSOLUTE COUNT (BEAKER) 0.05 K/ L 0.01-0.08 (test code = 417) IMMATURE GRANULOCYTES-RELATIVE 0.50 % 0.00-1.00 PERCENT (BEAKER) (test code = 2801) BASIC METABOLIC [id number] 05:54:19 Test Item Value Reference Range Interpretation Comments SODIUM (BEAKER) 140 meq/L 136-145 (test code = 381) POTASSIUM 4.6 meq/L 3.5-5.1 (BEAKER) (test code = 379) CHLORIDE (BEAKER) 105 meq/L 98-107 (test code = 382) CO2 (BEAKER) 28 meq/L 22-29 (test code = 355) BLOOD UREA 9 mg/dL 7-21 NITROGEN (BEAKER) (test code = 354) CREATININE 0.61 mg/dL 0.57-1.25 (BEAKER) (test code = 358) GLUCOSE RANDOM 100 mg/dL 70-105 (BEAKER) (test code = 652) CALCIUM (BEAKER) [...] not appl icable for dialysis patien ts Fermenter Wine ID - EOOBASIC METABOLIC [id number] 05:31:27 Test Item Value Reference Range Interpretation Comments SODIUM (BEAKER) 139 meq/L 136-145 (test code = 381) POTASSIUM 4.7 meq/L 3.5-5.1 (BEAKER) (test code = 379) CHLORIDE (BEAKER) 104 meq/L 98-107 (test code = 382) CO2 (BEAKER) 29 meq/L 22-29 (test code = 355) BLOOD UREA 13 mg/dL 7-21 NITROGEN (BEAKER) (test code = 354) CREATININE 0.71 mg/dL 0.57-1.25 (BEAKER) (test code = 358) GLUCOSE RANDOM 117 mg/dL 70-105 H (BEAKER) (test code = 652) CALCIUM (BEAKER) 8.6 mg/dL 8.4-10.2 (test code = 697) EGFR [...] not appl icable for dialysis patien ts Fermenter Wine ID - BVVANCOMYCIN LEVEL, [id number] 05:24:23 Test Item Value Reference Range Interpretation Comments VANCOMYCIN TROUGH (BEAKER) (test 2.7 ug/mL 10.0-20.0 L code = 522) Fermenter Wine ID - BVCBC W/PLT COUNT & AUTO [id number] 04:51:29 Test Item Value Reference Range Interpretation Comments WHITE BLOOD CELL COUNT (BEAKER) 10.6 K/ L 3.5-10.5 H (test code = 775) RED BLOOD CELL COUNT (BEAKER) 3.44 M/ L 3.93-5.22 L (test code = 761) HEMOGLOBIN (BEAKER) (test code = 9.8 GM/DL 11.2-15.7 L 410) HEMATOCRIT (BEAKER) (test code = 31.8 % 34.1-44.9 L 411) MEAN CORPUSCULAR VOLUME (BEAKER) 92 fL 79-95 (test code = 753) MEAN CORPUSCULAR HEMOGLOBIN 28.5 pg 25.6-32.2 (BEAKER) (test code = 751) MEAN CORPUSCULAR HEMOGLOBIN CONC 30.8 GM/DL 32.2-35.5 L (BEAKER) (test code = 752) RED CELL DISTRIBUTION WIDTH 14.6 % 11.7-14.4 H (BEAKER) (test code = 412) PLATELET COUNT (BEAKER) (test 241 K/CU MM 150-450 code = 756) MEAN PLATELET VOLUME (BEAKER) 9.3 fL 9.4-12.3 L (test code = 754) NUCLEATED RED BLOOD CELLS 0 /100 WBC 0-0 (BEAKER) (test code = 413) NEUTROPHILS RELATIVE PERCENT 63 % (BEAKER) (test code = 429) LYMPHOCYTES RELATIVE PERCENT 23 % (BEAKER) (test code = 430) MONOCYTES RELATIVE PERCENT 9 % (BEAKER) (test code = 431) EOSINOPHILS RELATIVE PERCENT 5 % (BEAKER) (test code = 432) BASOPHILS RELATIVE PERCENT 0 % (BEAKER) (test code = 437) NEUTROPHILS ABSOLUTE COUNT 6.60 K/ L 1.56-6.13 H (BEAKER) (test code = 670) LYMPHOCYTES ABSOLUTE COUNT 2.43 K/ L 1.18-3.74 (BEAKER) (test code = 414) MONOCYTES ABSOLUTE COUNT (BEAKER) 0.90 K/ L 0.24-0.36 H (test code = 415) EOSINOPHILS ABSOLUTE COUNT 0.55 K/ L 0.04-0.36 H (BEAKER) (test code = 416) BASOPHILS ABSOLUTE COUNT (BEAKER) 0.04 K/ L 0.01-0.08 (test code = 417) IMMATURE GRANULOCYTES-RELATIVE 0.30 % 0.00-1.00 PERCENT (BEAKER) (test code = 2801) XR PELVIS 1 OR 2 [id number] 08:30:38 [facility] 1950 Sex: FXR HIP 1 VIEW RIGHT, XR PELVIS 1 OR 2 VIEWSINDICATION: Postop EvalCOMPARISON: NoneTECHNIQUE: AP view of the pelvis. AP and lateral radiographs of theright hipFINDINGS/IMPRESSION:Status post total hip arthroplasty. Arthroplasty appears well aligned.No periprostatic fracture. Electronically Signed By: Alessandra Ventura04/01/2023 08:32 CDTWorkstation Name: [id number] HIP 1 VIEW RIGHT 2023-04-01 08:30:38 [facility] : 1950 Sex: FXR HIP 1 VIEW RIGHT, XR PELVIS 1 OR 2 VIEWSINDICATION: Postop EvalCOMPARISON: NoneTECHNIQUE: AP view of the pelvis. AP and lateral radiographs of theright hipFINDINGS/IMPRESSION:Status post total hip arthroplasty. Arthroplasty appears well aligned.No periprostatic fracture. Electronically Signed By: Alessandra Ventura04/01/2023 08:32 CDTWorkstation Name: [id number] METABOLIC PANEL 2023-04-01 05:11:33 Test Item Value Reference Range Interpretation Comments SODIUM (BEAKER) 139 meq/L 136-145 (test code = 381) POTASSIUM 4.2 meq/L 3.5-5.1 (BEAKER) (test code = 379) CHLORIDE (BEAKER) 104 meq/L 98-107 (test code = 382) CO2 (BEAKER) 28 meq/L 22-29 (test code = 355) BLOOD UREA 10 mg/dL 7-21 NITROGEN (BEAKER) (test code = 354) CREATININE 0.78 mg/dL 0.57-1.25 (BEAKER) (test code = 358) GLUCOSE RANDOM 154 mg/dL 70-105 H (BEAKER) (test code = 652) CALCIUM (BEAKER) 8.7 mg/dL 8.4-10.2 (test code = 697) EGFR (BEAKER) 81 Interpretatio n of eGFR (test code = [...] not appl icable for dialysis patien ts Fermenter Wine ID - ADMINCBC W/PLT COUNT & AUTO [id number] 04:59:29 Test Item Value Reference Range Interpretation Comments WHITE BLOOD CELL COUNT (BEAKER) 13.3 K/ L 3.5-10.5 H (test code = 775) RED BLOOD CELL COUNT (BEAKER) 3.64 M/ L 3.93-5.22 L (test code = 761) HEMOGLOBIN (BEAKER) (test code = 10.3 GM/DL 11.2-15.7 L 410) HEMATOCRIT (BEAKER) (test code = 32.9 % 34.1-44.9 L 411) MEAN CORPUSCULAR VOLUME (BEAKER) 90 fL 79-95 (test code = 753) MEAN CORPUSCULAR HEMOGLOBIN 28.3 pg 25.6-32.2 (BEAKER) (test code = 751) MEAN CORPUSCULAR HEMOGLOBIN CONC 31.3 GM/DL 32.2-35.5 L (BEAKER) (test code = 752) RED CELL DISTRIBUTION WIDTH 14.3 % 11.7-14.4 (BEAKER) (test code = 412) PLATELET COUNT (BEAKER) (test 313 K/CU MM 150-450 code = 756) MEAN PLATELET VOLUME (BEAKER) 9.4 fL 9.4-12.3 (test code = 754) NUCLEATED RED BLOOD CELLS 0 /100 WBC 0-0 (BEAKER) (test code = 413) NEUTROPHILS RELATIVE PERCENT 82 % (BEAKER) (test code = 429) LYMPHOCYTES RELATIVE PERCENT 11 % (BEAKER) (test code = 430) MONOCYTES RELATIVE PERCENT 7 % (BEAKER) (test code = 431) EOSINOPHILS RELATIVE PERCENT 0 % (BEAKER) (test code = 432) BASOPHILS RELATIVE PERCENT 0 % (BEAKER) (test code = 437) NEUTROPHILS ABSOLUTE COUNT 10.90 K/ L 1.56-6.13 H (BEAKER) (test code = 670) LYMPHOCYTES ABSOLUTE COUNT 1.42 K/ L 1.18-3.74 (BEAKER) (test code = 414) MONOCYTES ABSOLUTE COUNT (BEAKER) 0.88 K/ L 0.24-0.36 H (test code = 415) EOSINOPHILS ABSOLUTE COUNT 0.01 K/ L 0.04-0.36 L (BEAKER) (test code = 416) BASOPHILS ABSOLUTE COUNT (BEAKER) 0.02 K/ L 0.01-0.08 (test code = 417) IMMATURE GRANULOCYTES-RELATIVE 0.60 % 0.00-1.00 PERCENT (BEAKER) (test code = 2801) XR PELVIS 1 OR 2 [id number] 07:29:[facility] 1950 Sex: FXR PELVIS 1 OR 2 VIEWSINDICATION: R DAMIAN dislocationCOMPARISON: NoneTECHNIQUE: AP view of the pelvis.FINDINGS/IMPRESSION:The femoral component of the right hip arthroplasty has been dislocatedfrom the acetabular component. Electronically Signed By: Alessandra Ventura03/31/2023 07:31 CDTWorkstation Name: [id number] METABOLIC [id number] 04:18:18 Test Item Value Reference Range Interpretation Comments SODIUM (BEAKER) 139 meq/L 136-145 (test code = 381) POTASSIUM 4.5 meq/L 3.5-5.1 (BEAKER) (test code = 379) CHLORIDE (BEAKER) 104 meq/L 98-107 (test code = 382) CO2 (BEAKER) 27 meq/L 22-29 (test code = 355) BLOOD UREA 8 mg/dL 7-21 NITROGEN (BEAKER) (test code = 354) CREATININE 0.71 mg/dL 0.57-1.25 (BEAKER) (test code = 358) GLUCOSE RANDOM 103 mg/dL 70-105 (BEAKER) (test code = 652) CALCIUM (BEAKER) 8.9 mg/dL 8.4-10.2 (test code = 697) EGFR (BEAKER) 91 Interpretatio n of eGFR (test code = mL/min/1.73 values Stage De scription 1092) sq m Result G1 Renee l or high >=90 G2 Mildly decreased 60-89 G3a Mildl y to moderately 45-5 9 G3b Moderately to s everely 30-44 G4 Severl y decreased 15-29 G5 Kidne y failure <15Reported eGF R is based on the CKD-EPI 2020 equation that d oes not use a race coefficientEsti mated GFR is not as accur ate as Creatinine Amanda renny in predicting glom erular filtration rate . Estimated GFR is not appl icable for dialysis patien ts Fermenter Wine ID - ADMINPROTHROMBIN [id number] 04:02:58 Test Item Value Reference Range Interpretation Comments PROTIME (BEAKER) (test code = 14.4 seconds 11.9-14.2 H 759) INR (BEAKER) (test code = 370) 1.19 <=5.90 RECOMMENDED COUMADIN/WARFARIN INR THERAPY RANGESSTANDARD DOSE: 2.0 - 3.0 Includes: PROPHYLAXIS for venous thrombosis, systemic embolization; TREATMENT for venous thrombosis and/or pulmonary embolus.HIGH RISK: Target INR is 2.5-3.5 for patients with mechanical heart valves.CBC (HEMOGRAM ONLY)2023-03-31 03:55:06 Test Item Value Reference Range Interpretation Comments WHITE BLOOD CELL COUNT (BEAKER) 11.1 K/ L 3.5-10.5 H (test code = 775) RED BLOOD CELL COUNT (BEAKER) 3.69 M/ L 3.93-5.22 L (test code = 761) HEMOGLOBIN (BEAKER) (test code = 10.6 GM/DL 11.2-15.7 L 410) HEMATOCRIT (BEAKER) (test code = 33.6 % 34.1-44.9 L 411) MEAN CORPUSCULAR VOLUME (BEAKER) 91 fL 79-95 (test code = 753) MEAN CORPUSCULAR HEMOGLOBIN 28.7 pg 25.6-32.2 (BEAKER) (test code = 751) MEAN CORPUSCULAR HEMOGLOBIN CONC 31.5 GM/DL 32.2-35.5 L (BEAKER) (test code = 752) RED CELL DISTRIBUTION WIDTH 14.2 % 11.7-14.4 (BEAKER) (test code = 412) PLATELET COUNT (BEAKER) (test 323 K/CU MM 150-450 code = 756) MEAN PLATELET VOLUME (BEAKER) 9.2 fL 9.4-12.3 L (test code = 754) NUCLEATED RED BLOOD CELLS 0 /100 WBC 0-0 (BEAKER) (test code = 413) HEMOGLOBIN AND [id number] 05:43:27 Test Item Value Reference Range Interpretation Comments HEMOGLOBIN (BEAKER) (test code = 10.1 GM/DL 11.2-15.7 L 410) HEMATOCRIT (BEAKER) (test code = 31.1 % 34.1-44.9 L 411) XR PELVIS 1 OR 2 [id number] 15:30:53 [facility] : 1950 Sex: FRight hip one view:HISTORY: Postop evaluationCompared to 03/02/2023.The film was obtained with attentionto the right hip, excluding theiliac crests. The visualized bony structures appear intact, with noevidence of fracture. A new right hip replacement is now noted, with aconstraining ring projecting overthe proximal femoral neck component.BASIC METABOLIC [id number] 07:00:24 Test Item Value Reference Range Interpretation [...] 30-44 G4 Severl y decreased 15-29 G5 Kidne y failure <15Reported eGF R is based on the CKD-EPI 2021 equation that d oes not use a race coefficientEsti mated GFR is not as accur ate as Creatinine Amanda lawson in predicting glom erular filtration rate . Estimated GFR is not appl icable for dialysis patien ts Fermenter Wine ID - ADMINCBC W/PLT COUNT & AUTO [id number] 06:01:08 Test Item Value Reference Range Interpretation [...] (BEAKER) (test code = 2801) BASIC METABOLIC [id number] 06:31:27 Test Item Value Reference Range Interpretation [...] eGF R is based on the CKD-EPI 1 equation that d oes not use a race coefficientEsti mated GFR is not as accur ate as Creatinine Amanda lawson in predicting glom erular filtration rate . Estimated GFR is not appl icable for dialysis patien ts Fermenter Wine ID - EDWIGE WCBC W/PLT COUNT & AUTO [id number] 06:09:24 Test Item Value Reference Range Interpretation [...] = 2801) CBC W/PLT COUNT & AUTO [id number] 13:08:23 Test Item Value Reference Range Interpretation [...] (BEAKER) (test code = 2801) BASIC METABOLIC [id number] 13:02:37 Test Item Value Reference Range Interpretation [...] (test code = 697) EGFR (BEAKER) 96 Interpretati on of eGFR (test code = mL/min/1.73 values [...] not appl icable for dialysis patien ts Fermenter Wine ID - mmRAD, HIPS, BILATERALTO INCLUDE [id number] 14:57:00Reason for exam:->recent right hip [facility] 1950 Sex: FFINAL [...] pelvic fracture or hip fracture. Signed: Frank Sorto Verified Date/Time: 03/02/2023 14:57:54 , HIP, 1 VIEW, [id number] 14:57:00Please obtain cross table lateralReason for exam:->possible DAMIAN dislocationShould this be performed at the bedside?->No [facility] 1950 Sex: FFINAL REPORT [...] pelvic fracture or hip fracture. Signed: Frank Sorto Verified Date/Time: 03/02/2023 14:57:54 REHENSIVE METABOLIC [id number] 05:48:30 Test Item Value Reference Range Interpretation [...] not appl icable for dialysis patien ts Fermenter Wine ID - MMCBC W/PLT COUNT & AUTO [id number] 03:28:55 Test Item Value Reference Range Interpretation [...] PERCENT (BEAKER) (test code = 2801) PROTHROMBIN [id number] 03:25:27 Test Item Value Reference Range Interpretation Comments PROTIME (BEAKER) (test code = 13.9 seconds 11.9-14.2 759) INR (BEAKER) (test code = 370) 1.09 <=5.90 RECOMMENDED COUMADIN/WARFARIN INR THERAPY RANGESSTANDARD DOSE: 2.0 - 3.0 Includes: PROPHYLAXIS for venous thrombosis, systemic embolization; TREATMENT for venous thrombosis and/or pulmonary embolus.HIGH RISK: Target INR is 2.5-3.5 for patients with mechanical heart valves.HEMOGLOBIN [id number] 06:29:45 Test Item Value Reference Range Interpretation Comments HEMOGLOBIN A1c (test 6.7 % 4.2-5.6 H AMERIC AN DIABETES code = 27317) ASSOCIATION IDELINES FOR HGB A1C: PREDIABETES/INC REASED [...] OTHERWIS E INDICATED, ALL TESTING PER FORMED [employer] [address] [address] LABORATORY DIRE CTOR: JACKELINE ANTOINE M.D. CLIA NUMBER [id number] [facility] [place]. [id number] BASIC METABOLIC [id number] 06:15:06 Test Item Value Reference Range Interpretation Comments GLUCOSE (test code 126 MG/DL 70-99 H = 2216) BUN (test code = 9 MG/DL 8-23 2207) CREATININE (test 0.69 MG/DL 0.60-1.30 code = 2214) eGFR (2020 CKD-EPI) 93 ML/MIN/1.73 >60 (test code = 31283) SODIUM (test code = 140 MEQ/L 873-558 8437) POTASSIUM (test 3.8 MEQ/L 3.5-5.4 code = 2228) CHLORIDE (test code 101 MEQ/L 95-107 = 2215) CARBON DIOXIDE 23 MEQ/L 19-31 (test code = 2206) CALCIUM (test code 9.2 MG/DL 8.5-10.5 UNLESS O THERWISE = 2209) INDICATED, ALL TESTING PERFORM ED [employer] [place] [address] [facility] DIRECTOR: JACKELINE ANTOINE M.D. IA NUMBER [id number] [facility] [place]CREDITATION N O. [id number] XR ANKLE 3+ VW [id number] 17:28:50HISTORY: ?Pain. FINDINGS: AP, lateral, oblique views [...] at the base of right fifth metatarsal bone.[facility] Notes Date/Time Note Provider Source 2023-04-02 08:29:03-00:00 [facility] OPERATIVE/PROCEDURE REPORT GILLIS STALIN FACILITY: [facility] Billing #: [id number] Room: [address] [place] [address] MR #: [id number] : 1950 DATE OF PROCEDURE: 03/31/2023 SURGEON: Dimitris Parry Jr, MD PREOPERATIVE DIAGNOSIS: Dislocated right total h ip arthroplasty with wound dehiscence. POSTOPERATIVE DIAGNOSIS: Dislocated right total hip arthroplasty with wound dehiscence. SURGICAL PROCEDURE: Revision of right total hip arthroplasty with head and liner exchange, CPT code 99236-02- 78. ASSISTANTS: 1. Ricky Good MD. 2. Madi Carvajal MD. ANESTHESIA: General endotracheal anesthesia. ESTIMATED BLOOD LOSS: 300 cc. INTRAVENOUS FLUIDS: 1500 cc crystalloid. COMPLICATIONS: None. SPECIMENS REMOVED: Prosthesis. IMPLANTS: [place] Trident constrained acetabular liner, series E with a 22 mm inner diameter. The femoral head is a Viola C-taper LFIT head, size 22/+5 with a V40/C-taper adapter sleeve. INDICATIONS FOR PROCEDURE: The patient is a 72-y ear-old woman with history of right total hip arthroplasty sev eral years ago. She developed recurrent instability. She was tr ansferred to Transferred to [facility] for further care. She under went a right total hip revision with placement of a constrained acetabu lar liner 3 weeks previously. The patient was otherwise doin g well, when on 03/30/2023 she slipped and fell in the shower . She sustained another dislocation of her hip with di slodging the constrained liner from the acetabular shell and a wound dehiscence. She was transferred back to [facility] for further management. The patie nt was felt to be indicated for return to the operating room fo r repeat revision surgery and wound closure. Preoperative ly, the nature of the procedure, the risks, benefits, an d alternatives were discussed in detail with the patient. She a ppeared to understand these many issues and desired to proc eed with surgery. All of her questions were answered preo peratively. DESCRIPTION OF PROCEDURE: On the afternoon of Ju ly 2022, the patient was brought to the operating room an d following administration of general endotracheal anesthesi a by the Anesthesiology Service, the patient was given 2 g of Ancef IV and 1 g of tranexamic acid IV. She was placed on the operating table in the lateral decubitus position with the right side up. She was held in position using hip positioners. An axillary roll was placed, and care was taken to pad all b lupe prominences including the ulnar and peroneal nerves. Her rig ht lower extremity was then prepped and draped in the usu al sterile fashion. Following time-out to again identify the appropr iate operative site, her hip was examined. The patient had sust ained a wound dehiscence of the distal three-quarters of her i ncision. The dehiscence appeared to be superficial only. The deep fascia was intact throughout. Following time-out to again identify the appropr iate operative site, which had been previously marked, the tyler ent's wound was copiously irrigated with several liters of pulsa tile lavage normal saline solution. The deep fascial sutures were then divided and the deep fascia was opened in line w ith the incision. The joint was visible and the liner wa s noted to have dislocated from the acetabular shell. The h ip was rotated and mobilized into the wound. The femoral head w as disimpacted with the constrained liner in place. The implant s were examined and noted to be well fixed and unchange d in position. The wound was then copiously irrigated with 3 L of pulsatile lavage normal saline solution followed by Betadi ne soak. This was repeated 3 times for a total of 9 L. There w as no nonviable appearing tissue remaining. Therefore, a new Trident size E constrained acetabular liner was impacted into place. The liner seated well. The locking mechanism was noted to be intact. A new 22/+5 femoral head with taper was impacted onto the well prepared and dried Mitchell taper. The hip was reduced and noted to be stable through a full range of m otion. Attention was then turned to wound closure. The wound was copiously irrigated with pulsatile lavage normal saline solution soaked with Betadine. Hemostasis was ac hieved. The deep fascia was repaired using #1 PDS sutures. T he subcutaneous tissues were closed in layers using 0 and 2-0 Monocryl sutures. The skin was closed with 2-0 n ylon stay sutures and a MICHELE incisional VAC dressing was placed. The patient was awakened, extubated, and taken to the recovery room in stable condition. The patient t olerated this procedure well. 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 POSTOPERATIVE DIAGNOSIS: Recurrent instability w ith dislocation of right total hip arthroplasty. PROCEDURE: Revision of right total hip arthropla sty with exchange of femoral head and placement of a cons trained acetabular liner. CPT code 90685-03. ASSISTANTS: 1. Jose Ohara MD. 2. Beau [...] in August 2022 at an outside inst [facility] (formerly [facility]). Postoperatively, she sustained approximately fou r dislocations. The initials were all treated with closed reduc tion in the emergency department. She sustained another disl ocation around March 01 and was transferred to [facility] for further management. Radiographs demon strated an [...] The patient tolerated this procedure well. MICHAEL/PRINCESS /[id number] Electronically signed by: DIMITRIS PARRY at 2023-03-09 18:56:[id number]
--- NOTE | 2023-06-03 12:19 | EDPHYS ---
Physician Documentation [facility] Name: Suzi Vee Age: 72 yrs Sex: Female : 1950 Arrival Date: 06/03/2023 Time: 11:41 Bed 15 Private MD: ED Physician Nico Miller HPI: 06/03 12:15 This 72 yrs old Female presents to ER via Ambulatory with complaints of Wound Check - sp3 hip. 12:15 72-year-old female with PMH below status post multiple hip procedures starting with hip sp3 replacement in August 2022 and multiple surgeries/procedures subsequent to that secondary to further falls and complications. Recently patient had a wound VAC placed and she was discharged home. Home health did not arrive and patient did not know how to take care of wound. Dressings had been saturated and so she presents to the ED here for dressing change. No acute symptoms reported including change in pain pattern. No acute on baseline pain reported. Patient also denies fever, distal numbness or tingling, rash, abdominal pain, pelvic pain, low back pain, or any other changes on ROS at this time.. Historical: - Allergies: 12:01 No Known Allergies; iw - PMHx: 12:01 Chronic Lumbar Pain; Depression; Weak Bladder; iw - PSHx: 12:01 Appendectomy; Cholecystectomy; hysterectomy; Total Knee Replacement - Right; back; iw - Immunization history:: Adult Immunizations up to date. - Social history:: Smoking status: Patient denies any tobacco usage or history of. ROS: 12:16 Constitutional: Negative for fever, chills, and weight loss, Eyes: Negative for injury, sp3 pain, redness, and discharge, ENT: Negative for injury, pain, and discharge, Neck: Negative for injury, pain, and swelling, Cardiovascular: Negative for chest pain, palpitations, and edema, Respiratory: Negative for shortness of breath, cough, wheezing, and pleuritic chest pain, Abdomen/GI: Negative for abdominal pain, nausea, vomiting, diarrhea, and constipation, Back: Negative for injury and pain, Neuro: Negative for headache, weakness, numbness, tingling, and seizure, Psych: Negative for depression, anxiety, suicide ideation, homicidal ideation, and hallucinations, Allergy/Immunology: Negative for hives, rash, and allergies, Endocrine: Negative for neck swelling, polydipsia, polyuria, polyphagia, and marked weight changes. 12:16 All other systems are negative. Exam: 12:16 Constitutional: This is a well developed, well nourished patient who is awake, alert, sp3 and in no acute distress. Head/Face: Normocephalic, atraumatic. Neck: Trachea midline, no thyromegaly or masses palpated, and no cervical lymphadenopathy. Supple, full range of motion without nuchal rigidity, or vertebral point tenderness. No Meningismus. Chest/axilla: Normal chest wall appearance and motion. Nontender with no deformity. No lesions are appreciated. Cardiovascular: Regular rate and rhythm with a normal S1 and S2. No gallops, murmurs, or rubs. Normal PMI, no JVD. No pulse deficits. Respiratory: Lungs have equal breath sounds bilaterally, clear to auscultation and percussion. No rales, rhonchi or wheezes noted. No increased work of breathing, no retractions or nasal flaring. Abdomen/GI: Soft, non-tender, with normal bowel sounds. No distension or tympany. No guarding or rebound. No evidence of tenderness throughout. Skin: Warm, dry with normal turgor. Normal color with no rashes, no lesions, and no evidence of cellulitis. Neuro: Awake and alert, GCS 15, oriented to person, place, time, and situation. Cranial nerves II-XII grossly intact. Motor strength 5/5 in all extremities. Sensory grossly intact. Cerebellar exam normal. Normal gait. 12:16 Musculoskeletal/extremity: Wound VAC in place with saturated dressing with serosanguineous fluid. No purulence or blood noted. Patient with no complaints. Vital signs are normal.. Vital Signs: 12:01 BP 136 / 58; Pulse 80; Resp 16; Temp 98.1; Pulse Ox 100% on R/A; Weight 57.61 kg; iw Height 5 ft. 1 in. ; 12:54 BP 133 / 58; Pulse 64; Resp 16; Pulse Ox 96% on R/A; me1 13:57 BP 146 / 64; Pulse 63; Resp 16; Pulse Ox 99% on R/A; me1 12:01 Body Mass Index 24.00 (57.61 kg, 154.94 cm) iw MDM: 12:02 Patient medically screened. sp3 12:17 Data reviewed: vital signs, nurses notes. ED course: Dressing will be changed and sp3 education will be given. Patient to follow-up with her PCP. No work-up or other intervention indicated currently.. Administered Medications: No medications were administered Disposition Summary: 06/03/23 12:18 Discharge Ordered Location: Home sp3 Condition: Stable sp3 Diagnosis - Dressing change, wound evaluation sp3 Followup: sp3 - With: Private Physician - When: Upon discharge from the Emergency Department - Reason: Continuance of care Discharge Instructions: - Discharge Summary Sheet sp3 - How to Change Your Wound Dressing sp3 Forms: - Medication Reconciliation Form sp3 - Thank You Letter sp3 - Antibiotic Education sp3 - Prescription Opioid Use sp3 - Patient Portal Instructions sp3 - Leadership Thank You Letter sp3 Signatures: Rosmery Killian, RN RN iw Nico Miller MD MD sp3 Rafaela Spring RN RN me1
--- NOTE | 2023-06-03 12:19 | ER ---
Nurse's Notes [facility] Name: Suzi Vee Age: 72 yrs Sex: Female : 1950 Arrival Date: 06/03/2023 Time: 11:41 Bed 15 Private MD: Diagnosis: Dressing change, wound evaluation Presentation: 06/03 12:00 Chief complaint: Patient states: right hip surgery last Sunday at [facility] with iw Dr. Vick, the dressing is saturated and they told her to come get it changed here. Coronavirus screen: At this time, the client does not indicate any symptoms associated with coronavirus-19. Ebola Screen: Patient negative for fever greater than or equal to 101.5 degrees Fahrenheit, and additional compatible Ebola Virus Disease symptoms Patient denies exposure to infectious person. Patient denies travel to an Ebola-affected area in the 21 days before illness onset. No symptoms or risks identified at this time. Initial Sepsis Screen: Does the patient meet any 2 criteria? No. Patient's initial sepsis screen is negative. Does the patient have a suspected source of infection? No. Patient's initial sepsis screen is negative. Risk Assessment: Do you want to hurt yourself or someone else? Patient reports no desire to harm self or others. Onset of symptoms was June 03, 2023. 12:00 Method Of Arrival: Ambulatory iw 12:00 Acuity: NIEVES 4 iw Historical: - Allergies: 12:01 No Known Allergies; iw - PMHx: 12:01 Chronic Lumbar Pain; Depression; Weak Bladder; iw - PSHx: 12:01 Appendectomy; Cholecystectomy; hysterectomy; Total Knee Replacement - Right; back; iw - Immunization history:: Adult Immunizations up to date. - Social history:: Smoking status: Patient denies any tobacco usage or history of. Screenin:54 [facility] ED Fall Risk Assessment (Adult) History of falling in the last 3 months, me1 including since admission No falls in past 3 months (0 pts) Confusion or Disorientation No (0 pts) Intoxicated or Sedated No (0 pts) Impaired Gait Yes (1 pt) Mobility Assist Device Used No (0 pt) Altered Elimination No (0 pt) Score/Fall Risk Level 0 - 2 = Low Risk. Abuse screen: Denies threats or abuse. Nutritional screening: No deficits noted. Tuberculosis screening: No symptoms or risk factors identified. Assessment: 12:54 General: Appears comfortable, well groomed, well developed, well nourished, Behavior is me1 calm, cooperative, appropriate for age, Reports had right hip sx last Sunday, dressing is saturated and her surgeon's office asked her to come here to have the dressing changed. Pain: Denies pain. Neuro: Level of Consciousness is awake, alert, obeys commands, Oriented to person, place, time, situation, Appropriate for age. Cardiovascular: Capillary refill < 3 seconds Patient's skin is warm and dry. Respiratory: Airway is patent Respiratory effort is even, unlabored, Respiratory pattern is regular, symmetrical. Derm: dressing to right hip, saturated with dark brownish, red drainage. Vital Signs: 12:01 BP 136 / 58; Pulse 80; Resp 16; Temp 98.1; Pulse Ox 100% on R/A; Weight 57.61 kg; iw Height 5 ft. 1 in. ; 12:54 BP 133 / 58; Pulse 64; Resp 16; Pulse Ox 96% on R/A; me1 13:57 BP 146 / 64; Pulse 63; Resp 16; Pulse Ox 99% on R/A; me1 12:01 Body Mass Index 24.00 (57.61 kg, 154.94 cm) iw ED Course: 11:44 Patient arrived in ED. im 11:50 Nico Miller MD is Attending Physician. sp3 12:01 Triage completed. iw 12:01 Arm band placed on. iw 12:51 Rafaela Spring, RN is Primary Nurse. me1 12:54 Patient has correct armband on for positive identification. Bed in low position. Call me1 light in reach. Side rails up X 1. Provided Education on: POC. Verbalized understanding.. 12:54 No provider procedures requiring assistance completed. Patient did not have IV access me1 during this emergency room visit. 13:53 Dressings: new MICHELE dsg applied to right hip using aseptic technique. Tolerated well. me1 Administered Medications: No medications were administered Medication: 12:54 VIS not applicable for this client. me1 Outcome: 12:18 Discharge ordered by . sp3 14:03 Discharged to home ambulatory, with family. me1 14:03 Condition: stable 14:03 Discharge instructions given to patient, family, Instructed on discharge instructions, follow up and referral plans. wound care, Demonstrated understanding of instructions, follow-up care, wound care. 14:03 Patient left the ED. me1 Signatures: Rosmery Killian, RN RN iw Nico Miller MD MD sp3 Shruthi Leonard Michelle, RN RN me1
[2023-06-03 14:08] VITALS: TEMP 98.1
[2023-06-03 14:10] VITALS: BP 146/64; O2SAT 99
== END 2023-06-03 14:03 | disposition home or self-care (01) ==
LOC: ER 11:41
DX: Z48.01 Encounter for change or removal of surgical wound dressing (principal)
CPT/HCPCS: 99283

== ENCOUNTER 2023-07-19 15:43 | Inpatient (IN) | payer OTHER ==
--- OUTSIDE RECORDS SUMMARY | 2023-07-19 15:50 | XMS REPORT | Continuity of Care Document ---
:1950 Author Organization [facility] t Address [address] [facility] [address] [place] [id number] Care Team Providers Name Role Phone KARTHIKEYAN KATHERINE Primary Care Physician Unavailable SONJA PAN Attending Clinician Unavailable RUT FUENTES Attending Clinician Unavailable [id number] Attending Clinician Unavailable BRITTANY HOWARD Attending Clinician Unavailable DIMITRIS PARRY Attending Clinician Unavailable RM REEVES Attending Clinician Unavailable ELISHA NAIDU Attending Clinician Unavailable ARY WEISS Attending Clinician Unavailable RENETTA FUNG Attending Clinician Unavailable VICTOR MANUEL MCFARLANE Attending Clinician Unavailable TERELL COREY IN Keyur Attending Clinician Unavailable GENARO MOORE Attending Clinician Unavailable Elisha Naidu MD Attending Clinician [phone] Brittany Howard MD Attending Clinician Erica LUNA, Teresa Attending Clinician TERESA MONTAÑO Attending Clinician Unavailable Dimitris Parry MD Attending Clinician [phone] Chucky Dwyer MD Attending Clinician Sandrine MONTILLA, Rodríguez Lombardo Attending Clinician [phone] Stone LUNA, Renetta Perea Attending Clinician Ary Weiss MD Attending Clinician Saba Santos Attending Clinician Yordan MONTILLA, Papa Morales Attending Clinician [phone] Cj Leonard MD Attending Clinician Kris LUNA, Eden Stevenson Attending Clinician [phone] Jamel LUNA, Chito Attending Clinician Lady Hardwick MD Attending Clinician CHITO MCCULLOUGH Attending Clinician Unavailable FOG_A_Provider Attending Clinician Unavailable Justin Hbobs MD Attending Clinician JUSTIN HOBBS Attending Clinician Unavailable Doctor Unassigned, Burden Attending Clinician Unavailable Radiology Attending Clinician Unavailable RADIOLOGY Attending Clinician Unavailable RUT FUENTES Admitting Clinician Unavailable [id number] Admitting Clinician Unavailable ELISHA NAIDU Admitting Clinician Unavailable ARY WEISS Admitting Clinician Unavailable RENETTA FUNG Admitting Clinician Unavailable DIMITRIS PARRY Admitting Clinician Unavailable TERELL COREY Admitting Clinician Unavailable LADY HARDWICK Admitting Clinician Unavailable FOG_A_Provider Admitting Clinician Unavailable Justin Hobbs MD Admitting Clinician JUSTIN HOBBS Admitting Clinician Unavailable Payers Payer Name Policy Type Policy Number Effective Date Expiration Date S emmie HUMANA MEDICARE ADV [id number] 2023 00:00:00 HUMM HUMM [id number] [facility] [id number] [facility] [id number] 2023 00:00:00 [employer] [id number] 2022 [facility] [employer]IGNA MEDICARE PPO [id number] 2022 00:00:00 [facility] [id number] 2022 (PPO) 00:00:00 Problems Condition Condition Condition [...] Disease 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 Natural mother Diabetes [facility] Social History Social Habit Start Date Stop Date Quantity Comments Source History of Cigarette Smoker [facility] L ukmartha tobacco use Medical Cent[facility] r History SDTX [facility]-Med [facility] Alcohol intake 2023-05-28 2023-05-28 Ex-drinker [facility] 00:00:00 00:00:00 (finding) Medical Center Exposure to 2023-05-15 2023-05-[address] [facility] SARS-CoV-2 00:00:00 07:56:00 Medical Center (event) History [facility] 2023-05-25 2023-05-[address] [facility] Transport Med 00:00:00 00:00:[address] History [facility] 2023-05-25 2023-05-[address] [facility] Housing Unable to 00:00:00 00:00:00 Medical Center Pay History [facility] 2023-05-25 2023-05-[address] [facility] Housing Places 00:00:00 00:00:00 Medical Ce nter Lived History [facility] 2023-05-25 2023-05-[address] [facility] Housing Homeless 00:00:00 00:00:00 Medical Center Last Year Tobacco use and 2023-03-08 2023-03-08 [address]ok[address] [facility] exposure 00:[facility]00 00:00:00 non-user Medical Center Tobacco Comment 2022-07-12 2022-07-12 Quit smoking in [facility] of 00:00:00 00:00:November, [facility] smoked 1- 1.5 PPD Branch X 30 years Sex Assigned At [address] [address] [facility] kes 00:00:00 00:00:00 Medical Center Smoking Status Start Date Stop Date Source Ex-smoker 2023-03-08 00:00:00 2023-03-08 00:00:[address] [facility] [address] [facility] Smokes tobacco daily 2022-07-12 00:00:00 [facility] Branch Medications Ordered Filled Start Stop Current Ordering Indication Dosage Frequency Signature Comments Components Source Medication Medication Date Date Medication? Clinician (SIG) Name Name oxybutynin Yes 5mg Q.5D Take 1 [facility] (DITROPAN) 8-27 tablet (5 Luke s 5 MG tablet 18:59: mg total) M edical 53 by mouth 2 Center (two) times daily. DULoxetine 2022-0 Yes anxiety 120mg QD Take [address] (CYMBALTA) 8-27 with capsules [facility] 60 MG 18:59: depression (120 mg Med ical capsule 53 total) by Center mouth daily. ARIPiprazol 3-0 Yes 5mg QD Take [address] [facility] (ABILIFY) 8-27 tablet (5 Dayana es 5 MG tablet 18:59: mg total) M edical 53 by mouth Center daily. donepeziL 2022-0 Yes 10mg Q.5D Take 1 [...] [facility] en-codeine 8-27 tablet by Ben s (TYLENOL 18:59: mouth Medical #3) 300-30 53 every 4 Center mg per (four) tablet hours as needed for Pain. senna-docus 2022-0 Yes 1{tbl} QD Take [address] ate 8-27 tablet by Lukes (SENOKOT S) 18:59: mouth Medic al 8.6-50 mg 53 daily. Center per tablet docusate 2022-0 Yes 100mg QD Take [address] sodium 8-27 capsule [facility]ukes (COLACE) 18:59: (100 mg Medica l 100 MG 53 total) by Center capsule mouth daily. oxybutynin 2022-0 Yes 5mg Q.5D Take 1 [facility] (DITROPAN) 8-27 tablet (5 Luke s 5 MG tablet 18:59: mg total) M edical 53 by mouth 2 Center (two) times daily. DULoxetine 2022-0 Yes anxiety 120mg QD Take [address] (CYMBALTA) 8-27 with capsules [facility] 60 MG 18:59: depression (120 mg Med ical capsule 53 total) by Center mouth daily. ARIPiprazol 2022-0 Yes 5mg QD Take [address] e (ABILIFY) 8-27 tablet (5 Dayana es 5 MG tablet 18:59: mg total) M edical 53 by mouth Center daily. donepeziL 2022-0 Yes 10mg Q.5D Take [address] (ARICEPT) 8-27 tablet (10 Luke s 10 MG 18:59: mg total) Medical tablet 53 by mouth 2 Center (two) times daily. clonazePAM 3-0 Yes .5mg Take 1 [facility] (KlonoPIN) 8-27 tablet [facility]ukes 0.5 MG 18:59: (0.5 mg Medical tablet 53 total) by Center mouth 2 (two) times daily as needed for Anxiety. acetaminoph 2022-0 Yes 1{tbl} Take [address] en-codeine 8-27 tablet by Ben alvarenga (TYLENOL 18:59: mouth Medical #3) 300-30 53 every 4 Center mg per (four) tablet hours as needed for Pain. senna-docus 0 Yes 1{tbl} QD Take [address] ate 8-27 tablet by Lukes (SENOKOT S) 18:59: mouth Medic al 8.6-50 mg 53 daily. Center per tablet docusate 2022-0 Yes 100mg QD Take [address] sodium 8-27 capsule Lukes (COLACE) 18:59: (100 mg Medica l 100 MG 53 total) by Center capsule mouth daily. aspirin 81 2022-0 2022- No 81mg QD Take [address] MG EC 8-27 08-27 tablet (81 Lukes tablet 16:44: 00:00 mg total) Medic al 36 :00 by mouth Center daily. aspirin 81 2022-0 3- No 81mg QD Take [address] MG EC 8-27 08-27 tablet (81 Lukes tablet 16:44: 00:00 mg total) Medic al 36 :00 by mouth Center daily. famotidine 2022-0 Yes 20mg Q.5D Take 1 [facility] (PEPCID) 20 8-27 tablet (20 Luisa kes MG tablet 00:00: mg total) Med ical 00 by mouth 2 Center (two) times daily. famotidine 2022-0 Yes 20mg Q.5D Take 1 [facility] (PEPCID) 20 - tablet (20 Luisa kes MG tablet 00:00: mg total) Med ical 00 by mouth 2 Center (two) times daily. aspirin 81 2023- Yes 81mg Q.5D Take [address] MG EC 05-27- tablet (81 [facility]ukes tablet 00:00: 23:59 mg total) Medic al 00 :00 by mouth 2 Center (two) times daily. aspirin 81 2023- Yes 81mg Q.5D Take [address] MG EC 05-27- tablet (81 Lukes tablet 00:00: 23:59 mg total) Medic al 00 :00 by mouth 2 Center (two) times daily. acetaminoph 2023- Yes 650mg Take [address] en 05-27- tablets Lukes (TYLENOL) 00:00: 23:59 (650 mg Medi haritha 325 MG 00 :00 total) by Center tablet mouth every 4 (four) hours as needed for up to 360 days. acetaminoph 2023- Yes 650mg Take [address] en 05-27- tablets Lukes (TYLENOL) 00:00: 23:59 (650 mg Medi haritha 325 MG 00 :00 total) by Center tablet mouth every 4 (four) hours as needed for up to 360 days. acetaminoph 2022- Yes 1{tbl} Take [address] en-codeine 05-27- tablet by Dayana es (TYLENOL 00:00: 23:59 mouth Medical #4) 300-60 00 :00 every 4 Center mg per (four) tablet hours as needed for Pain for up to 10 days. Max Daily Amount: 6 tablets acetaminoph 2022- No 1{tbl} Take [address] en-codeine 05-27- tablet by Dayana es (TYLENOL 00:00: 23:59 mouth Medical #4) 300-60 00 :00 every 4 Center mg per (four) tablet hours as needed for Pain for up to 10 days. Max Daily Amount: 6 tablets docusate Yes 100mg QD Take [address] [facility] [...] QD Take [address] (CYMBALTA) 07 with capsules [facility]ukes 60 MG 14:48: depression [...] l 01 by mouth Center daily. clonazePAM 2023-0 Yes .5mg Take 1 CHI [...] by Johana (SENOKOT S) 14:48: mouth in [place] dicmi 8.6-50 mg 01 the Center per tablet morning. meloxicam 2022-0 2023- No 7.5mg Q.5D Take [address] (MOBIC) 7.5 7-06 07-06 tablet Lukes MG tablet 15:19: 00:00 (7.5 mg Medi haritha 09 :00 total) by Center mouth 2 (two) times daily. meloxicam 2022-0 2023- No 7.5mg Q.5D Take [address] (MOBIC) 7.5 7-06 07-06 tablet Lukes MG tablet 15:19: 00:00 (7.5 mg Medi haritha 09 :00 total) by Center mouth 2 (two) times daily. meloxicam 2022-0 2023- No 7.5mg Q.5D Take [address] (MOBIC) 7.5 7-06 07-06 tablet Lukes MG tablet 15:19: 00:00 (7.5 mg Medi haritha 09 :00 total) by Center mouth 2 (two) times daily. oxybutynin 2022-0 Yes 5mg Q.5D Take 1 [...] by Center mouth in the morning. ARIPiprazol 2022-0 Yes 5mg QD Take [address] [facility] [facility] [...] by mouth Center in the morning. clonazePAM 2022-0 Yes .5mg Take 1 CHI [...] 800mg Q.5D Take [address] (ADVIL,MOTR 03-08-07 tablet Lukes IN) 800 MG 15:50: 00:00 [...] (six) hours as needed for Pain. ibuprofen 2022-0 202- No pain 800mg Q.5D Take 1 CHI [...] (six) hours as needed for Pain. ibuprofen 2022-0 2023- No pain 800mg Q.5D Take [address] (ADVIL,MOTR 03-08 tablet Lukes IN) 800 MG 15:50: 00:00 (800 mg Med ical tablet 02 :00 total) by Center mouth in the morning and 1 tablet (800 mg total) before bedtime. acetaminoph 2023-0 2023- No pain 1000mg Take [address] en 03-08-07 tablets Lukes (TYLENOL) 15:50: 00:00 (1,000 mg [...] (CYMBALTA) 6-07 with capsules [facility]ukes 60 MG 16:30: depression [...] tablet by Johana (sennosides 16:30: mouth in [place] dical -docusate 58 the Center sodium) morning. [...] by mouth Center in the morning. donepeziL 3-0 Yes 10mg Q.5D Take [address] [facility] [...] tablet by Johana (sennosides 16:12: mouth in [place] dical -docusate 36 the Center sodium) morning. 8.6-50 mg per tablet meloxicam 2023-0 Yes 7.5mg Q.5D Take 1 [facility] (MOBIC) 7.5 6-07 tablet Lukes MG tablet 16:12: (7.5 mg Medic al 36 total) by Center mouth in the morning and 1 tablet (7.5 mg total) before bedtime. ibuprofen 2023-0 2023- No pain 800mg Q.5D Take [address] (ADVIL,MOTR 03-07- tablet [facility]ukes IN) 800 MG 09:06: 00:00 [...] 800mg Q.5D Take [address] (ADVIL,MOTR 03-07- tablet [facility]ukes IN) 800 MG 09:06: 00:00 [...] (six) hours as needed for Pain. amLODIPine 2023-0 2024- No 10mg QD Take [address] (NORVASC) 03-07- tablet (10 Dayana es 10 MG 00:00: 23:59 mg total) Medica l tablet 00 :00 by mouth Center in the morning. amLODIPine 2023-0 2024- No 10mg QD Take [address] (NORVASC) 03-07-06 tablet (10 Dayana es 10 MG 00:00: 23:59 mg total) Medica l tablet 00 :00 by mouth Center in the morning. amLODIPine 2023-0 2024- No 10mg QD Take [address] (NORVASC) 03-07-06 tablet (10 Dayana es 10 MG 00:00: 23:59 mg total) Medica l tablet 00 :00 by mouth Center in the morning. amLODIPine 2023-0 4- No 10mg QD Take [address] (NORVASC) 6 06-06 tablet (10 Dayana es 10 MG 00:00: 23:59 mg total) Medica l tablet 00 :00 by mouth Center in the morning. amLODIPine 2022-0 4- No 10mg QD Take [address] (NORVASC) 6 06-06 tablet (10 Dayana es 10 MG 00:00: 23:59 mg total) Medica l tablet 00 :00 by mouth Center in the morning. amLODIPine 2022-0 2023- No 10mg QD Take [address] (NORVASC) 03-07- tablet (10 Dayana es 10 MG 00:00: 23:59 mg total) Medica l tablet 00 :00 by mouth Center in the morning. traMADoL 2023-0 Yes 50mg Take 1 [facility] [...] as needed. Max Daily Amount: 150 mg lactated 2021-10 Yes 1000mL at 100 Unive [...] 25ug 25 mcg, Un arely (SUBLIMAZE 0-17 - Slow IV ity o f (PF)) 13:10: 16:01 Push, [place] injection 02 :00 Q5MIN PRN, Medi haritha 25 mcg 4 doses, Branch Starting on Sun07/17/22 at 0810, Until Sun07/17/22 at 1101, Routine, Pain (scale 4-6), PACU ondansetron 2021-10- No 4mg 4 mg, Slow Univers (ZOFRAN 0-17 07-17 IV Push, ity of (PF)) 13:10: 16:01 PRN, 1 [place] injection 4 02 :00 dose, Medical mg Starting Branch on Sun07/17/22 at 0810, Until Sun07/17/22 at 1101, Routine, Nausea and Vomiting (N/V), PACU bupivacaine 2021-10- No PRN, Unive rs -epinephrin 0-17 07-17 Starting ity of e-pf 12:54: 13:55 on Sun [place] (SENSORCAIN 00 :11 07/17/22 Medi haritha E at 0754, Branch W/EPINEPHRI Until [facility]) 0.25 07/17/22 %-1:200,000 at 0855, injection Routine, [...] mouth ity of mg Tab 08:55: daily. [place] [address] Medical Branch oxybutynin 2021-10 Yes 5mg Take 5 mg Un arely chloride 5 0-17 by mouth ity o f mg tablet 08:55: in the [place] [address] morning Medical and 5 mg Branch in the evening. ibuprofen 2021-10 Yes 800mg Take 800 Uni vers 800 mg 0-17 mg by ity of tablet 08:55: mouth in [place] [address] the Medical morning Branch and 800 mg in the evening. Take with meals. donepeziL 2021-10 Yes 10mg Take 10 mg Un arely 10 mg 0-17 by mouth ity of tablet 08:55: in the [place] [address] morning Medical and 10 mg Branch in the evening. amitriptyli 2021-10 Yes 25mg Take 25 mg Univers ne 25 mg 0-17 by mouth ity of tablet 08:55: as needed. [place] [address] 1 or 2 as Medical needed at [place] bedtime aspirin 81 2021-10 Yes 81mg Take 81 mg U nivers mg EC 0-17 by mouth ity of tablet 08:55: in the [place] [address] morning. Medical Branch ARIPiprazol 2021-10 Yes 5mg Take 5 mg U nivers e 5 mg 0-17 by mouth ity of tablet 08:55: in the [place] [address] morning. Medical Branch clonazePAM 2021-10 Yes 1mg Take 1 mg Un arely (KLONOPIN) 0-17 by mouth 3 ity of 1 mg tablet 08:55: (three) Daniele as 52 times Medical daily as Branch needed. As nee DULoxetine 2021-10 Yes 120mg Take 120 Un arely (CYMBALTA) 0-17 mg by ity of 60 mg 08:55: mouth in [place] [id number] the Medical morning. Branch HYDROmorpho 2021-10 Yes 8mg Take 8 mg U nivers ne 0-17 by mouth 4 ity of (DILAUDID) 08:55: (four) [place] 8 mg tablet 52 times Medical daily. Branch levomefolat 2021-10 Yes 1{capsu Take 1 Cap Univers e-algal oil 0-17 le} by mouth ity of (DEPLIN, 08:55: daily. [place] ALGAL OIL,) Medical 15-90.314 Branch mg Cap [...] it y of mg tablet 08:55: (two) [place] [address] times Medical daily. Branch meloxicam 2021-10 Yes 7.5mg Take 7.5 Uni vers (MOBIC) 7.5 0-17 mg by ity of mg tablet 08:55: mouth [place] [address] daily. Medical Branch Doxepin 2021-10 Yes 6mg Take 6 mg Unive rs (SILENOR) 6 0-17 by mouth ity of mg Tab 08:55: daily. [place] [address] Medical Branch oxybutynin 2021-10 Yes 5mg Take 5 mg Un arely chloride 5 0-17 by mouth ity o f mg tablet 08:55: in the [place] [address] morning Medical and 5 mg Branch in the evening. ibuprofen 2021-10 Yes 800mg Take 800 Uni vers 800 mg 0-17 mg by ity of tablet 08:55: mouth in [place] [address] the Medical morning Branch and 800 mg in the evening. Take with meals. donepeziL 2021-10 Yes 10mg Take 10 mg Un arely 10 mg 0-17 by mouth ity of tablet 08:55: in the [place] [address] morning Medical and 10 mg Branch in the evening. amitriptyli 2021-10 Yes 25mg Take 25 mg Univers ne 25 mg 0-17 by mouth ity of tablet 08:55: as needed. [place] [address] 1 or 2 as Medical needed at Branch bedtime aspirin 81 2021-10 Yes 81mg Take 81 mg U nivers mg EC 0-17 by mouth ity of tablet 08:55: in the [place] [address] morning. Medical Branch ARIPiprazol 2021-10 Yes 5mg Take 5 mg U nivers e 5 mg 0-17 by mouth ity of tablet 08:55: in the [place] [address] morning. Medical Branch clonazePAM 2021-10 Yes 1mg Take 1 mg Un arely (KLONOPIN) 0-17 by mouth 3 ity of 1 mg tablet 08:55: (three) Dan[place] as 52 times Medical daily as Branch needed. As nee DULoxetine 2021-10 Yes 120mg Take 120 Un arely (CYMBALTA) 0-17 mg by ity of 60 mg 08:55: mouth in [facility] 52 the Medical morning. Branch HYDROmorpho 2021-10 Yes 8mg Take 8 mg U nivers ne 0-17 by mouth 4 ity of (DILAUDID) 08:55: (four) [place] 8 mg tablet 52 times Medical daily. Branch levomefolat 2021-10 Yes 1{capsu Take 1 Cap Univers e-algal oil 0-17 le} by mouth ity of (DEPLIN, 08:55: daily. [place] ALGAL OIL,) Medical .314 Branch mg Cap traZODONE 2021-10 [...] by ity of mg tablet 08:55: mouth [place] 52 daily. Medical Branch Doxepin 2021-10 Yes 6mg Take 6 mg Unive rs (SILENOR) 6 0-17 by mouth ity of mg Tab 08:55: daily. [place] [address] Medical Branch oxybutynin 2021-10 Yes 5mg Take 5 mg Un arely chloride 5 0-17 by mouth ity o f mg tablet 08:55: in the [place] [address] morning Medical and 5 mg Branch in the evening. ibuprofen 2021-10 Yes 800mg Take 800 Uni vers 800 mg 0-17 mg by ity of tablet 08:55: mouth in [place] [address] the Medical morning Branch and 800 mg in the evening. Take with meals. donepeziL 2021-10 Yes 10mg Take 10 mg Un arely 10 mg 0-17 by mouth ity of tablet 08:55: in the [place] [address] morning Medical and 10 mg Branch in the evening. amitriptyli 2021-10 Yes 25mg Take 25 mg Univers ne 25 mg 0-17 by mouth ity of tablet 08:55: as needed. [place] 52 1 or 2 as Medical needed at Branch bedtime aspirin 81 2021-10 Yes 81mg Take 81 mg U nivers mg EC 0-17 by mouth ity of tablet 08:55: in the [place] [address] morning. Medical Branch ARIPiprazol 2021-10 Yes 5mg Take 5 mg U nivers e 5 mg 0-17 by mouth ity of tablet 08:55: in the [place] [address] morning. Medical Branch clonazePAM 2021-10 Yes 1mg [...] by mouth ity of (DEPLIN, 08:55: daily. [place] ALGAL OIL,) 52 Medical 15.314 Branch mg [...] mouth ity of mg Tab 18:29: daily. [place] 04 Medical Branch VENLAFAXINE 2004- Yes 1 Cap Oral Univers 75 MG ORAL 2-14 QAM WITH ity o f CP24 00:00: BREAKFAST [facility] Branch QUETIAPINE 2004- Yes 1 tab po Uni vers 300 MG ORAL 2-14 qhs ity of TAB 00:00: [place] [facility] VENLAFAXINE 2004- Yes 1 Cap Oral Univers 75 MG ORAL 2-14 QAM WITH ity o f CP24 00:00: BREAKFAST [place] [facility] QUETIAPINE 2004- Yes 1 tab po Uni vers 300 MG ORAL 2-14 qhs ity of TAB 00:00: [place] [address] Medical Branch VENLAFAXINE 2004- Yes 1 Cap Oral Univers 75 MG ORAL 2-14 QAM WITH ity o f CP24 00:00: BREAKFAST [place] [facility] QUETIAPINE 2004- Yes 1 tab po Uni vers 300 MG ORAL 2-14 qhs ity of TAB 00:00: [address] Vital Signs Vital Name Observation Time Observation Value Comments Source HEIGHT 2023-06-22 21:07:26 154.9 cm WEIGHT 2023-06-22 21:07:26 60.6 kg HEIGHT 2023-06-22 21:07:26 154.9 cm WEIGHT 2023-06-22 21:07:26 60.6 kg WEIGHT 2023-05-27 07:00:00 54.4 kg WEIGHT [...] 13:30:00 127 mm[Hg] Univer sity of pressure [place] [facility] Diastolic blood 2022-07-17 13:30:00 62 mm[Hg] Unive rsity of pressure [place] [facility] Heart rate 2022-07-17 13:30:00 76 /min [facility] ty [facility] [place] [facility] Respiratory rate 2022-07-17 13:30:00 20 /min Univ ersity of [place] [facility] Oxygen saturation in 2022-07-17 13:30:00 93 /min University of Arterial blood by [place] iMICROQ haritha Pulse oximetry Branch Body temperature 2022-07-17 13:10:00 36.78 Monica Univ ersity of [place] [facility] Body height 2022-07-04 16:26:00 154.9 cm [facility] [place] [facility] Body weight 2022-07-04 16:26:00 78 kg [facility] [place] [facility] BMI 2022-07-04 16:26:00 32.51 kg/m2 [facility] [place] [facility] Systolic blood 2022-07-17 13:30:00 127 mm[Hg] Univer sity of pressure [place] [facility] Diastolic blood 2022-07-17 13:30:00 62 mm[Hg] Unive rsity of pressure [place] [facility] Heart rate 2022-07-17 13:30:00 76 /min [facility] [place] [facility] Respiratory rate 2022-07-17 13:30:00 20 /min Univ ersity of [place] [facility] Oxygen saturation in 2022-07-17 13:30:00 93 /min University of Arterial blood by [place] Medi haritha Pulse oximetry Branch Body temperature 2022-07-17 13:10:00 36.78 Monica Univ ers[facility] [place] [facility] Body height 2022-07-04 16:26:00 154.9 cm [facility] [place] [facility] Body weight 2022-07-04 16:26:00 78 kg [facility] [place] [facility] BMI 2022-07-04 16:26:00 32.51 kg/m2 [facility] [place] [facility] Systolic blood 2023-05-27 12:00:00 161 mm[Hg] [facility] Diastolic blood 2023-05-27 12:00:00 69 mm[Hg] [facility] Heart rate 2023-05-27 12:00:00 75 /min [facility] Body temperature 2023-05-27 12:00:00 36.56 Monica [facility] Respiratory rate 2023-05-27 12:00:00 18 /min [facility] Oxygen saturation in 2023-05-27 12:00:00 96 /min [facility] Arterial blood by Medical Ce nter Pulse oximetry Body weight 2023-05-27 07:00:00 54.4 kg [facility] BMI 2023-05-27 07:00:00 22.66 kg/m2 [facility] Systolic blood 2023-04-06 07:03:00 116 mm[Hg] [facility] Diastolic blood 2023-04-06 07:03:00 48 mm[Hg] [facility] Heart rate 2023-04-06 07:03:00 62 /min [facility] Body temperature 2023-04-06 07:03:00 36.56 Monica [facility] Respiratory rate 2023-04-06 07:03:00 18 /min [facility] Oxygen saturation in 2023-04-06 07:03:00 97 /min [facility] Arterial blood by Medical Ce nter Pulse oximetry Body height 2023-03-30 23:47:42 154.9 cm [facility] Body weight 2023-03-30 23:47:42 58.196 kg [facility] BMI 2023-03-30 23:47:42 24.24 kg/m2 [facility] Systolic blood 2023-03-09 06:57:00 160 mm[Hg] [facility] Diastolic blood 2023-03-09 06:57:00 70 mm[Hg] [facility] Heart rate 2023-03-09 06:57:00 60 /min [facility] Body temperature 2023-03-09 06:57:00 36.89 Monica [facility] Respiratory rate 2023-03-09 06:57:00 18 /min [facility] Oxygen saturation in 2023-03-09 06:57:00 99 /min [facility] Arterial blood by Medical Ce nter Pulse oximetry Body height 2023-03-08 11:13:00 154.9 cm [facility] Body weight 2023-03-08 11:13:00 55.475 kg [facility] BMI 2023-03-08 11:13:00 23.11 kg/m2 [facility] Systolic blood 2023-03-08 07:16:00 132 mm[Hg] [facility] Diastolic blood 2023-03-08 07:16:00 65 mm[Hg] [facility] Heart rate 2023-03-08 07:16:00 74 /min [facility] Body temperature 2023-03-08 07:16:00 37.17 Monica [facility] Respiratory rate 2023-03-08 07:16:00 18 /min [facility] Oxygen saturation in 2023-03-08 07:16:00 97 /min [facility] Arterial blood by Medical Ce nter Pulse oximetry Systolic blood 2023-03-07 14:19:00 139 mm[Hg] [facility] Diastolic blood 2023-03-07 14:19:00 64 mm[Hg] [facility] Heart rate 2023-03-07 14:19:00 77 /min [facility] Body temperature 2023-03-07 14:19:00 37 Monica [facility] Respiratory rate 2023-03-07 14:19:00 18 /min [facility] Oxygen saturation in 2023-03-07 14:19:00 97 /min [facility] Arterial blood by Medical Ce nter Pulse oximetry Body weight 2023-03-05 07:35:00 61.508 kg [facility] BMI 2023-03-05 07:35:00 25.60 kg/m2 [facility] Body height 2023-03-02 18:26:00 155 cm [facility] Procedures Procedure Date / Time Performing Clinician Source Performed BASIC METABOLIC PANEL 2023-05-27 04:39:00 Madi Carvajal [facility] CBC (HEMOGRAM ONLY) 2023-05-27 04:39:00 Teresa Montaño [facility] XR PELVIS 1 OR 2 VIEWS 2023-05-26 11:13:00 Madi Carvajal [facility] TISSUE EXAM 2023-05-26 09:42:00 Dimitris Parry [facility] REVISION, TOTAL 2023-05-26 08:16:00 [facility] ARTHROPLASTY, HIP [facility] BASIC METABOLIC PANEL 2023-05-26 04:17:00 Brittany Howard [facility] CBC W/PLT COUNT & AUTO 2023-05-26 04:17:00 Brittany Howard [facility] CBC W/PLT COUNT & AUTO 2023-05-26 04:17:00 Vishal Brittany [facility] C-REACTIVE PROTEIN 2023-05-25 17:03:00 Madi Carvajal [facility] XR HIP 2 VIEWS RIGHT 2023-05-25 08:55:00 Rm Reeves [facility] XR PELVIS 1 OR 2 VIEWS 2023-05-25 08:54:00 Sincere Barrios [facility] CBC W/PLT COUNT & AUTO 2023-05-25 07:22:00 Elisha Naidu [facility] COMPREHENSIVE METABOLIC 2023-05-25 07:22:00 Felician[facility]Elisha [facility] PROTHROMBIN TIME/INR 2023-05-25 07:22:[address] [facility] MAGNESIUM 2023-05-25 07:22:00 MatadorElisha [facility] TYPE AND SCREEN, 2023-05-25 07:22:00 Matador, [facility] AUTOMATED [facility] CBC W/PLT COUNT & AUTO 2023-05-25 07:22:00 Feliciano [facility] DIFFERENTIAL [facility] EKG-SCANNED 2023-05-25 00:00:00 Hossein Dixon [facility] Scanning Center XR ABDOMEN/KUB 1 VIEW 2023-04-05 16:55:27 Ary Weiss [facility] CBC W/PLT COUNT & AUTO 2023-04-05 04:46:00 Ary Weiss [facility] BASIC METABOLIC PANEL 2023-04-05 04:46:00 Mario Weissash Baljit [facility] CBC W/PLT COUNT & AUTO 2023-04-05 04:46:00 Mario Weissel sobrante Baljit [facility] VANCOMYCIN LEVEL, TROUGH 2023-04-04 02:39:00 Santa Sandhu [facility] CBC W/PLT COUNT & AUTO 2023-04-04 02:39:00 Ary Weiss [facility] BASIC METABOLIC PANEL 2023-04-04 02:39:00 Mario Weissash Baljit [facility] CBC W/PLT COUNT & AUTO 2023-04-04 02:39:00 Ary Weiss [facility] CBC W/PLT COUNT & AUTO 2023-04-03 05:18:00 Ary Weiss [facility] BASIC METABOLIC PANEL 2023-04-03 05:18:00 Ary Weiss [facility] CBC W/PLT COUNT & AUTO 2023-04-03 05:18:00 Aruna Weissshrenee [facility] VANCOMYCIN LEVEL, TROUGH 2023-04-02 04:38:00 Elena Hardwick [facility] CBC W/PLT COUNT & AUTO 2023-04-02 04:38:00 Mario Weissel sobrante Baljit [facility] BASIC METABOLIC PANEL 2023-04-02 04:38:00 Mario Weissel sobrante Baljit [facility] CBC W/PLT COUNT & AUTO 2023-04-02 04:38:00 FranciscoAry white Baljit [facility] XR HIP 1 VIEW RIGHT 2023-04-01 07:39:00 Alena, [facility] XR PELVIS 1 OR 2 VIEWS 2023-04-01 07:38:00 Alena [facility] CBC W/PLT COUNT & AUTO 2023-04-01 03:54:00 Francisco [facility] Baljit [facility] BASIC METABOLIC PANEL 2023-04-01 03:54:00 [facility] W/PLT COUNT & AUTO 2023-04-01 03:54:00 [facility] Baljit [facility] ARTHROPLASTY, HIP 2023-03-31 17:00:00 Sohan [facility] TISSUE EXAM 2023-03-31 16:35:00 Sohan [facility] XR PELVIS 1 OR 2 VIEWS 2023-03-31 07:07:00 Odilia Robles [facility] CBC (HEMOGRAM ONLY) 2023-03-31 03:27:00 [facility] BASIC METABOLIC PANEL 2023-03-31 03:27:00 [facility] PROTHROMBIN TIME/INR 2023-03-31 03:27:00 [facility] TYPE AND SCREEN, 2023-03-31 03:27:00 Steven Garcia [facility] AUTOMATED [facility] EKG-SCANNED 2023-03-30 00:00:00 Provider, [facility] Scanning [place] HEMOGLOBIN AND 2023-03-09 05:10:00 Steven Garcia [facility] HEMATOCRIT [facility] XR PELVIS 1 OR 2 VIEWS 2023-03-08 15:24:26 Odilia Robles [facility] ARTHROPLASTY, HIP 2023-03-08 13:33:00 Dimitris Parry [facility] ARTHROPLASTY, HIP 2023-03-08 13:30:00 Dimitris Parry [facility] ARTHROPLASTY, HIP 2023-03-08 13:28:00 Sohan Dimitris [facility] ECG 12-LEAD 2023-03-08 11:46:24 Unknown, Hl7 Doctor [facility] TYPE AND SCREEN, 2023-03-07 18:13:00 Mer [facility] AUTOMATED Center BASIC METABOLIC PANEL 2023-03-07 05:29:00 [facility] CBC W/PLT COUNT & AUTO 2023-03-07 05:29:00 [facility] DIFFERENTIAL [place] CBC W/PLT COUNT & AUTO 2023-03-07 05:29:00 [facility] CBC W/PLT COUNT & AUTO 2023-03-05 05:18:00 [facility] DIFFERENTIAL [facility] CBC W/PLT COUNT & AUTO 2023-03-05 05:18:00 [facility] DIFFERENTIAL [facility] BASIC METABOLIC PANEL 2023-03-05 05:15:00 [facility] BASIC METABOLIC PANEL 2023-03-03 12:20:00 [facility] CBC W/PLT COUNT & AUTO 2023-03-03 12:20:00 [facility] DIFFERENTIAL [facility] CBC W/PLT COUNT & AUTO 2023-03-03 12:20:00 [facility] XR HIP 1 VIEW RIGHT 2023-03-02 10:56:00 Arely Browning [facility] XR BILATERAL HIPS TO 2023-03-02 10:13:00 Lady Hardwick [facility] INCLUDE PELVIS Center ABORH, MANUAL 2023-03-02 04:38:00 Aracelis Lovett [facility] CBC W/PLT COUNT & AUTO 2023-03-02 02:53:00 Lady Hardwick [facility] DIFFERENTIAL Center COMPREHENSIVE METABOLIC 2023-03-02 02:53:00 Lady Hardwick [facility] PANEL Center PROTHROMBIN TIME/INR 2023-03-02 02:53:00 Lady Hardwick [facility] TYPE AND SCREEN, 2023-03-02 02:53:00 Lady Hardwick [facility] AUTOMATED Center CBC W/PLT COUNT & AUTO 2023-03-02 02:53:00 Lady Hardwick [facility] DIFFERENTIAL Center INTRATHECAL INFUSION 2022-07-17 12:09:00 Justin Hobbs [facility] Medical Branch DAY SURGERY - ADC 2022-07-17 05:01:00 Doctor Unassigned, No [facility] Name [facility] Branch EXTERNAL PROVIDER 2022-06-21 05:01:00 Doctor Unassigned, No [facility] RECORDS Name Medical Branch EXTERNAL PROVIDER 2022-06-21 05:01:00 Doctor Unassigned, No [facility] RECORDS Name Medical Branch XR ANKLE 3+ VW RIGHT 2021-03-02 17:25:47 [facility] Plan [facility] Care Planned Activity Planned Date [...] Ce nter Vaccine (#1)] Future Scheduled 2023-06-01 Influenza Vaccine (#1) [facility] 00:00:00 [code = Influenza Medical Ce nter Vaccine (#1)] Future Scheduled 2023-06-01 Influenza Vaccine (#1) [facility] 00:00:00 [code = Influenza Medical Ce nter Vaccine (#1)] Future Scheduled 2023-06-[address] [facility] 00:00:00 (Season Ended) [code = Medic al Center INFLUENZA VACCINE (Season Ended)] Future Scheduled 2022-10-01 FALLS RISK [...] IPPE (WELCOME TO MEDICARE)] Future Scheduled 2022-10-01 Medicare IPPE (WELCOME [facility] 00:00:00 TO MEDICARE) [code = Medical Center Medicare IPPE (WELCOME TO MEDICARE)] Future Scheduled 2022-10-01 Medicare IPPE (WELCOME C [...] colon Medical Ce nter (procedure) [code = 769892557] Future Scheduled 1951 Screening for malignant [facility] 00:00:00 neoplasm of colon Medical Ce nter (procedure) [code = 733847482] Future Scheduled 1950 Sigmoidoscopy [code = [facility] S[facility]oscopy] [facility] Future Scheduled 1951 Screening for malignant [facility] Test 00:00:00 neoplasm of breast Medical C enter (procedure) [code = 260378632] Future Scheduled 1951 CT Colonography (combo) [facility] 00:00:00 [code = CT Colonography [facility] (combo)] Future Scheduled 1951 Screening for malignant [facility] 00:00:00 neoplasm of colon Medical Ce nter (procedure) [code = 701384300] Future Scheduled 1951 Screening for malignant [facility] 00:00:00 neoplasm of colon Medical Ce nter (procedure) [code = 236497255] Future Scheduled 1951 DXA SCAN [code = DXA [facility] 00:00:00 SCAN] [facility] Future Scheduled 1951 Screening for malignant [facility] 00:00:00 neoplasm of colon Medical Ce nter (procedure) [code = 956743619] Future Scheduled 1951 Screening for malignant [facility] 00:00:00 neoplasm of colon Medical Ce nter (procedure) [code = 000080840] Future Scheduled 1951 Sigmoidoscopy [code = [facility] 1951 Screening for malignant [facility] 00:00:00 neoplasm of breast Medical C enter (procedure) [code = 138958354] Future Scheduled 1951 CT Colonography (combo) [facility] 00:00:00 [code = CT Colonography [facility] (combo)] Future Scheduled 1951 Screening for malignant [facility] 00:00:00 neoplasm of colon Medical Ce nter (procedure) [code = 447887076] Future Scheduled 1951 Screening for malignant [facility] 00:00:00 neoplasm of colon Medical Ce nter (procedure) [code = 743137301] Future Scheduled 1951 DXA SCAN [code = DXA [facility] 00:00:00 SCAN] [facility] Future Scheduled 1951 Screening for malignant [facility] 00:00:00 neoplasm of colon Medical Ce nter (procedure) [code = 339852104] Future Scheduled 1951 Screening for malignant [facility] 00:00:00 neoplasm of colon Medical Ce nter (procedure) [code = 748985382] Future Scheduled 1951 Sigmoidoscopy [code = [facility] 00:00:00 S[facility]oscopy] [facility] Future Scheduled 1951 Screening for malignant [facility] 00:00:00 neoplasm of breast Medical C enter (procedure) [code = 085366791] Future Scheduled 1951 CT Colonography (combo) [facility] 00:00:00 [code = CT Colonography [facility] (combo)] Future Scheduled 1951 Screening for malignant [facility] 00:00:00 neoplasm of colon Medical Ce nter (procedure) [code = 684780163] Future Scheduled 1951 Screening for malignant [facility] 00:00:00 neoplasm of colon Medical Ce nter (procedure) [code = 791989739] Future Scheduled 1951 DXA SCAN [code = DXA [facility] 00:00:00 SCAN] [facility] Future Scheduled 1951 Screening for malignant [facility] 00:00:00 neoplasm of colon Medical Ce nter (procedure) [code = 102851724] Future Scheduled 1951 Screening for malignant [facility] 00:00:00 neoplasm of colon Medical Ce nter (procedure) [code = 236956704] Future Scheduled 1951 Sigmoidoscopy [code = [facility] 00:00:00 Sigmoidoscopy] [facility] Future Scheduled 1951 Screening for malignant [facility] 00:00:00 neoplasm of breast Medical C enter (procedure) [code = 062321822] Future Scheduled 1951 CT Colonography (combo) [facility] 00:00:00 [code = CT Colonography [facility] (combo)] Future Scheduled 1951 Screening for malignant [facility] 00:00:00 neoplasm of colon Medical Ce nter (procedure) [code = 290506499] Future Scheduled 1951 Screening for malignant [facility] 00:00:00 neoplasm of colon Medical Ce nter (procedure) [code = 788647942] Future Scheduled 1951 DXA SCAN [code = DXA [facility] 00:00:00 SCAN] [facility] Future Scheduled 1951 Screening for malignant [facility] 00:00:00 neoplasm of colon Medical Ce nter (procedure) [code = 065900722] Future Scheduled 1951 Screening for malignant [facility] 00:00:00 neoplasm of colon Medical Ce nter (procedure) [code = 400254862] Future Scheduled 1951 Sigmoidoscopy [code = [facility] 00:00:[facility] 1951 Screening for malignant [facility] 00:00:00 neoplasm of breast Medical C enter (procedure) [code = 982503756] Future Scheduled 1951 CT Colonography (combo) [facility] 00:00:00 [code = CT Colonography [facility] (combo)] Future Scheduled 1951 Screening for malignant [facility] 00:00:00 neoplasm of colon Medical Ce nter (procedure) [code = 645679616] Future Scheduled 1951 Screening for malignant [facility] 00:00:00 neoplasm of colon Medical Ce nter (procedure) [code = 993527285] Future Scheduled 1951 DXA SCAN [code = DXA [facility] 00:00:00 SCAN] Medical Center Future Scheduled 1951 Screening for malignant [facility] 00:00:00 neoplasm of colon Medical Ce nter (procedure) [code = 335785520] Future Scheduled 1951 Screening for malignant [facility] 00:00:00 neoplasm of colon Medical Ce nter (procedure) [code = 786869080] Future Scheduled 1951 Sigmoidoscopy [code = [facility] 00:00:[facility]] [facility] 1951 Screening for malignant [facility] 00:00:00 neoplasm of breast Medical C enter (procedure) [code = 256415369] Future Scheduled 1951 CT Colonography (combo) [facility] 00:00:00 [code = CT Colonography [facility] (combo)] Future Scheduled 1951 Screening for malignant [facility] 00:00:00 neoplasm of colon Medical Ce nter (procedure) [code = 948796515] Future Scheduled 1951 Screening for malignant [facility] 00:00:00 neoplasm of colon Medical Ce nter (procedure) [code = 871050638] Future Scheduled 1951 DXA SCAN [code = DXA [facility] 00:00:00 SCAN] Medical Center Encounters Start End Encounter Admission Attending Care Care Encounter Source Date/Time Date/Time Type Type Clinicians Facility Department ID 2023-07-03 [id number] 14:01:17 AHMED 2023-06-28 Inpatient EL FUENTES, [facility] [id number] [facility] 08:06:31 RUT 2023-06-27 Outpatient [id number] [place] [id number] [facility] 08:38:42 [facility] [place] 2023-06-26 Outpatient [id number] [place] REF [id number] [facility] 21:08:18 0926 [facility] [place] 2023-05-26 Inpatient ER BRITTANY HOWARD [facility] SLE [id number] [facility] 10:47:03 2023-05-26 Inpatient ER SOHAN, [facility]H SLEH [id number] [facility] 09:23:32 DIMITRIS 2023-05-26 Inpatient ER SOHAN, SLEH SLEH [id number] [facility] 00:00:00 DIMITRIS 2023-05-26 Inpatient ER SOHAN, SLEH SLEH [id number] SLEH 00:00:00 DIMITRIS 2023-05-25 Inpatient ER LALA, SLEH SLEH [id number] [facility] 08:45:17 RM 2023-05-25 Inpatient ER FELICIANO, SLEH SLEH [id number] [facility] 07:37:02 ELISHA 2023-04-05 Inpatient ER FRANCISCO, SLEH SLEH [id number] [facility] 15:46:44 [facility] 2023-04-05 Outpatient [id number] [place] [id number] [facility] 11:01:43 0706 [facility] [place] 2023-04-05 Inpatient ER FRANCISCO, SLEH SLEH [id number] [facility] 00:00:00 [facility] 2023-04-02 Outpatient [id number] ENCPL REF [id number] [facility] 15:37:03 0703 [facility] [place] 2023-04-01 Inpatient ER FRANCISCO, SLEH SLEH [id number] [facility] 06:18:59 [facility] 2023-04-01 Inpatient ER FRANCISCO, SLEH SLEH [id number] [facility] 06:18:53 [facility] 2023-03-31 Inpatient ER STONE, SLEH SLEH [id number] SLEH 06:15:09 RENETTA 2023-03-30 Inpatient PARRY, SLE Surgery [id number] SLEH 20:40:23 DIMITRIS 2023-03-08 Inpatient EL SOHAN, SLE SLEH [id number] SLEH 15:16:15 DIMITRIS 2023-03-08 Inpatient EL SOHAN, SLEH SLEH [id number] SLEH 11:54:44 DIMITRIS 2023-06-22 2023-07-10 Inpatient UR DENYS, SLE[facility] Orthopaedic [id number] SLE[facility] 20:54:00 18:47:00 VICTOR MANUEL 2023-06-29 2023-06-29 Outpatient EL MAXIM, SLE SLEH [id number] SLEH 17:06:43 17:06:43 AHMED 2023-06-23 2023-06-23 Outpatient UR LEORA, SLEH SLEH [id number] SLEH 05:03:57 05:03:57 TERELL 2023-05-25 2023-05-27 [facility] ER Feliciano Elishasohail Del Angel [facility] [id number] [facility] 04:50:00 18:59:00 Encounter Brittany [facility] 2023-05-25 2023-05-27 Inpatient ER ERICA, [facility] Orthopaedic [id number] SLE 04:50:00 18:59:00 [facility] 2023-05-26 2023-05-26 Surgery Parry, [facility] [id number] 08:00:00 12:03:00 [facility] 2023-05-26 2023-05-[address] [facility] [id number] 08:16:00 10:37:00 Event Rodríguez Deluca [facility] 2023-05-25 2023-05-[address] [facility] [id number] [facility] 00:[facility] 00:00:00 [facility] 2023-03-30 2023-04-06 [facility] ER Renetta Fung [facility] [id number] 23:30:00 14:35:00 Encounter Ary Weiss [facility] 2023-03-30 2023-04-06 Inpatient ER FRANCISCO, [facility] Orthopaedic [id number] SLE 23:30:00 14:35:00 ARY 2023-03-31 2023-03-[address] [facility] [id number] 17:00:00 18:55:00 [facility] 2023-03-31 2023-03-[address] [facility] [id number] 14:31:00 16:54:00 Event Papa Farr [facility] 2023-03-31 2023-03-[address] [facility] [id number] [facility] 00:[facility]00 00:00:00 [facility] 2023-03-07 2023-03-09 [facility] [id number] 16:30:00 14:26:00 Encounter [facility] 2023-03-07 2023-03-09 [facility] [id number] [facility] 16:30:00 14:26:00 [facility] 2023-03-08 2023-03-[address]j Ad[address] [facility] [id number] 13:30:00 15:17:00 Event Chucky [facility] 2023-03-08 2023-03-[address] [facility] [id number] 13:00:00 15:00:00 [facility] 2023-03-08 2023-03-[address] [facility] [id number] [facility] 00:[facility]00 00:00:00 [facility] 2023-03-02 2023-03-07 Hospital ER Eden Ponce [facility] [id number] [facility] 00:19:00 15:50:00 Encounter [facility] 2023-03-02 2023-03-07 Inpatient ER JAMEL [facility] Orthopaedic [id number] [facility] 00:19:00 15:50:00 , HCITO 2023-03-02 2023-03-02 Outpatient FOG_A_Provi AOSM AOSM [id number] Christine 00:00:00 00:00:00 ami [id number] Orthop e dic Sports Medicin e 2022-07-17 2022-07-17 [facility] [id number] Univers 06:33:00 08:54:00 Encounter Justin [place] [id number] [place] [id number] [facility] 071 Branch 2022-07-17 2022-07-17 Outpatient R [facility] ANS [id number] Univers 06:33:00 08:54:00 JUSTIN ity of [facility] 2022-07-17 2022-07-17 Surgery [facility] [id number] Univers 07:15:00 08:52:00 Justin S [place] [id number] [place] [id number] [facility] 020 Branch 2022-07-17 2022-07-17 Orders Doctor TOÑO [id number] Univers 00:00:00 00:00:00 Only Unassigned, HARDY 350.1.13.10 ity of [facility] 4.2.7.2.686 Daniele as [id number] [facility] 009 Branch 2022-07-14 2022-07-14 [facility] [id number] Univers 08:15:00 08:15:00 JUSTIN ity [facility] 2021-03-02 2021-03-02 Hospital Radiology [facility] [id number] Univers 12:13:44 23:59:00 Encounter [place] 350.1.13.10 [place] [id number] [facility] 807 Branch 2021-03-02 2021-03-02 Outpatient R RADIOLOGY [facility] [id number] Univers 00:00:00 00:00:00 ity [facility] Results Test Description Test Time Test Comments Results Result Comments Source CBC (HEMOGRAM ONLY) 2023-07-09 05:27:55 Test Item Value Reference Range Interpretation Comme nts WHITE BLOOD CELL COUNT (BEAKER) (test code = 775) 9.6 K/ L 3.5- 10.5 RED BLOOD CELL COUNT (BEAKER) (test code = 761) 3.50 M/ L 3.93-5 .22 L HEMOGLOBIN (BEAKER) (test code = 410) 9.6 GM/DL 11.2-15.7 L HEMATOCRIT (BEAKER) (test code = 411) 32.4 % 34.1-44.9 L MEAN CORPUSCULAR VOLUME (BEAKER) (test code = 753) 93 fL 79- 95 MEAN CORPUSCULAR HEMOGLOBIN (BEAKER) (test code = 751) 27.4 pg 25.6-32.2 MEAN CORPUSCULAR HEMOGLOBIN CONC (BEAKER) (test code = 752) 29.6 GM/DL 32.2-35.5 L RED CELL DISTRIBUTION WIDTH (BEAKER) (test code = 412) 16.5 % 11.7-14.4 H PLATELET COUNT (BEAKER) (test code = 756) 382 K/CU MM 150-450 MEAN PLATELET VOLUME (BEAKER) (test code = 754) 9.3 fL 9.4-12 .3 L NUCLEATED RED BLOOD CELLS (BEAKER) (test code = 413) 0 /100 WBC 0 -0 BASIC METABOLIC [id number] 05:19:49 Test Item Value Reference Range Interpretation Comments SODIUM (BEAKER) 138 meq/L 136-145 (test code = 381) POTASSIUM 3.9 meq/L 3.5-5.1 (BEAKER) (test code = 379) CHLORIDE (BEAKER) 106 meq/L 98-107 (test code = 382) CO2 (BEAKER) 25 meq/L 22-29 (test code = 355) BLOOD UREA 19 mg/dL 7-21 NITROGEN (BEAKER) (test code = 354) CREATININE 0.60 mg/dL 0.57-1.25 (BEAKER) (test code = 358) GLUCOSE RANDOM 142 mg/dL 70-105 H (BEAKER) (test code = [...] not appl icable for dialysis patien ts [place] [employer] ID - adminBASIC METABOLIC [id number] 10:55:58 Test Item Value Reference Range Interpretation Comments SODIUM (BEAKER) 138 meq/L 136-145 (test code = 381) POTASSIUM 4.5 meq/L 3.5-5.1 (BEAKER) (test code = 379) CHLORIDE (BEAKER) 101 meq/L 98-107 (test code = 382) CO2 (BEAKER) 30 meq/L 22-29 H (test code = 355) BLOOD UREA 16 mg/dL 7-21 NITROGEN (BEAKER) (test code = 354) CREATININE 0.66 mg/dL 0.57-1.25 (BEAKER) (test code = 358) GLUCOSE RANDOM 166 mg/dL 70-105 H (BEAKER) (test code = 652) CALCIUM (BEAKER) 9.3 mg/dL 8.4-10.2 (test code = 697) EGFR [...] not appl icable for dialysis patien ts [place] [employer] ID - [id number] (HEMOGRAM ONLY)2023-07-05 10:42:58 Test Item Value Reference Range Interpretation Comments WHITE BLOOD CELL COUNT (BEAKER) 9.9 K/ L 3.5-10.5 (test code = 775) RED BLOOD CELL COUNT (BEAKER) 3.43 M/ L 3.93-5.22 L (test code = 761) HEMOGLOBIN (BEAKER) (test code = 10.2 GM/DL 11.2-15.7 L 410) HEMATOCRIT (BEAKER) (test code = 32.2 % 34.1-44.9 L 411) MEAN CORPUSCULAR VOLUME (BEAKER) 94 fL 79-95 (test code = 753) MEAN CORPUSCULAR HEMOGLOBIN 29.7 pg 25.6-32.2 (BEAKER) (test code = 751) MEAN CORPUSCULAR HEMOGLOBIN CONC 31.7 GM/DL 32.2-35.5 L (BEAKER) (test code = 752) RED CELL DISTRIBUTION WIDTH 16.9 % 11.7-14.4 H (BEAKER) (test code = 412) PLATELET COUNT (BEAKER) (test 430 K/CU MM 150-450 code = 756) MEAN PLATELET VOLUME (BEAKER) 9.0 fL 9.4-12.3 L (test code = 754) NUCLEATED RED BLOOD CELLS 0 /100 WBC 0-0 (BEAKER) (test code = 413) CREATINE KINASE (CK)2023-07-04 05:33:12 Test Item Value Reference Range Interpretation Comments CREATINE KINASE TOTAL (BEAKER) (test 19 U/L 29-200 L code = 380) [facility] ID - EMBASIC METABOLIC [id number] 05:31:28 Test Item Value Reference Range Interpretation Comments SODIUM (BEAKER) 138 meq/L 136-145 (test code = 381) POTASSIUM 4.2 meq/L 3.5-5.1 (BEAKER) (test code = 379) CHLORIDE (BEAKER) 103 meq/L 98-107 (test code = 382) CO2 (BEAKER) 27 meq/L 22-29 (test code = 355) BLOOD UREA 19 mg/dL 7-21 NITROGEN (BEAKER) (test code = 354) CREATININE 0.65 mg/dL 0.57-1.25 (BEAKER) (test code = 358) [...] not appl icable for dialysis patien ts [facility] ID - EMCBC (HEMOGRAM ONLY)2023-07-04 05:13:40 Test Item Value Reference Range Interpretation Comments WHITE BLOOD CELL COUNT (BEAKER) 10.0 K/ L 3.5-10.5 (test code = 775) RED BLOOD CELL COUNT (BEAKER) 2.97 M/ L 3.93-5.22 L (test code = 761) HEMOGLOBIN (BEAKER) (test code = 8.4 GM/DL 11.2-15.7 L 410) HEMATOCRIT (BEAKER) (test code = 26.9 % 34.1-44.9 L 411) MEAN CORPUSCULAR VOLUME (BEAKER) 91 fL 79-95 (test code = 753) MEAN CORPUSCULAR HEMOGLOBIN 28.3 pg 25.6-32.2 (BEAKER) (test code = 751) MEAN CORPUSCULAR HEMOGLOBIN CONC 31.2 GM/DL 32.2-35.5 L (BEAKER) (test code = 752) RED CELL DISTRIBUTION WIDTH 17.2 % 11.7-14.4 H (BEAKER) (test code = 412) PLATELET COUNT (BEAKER) (test 436 K/CU MM 150-450 code = 756) MEAN PLATELET VOLUME (BEAKER) 9.4 fL 9.4-12.3 (test code = 754) NUCLEATED RED BLOOD CELLS 0 /100 WBC 0-0 (BEAKER) (test code = 413) C-REACTIVE [id number] 11:54:56 Test Item Value Reference Range Interpretation Comments C-REACTIVE PROTEIN (BEAKER) (test 0.55 mg/dL 0.00-0.50 H code = 676) [facility] ID - EMCBC W/PLT COUNT & AUTO [id number] 03:58:24 Test Item Value Reference Range Interpretation Comments WHITE BLOOD CELL COUNT (BEAKER) 12.6 K/ L 3.5-10.5 H (test code = 775) RED BLOOD CELL COUNT (BEAKER) 2.87 M/ L 3.93-5.22 L (test code = 761) HEMOGLOBIN (BEAKER) (test code = 7.9 GM/DL 11.2-15.7 L 410) HEMATOCRIT (BEAKER) (test code = 26.3 % 34.1-44.9 L 411) MEAN CORPUSCULAR VOLUME (BEAKER) 92 fL 79-95 (test code = 753) MEAN CORPUSCULAR HEMOGLOBIN 27.5 pg 25.6-32.2 (BEAKER) (test code = 751) MEAN CORPUSCULAR HEMOGLOBIN CONC 30.0 GM/DL 32.2-35.5 L (BEAKER) (test code = 752) RED CELL DISTRIBUTION WIDTH 16.8 % 11.7-14.4 H (BEAKER) (test code = 412) PLATELET COUNT (BEAKER) (test 454 K/CU MM 150-450 H code = 756) MEAN PLATELET VOLUME (BEAKER) 9.3 fL 9.4-12.3 L (test code = 754) NUCLEATED RED BLOOD CELLS 0 /100 WBC 0-0 (BEAKER) (test code = 413) NEUTROPHILS RELATIVE PERCENT 58 % (BEAKER) (test code = 429) LYMPHOCYTES RELATIVE PERCENT 25 % (BEAKER) (test code = 430) MONOCYTES RELATIVE PERCENT 9 % (BEAKER) (test code = 431) EOSINOPHILS RELATIVE PERCENT 3 % (BEAKER) (test code = 432) BASOPHILS RELATIVE PERCENT 1 % (BEAKER) (test code = 437) NEUTROPHILS ABSOLUTE COUNT 7.37 K/ L 1.56-6.13 H (BEAKER) (test code = 670) LYMPHOCYTES ABSOLUTE COUNT 3.19 K/ L 1.18-3.74 (BEAKER) (test code = 414) MONOCYTES ABSOLUTE COUNT (BEAKER) 1.13 K/ L 0.24-0.36 H (test code = 415) EOSINOPHILS ABSOLUTE COUNT 0.31 K/ L 0.04-0.36 (BEAKER) (test code = 416) BASOPHILS ABSOLUTE COUNT (BEAKER) 0.06 K/ L 0.01-0.08 (test code = 417) IMMATURE GRANULOCYTES-RELATIVE 4.30 % 0.00-1.00 H PERCENT (BEAKER) (test code = 2801) CBC (HEMOGRAM ONLY)2023-07-02 05:14:04 Test Item Value Reference Range Interpretation Comments WHITE BLOOD CELL COUNT (BEAKER) 12.2 K/ L 3.5-10.5 H (test code = 775) RED BLOOD CELL COUNT (BEAKER) 2.89 M/ L 3.93-5.22 L (test code = 761) HEMOGLOBIN (BEAKER) (test code = 8.1 GM/DL 11.2-15.7 L 410) HEMATOCRIT (BEAKER) (test code = 27.2 % 34.1-44.9 L 411) MEAN CORPUSCULAR VOLUME (BEAKER) 94 fL 79-95 (test code = 753) MEAN CORPUSCULAR HEMOGLOBIN 28.0 pg 25.6-32.2 (BEAKER) (test code = 751) MEAN CORPUSCULAR HEMOGLOBIN CONC 29.8 GM/DL 32.2-35.5 L (BEAKER) (test code = 752) RED CELL DISTRIBUTION WIDTH 16.6 % 11.7-14.4 H (BEAKER) (test code = 412) PLATELET COUNT (BEAKER) (test 455 K/CU MM 150-450 H code = 756) MEAN PLATELET VOLUME (BEAKER) 8.9 fL 9.4-12.3 L (test code = 754) NUCLEATED RED BLOOD CELLS 0 /100 WBC 0-0 (BEAKER) (test code = 413) BASIC METABOLIC [id number] 06:28:50 Test Item Value Reference Range Interpretation Comments SODIUM (BEAKER) 139 meq/L 136-145 (test code = 381) POTASSIUM 4.1 meq/L 3.5-5.1 (BEAKER) (test code = 379) CHLORIDE (BEAKER) 104 meq/L 98-107 (test code = 382) CO2 (BEAKER) 27 meq/L 22-29 (test code = 355) BLOOD UREA 18 mg/dL 7-21 NITROGEN (BEAKER) (test code = 354) CREATININE 0.60 mg/dL 0.57-1.25 (BEAKER) (test code = 358) [...] not appl icable for dialysis patien ts [facility] ID - emCBC (HEMOGRAM ONLY)2023-06-30 06:08:17 Test Item Value Reference Range Interpretation Comments WHITE BLOOD CELL COUNT (BEAKER) 10.7 K/ L 3.5-10.5 H (test code = 775) RED BLOOD CELL COUNT (BEAKER) 2.83 M/ L 3.93-5.22 L (test code = 761) HEMOGLOBIN (BEAKER) (test code = 7.8 GM/DL 11.2-15.7 L 410) HEMATOCRIT (BEAKER) (test code = 25.7 % 34.1-44.9 L 411) MEAN CORPUSCULAR VOLUME (BEAKER) 91 fL 79-95 (test code = 753) MEAN CORPUSCULAR HEMOGLOBIN 27.6 pg 25.6-32.2 (BEAKER) (test code = 751) MEAN CORPUSCULAR HEMOGLOBIN CONC 30.4 GM/DL 32.2-35.5 L (BEAKER) (test code = 752) RED CELL DISTRIBUTION WIDTH 14.6 % 11.7-14.4 H (BEAKER) (test code = 412) PLATELET COUNT (BEAKER) (test 499 K/CU MM 150-450 H code = 756) MEAN PLATELET VOLUME (BEAKER) 9.1 fL 9.4-12.3 L (test code = 754) NUCLEATED RED BLOOD CELLS 0 /100 WBC 0-0 (BEAKER) (test code = 413) XR CHEST 1 VIEW PORTABLE / [id number] 17:58:32 [facility]ENTER[facility]ALIN [facility]ILLIS : 1950 Sex: FEXAMINATION: XR CHEST 1 VIEW PORTABLE / BEDSIDE INDICATION: Post right arm PICC insertion. Need PICC tip positionplease.COMPARISON: None FINDINGS:LINES/TUBES: A right arm PICC is noted with its tip overlying thecavoatrial junction. LUNGS: The lungs are well inflated. No focal airspace consolidation.PLEURA: No pleural effusion or pneumothorax.MEDIASTINUM: The cardiomediastinal silhouette appears normal in size andshape.BONES/SOFT TISSUES: No acute osseous injury.ABDOMEN: No free air under the diaphragm.IMPRESSION:No focal pneumonia or airspace edema.Status post lumbar fusion with postoperative changes.Electronically Signed By: Lucy Rosales06/29/2023 18:00 CDTWorkstation Name: [id number] 12:31:01 Test Item Value Reference Range Interpretation Comments CULTURE (BEAKER) (test No anaerobes isolated code = 1095) ANAEROBIC [id number] 12:30:35 Test Item Value Reference Range Interpretation Comments CULTURE (BEAKER) (test No anaerobes isolated code = 1095) ANAEROBIC [id number] 12:30:19 Test Item Value Reference Range Interpretation Comments CULTURE (BEAKER) (test No anaerobes isolated code = 1095) ANAEROBIC [id number] 12:29:02 Test Item Value Reference Range Interpretation Comments CULTURE (BEAKER) (test No anaerobes isolated code = 1095) PERIPHERAL BLOOD SMEAR - PATHOLOGIST [id number] 17:14:45 Test Item Value Reference Range Interpretation Comments PERIPHERAL SMR Normocytic normochromic REVIEW (BEAKER) anemia with moderate (test code = 2640) anisopoikilocytosis and few schistocytes (average 1 to 2 per HPF). WBCs include predominantly mature granulocytes. Adequate platelets. [id number] [place], 112 (BEAKER) (test M.D code = 4639) SURGICALLY OBTAINED CULTURE + GRAM [id number] 15:13:08 Test Item Value Reference Range Interpretation Comments CULTURE (BEAKER) (test code No growth = 1095) GRAM STAIN RESULT (BEAKER) 1+ WBCs (test code = 1123) GRAM STAIN RESULT (BEAKER) No organisms seen (test code = 65033) SURGICALLY OBTAINED CULTURE + GRAM [id number] 15:13:07 Test Item Value Reference Range Interpretation Comments CULTURE (BEAKER) (test code No growth = 1095) GRAM STAIN RESULT (BEAKER) <1+ WBCs (test code = 1123) GRAM STAIN RESULT (BEAKER) No organisms seen (test code = 48148) [id number] 14:24:14 Test Item Value Reference Range Interpretation Comments HAPTOGLOBIN (BEAKER) (test code = 348 mg/dL 14-258 H 366) [facility] ID - ADMINOperator ID - ADMINCREATINE KINASE (CK)2023-06-27 14:12:52 Test Item Value Reference Range Interpretation Comments CREATINE KINASE TOTAL (BEAKER) (test 69 U/L 29-200 code = 380) [facility] ID - emSURGICALLY OBTAINED CULTURE + GRAM [id number] 12:06:43 Test Item Value Reference Interpretation Comments Range CULTURE (BEAKER) STAPHYLOCOCCUS A <1+ Staph ylococcus (test code = 1095) EPIDERMIDIS epidermid is Clindamycin (test S code = 10) Erythromycin (test R code = 4) Linezolid (test code S = 40) Nitrofurantoin (test S code = 23) Oxacillin (test code R = 14) Rifampin (test code = S 43) Tetracycline (test S code = 2) Trimethoprim + S Sulfamethoxazole (test code = 47) Vancomycin (test code S = 13) GRAM STAIN RESULT No WBCs (BEAKER) (test code = 1123) GRAM STAIN RESULT No organisms seen (BEAKER) (test code = 072761) VITAMIN [id number] 06:59:00 Test Item Value Reference Range Interpretation Comments VITAMIN B12 (BEAKER) (test code = 306 pg/mL 213-816 774) [facility] ID - [id number] 06:59:00 Test Item Value Reference Range Interpretation Comments FERRITIN (BEAKER) (test code = 71.12 ng/mL 5.00-275.00 361) [facility] ID - emIRON, TIBC, % SAT. (WITHOUT FERRITIN)2023-06-27 06:31:54 Test Item Value Reference Range Interpretation Comments IRON (BEAKER) (test code = 547) 22.0 ug/dL 40.0-160.0 L TOTAL IRON BINDING CAPACITY 275 ug/dL 250-450 (BEAKER) (test code = 769) IRON % SATURATION (2) (BEAKER) 8 % 20-55 L (test code = 2590) [facility] ID - emCOMPREHENSIVE METABOLIC [id number] 06:23:00 Test Item Value Reference Range Interpretation Comments TOTAL PROTEIN 6.1 gm/dL 6.0-8.3 (BEAKER) (test code = 770) ALBUMIN (BEAKER) 3.0 g/dL 3.5-5.0 L (test code = 1145) ALKALINE 64 U/L 40-150 PHOSPHATASE (BEAKER) (test code = 346) BILIRUBIN TOTAL 0.1 mg/dL 0.2-1.2 L (BEAKER) (test code = 377) SODIUM (BEAKER) 140 meq/L 136-145 (test code = 381) POTASSIUM (BEAKER) 4.5 meq/L 3.5-5.1 (test code = 379) CHLORIDE (BEAKER) 103 meq/L 98-107 (test code = 382) CO2 (BEAKER) (test 31 meq/L 22-29 H code = 355) BLOOD UREA 12 mg/dL 7-21 NITROGEN (BEAKER) (test code = 354) CREATININE 0.61 mg/dL 0.57-1.25 (BEAKER) (test code = 358) GLUCOSE RANDOM 104 mg/dL 70-105 (BEAKER) (test code = 652) CALCIUM (BEAKER) 8.6 mg/dL 8.4-10.2 (test code = 697) AST (SGOT) 13 U/L 5-34 (BEAKER) (test code = 353) ALT (SGPT) 7 U/L 6-55 (BEAKER) (test code = 347) EGFR (BEAKER) 96 Interpretatio n of eGFR [...] not appl icable for dialysis patien ts [facility] ID - emCBC W/PLT COUNT & AUTO [id number] 06:03:04 Test Item Value Reference Range Interpretation Comments WHITE BLOOD CELL COUNT (BEAKER) 8.7 K/ L 3.5-10.5 (test code = 775) RED BLOOD CELL COUNT (BEAKER) 2.67 M/ L 3.93-5.22 L (test code = 761) HEMOGLOBIN (BEAKER) (test code = 7.4 GM/DL 11.2-15.7 L 410) HEMATOCRIT (BEAKER) (test code = 24.2 % 34.1-44.9 L 411) MEAN CORPUSCULAR VOLUME (BEAKER) 91 fL 79-95 (test code = 753) MEAN CORPUSCULAR HEMOGLOBIN 27.7 pg 25.6-32.2 (BEAKER) (test code = 751) MEAN CORPUSCULAR HEMOGLOBIN CONC 30.6 GM/DL 32.2-35.5 L (BEAKER) (test code = 752) RED CELL DISTRIBUTION WIDTH 13.8 % 11.7-14.4 (BEAKER) (test code = 412) PLATELET COUNT (BEAKER) (test 418 K/CU MM 150-450 code = 756) MEAN PLATELET VOLUME (BEAKER) 9.1 fL 9.4-12.3 L (test code = 754) NUCLEATED RED BLOOD CELLS 0 /100 WBC 0-0 (BEAKER) (test code = 413) NEUTROPHILS RELATIVE PERCENT 54 % (BEAKER) (test code = 429) LYMPHOCYTES RELATIVE PERCENT 32 % (BEAKER) (test code = 430) MONOCYTES RELATIVE PERCENT 8 % (BEAKER) (test code = 431) EOSINOPHILS RELATIVE PERCENT 5 % (BEAKER) (test code = 432) BASOPHILS RELATIVE PERCENT 0 % (BEAKER) (test code = 437) NEUTROPHILS ABSOLUTE COUNT 4.65 K/ L 1.56-6.13 (BEAKER) (test code = 670) LYMPHOCYTES ABSOLUTE COUNT 2.77 K/ L 1.18-3.74 (BEAKER) (test code = 414) MONOCYTES ABSOLUTE COUNT (BEAKER) 0.69 K/ L 0.24-0.36 H (test code = 415) EOSINOPHILS ABSOLUTE COUNT 0.41 K/ L 0.04-0.36 H (BEAKER) (test code = 416) BASOPHILS ABSOLUTE COUNT (BEAKER) 0.03 K/ L 0.01-0.08 (test code = 417) IMMATURE GRANULOCYTES-RELATIVE 1.60 % 0.00-1.00 H PERCENT (BEAKER) (test code = 2803) LACTATE DEHYDROGENASE (LDH)2023-06-26 16:00:34 Test Item Value Reference Range Interpretation Comments LACTATE DEHYDROGENASE (BEAKER) (test 164 U/L 125-220 code = 635) [facility] ID - EOSURGICALLY OBTAINED CULTURE + GRAM [id number] 12:08:11 Test Item Value Reference Interpretation Comments Range CULTURE (BEAKER) STAPHYLOCOCCUS A 1+ Staphy lococcus (test code = 1095) PSEUDINTERMEDIUS pseud intermedius* - Staphylococcu s intermedius barry up Ciprofloxacin (test S code = 7) Clindamycin (test S code = 10) Daptomycin (test S code = 59) Erythromycin (test S code = 4) Gentamicin (test S code = 18) Levofloxacin (test S code = 22) Linezolid (test code S = 40) Nitrofurantoin (test S code = 23) Oxacillin (test code S = 14) Rifampin (test code S = 43) Tetracycline (test S code = 2) Tigecycline (test S code = 133) Trimethoprim + S Sulfamethoxazole (test code = 47) Vancomycin (test S code = 13) GRAM STAIN RESULT 1+ WBCs (BEAKER) (test code = 1123) GRAM STAIN RESULT No organisms seen (BEAKER) (test code = 475744) CBC W/PLT COUNT & AUTO [id number] 07:08:40 Test Item Value Reference Range Interpretation Comments WHITE BLOOD CELL COUNT (BEAKER) 9.3 K/ L 3.5-10.5 (test code = 775) RED BLOOD CELL COUNT (BEAKER) 2.53 M/ L 3.93-5.22 L (test code = 761) HEMOGLOBIN (BEAKER) (test code = 6.9 GM/DL 11.2-15.7 L 410) HEMATOCRIT (BEAKER) (test code = 22.8 % 34.1-44.9 L 411) MEAN CORPUSCULAR VOLUME (BEAKER) 90 fL 79-95 (test code = 753) MEAN CORPUSCULAR HEMOGLOBIN 27.3 pg 25.6-32.2 (BEAKER) (test code = 751) MEAN CORPUSCULAR HEMOGLOBIN CONC 30.3 GM/DL 32.2-35.5 L (BEAKER) (test code = 752) RED CELL DISTRIBUTION WIDTH 13.7 % 11.7-14.4 (BEAKER) (test code = 412) PLATELET COUNT (BEAKER) (test 360 K/CU MM 150-450 code = 756) MEAN PLATELET VOLUME (BEAKER) 8.9 fL 9.4-12.3 L (test code = 754) NUCLEATED RED BLOOD CELLS 0 /100 WBC 0-0 (BEAKER) (test code = 413) NEUTROPHILS RELATIVE PERCENT 55 % (BEAKER) (test code = 429) LYMPHOCYTES RELATIVE PERCENT 29 % (BEAKER) (test code = 430) MONOCYTES RELATIVE PERCENT 10 % (BEAKER) (test code = 431) EOSINOPHILS RELATIVE PERCENT 4 % (BEAKER) (test code = 432) BASOPHILS RELATIVE PERCENT 0 % (BEAKER) (test code = 437) NEUTROPHILS ABSOLUTE COUNT 5.06 K/ L 1.56-6.13 (BEAKER) (test code = 670) LYMPHOCYTES ABSOLUTE COUNT 2.72 K/ L 1.18-3.74 (BEAKER) (test code = 414) MONOCYTES ABSOLUTE COUNT (BEAKER) 0.90 K/ L 0.24-0.36 H (test code = 415) EOSINOPHILS ABSOLUTE COUNT 0.39 K/ L 0.04-0.36 H (BEAKER) (test code = 416) BASOPHILS ABSOLUTE COUNT (BEAKER) 0.04 K/ L 0.01-0.08 (test code = 417) IMMATURE GRANULOCYTES-RELATIVE 1.80 % 0.00-1.00 H PERCENT (BEAKER) (test code = 2801) BASIC METABOLIC [id number] 06:14:24 Test Item Value Reference Range Interpretation Comments SODIUM (BEAKER) 138 meq/L 136-145 (test code = 381) POTASSIUM 4.2 meq/L 3.5-5.1 (BEAKER) (test code = 379) CHLORIDE (BEAKER) 104 meq/L 98-107 (test code = 382) CO2 (BEAKER) 27 meq/L 22-29 (test code = 355) BLOOD UREA 15 mg/dL 7-21 NITROGEN (BEAKER) (test code = 354) CREATININE 0.70 mg/dL 0.57-1.25 (BEAKER) (test code = 358) GLUCOSE RANDOM 153 mg/dL 70-105 H (BEAKER) (test code = 652) CALCIUM (BEAKER) 7.9 mg/dL 8.4-10.2 L (test code = 697) EGFR (BEAKER) 92 Interpretatio n of eGFR (test code = mL/min/1.73 values Stage De scription 1092) sq m Result G1 Renee l or high >=90 G2 Mildly decreased 60-89 G3a Mild ly to moderately 45-5 9 G3b Moderately to [...] not appl icable for dialysis patien ts [facility] ID - ADMINCBC W/PLT COUNT & AUTO [id number] 06:02:07 Test Item Value Reference Range Interpretation Comments WHITE BLOOD CELL COUNT (BEAKER) 8.8 K/ L 3.5-10.5 (test code = 775) RED BLOOD CELL COUNT (BEAKER) 2.38 M/ L 3.93-5.22 L (test code = 761) HEMOGLOBIN (BEAKER) (test code = 6.7 GM/DL 11.2-15.7 L 410) HEMATOCRIT (BEAKER) (test code = 21.7 % 34.1-44.9 L 411) MEAN CORPUSCULAR VOLUME (BEAKER) 91 fL 79-95 (test code = 753) MEAN CORPUSCULAR HEMOGLOBIN 28.2 pg 25.6-32.2 (BEAKER) (test code = 751) MEAN CORPUSCULAR HEMOGLOBIN CONC 30.9 GM/DL 32.2-35.5 L (BEAKER) (test code = 752) RED CELL DISTRIBUTION WIDTH 13.8 % 11.7-14.4 (BEAKER) (test code = 412) PLATELET COUNT (BEAKER) (test 387 K/CU MM 150-450 code = 756) MEAN PLATELET VOLUME (BEAKER) 9.3 fL 9.4-12.3 L (test code = 754) NUCLEATED RED BLOOD CELLS 0 /100 WBC 0-0 (BEAKER) (test code = 413) NEUTROPHILS RELATIVE PERCENT 57 % (BEAKER) (test code = 429) LYMPHOCYTES RELATIVE PERCENT 29 % (BEAKER) (test code = 430) MONOCYTES RELATIVE PERCENT 8 % (BEAKER) (test code = 431) EOSINOPHILS RELATIVE PERCENT 4 % (BEAKER) (test code = 432) BASOPHILS RELATIVE PERCENT 0 % (BEAKER) (test code = 437) NEUTROPHILS ABSOLUTE COUNT 5.01 K/ L 1.56-6.13 (BEAKER) (test code = 670) LYMPHOCYTES ABSOLUTE COUNT 2.57 K/ L 1.18-3.74 (BEAKER) (test code = 414) MONOCYTES ABSOLUTE COUNT (BEAKER) 0.73 K/ L 0.24-0.36 H (test code = 415) EOSINOPHILS ABSOLUTE COUNT 0.31 K/ L 0.04-0.36 (BEAKER) (test code = 416) BASOPHILS ABSOLUTE COUNT (BEAKER) 0.03 K/ L 0.01-0.08 (test code = 417) IMMATURE GRANULOCYTES-RELATIVE 1.40 % 0.00-1.00 H PERCENT (BEAKER) (test code = 2801) SPIN/CONCENTRATION [id number] 10:37:35 Test Item Value Reference Range Interpretation Comments CONCENTRATION CHARGED (BEAKER) (test Done code = 8927) SPIN/CONCENTRATION [id number] 10:37:17 Test Item Value Reference Range Interpretation Comments CONCENTRATION CHARGED (BEAKER) (test Done code = 2610) CBC W/PLT COUNT & AUTO [id number] 06:01:17 Test Item Value Reference Range Interpretation Comments WHITE BLOOD CELL COUNT (BEAKER) 14.4 K/ L 3.5-10.5 H (test code = 775) RED BLOOD CELL COUNT (BEAKER) 2.58 M/ L 3.93-5.22 L (test code = 761) HEMOGLOBIN (BEAKER) (test code = 7.1 GM/DL 11.2-15.7 L 410) HEMATOCRIT (BEAKER) (test code = 23.1 % 34.1-44.9 L 411) MEAN CORPUSCULAR VOLUME (BEAKER) 90 fL 79-95 (test code = 753) MEAN CORPUSCULAR HEMOGLOBIN 27.5 pg 25.6-32.2 (BEAKER) (test code = 751) MEAN CORPUSCULAR HEMOGLOBIN CONC 30.7 GM/DL 32.2-35.5 L (BEAKER) (test code = 752) RED CELL DISTRIBUTION WIDTH 13.3 % 11.7-14.4 (BEAKER) (test code = 412) PLATELET COUNT (BEAKER) (test 410 K/CU MM 150-450 code = 756) MEAN PLATELET VOLUME (BEAKER) 9.1 fL 9.4-12.3 L (test code = 754) NUCLEATED RED BLOOD CELLS 0 /100 WBC 0-0 (BEAKER) (test code = 413) NEUTROPHILS RELATIVE PERCENT 75 % (BEAKER) (test code = 429) LYMPHOCYTES RELATIVE PERCENT 16 % (BEAKER) (test code = 430) MONOCYTES RELATIVE PERCENT 8 % (BEAKER) (test code = 431) EOSINOPHILS RELATIVE PERCENT 0 % (BEAKER) (test code = 432) BASOPHILS RELATIVE PERCENT 0 % (BEAKER) (test code = 437) NEUTROPHILS ABSOLUTE COUNT 10.74 K/ L 1.56-6.13 H (BEAKER) (test code = 670) LYMPHOCYTES ABSOLUTE COUNT 2.29 K/ L 1.18-3.74 (BEAKER) (test code = 414) MONOCYTES ABSOLUTE COUNT (BEAKER) 1.18 K/ L 0.24-0.36 H (test code = 415) EOSINOPHILS ABSOLUTE COUNT 0.02 K/ L 0.04-0.36 L (BEAKER) (test code = 416) BASOPHILS ABSOLUTE COUNT (BEAKER) 0.02 K/ L 0.01-0.08 (test code = 417) IMMATURE GRANULOCYTES-RELATIVE 0.70 % 0.00-1.00 PERCENT (BEAKER) (test code = 2801) BASIC METABOLIC [id number] 05:53:12 Test Item Value Reference Range Interpretation Comments SODIUM (BEAKER) 138 meq/L 136-145 (test code = 381) POTASSIUM 4.5 meq/L 3.5-5.1 (BEAKER) (test code = 379) CHLORIDE (BEAKER) 104 meq/L 98-107 (test code = 382) CO2 (BEAKER) 30 meq/L 22-29 H (test code = 355) BLOOD UREA 17 mg/dL 7-21 NITROGEN (BEAKER) (test code = 354) CREATININE 0.71 mg/dL 0.57-1.25 (BEAKER) (test code = 358) GLUCOSE RANDOM 184 mg/dL 70-105 H (BEAKER) (test code = 652) CALCIUM (BEAKER) 8.3 mg/dL 8.4-10.2 L (test code = 697) EGFR (BEAKER) 91 [...] not appl icable for dialysis patien ts [facility] ID - BSBASIC METABOLIC [id number] 05:10:04 Test Item Value Reference Range Interpretation Comments SODIUM (BEAKER) 136 meq/L 136-145 (test code = 381) POTASSIUM 4.0 meq/L 3.5-5.1 (BEAKER) (test code = 379) CHLORIDE (BEAKER) 101 meq/L 98-107 (test code = 382) CO2 (BEAKER) 26 meq/L 22-29 (test code = 355) BLOOD UREA 12 mg/dL 7-21 NITROGEN (BEAKER) (test code = 354) CREATININE 0.61 mg/dL 0.57-1.25 (BEAKER) (test code = 358) GLUCOSE RANDOM 130 mg/dL 70-105 H (BEAKER) (test code = [...] not appl icable for dialysis patien ts [facility] ID - ADMINPT/[id number] 04:50:39 Test Item Value Reference Range Interpretation Comments PROTIME (BEAKER) (test code = 14.6 seconds 11.9-14.2 H 759) INR (BEAKER) (test code = 370) 1.14 <=5.90 PARTIAL THROMBOPLASTIN TIME 32.4 seconds 22.5-36.0 (BEAKER) (test code = 760) RECOMMENDED COUMADIN/WARFARIN INR THERAPY RANGESSTANDARD DOSE: 2.0 - 3.0 Includes: PROPHYLAXIS for venous thrombosis, systemic embolization; TREATMENT for venous thrombosis and/or pulmonary embolus.HIGH RISK: Target INR is 2.5-3.5 for patients with mechanical heart valves.CBC W/PLT COUNT & AUTO [id number] 04:45:38 Test Item Value Reference Range Interpretation Comments WHITE BLOOD CELL COUNT (BEAKER) 8.4 K/ L 3.5-10.5 (test code = 775) RED BLOOD CELL COUNT (BEAKER) 3.35 M/ L 3.93-5.22 L (test code = 761) HEMOGLOBIN (BEAKER) (test code = 9.1 GM/DL 11.2-15.7 L 410) HEMATOCRIT (BEAKER) (test code = 29.4 % 34.1-44.9 L 411) MEAN CORPUSCULAR VOLUME (BEAKER) 88 fL 79-95 (test code = 753) MEAN CORPUSCULAR HEMOGLOBIN 27.2 pg 25.6-32.2 (BEAKER) (test code = 751) MEAN CORPUSCULAR HEMOGLOBIN CONC 31.0 GM/DL 32.2-35.5 L (BEAKER) (test code = 752) RED CELL DISTRIBUTION WIDTH 13.2 % 11.7-14.4 (BEAKER) (test code = 412) PLATELET COUNT (BEAKER) (test 454 K/CU MM 150-450 H code = 756) MEAN PLATELET VOLUME (BEAKER) 9.2 fL 9.4-12.3 L (test code = 754) NUCLEATED RED BLOOD CELLS 0 /100 WBC 0-0 (BEAKER) (test code = 413) NEUTROPHILS RELATIVE PERCENT 73 % (BEAKER) (test code = 429) LYMPHOCYTES RELATIVE PERCENT 16 % (BEAKER) (test code = 430) MONOCYTES RELATIVE PERCENT 8 % (BEAKER) (test code = 431) EOSINOPHILS RELATIVE PERCENT 2 % (BEAKER) (test code = 432) BASOPHILS RELATIVE PERCENT 0 % (BEAKER) (test code = 437) NEUTROPHILS ABSOLUTE COUNT 6.12 K/ L 1.56-6.13 (BEAKER) (test code = 670) LYMPHOCYTES ABSOLUTE COUNT 1.32 K/ L 1.18-3.74 (BEAKER) (test code = 414) MONOCYTES ABSOLUTE COUNT (BEAKER) 0.67 K/ L 0.24-0.36 H (test code = 415) EOSINOPHILS ABSOLUTE COUNT 0.14 K/ L 0.04-0.36 (BEAKER) (test code = 416) BASOPHILS ABSOLUTE COUNT (BEAKER) 0.03 K/ L 0.01-0.08 (test code = 417) IMMATURE GRANULOCYTES-RELATIVE 0.80 % 0.00-1.00 PERCENT (BEAKER) (test code = 2801) XR PELVIS 1 OR 2 [id number] 14:20:56 [facility] STALIN GILLIS : 1950 Sex: FAP PELVISHISTORY: Right hip pain, right hip arthroplastyCOMPARISON: 05/26/2023FINDINGS:Single frontal view the pelvis was performed. Status post right hiptotal arthroplasty. No periprosthetic fracture is visualized. Alignmentof the hardware is unchanged. No dislocation.Partially imaged postoperative changes in the lumbar spine consistentwith prior posterior lumbar interbody fusion.Electronically Signed By: Robi Maloney06/23/2023 14:23 CDTWorkstation Name: [id number] NATRIURETIC FACTOR (BNP)2023-06-23 05:09:04 Test Item Value Reference Range Interpretation Comments B-TYPE NATRIURETIC PEPTIDE (BEAKER) 117 pg/mL 0-100 H (test code = 700) [facility] ID - ADMINCOMPREHENSIVE METABOLIC [id number] 05:02:00 Test Item Value Reference Range Interpretation Comments TOTAL PROTEIN 6.3 gm/dL 6.0-8.3 (BEAKER) (test code = 770) ALBUMIN (BEAKER) 3.1 g/dL 3.5-5.0 L (test code = 1145) ALKALINE 83 U/L 40-150 PHOSPHATASE (BEAKER) (test code = 346) BILIRUBIN TOTAL 0.1 mg/dL 0.2-1.2 L (BEAKER) (test code = 377) SODIUM (BEAKER) 142 meq/L 136-145 (test code = 381) POTASSIUM (BEAKER) 4.2 meq/L 3.5-5.1 (test code = 379) CHLORIDE (BEAKER) 104 meq/L 98-107 (test code = 382) CO2 (BEAKER) (test 30 meq/L 22-29 H code = 355) BLOOD UREA 7 mg/dL 7-21 NITROGEN (BEAKER) (test code = 354) CREATININE 0.63 mg/dL 0.57-1.25 (BEAKER) (test code = 358) GLUCOSE RANDOM 120 mg/dL 70-105 H (BEAKER) (test code = 652) CALCIUM (BEAKER) 8.8 mg/dL 8.4-10.2 (test code = 697) AST (SGOT) 12 U/L 5-34 (BEAKER) (test code = 353) ALT (SGPT) 8 U/L 6-55 (BEAKER) (test code = 347) EGFR (BEAKER) 95 Interpretatio n of eGFR [...] not appl icable for dialysis patien ts [facility] ID - [id number] 05:02:00 Test Item Value Reference Range Interpretation Comments MAGNESIUM (BEAKER) (test code = 1.8 mg/dL 1.6-2.6 627) [facility] ID - BSCBC W/PLT COUNT & AUTO [id number] 04:35:21 Test Item Value Reference Range Interpretation Comments WHITE BLOOD CELL COUNT (BEAKER) 9.4 K/ L 3.5-10.5 (test code = 775) RED BLOOD CELL COUNT (BEAKER) 3.34 M/ L 3.93-5.22 L (test code = 761) HEMOGLOBIN (BEAKER) (test code = 9.1 GM/DL 11.2-15.7 L 410) HEMATOCRIT (BEAKER) (test code = 29.7 % 34.1-44.9 L 411) MEAN CORPUSCULAR VOLUME (BEAKER) 89 fL 79-95 (test code = 753) MEAN CORPUSCULAR HEMOGLOBIN 27.2 pg 25.6-32.2 (BEAKER) (test code = 751) MEAN CORPUSCULAR HEMOGLOBIN CONC 30.6 GM/DL 32.2-35.5 L (BEAKER) (test code = 752) RED CELL DISTRIBUTION WIDTH 13.3 % 11.7-14.4 (BEAKER) (test code = 412) PLATELET COUNT (BEAKER) (test 446 K/CU MM 150-450 code = 756) MEAN PLATELET VOLUME (BEAKER) 9.0 fL 9.4-12.3 L (test code = 754) NUCLEATED RED BLOOD CELLS 0 /100 WBC 0-0 (BEAKER) (test code = 413) NEUTROPHILS RELATIVE PERCENT 74 % (BEAKER) (test code = 429) LYMPHOCYTES RELATIVE PERCENT 15 % (BEAKER) (test code = 430) MONOCYTES RELATIVE PERCENT 9 % (BEAKER) (test code = 431) EOSINOPHILS RELATIVE PERCENT 2 % (BEAKER) (test code = 432) BASOPHILS RELATIVE PERCENT 0 % (BEAKER) (test code = 437) NEUTROPHILS ABSOLUTE COUNT 6.96 K/ L 1.56-6.13 H (BEAKER) (test code = 670) LYMPHOCYTES ABSOLUTE COUNT 1.41 K/ L 1.18-3.74 (BEAKER) (test code = 414) MONOCYTES ABSOLUTE COUNT (BEAKER) 0.81 K/ L 0.24-0.36 H (test code = 415) EOSINOPHILS ABSOLUTE COUNT 0.17 K/ L 0.04-0.36 (BEAKER) (test code = 416) BASOPHILS ABSOLUTE COUNT (BEAKER) 0.03 K/ L 0.01-0.08 (test code = 417) IMMATURE GRANULOCYTES-RELATIVE 0.50 % 0.00-1.00 PERCENT (BEAKER) (test code = 2801) C-REACTIVE [id number] 23:39:19 Test Item Value Reference Range Interpretation Comments C-REACTIVE PROTEIN (BEAKER) (test 3.86 mg/dL 0.00-0.50 H code = 676) [facility] ID - ADMINCBC W/PLT COUNT & AUTO [id number] 23:18:54 Test Item Value Reference Range Interpretation Comments WHITE BLOOD CELL COUNT (BEAKER) 10.3 K/ L 3.5-10.5 (test code = 775) RED BLOOD CELL COUNT (BEAKER) 3.78 M/ L 3.93-5.22 L (test code = 761) HEMOGLOBIN (BEAKER) (test code = 10.3 GM/DL 11.2-15.7 L 410) HEMATOCRIT (BEAKER) (test code = 34.2 % 34.1-44.9 411) MEAN CORPUSCULAR VOLUME (BEAKER) 91 fL 79-95 (test code = 753) MEAN CORPUSCULAR HEMOGLOBIN 27.2 pg 25.6-32.2 (BEAKER) (test code = 751) MEAN CORPUSCULAR HEMOGLOBIN CONC 30.1 GM/DL 32.2-35.5 L (BEAKER) (test code = 752) RED CELL DISTRIBUTION WIDTH 13.4 % 11.7-14.4 (BEAKER) (test code = 412) PLATELET COUNT (BEAKER) (test 496 K/CU MM 150-450 H code = 756) MEAN PLATELET VOLUME (BEAKER) 8.9 fL 9.4-12.3 L (test code = 754) NUCLEATED RED BLOOD CELLS 0 /100 WBC 0-0 (BEAKER) (test code = 413) NEUTROPHILS RELATIVE PERCENT 62 % (BEAKER) (test code = 429) LYMPHOCYTES RELATIVE PERCENT 26 % (BEAKER) (test code = 430) MONOCYTES RELATIVE PERCENT 9 % (BEAKER) (test code = 431) EOSINOPHILS RELATIVE PERCENT 2 % (BEAKER) (test code = 432) BASOPHILS RELATIVE PERCENT 1 % (BEAKER) (test code = 437) NEUTROPHILS ABSOLUTE COUNT 6.42 K/ L 1.56-6.13 H (BEAKER) (test code = 670) LYMPHOCYTES ABSOLUTE COUNT 2.62 K/ L 1.18-3.74 (BEAKER) (test code = 414) MONOCYTES ABSOLUTE COUNT (BEAKER) 0.90 K/ L 0.24-0.36 H (test code = 415) EOSINOPHILS ABSOLUTE COUNT 0.24 K/ L 0.04-0.36 (BEAKER) (test code = 416) BASOPHILS ABSOLUTE COUNT (BEAKER) 0.05 K/ L 0.01-0.08 (test code = 417) IMMATURE GRANULOCYTES-RELATIVE 0.50 % 0.00-1.00 PERCENT (BEAKER) (test code = 2801) Tissue [id number] 18:28:20 Test Item Value Reference Range Interpretation Comments Case Report (test Surgical Pathology code = 104) Report Case: [id number] Authorizing Provider: Dimitris Parry Collected: 05/26/2023 09:42 AM MD Marly Ordering Location: [address] Received: 05/28/2023 09:38 AM Service Pathologist: Thomas Echevarria MD Specimen: Explant, FOR IDENTIFICATION DIAGNOSIS (test code j1xpsHHzSHZhp3uiFIAqgMRc = 3220) ZzEwMzNcZnRuYmpcdWMxIHtc hxRjFXycaJyoWVUdFLatXX4n gDsiyGd0rCvxSLVmyaY7yMAm AUgud7uxQBD8x7nlruhyIPJw MTjvBi6cwSQbeAuaOuGpPWLn XJv4zA85YPFgcD6ntUQxAXq5 XHBhcGVydzEyMjQwXHBhcGVy wNH3KIFiWT2wdxmfMHdhESkc JWOerfW7YVPqpRYxY2IzJBOw XA5dskshIQX9DCkvVQQaJAK1 EeYbYRIer6Brxdx7MjGovOQv XJoqvDXdbyznosXrYH6NMDsO UEVESUMgSEFSRFdBUkUsIFJJ U9yEHVhBDBbyTrXRC4AYRHgp FKGdPUQvGEVcWGZlWK5dKXPD RFdBUkUgSURFTlRJRklFRCAo C0MCL5FoD34PWBeoeCPvlZof ekCrVLdfh0MqFSuvJIStFH5t iPwaRKRwNL9xRKFcE4qjxX6w kwn7GnVnCTXsKaI0NYJpapA8 Ghn4WTEbTWgou4tbj4JoNTJe NNf4mQxpZuRoLFFor2rzptQw IpLhQTNkCFRxYJNryNTqY033 d0dsz5whdhZoaEC4OSPnCSF4 FFcgdyNrgbC9AMpvmXHnCiX8 IDtccmVkMFxncmVlbjBcYmx1 ZFXnY854NEX1oDhrg7vsIQT9 SDExFUFtHiLpPe4ytHWpU625 RJXuUVCYXTMllFk6VDKbjyLs bkXlrBXVn889D245u8gcATWy qwQtfEpMuyxbs5arR413BTHo cGVydzEyMjQwXHBhcGVyaDE1 WGUrJY7kiusuLTxpKBcvDRYz heG9NRForIYbH8LcFMWjOA2f cmlxSSM5JSvmQKKoWKM3YfNq NHJjf2Fxhfi6CtTjxf2scl88 LXA2o1QnuBgdONL1KML8FaWr Qg3jbXIaKKNzUA6nOjIhhUSp IVAebe08xAjvYThyBGB4EJHz obWnc7Gjn6ufUlGwheSeF3mf W3ZaWWMiMOSyRQElDmKehlHn n3Jat0EegRNquSm4i4amARSo RHQxmGcil7mnZGH3QZTwfTLr S6wlgM8pWXJyHF5qdyrfz0ya DBtqMFauKRZfrDO9oyK2HORy cYMyK1FxrC7nTPAoDZvfLJJb srn9QsKcJw8wgEAzpRdpEAil YmtwYWdlXHBnbmNvbnRccGdu ZGVjXHBsYWluXHBsYWluXGYw XGZzMjRccWxcbGFuZzEwMzNc aGljaFxmMVxkYmNoXGYxXGxv Q1ggIfUwDxYvUfv7OISaxOId FFPjTpv8QHRddEUuRDAKtZre fE7nSOTcxPejqO6vaCG9ATMk qrRyhTZBiI2aSVHDbQ5kIsZ0 NSBiJfs2DVP7HdUcvFQhmN6= CPT Code(s) (test z0mfeDGwCASktJKlMVPiQ8se code = 3357) bsCpQPMwqLUxR2AmwihgEFbz WG2bQJ2tyMwqzASdkSAcHPHt EdIjk9ckp392wZLzi6orAGEW nyifqOc3aKamF60nk3S3Mxcq S02jyAFnSIK5DQLxCWEaaMSh YDFtXYK6MTFfnSCfH1urWOPg KC3rgvruIOqnMAotZCXksFH4 ICNmrGXrH3PxFIAbZLbtTCOr hrj9HbSiAf7nwNMgvQnrZSjp YXJkXHBsYWluXGZzMjAgODgz MDBccGFyfQ== CLINICAL HISTORY v1krzNDwJIEsdKLxCRJcY1ga (test code = 3356) wcIsPFGyyAUcO3EuvndyMJin FC6gVN3mkUglxEUdaKTxKRHd VnVsy6lkf459ySBip6irDYSV vxrbiJy2tAehV22ut0V4Yhep X31icRCtTGG8HQDaWRHliJNf MCBgBTM7ZUVltUBoH7feURCj DS0zubusRJnyQJbpHIAroQW7 UQWwlCDeH8KtVYBqPKwtJAWo wrm1OqTmDg7okZIdbNosFOju YXJkXHBsYWluXGZzMjAgSGlw UQvqj5ArCmdqrZX1COJtpUjw dFxwYXJ9 GROSS DESCRIPTION v8hfrKHfTOPsfYQECKNvYRQw (test code = PP9jyZbbmGn3eAibDRIyayG4 [id number]) iCIaNYpkm1rgBSQ1e2fzlsUA FimnCJPdYX0fSTanFJDwND2p ZmUwXGRlZmYxXHBhcGVydzEy QsVlQWNciSZiyXI3ARFnSV6b crlpAUloMHtuNRAqaqX4LXDw zSEmW9WvKNTpGW2cmfvgYVV6 KOUHYqwoBq8hsUElaZrqQsJi ZmNoYXJzZXQwXGZuaWwgQXJp FJf6zL6VQhquGIN9HGDJHrfd UpxupTvzo4MomSJcYYZxFIsf aWQgNTEwMDAgXFxkYiBPVlIg YhDzYpw3DjY8VYHoTNu9YEij XeHGBXD0CFEaESsdDUy0UXjz XFxuaCBcXHQgMSBcXGZsIFxc eaT2n1lzWYWkwSKaPGW8JMzk x4wtWLxkUKP0EAZxFsQdEERz AI9GWsGuNXTrUknsPSEfVyK8 SHv2JAOTUpYoImScUcVnVZV7 EZjiIXe2FUo0MEnVHuF3LVY5 JMRmUNTxJHU2YGitOJd5HKRj YOtevtNsOXdjIglcBLldW45w cGFyZCANClxwbGFpblxmczIy RLIwVCX8yAikstKrpDTmBG2Y JDDauoIxWXhngPgsrR9mAtSt MlxsdHJjaFxlcGljTmVzdERv YzEgDQpcbHRycGFyXGxpbjBc fhfqAJWJJqysdmMeYWKpZ5Rx dmVkIGZyZXNoIGxhYmVsZWQg i2e8qZH6fKJxfCA9gQSooOeu KoXjCV5khJMrFZ3qURqoHNjm upTrv4RmYC25uMJgbrDwgdJy XvJ9vGhqrcXmYJjwTVWuvKry hdNaBGZldRwyLnXnVE6nyeMs VAfbFQAaX86qfG5vFE11WC1r BHX9xmqcTiRiRnUoR52nyK5j BNdocXX1TNCvzN4cS0DePrUr TQwooMvzWnFOPLGvRT2bHZ0B YoK4LTUsQz4hVfOsXJSqHhM4 fAL7RIxeTLaqkYrzzgGpSKrc xQBpRKGaJJY1fWYzjJqgRFRr lV5raqNybtEzhgnxRSWso0y5 xQVdPvKLUHY5IOATQNCOZCCp OCIgIHdoaWNoIGlzIHdpdGhp oaQtNSdxiBLeUOOxNFV0aEIw aJnfVXEjE7O9LTH0eISpEVNu NAzwNK8cLOW6pcyfTlB5JjTh D25fcU7xUBkefSM8WFMkNV8a IDQuMSBjbSBpbiBoZWlnaHQg uN9bX5TkYyRhQLuuxIebCvM5 IE6zDE3zDhJUXkVwSZWwL1Qy y7EluNczpL1oluNatAOysfT2 USylhl8sRR3aQVHrI9Vdw73c TSEvSTHnaMYaaJA6LOVpU6He g8Xaf26wbO2tpBKlIG1ZTFUq guLIVmGmEJymIWYyF8YoeK7o TX8TVqdpRZEiLGXKG7DwT52x wWPzBQ5NHXUpkoKDPxjpXEKy EZZfuPLSj1RaDUKBHpudaZbh MtVhfSVpFtV8YWNfxEOqSEK7 VU5tiDaeFTPkO9OzQ0GmhcG1 JEIbekOXQkldHKBjYY7BERAd MjIgDQp9 MICROSCOPIC z3oxkWUnIXDgfNJrIUBdQ6xn DESCRIPTION (test ewUiVGHvvMZgO0JzhvktOSpl code = 3375) VC2sDB0xxYcdqULprLJaFTQp KrVhc8ebi771eYCpq2mjQVMN uinlcFy7lMydZ08bm0L0Enel Y59qiOZnWHH8PHXpKKTxpIGq RDMpDKD6HWPjcYNoB2ssOXJe DW7vandnSQopIFclEDOjbAE1 DAIoqQRaH4OeHHJsKEatGBOi ior0IdLqCz0riKYmqYbsSXyc AXUnLJWvHZllUZZeRnNzVd39 MTIwavZisw1vHDkaGHV1 [facility] Hospital[id number] 18:28:20 Test Item Value Reference Range Interpretation Comments Case Report (test Surgical Pathology code = 104) Report Case: [id number] Authorizing Provider: Dimitris Parry Collected: 05/26/2023 09:42 AM MD Marly Ordering Location: [address] Received: 05/28/2023 09:38 AM Service Pathologist: Thomas Echevarria MD Specimen: Explant, FOR IDENTIFICATION DIAGNOSIS (test code y4qxqSLcWTVpe1nsPDNbbDFr = 3220) ZzEwMzNcZnRuYmpcdWMxIHtc beWkZEgaeQygPTErSMobXF1f xDoqeGk0xQcbLCOyhnC3iULe WBokg4egAHM5r2sfsugsPFXc XFhbIs7icRPbtCocFmDrAVRr HWu9vI93WJKgdG6ryJRvIFx6 XHBhcGVydzEyMjQwXHBhcGVy qFM1JBTmHH2xkygqQTmqEYkn LONtmxM6MNVvvGPzA2IyMCCy HX6dpokxYPZ0BOorKREyWCG3 EdCzAKXug2Skawz6YtXkmVJu XSlzqJStinqweqGoNA9VDSvS UEVESUMgSEFSRFdBUkUsIFJJ K4nTAGvVVBieQpRYL6CDGDdo YQOpGRIkGDOvIWLnOX5nAKTR RFdBUkUgSURFTlRJRklFRCAo F7UUW7DfV09BCVgnvMSqjSgf odFmJKler6CkVKhgMBAyGB1u lKovRTIjLP1mYBYkY7pfvS1u mtc6WkXoTVLjBpF6SPGngfF3 Osp1HZSqAKgcr5xkh3WyZBZf PCt0pMpnYwIkHZFro5iqbtVh IgKgEGExKZRxZIBapVFxS841 h4jmn2ydbkEqyVA3LBEpZER4 OIgzhaOfgcW5XBpdkETeYvR6 IDtccmVkMFxncmVlbjBcYmx1 RFIcM522AQW8sMipa6lyDTY4 CUXxHNZoHxSbEx7feYJtG176 TPBjKSJKZWRnkVd6AOJacfTz kiLctZOBk397M581x0enFKCp wnSkhZnZlbado1vxG539OZYo cGVydzEyMjQwXHBhcGVyaDE1 HNAmYC5bfwlbTCssTRysJXNn gqS0TGBokMEvW7AkUUKjWZ4k ukjtBJW2TWedRLFaLII7KwUv LCGjk7Vrjgz5UmFjte9nez96 PWU5e4MgrEpaQNV1JMC7OlMy Mv6xyFTnOXEnKB3xPqTkcUSl KQZale42vCchSIrvHKP5WIDf tuZyu5Fms5mvReNxjxTwR1tt V5TwRWEkGBSyZBYoDnHfbhKg v7Sip9MoxLZojVn9u4zyRBBl KMKavYypm8nrIWK0WTIgbFIc C7afzG1gONAnTK8lohmjb1to CFusFAevAQGskDF0blX8QBUp lJYrU7XnvJ7oMVAwJEvsIXYa djt2AlBrBz8nkYCnpRjwIStm YmtwYWdlXHBnbmNvbnRccGdu ZGVjXHBsYWluXHBsYWluXGYw XGZzMjRccWxcbGFuZzEwMzNc aGljaFxmMVxkYmNoXGYxXGxv G2yuHvXxMzMnLps0LVQwbTTm YUXzGwj8PWJfmIJpQIBFsCvk sK2xPYOioOwwdU8ecIK8IYGj ouEviGMYsS2qUFFUhU0pXuU2 AXPmGqc8SPQ1AsBreFUchT0= CPT Code(s) (test u1gawDTjTXUieQGgICYoK5rm code = 3357) qcAaZKSabIWyW6HualvuBEng MV6iXW5aqRxxcVYwcQBaHIQe BbCxr6rcp267yNLxv2qyJDYI cuvqxEy4xDrkG79cx2Q1Dlfq X89jfPLvIQC5MZGrQWIcaDFj RCYrSIX8UVDvnIFeC8aiAAZv UQ2sopfmWEheSWpnDJNfwQI5 EKGtiNGdM0XhTELdBZwzPBTv xeo5AyPhTi5zmUVryIdfKUwv YXJkXHBsYWluXGZzMjAgODgz MDBccGFyfQ== CLINICAL HISTORY x4lrsHImUUNqdDPpETPoT0mb (test code = 3356) rjYlPKNvnZIkC1WodwzoVVtw DH4bJJ6xuBvxrCAqzABmVDAl TiGhx4feq144yKHbp7vsSDSP nexnoYu6iMgnO30df7I1Iruz J70suEDrRNU8BMJhAWJczJWz VRGrJPD1FDNxaULnI0ymCYOk NK2pqtrpATqxBYbuFCXrpBV8 PEHytMXiW4OgKNLxBCgaZFPv nfe5CqSaWm6pyKEpaCihUPtb YXJkXHBsYWluXGZzMjAgSGlw WXdpb3SfHiaivLL9JYMvoJsb dFxwYXJ9 GROSS DESCRIPTION s5ymuATqRONwmQQXVVJkFLEd (test code = RK7enMiomNo8bQbbOUBygrG8 [id number]) rOQmALqfq5naPMN4b7fvjgMT YslaWIZhFV7sSRomZCEvOE5i ZmUwXGRlZmYxXHBhcGVydzEy LtFuORGfrITdyUG4BNQxXK3s fggsGCkuXSjmPVGsgtP2EPGk sEPzI7CbWGRwNE7mnctwMLI6 RKQNNfvgZt2kxTDsjWpoNvWu ZmNoYXJzZXQwXGZuaWwgQXJp UXo6nG1XIqolYDH2UXSQPaqd VmubyYrtz0BouVTiMLLdQLrg aWQgNTEwMDAgXFxkYiBPVlIg XmMkMem7YnW0MAFpXOs1KBzs WpSUKKX5EPEoZZylSMj7QEsa XFxuaCBcXHQgMSBcXGZsIFxc bkV4i4uhWWDhgYShLBG8GRsr d5yiCCjyCMU8PYAkDgNpETSh JA8HSoWhBYRoRppzJQEoGsF9 XQa2FYXBNrVwXeWgJoMaNQM0 EGzjTNb2YRt6UOqTAfO7JBY5 JIIbPIPpKQE3UGfvOIr8IHNu CZkauuCtXFgtErosEPexW29c cGFyZCANClxwbGFpblxmczIy VVVkPJJ7fHvisaDcaFWlLG5X UHKfkgUfNWwgyDedcN9gDnVs MlxsdHJjaFxlcGljTmVzdERv YzEgDQpcbHRycGFyXGxpbjBc ucgwYCGZLaqcxzLvOLXmH1No dmVkIGZyZXNoIGxhYmVsZWQg f4q8yYO6gLKtrTJ5aAGpxUmv TjDiBI1buDHtMH9iUIdkRIyh drVes4NgCI84hWZebqRwwpNc EfR8cFvoyeNxADagIENmwRhd itHzCKSjjAzfFxHcDP4ekhKf DEvmTXVlW84joZ0xWK00CB9i QFP5bbwkFjVlWfKpI82yeS3p XLwebYF9NZWynR6vJ5MyOiXn RQtaqZrqZnJFWPAzRX3cTQ9Q JrW3KMRfMm2eEbGeAQYxKoG8 fMZ2ALpjARzmsPiusmNfMJjb kXOnDLHjRVT0cTRroVkiPNNj lT5bffKwcfVaoariYLMcr2b0 jTLoEuNWXAV6ESZLEWGZUUFy OCIgIHdoaWNoIGlzIHdpdGhp wfUmKNkkmLKoPXPpDMH9pJVg xUdmTFKyC7G4SSD5yTMaDCIt KAlhIZ2xSOE1jollDoI6FnSk S25gcU2iQQxhzKN5KGMiMB2l IDQuMSBjbSBpbiBoZWlnaHQg tS8eI3TbJcIoALgnhBibBdR7 CQ9pHR8aXwNDXsTdCXXcT6Yf p0ChdCxyzR9bmqNsxYQdsaI1 EOzawz4tTO1rSQLpG9Ptv55o BUNvKZPnfWEhjZK9JIFaA0Pa j9Ahg88loU5woBDfDI0QEEQr hnTWOfXqJCyoFRYjO1OiuX6l UV6TZezxTTRaUCTPJ3OyL52m qJPcBG4PSYCfpyKGEhzgQDQp MYEafXGVv4YzFDFRZnfynGtr LfPprRPqQuS1UJZzyVXbCAX5 FI5afEcwLUVwU3OjD9UezlC5 SZUasmHHWsorEBEdYJ8VCYJz MjIgDQp9 MICROSCOPIC f4yerAAeHLXcjAZiFJKsS2ov DESCRIPTION (test vkQyXXRrdXLkN5JhigqgSOup code = 3377) VS7iPW1smMyrqDFkzUFbQQVc BdDiv5inb960fWEzu0soMEAK mvikxUr4yTdaB80ef3A8Lmwk K05tsNGdWGJ4JUFdENGzoZLs OQKuZGQ0THWyzMJlJ3zcPSSk NO3kudxiEJgmYCvlGUWohOX4 EPAztNQxQ6WjDKWlWAuhCXUq sls9CyHuLw8glZSgfVwrXRrk CSKyWWUyXMtcCKQjSrApSi08 SWCypiXcme8bPHyyGOZ8 [facility] HospitalTISS[facility] [id number] 18:28:20Surgical Pathology Report Case: [id number] Authorizing Provider: Dimitris Parry Collected: 05/26/2023 09:42 AM MD Marly Ordering Location: [address] Received: 05/28/2023 09:38 AM Service Pathologist: Thomas Echevarria MD Specimen: Explant, FOR IDENTIFICATION ORTHOPEDIC HARDWARE, RIGHT HIP, REMOVAL - HARDWARE IDENTIFIED (GROSS ONLY) Signing Pathologist Direct Phone Line: [phone] signed by Thomas Echevarria MD on 06/01/2023 at 6:28 [id number] instability, rightA.ExplantReceived fresh labeled with the patient's name, medical record number and "explant" is a pinkmetallic femoral head component measuring 2.0 cm in diameter inscribed with "BC-22 mm NK+ 506-11/02/2004," that is within a white plastic-like liner inscribed with "C KH 7Y VH I-3 8" which is within a white plastic like acetabular shell measuring 4.6 cm in diameter and 4.1 cm in height inscribed with "690-10-22ET." A gross photograph is taken. No sections are submitted-gross only.MARJAN Lind, KEITH([facility])cmNot performed BASIC METABOLIC [id number] 05:34:44 Test Item Value Reference Range Interpretation [...] not appl icable for dialysis patien ts [facility] ID - MARCOCBC (HEMOGRAM ONLY)2023-05-27 05:17:00 Test [...] = 413) XR PELVIS 1 OR 2 [id number] 12:15:34 [facility] CENTERName: STALIN GILLIS : 1950 Sex: FRadiograph of the pelvisReason for exam: Postop EvalComparison: 3Discussion: Status post righttotal hip arthroplasty. Alignment is near-anatomic. Noacute fracture, or dislocation.Electronically Signed By: Melita Akins05/26/2023 12:17 CDTWorkstation Name: [id number] METABOLIC [id number] 05:30:57 Test Item Value Reference Range Interpretation [...] not appl icable for dialysis patien ts [facility] ID - ADMINCBC W/PLT COUNT & AUTO [id number] 05:07:06 Test Item Value Reference Range Interpretation [...] PERCENT (BEAKER) (test code = 2801) C-REACTIVE [id number] 17:31:41 Test Item Value Reference Range Interpretation Comments C-REACTIVE PROTEIN (BEAKER) (test 1.10 mg/dL 0.00-0.50 H code = 676) [facility] ID - ADMINXR HIP 2 VIEWS [id number] 11:09:50 [facility] 1950 Sex: FCLINICAL [...] Signed By: Cam Barraza05/25/2023 11:11 CDTWorkstation Name: [id number] PELVIS 1 OR 2 [id number] 11:09:50 [facility] : 1950 Sex: FCLINICAL [...] Signed By: Cam Barraza05/25/2023 11:11 CDTWorkstation Name: [id number] 2023-05-25 08:25:32 Test Item Value Reference Range Interpretation Comments MAGNESIUM (BEAKER) (test code = 1.8 mg/dL 1.6-2.6 627) [facility] ID - mmCOMPREHENSIVE METABOLIC [id number] 08:25:31 Test Item Value Reference Range Interpretation [...] eGF R is based on the CKD-EPI 202 equation that d oes not use a race coefficientEsti mated GFR is not as accur ate as Creatinine Amanda lwason in predicting glom erular filtration rate . Estimated GFR is not appl icable for dialysis patien ts [facility] ID - mmPROTHROMBIN TIME/[id number] 07:57:07 Test Item Value Reference Range Interpretation Comments PROTIME (BEAKER) 14.4 seconds 11.9-14.2 H (test code = 159) INR (BEAKER) (test 1.19 See_Comment [Automat ed message] code = 370) The system [employer] generated this result transmitted ref erence range: <=5.90. The reference range was not used to int erpret this result as normal/abnormal . RECOMMENDED COUMADIN/WARFARIN INR THERAPY RANGESSTANDARD DOSE: 2.0 - 3.0 Includes: PROPHYLAXIS for venous thrombosis, systemic embolization; TREATMENT for venous thrombosis and/or pulmonary embolus.HIGH RISK: Target INR is 2.5-3.5 for patients with mechanical heart valves.CBC W/PLT COUNT & AUTO [id number] 07:48:06 Test Item Value Reference Range Interpretation [...] PERCENT (BEAKER) (test code = 2801) Tissue [id number] 13:55:50 Test Item Value Reference Range Interpretation Comments Case Report (test Surgical Pathology code = 104) Report Case: [id number] Authorizing Provider: Dimitris Parry Collected: 03/31/2023 04:35 PM MD Marly Ordering Location: [address] Received: 04/02/2023 08:34 AM Service Pathologist: Juvenal Steele MD Specimen: Explant, RIGHT HIP EXPLANTS FOR IDENTIFICATION DIAGNOSIS (test code v1qxuOQeUXEpq3zpAOYkgQCk = 3220) ZzEwMzNcZnRuYmpcdWMxIHtc fgMoNSfntYnrASCpXFsnSR1b lMqdrKa1mYraITHegnC6iWRy ILtjj0xzPGR0r3qujocnIOLs XRsrTp6qbSQanGsoYqXuVWHw SYg7uC56UIBpyW0qoBEhTHb6 XHBhcGVydzEyMjQwXHBhcGVy dJX3PEYfIL5dfhsjLRkxHMrx KBJfcrZ0UEXmaQBbK0NoYRQv AM2msjoxTPM5WZqtJLMmVHV3 OdLxQVKnt2Werwr3RfZegQPz ZFxwbGFpblxmczIwIEhJUCwg UklHSFQsIEhBUkRXQVJFIFJF FN8QPQs7MSVjhyNrHAOiFMCc NZWqOBNGMKQWF7SRPLJNSLXV PBgNDVTKUNgJMp6XDtINNrjG FWlbLKN6m0aymMOtOACcsQJc ODAwMFxhbnNpXGRlZmxhbmcx GFDzNIW0vgQrLIOpLFpqINLf ABfaZs7dwNZcmMuaPxHxEQXy y2qgxeIQcqszbEa6x9jqDVUf BkS5jVCvMWxhW3dwrzOnhMYl BKRvJIo3rA77SGVjwP7zcKPn IQjvihUyGaQ9GUekKNXnRmX4 HNEisAOrUUVjB5lyEBNmKLqu TGOfEIaxiKBhLXN1oKmfn5Y0 bGVzaGVldHtcZjBcZnMyMiBO s2MfQXt5vCzrR2XtELSyPwR8 bHQgUGFyYWdyYXBoIEZvbnQ7 pB12RUnhxtR3uTDlu8Jro33t y399bT6ydXBfWWM4DLIlSLLw xDHsKSOxBPI2BAQqlPZtZ9ir RWYmSF3obssmGQcpJIesKKPe qIX7JDNxdPUvA6NiPGYaAHnx KZTpyvo8ClWcHi2qzTLvwKzi TRhmm2gbj2qbzQLzIxy1JWIk FeOyRgjxYPrxw5Exm3znDVAv if0oBVC3pLWffVinf1V6yCOp FWNlhTEdRZRyRZ9whUZdJRYe mS0xqgytARAgOhEhuogtWPDk iLlwvzDiAk6dcZatLRG4RSeu Q0kkbL7cEyG0FCeaI6chtF2p DYr8JTlvMIRwmNE8skU5LIZh mQRcM6VlhO1oJBVcCJ7dnux2 w7baUHA9SNyxCVFkSmW9jmA2 FZQquWYyEQZenPeaSZmtl042 RFO4PuCsEDIni8XbV1CijBzt Q81uwDyfC28jJZLqbYgvwO1y fVofxB1aYpIeWrUqDGhdoQcq GH1lWCUmN3ifxIUiATOiBYKi Q2jrUdFxlL3qpAufRDfdjbBq RDDlQsl8KIWbpSTjDBXqNnm6 JGSgMYHgO42iuyyhXOF6gT9c e7qra5UgGAwbSPW9OIRgm87c NFgdmlT4OLcaRa81QWepXDM5 VQraGLA9iD== CPT Code(s) (test f6njjUTaUQRanMUhCRPfY7sk code = 3357) rqGwZQCaqWJeN1WnlmjgBIma KS6pSM5eeQyquYButNUmADHu TeCqc7bmk386sNMzu8xmINJJ uakbpLh1kCyoY47yh5G3Htyg G40xcGUfWYA0SXInQFBwfLDj QDFbLTF8EIHhdCPtW6wvRWIh GO6huakrNBsiJPojDCFvhXV3 IINzgYHwG9DyEXOyLLrvULHh snl1SsQgJc4vjHRihJbdODjs YXJkXHBsYWluXGZzMjAgODgz MDBccGFyfQ== CLINICAL HISTORY j8shdIMsWZApoMCmVSYsI9vr (test code = 3356) xfZaUWWyhXZjN3CesndzRRwo NR9wIP3ibHhlvJOepLVlDNZy KdKzj5skd045bYEkk8csNTMH aladoPr6wBpyG01tx4U4Qkcj N88kdLFeMXV4LCWxPKIjyRCh KRQvGIU3QWLkzLAkH5hxQJLf ZF6cyogfUWooFDwcOUVgrVG6 CISoeFHnY1MjILQpFRocZVIw cpd8KzIvFu7hqSTzjAjkXMzf XPWyLSSxQLjnHUOlHhPxUK8w dCJnyLYnHXYaCQauhH7pDNNv r49kl3JzrzrcaGOdhMesOKAw cn0= GROSS DESCRIPTION c4wodEXyZDXzvFSFEAGxCBRj (test code = NL0twGupoSj5fRtyWJVcckN1 [id number]) gOSmRUvmp7bdIYJ5h5befnXG PvmuZWVhFY5oHQyxDBElAZ4y ZmUwXGRlZmYxXHBhcGVydzEy TiVhPPVsnWAupME4YIDaQS2d cletAXooNFtpGJSqmeA4CRJa rXYwV4CcWOYzXN6hrbkbFKH9 MWVZVhggXo5qeYLcpQjlBuOt ZmNoYXJzZXQwXGZuaWwgQXJp AKw2kR8WXtjhJFL9RZSUMihi AjeilFoas7RdxDRvHFBfQDde aWQgNTEwMDAgXFxkYiBPVlIg KnDyCPC5EIR7GFZmUNx4RXdn ExHIXPK4CcX0UHveQUw4POnf XFxuaCBcXHQgMSBcXGZsIFxc fvX8w1rjHYEojPDkUJS7OPqp f8ijOYuyWDR0ENCnBhUxPQYg GF3SDuRbAJGhJqB1QdMuGeL8 HRm8JACSGmWuUdTnCoVzNPO5 BIBkFGl6XTl3ELxCKwN2PqB1 LzQ9SSpwCNS1NqFkCFp7ZBFr MXklpiJdAGmsMtdeCKxsN13t cGFyZCANClxwbGFpblxmczIy PTOxCYC6eVdlosUmeFSiPV5G CYYlwiYcMUnrcUttnY0rZxVr MlxsdHJjaFxlcGljTmVzdERv YzEgDQpcbHRycGFyXGxpbjBc rvzsINQYQofggeNmYWQoN6Ne dmVkIGZyZXNoIGxhYmVsZWQg i7o5vOJ3yLMhoCT5gDSvbJqw KpAlEM2mvNQtQZ8jAMhlIYqv ojJcy0NgVT50vIDfndDdavEu OxB6dCzjvwWxYSwlNGCyo5dn eANpgDraw3CbGq9npYjqUXVz EHnvAH6tNZF4ybenVcMqKcEz F06gsZ1jsTBiG6w4SLS0WxJx I30iyB6pZObtpNU9TSMkkTwb tEFwcvAsytSlpmjjMXZfj8z8 aCAiNjkwLTEwLTIyRVQsIiAg k4tdT5rywSUwFLMdsDK9PKws dYFwyD28CEW3JAnwwNVhg6Ga lQ9uRFOjLCPkzLKojzJbwPNh RMGthuF9eQE4NYtcJFkxs8Bu gATnXVL6fDYoOHXYZgK1UgIu RDXFGNIpEW4WFch1AdRuWSCb T5Hmb1XauVzltF9qpmJulMAs rpH3GQmwtc5yFF1wNVLuG8Sm y71vDDAlVNYceDYnnRE9AQLy L9Nhq2Yfq85shU5wbKWiOI5L XHBhciANClxzYTMwXGVwaWNY x3DgRYHWZoZgZFidKEWnP2Ol bI4vPR9RUvdrFKIfSRGKT5Zj Y99SRzmsaKprQzMnwIHkHqN1 XNQkwRVwTTR3NW8yyCnjXRCv G5GrW1WrejI9EPOxqtQHQwnc TKMhDI7PYWDoJoVhHXu4 MICROSCOPIC o4fgmITjIZXnhKIlCGBuC1dk DESCRIPTION (test qpXuJVEpdGYmY2OfgnltWEma code = 3372) CP9hPE2gnXolgAUlkECkWBFl QiWll8eiy254oZHoa4teMSWB mbgsuIe1iMyrE46vn9V8Tlbi K97qxIWtKSN0GICrZXTgvVZz TCFtBKS5ROLmfQWzS8wxPUMl IK4rsugzOUtnMLcmUNIbjCD9 ZLAwdZCaO9SwRBApDKxwXDJx qjj2YfDbGn6fePChyNytBCdt ZGAvFCViWUetKAGmRxHzJs38 WAIqbkTqye2aTEluBIG2 Gross assessment was [facility] performed at ([facility], code = 2777) Department of Pathology, [address] [place] [id number], [facility] HospitalTISSUE [id number] 13:55:50Surgical Pathology Report Case: [id number] Authorizing Provider: Dimitris Parry Collected: 03/31/2023 04:35 PM MD Marly Ordering Location: [address] Received: 04/02/2023 08:34 AMService Pathologist: Juvenal Steele MD Specimen: Explant, RIGHT HIP EXPLANTS FOR IDENTIFICATION HIP, RIGHT, HARDWARE REMOVAL: - HARDWARE IDENTIFIED (GROSS ONLY) Signing Pathologist Direct Phone Line: [phone] signed by Juvenal Steele MD on 04/10/2023 at 1:55 [id number] dislocation of right hipA. ExplantReceived fresh labeled with the patient's name, medical record number and "explant" is a white plastic-like shell measuring 3.5 cm in height, 4.3 cm in diameter that is inscribedwith "690-10-22ET," which has a metallic interval measuring 1.8 cm in diameter that is inscribed with "AJ 8K53 BC-2 MMNK+5." A gross photograph is taken. No sections are submitted-gross only.MARJAN Lind, KEITH (ASCP)cmNot performedBaylor Children's [facility] and [facility], Department of Pathology, [address] [place] [address], [place] [address], [place] ABDOMEN/KUB 1 VIEW PORTABLE 2023-04-05 17:30:07 [facility] : 1950 Sex: FTECHNIQUE: XR ABDOMEN/KUB 1 VIEW PORTABLEINDICATION: constipation r/o impaction.COMPARISON: None.FINDINGS:Nonobstructive bowel gas pattern. Stool burden is low. Cholecystectomyclips are present. Thoracolumbar spinal fixation hardware and right hipreplacement. Implantable pump projects over the right abdomen withcatheter directed cephalad over the upper lumbar spine.IMPRESSION:Nonobstructive bowel gas pattern. Stool burden is low.Electronically Signed By: Arthur Lopez04/05/2023 17:32 CDTWorkstation Name: [id number] METABOLIC [id number] 06:29:53 Test Item Value Reference Range Interpretation [...] (test code = 697) EGFR (BEAKER) 94 Interpretati on of eGFR (test code = [...] not appl icable for dialysis patien ts [facility] ID - MARCOCBC W/PLT COUNT & AUTO [id number] 05:56:21 Test Item Value Reference Range Interpretation [...] (BEAKER) (test code = 2801) VANCOMYCIN LEVEL, [id number] 03:16:03 Test Item Value Reference Range Interpretation Comments VANCOMYCIN TROUGH (BEAKER) (test 8.7 ug/mL 10.0-20.0 L code = 522) [facility] ID - bvBASIC METABOLIC [id number] 03:06:54 Test Item Value Reference Range Interpretation [...] not appl icable for dialysis patien ts [facility] ID - bvCBC W/PLT COUNT & AUTO [id number] 02:49:38 Test Item Value Reference Range Interpretation [...] = 2801) CBC W/PLT COUNT & AUTO [id number] 06:02:31 Test Item Value Reference Range Interpretation [...] (BEAKER) (test code = 2801) BASIC METABOLIC [id number] 05:54:19 Test Item Value Reference Range Interpretation [...] not appl icable for dialysis patien ts [facility] ID - EOOBASIC METABOLIC [id number] 05:31:27 Test Item Value Reference Range Interpretation [...] not appl icable for dialysis patien ts [facility] ID - BVVANCOMYCIN LEVEL, [id number] 05:24:23 Test Item Value Reference Range Interpretation Comments VANCOMYCIN TROUGH (BEAKER) (test 2.7 ug/mL 10.0-20.0 L code = 522) [facility] ID - BVCBC W/PLT COUNT & AUTO [id number] 04:51:29 Test Item Value Reference Range Interpretation [...] = 2801) XR PELVIS 1 OR 2 [id number] 08:30:38 [facility] 1950 Sex: FXR HIP 1 VIEW RIGHT, XR PELVIS 1 OR 2 VIEWSINDICATION: Postop EvalCOMPARISON: NoneTECHNIQUE: AP view of the pelvis. AP and lateral radiographs of theright hipFINDINGS/IMPRESSION:Status post total hip arthroplasty. Arthroplasty appears well aligned.No periprostatic fracture. Electronically Signed By: Alessandra Ventura04/01/2023 08:32 CDTWorkstation Name: [id number] HIP 1 VIEW RIGHT 2023-04-01 08:30:38 [facility] : 1950 Sex: FXR HIP 1 VIEW RIGHT, XR PELVIS 1 OR 2 VIEWSINDICATION: Postop EvalCOMPARISON: NoneTECHNIQUE: AP view of the pelvis. AP and lateral radiographs of theright hipFINDINGS/IMPRESSION:Status post total hip arthroplasty. Arthroplasty appears well aligned.No periprostatic fracture. Electronically Signed By: Alessandra Ventura04/01/2023 08:32 CDTWorkstation Name: [id number] METABOLIC PANEL 2023-04-01 05:11:33 Test Item Value [...] not appl icable for dialysis patien ts [facility] ID - ADMINCBC W/PLT COUNT & AUTO [id number] 04:59:29 Test Item Value Reference Range Interpretation [...] = 2801) XR PELVIS 1 OR 2 [id number] 07:29:06 [facility] : 1950 Sex: FXR PELVIS 1 OR 2 VIEWSINDICATION: R DAMIAN dislocationCOMPARISON: NoneTECHNIQUE: AP view of the pelvis.FINDINGS/IMPRESSION:The femoral component of the right hip arthroplasty has been dislocatedfrom the acetabular component. Electronically Signed By: Alessandra Ventura03/31/2023 07:31 CDTWorkstation Name: [id number] METABOLIC [id number] 04:18:18 Test Item Value Reference Range Interpretation [...] not appl icable for dialysis patien ts [facility] ID - ADMINPROTHROMBIN [id number] 04:02:58 Test Item Value Reference Range Interpretation [...] (BEAKER) (test code = 413) HEMOGLOBIN AND [id number] 05:43:27 Test Item Value Reference Range Interpretation Comments HEMOGLOBIN (BEAKER) (test code = 10.1 GM/DL 11.2-15.7 L 410) HEMATOCRIT (BEAKER) (test code = 31.1 % 34.1-44.9 L 411) XR PELVIS 1 OR 2 [id number] 15:30:53 [facility] : 1950 Sex: FRight hip one view:HISTORY: Postop evaluationCompared to 03/02/2023.The film was obtained with attentionto the right hip, excluding theiliac crests. The visualized bony structures appear intact, with noevidence of fracture. A new right hip replacement is now noted, with aconstraining ring projecting overthe proximal femoral neck component.BASIC METABOLIC [id number] 07:00:24 Test Item Value Reference Range Interpretation [...] (test code = 697) EGFR (BEAKER) 91 Interpretati on of eGFR (test code = [...] not as accur ate as Creatinine Amanda walkerce in predicting glom erular filtration rate . Estimated GFR is not appl icable for dialysis patien ts [facility] ID - ADMINCBC W/PLT COUNT & AUTO [id number] 06:01:08 Test Item Value Reference Range Interpretation [...] (BEAKER) (test code = 2801) BASIC METABOLIC [id number] 06:31:27 Test Item Value Reference Range Interpretation [...] not appl icable for dialysis patien ts [facility] ID - EDWIGE WCBC W/PLT COUNT & AUTO [id number] 06:09:24 Test Item Value Reference Range Interpretation [...] = 2801) CBC W/PLT COUNT & AUTO [id number] 13:08:23 Test Item Value Reference Range Interpretation [...] (BEAKER) (test code = 2801) BASIC METABOLIC [id number] 13:02:37 Test Item Value Reference Range Interpretation [...] not appl icable for dialysis patien ts [facility] ID - mmRAD, HIPS, BILATERALTO INCLUDE [id number] 14:57:00Reason for exam:->recent right hip dislocation [facility] : 1950 Sex: FFINAL [...] pelvic fracture or hip fracture. Signed: Frank Jimenez Verified Date/Time: 03/02/2023 14:57:54 , HIP, 1 VIEW, [id number] 14:57:00Please obtain cross table lateralReason for exam:->possible DAMIAN dislocationShould this be performed at the bedside?->No [facility] 1950 Sex: [...] pelvic fracture or hip fracture. Signed: Frank Jimenez Verified Date/Time: 03/02/2023 14:57:54 REHENSIVE METABOLIC [id number] 05:48:30 Test Item Value Reference Range Interpretation [...] not appl icable for dialysis patien ts [facility] ID - MMCBC W/PLT COUNT & AUTO [id number] 03:28:55 Test Item Value Reference Range Interpretation [...] PERCENT (BEAKER) (test code = 2801) PROTHROMBIN [id number] 03:25:27 Test Item Value Reference Range Interpretation Comments PROTIME (BEAKER) (test code = 13.9 seconds 11.9-14.2 759) INR (BEAKER) (test code = 370) 1.09 <=5.90 RECOMMENDED COUMADIN/WARFARIN INR THERAPY RANGESSTANDARD DOSE: 2.0 - 3.0 Includes: PROPHYLAXIS for venous thrombosis, systemic embolization; TREATMENT for venous thrombosis and/or pulmonary embolus.HIGH RISK: Target INR is 2.5-3.5 for patients with mechanical heart valves.HEMOGLOBIN [id number] 06:29:45 Test Item Value Reference Range Interpretation Comments HEMOGLOBIN A1c (test 6.7 % 4.2-5.6 H [employer]IC AN DIABETES code = 77252) ASSOCIATION IDELINES FOR HGB A1C: PREDIABETES/INC REASED [...] INDICATED, ALL TESTING PER FORMED ATCLINICAL PATH [facility], [facility]. [address] [place] [address] 24 LABORATORY DIRE CTOR: JACKELINE ANTOINE M.D. CLIA NUMBER [id number] [facility] [place]. [id number] BASIC METABOLIC [id number] 06:15:06 Test Item Value Reference Range Interpretation Comments GLUCOSE (test code 126 MG/DL 70-99 H = 2216) BUN (test code = 9 MG/DL 8-23 2207) CREATININE (test 0.69 MG/DL 0.60-1.30 code = 2214) eGFR (2020 CKD-EPI) 93 ML/MIN/1.73 >60 (test code = 04846) SODIUM (test code = 140 MEQ/L 861-159 8487) POTASSIUM (test 3.8 MEQ/L 3.5-5.4 code = 2228) CHLORIDE (test code 101 MEQ/L 95-107 = 2215) CARBON DIOXIDE 23 MEQ/L 19-31 (test code = 2206) CALCIUM (test code 9.2 MG/DL 8.5-10.5 UNLESS O THERWISE = 2209) INDICATED, ALL TESTING PERFORM ED ATCLINICAL PATH [facility], [facility]. [address] [place] [address] [facility] DIRECTOR: Juan J REYESIA NUMBER [id number] CAP [place]EDITATION N O. [id number] XR ANKLE 3+ VW [id number] 17:28:50HISTORY: ?Pain. FINDINGS: AP, lateral, oblique views of right ankle showed slightlyseparated fracture at the base of the fifth metatarsal bone. No significantankle joint effusion. Soft tissue swelling noted along the lateral aspectof ankle. Metallic hardware is seen supporting calcaneum. No hardwarerelated complication seen. Mild subtalar degenerative arthritis andarthritis of the talonavicular jointnoted. CONCLUSIONS: Fracture at the base of right fifth metatarsal bone. [facility], Radiant Results Inft User - 03/02/2021 12:29 [...] at the base of right fifth metatarsal bone.[facility]
[2023-07-19 16:54] LABS: Absolute Lymphocytes (CBC) 1.7 K/uL (0.7-4.9); Hematocrit 26.5 % (36.0-45.0); Lymphocytes % 19.6 % (15.3-44.8); MCV 88.8 fL (80-100); MPV 7.5 fL (7.6-11.3); Platelets 274 thou/uL (152-406); RBC Red Blood Cell Count 2.98 M/uL (3.86-4.86)
[2023-07-19 17:12] LABS: Calcium Oxalate Crystals- Ur Few /HPF (None Seen); Specific Gravity > 1.030 (1.005-1.030); Urine Bacteria <20 /HPF (<20); Urine Bilirubin NEGATIVE (Negative); Urine Blood Negative (Negative); Urine Clarity Turbid (Clear); Urine Color Yellow (Yellow); Urine Glucose NEGATIVE (Negative); Urine Mucus 3+ /HPF (None Seen); Urine Protein 1+ (Negative); Urine Urobilinogen 1+ (Normal); Urine WBC Clump Rare /HPF (None Seen)
[2023-07-19 17:12] LABS: Albumin 2.2 g/dL (3.4-5.0); Bilirubin Total 0.2 mg/dL (0.2-1.0); Protein, Total 5.7 g/dL (6.4-8.2)
[2023-07-19 17:43] LABS: Troponin High Sensitivity 184.1 pg/mL (<58.9)
--- NOTE | 2023-07-19 18:00 | EDPHYS ---
Physician Documentation [facility] Name: Suzi Vee Age: 72 yrs Sex: Female : 1950 Arrival Date: 07/19/2023 Time: 15:43 Bed 17 Private MD: ED Physician Nico Miller HPI: 07/19 16:23 This 72 yrs old Female presents to ER via EMS with complaints of generalized weakness. sp3 16:23 72-year-old female with a history of recent right hip replacement approximately 1 month sp3 ago who is receiving rehab at home with home health nurse, chronic lumbar pain, depression now presents to the ED via EMS for generalized weakness. Patient's been having hard time ambulating and patient's family has not been able to fully take care of her at home. They have called EMS out to the house multiple times and each time EMS was told him that she needs to be placed in a half-way to care for her fully. On the last visit they requested EMS to bring her to the ED because they feel she needs to be admitted to help with her daily needs. EMS was explained to them as her by the that is not the appropriate role of the ED. Patient has no complaints and denies fever, URI symptoms, headache, neck pain, chest pain, shortness of breath, back pain, abdominal pain, nausea, vomiting, diarrhea, rash, focal neurological deficit, or any other signs or symptoms on ROS at this time.. Historical: - Allergies: 16:02 No Known Allergies; ph - PMHx: 16:02 Chronic Lumbar Pain; Depression; Weak Bladder; ph - PSHx: 16:02 Appendectomy; back; Cholecystectomy; hysterectomy; Right hip replacement (Kn); Total ph Knee Replacement - Right; - Immunization history:: Adult Immunizations unknown. - Social history:: Smoking status: unknown. ROS: 16:25 Constitutional: Negative for fever, chills, and weight loss, Eyes: Negative for injury, sp3 pain, redness, and discharge, ENT: Negative for injury, pain, and discharge, Neck: Negative for injury, pain, and swelling, Cardiovascular: Negative for chest pain, palpitations, and edema, Respiratory: Negative for shortness of breath, cough, wheezing, and pleuritic chest pain, Abdomen/GI: Negative for abdominal pain, nausea, vomiting, diarrhea, and constipation, Back: Negative for injury and pain, Skin: Negative for injury, rash, and discoloration, Neuro: Negative for headache, weakness, numbness, tingling, and seizure, Psych: Negative for depression, anxiety, suicide ideation, homicidal ideation, and hallucinations, Allergy/Immunology: Negative for hives, rash, and allergies, Endocrine: Negative for neck swelling, polydipsia, polyuria, polyphagia, and marked weight changes, 16:25 All other systems are negative, Exam: 16:25 Constitutional: This is a well developed, well nourished patient who is awake, alert, sp3 and in no acute distress. Head/Face: Normocephalic, atraumatic. Eyes: Pupils equal round and reactive to light, extra-ocular motions intact. Lids and lashes normal. Conjunctiva and sclera are non-icteric and not injected. Cornea within normal limits. Periorbital areas with no swelling, redness, or edema. Neck: Trachea midline, no thyromegaly or masses palpated, and no cervical lymphadenopathy. Supple, full range of motion without nuchal rigidity, or vertebral point tenderness. No Meningismus. Chest/axilla: Normal chest wall appearance and motion. Nontender with no deformity. No lesions are appreciated. Cardiovascular: Regular rate and rhythm with a normal S1 and S2. No gallops, murmurs, or rubs. Normal PMI, no JVD. No pulse deficits. Respiratory: Lungs have equal breath sounds bilaterally, clear to auscultation and percussion. No rales, rhonchi or wheezes noted. No increased work of breathing, no retractions or nasal flaring. Abdomen/GI: Soft, non-tender, with normal bowel sounds. No distension or tympany. No guarding or rebound. No evidence of tenderness throughout. Back: No spinal tenderness. No costovertebral tenderness. Full range of motion. Skin: Warm, dry with normal turgor. Normal color with no rashes, no lesions, and no evidence of cellulitis. MS/ Extremity: Pulses equal, no cyanosis. Neurovascular intact. Full, normal range of motion. Neuro: Awake and alert, GCS 15, oriented to person, place, time, and situation. Cranial nerves II-XII grossly intact. Motor strength 5/5 in all extremities. Sensory grossly intact. Cerebellar exam normal. Normal gait. Psych: Awake, alert, with orientation to person, place and time. Behavior, mood, and affect are within normal limits. 16:47 ECG was reviewed by the Attending Physician. EKG demonstrates normal sinus rhythm at 67 sp3 bpm with normal intervals, normal QRS, normal axis, normal ST/T changes without any evidence of ischemia. Vital Signs: 16:20 BP 110 / 58; Pulse 65; Resp 18; Temp 97.8; Pulse Ox 95% on R/A; Weight 60.33 kg; ph 17:30 BP 124 / 62; Pulse 67; Resp 18; Pulse Ox 96% on R/A; ph 19:45 BP 118 / 46; Pulse 63; Resp 16; Pulse Ox 99% on R/A; jb4 21:30 BP 113 / 47; Pulse 65; Resp 16; Pulse Ox 98% on R/A; jb4 MDM: 15:56 Patient medically screened. sp3 16:29 ED course: 72-year-old female with generalized weakness with no specific complaints. sp3 Patient likely needs half-way placement. If there is objective criteria to admit patient to the hospital, we will proceed otherwise patient will be safely discharged home. I am not highly suspicious for infection, sepsis, ACS, TIA/CVA spectrum, or any other critical process at this time.. 17:58 Data reviewed: vital signs, nurses notes. ED course: Patient with positive troponin at sp3 183. Will admit for NSTEMI and also obtain CT scan of the chest to ensure no PE.. 07/19 15:57 Order name: CBC with Diff; Complete Time: 17:14 sp3 07/19 15:57 Order name: CMP; Complete Time: 17:51 sp3 07/19 15:57 Order name: Lipase; Complete Time: 17:51 sp3 07/19 15:57 Order name: Urinalysis w/ reflexes; Complete Time: 17:14 sp3 07/19 15:57 Order name: Troponin High Sensitivity; Complete Time: 17:51 sp3 07/19 17:52 Order name: CT Chest For PE Angio sp3 07/19 15:57 Order name: EKG; Complete Time: 16:30 sp3 07/19 18:19 Order name: CONS Physician Consult EDMS 07/19 15:57 Order name: IV Saline Lock; Complete Time: 16:42 sp3 07/19 15:57 Order name: Labs collected and sent; Complete Time: 16:42 sp3 07/19 15:57 Order name: EKG - Nurse/Tech; Complete Time: 16:42 sp3 Administered Medications: 18:30 Drug: Aspirin PO 325 mg PO once Route: PO; ph 19:05 Follow up: Response: No adverse reaction ph Disposition Summary: 07/19/23 18:00 Hospitalization Ordered Notes: Hospitalization Status: Inpatient Admission sp3 Provider: Tyra Villafana3 Location: Telemetry/[facility] (Inpatient) sp3 Condition: Stable sp3 Problem: new sp3 Symptoms: have worsened sp3 Bed/Room Type: Standard sp3 Room Assignment: 224(07/19/23 20:14) cg Diagnosis - NSTEMI, generalized weakness sp3 Forms: - Medication Reconciliation Form sp3 - SBAR form sp3 - Leadership Thank You Letter sp3 Signatures: Dispatcher [employer] Suzi Sloan RN RN Mary Clinton RN RN Nico Miller MD MD sp3 Corrections: (The following items were deleted from the chart) 20:14 18:00 sp3 cg
--- NOTE | 2023-07-19 18:00 | ER ---
Nurse's Notes [facility] Name: Suzi Vee Age: 72 yrs Sex: Female : 1950 Arrival Date: 07/19/2023 Time: 15:43 Bed 17 Private MD: Diagnosis: NSTEMI, generalized weakness Presentation: 07/19 15:58 Chief complaint: EMS states: Hx of multiple injuries and surgeries to R hip, last was > ph 1 month ago, EMS called by family for generalized weakness which has been increasing since the last surgery, pt lives alone, is unable to get up and ambulate to restroom and calls EMS for assistance regularly. Coronavirus screen: Vaccine status: Patient reports receiving the 2nd dose of the covid vaccine. Ebola Screen: No symptoms or risks identified at this time. Risk Assessment: Do you want to hurt yourself or someone else? Patient reports no desire to harm self or others. Onset of symptoms was July 19, 2023. 15:58 Method Of Arrival: EMS: [facility] 15:58 Acuity: NIEVES 3 ph 16:17 Initial Sepsis Screen: Does the patient meet any 2 criteria? No. Patient's initial ph sepsis screen is negative. Does the patient have a suspected source of infection? No. Patient's initial sepsis screen is negative. Historical: - Allergies: 16:02 No Known Allergies; ph - PMHx: 16:02 Chronic Lumbar Pain; Depression; Weak Bladder; ph - PSHx: 16:02 Appendectomy; back; Cholecystectomy; hysterectomy; Right hip replacement (Kn); Total ph Knee Replacement - Right; - Immunization history:: Adult Immunizations unknown. - Social history:: Smoking status: unknown. Screenin:02 [facility] ED Fall Risk Assessment (Adult) History of falling in the last 3 months, ph including since admission Yes- fall prone (multiple falls) (3 pts) Confusion or Disorientation No (0 pts) Intoxicated or Sedated No (0 pts) Impaired Gait Yes (1 pt) Mobility Assist Device Used Yes (1 pt) Altered Elimination Yes (1 pt) Score/Fall Risk Level 3 or more points = High Risk Oriented to surroundings, Maintained a safe environment, Provided non-skid footwear, Hourly rounding (assess needs \T\ fall precautionary measures) done, Used ambulatory aids as needed (educated on \T\ assisted with), Used gait belt as appropriate. Abuse screen: Denies threats or abuse. Denies injuries from another. Nutritional screening: No deficits noted. Tuberculosis screening: No symptoms or risk factors identified. Assessment: 16:15 General: Appears in no apparent distress. comfortable, Behavior is calm, cooperative, ph appropriate for age. Pain: Pain radiates to right hip. Neuro: Level of Consciousness is awake, alert, obeys commands, Oriented to person, place, time, situation, Reports weakness. Cardiovascular: Capillary refill < 3 seconds in bilateral fingers Patient's skin is warm and dry. Respiratory: Airway is patent Respiratory effort is even, unlabored, Respiratory pattern is regular, symmetrical. Derm: Skin is pink, warm \T\ dry. Musculoskeletal: Circulation, motion, and sensation intact. Range of motion: intact in all extremities. 19:00 Reassessment: Patient appears in no apparent distress at this time. Patient and/or jb4 family updated on plan of care and expected duration. Pain level reassessed. Patient is alert, oriented x 3, equal unlabored respirations, skin warm/dry/pink. 20:13 Reassessment: Patient appears in no apparent distress at this time. Patient and/or jb4 family updated on plan of care and expected duration. Pain level reassessed. Patient is alert, oriented x 3, equal unlabored respirations, skin warm/dry/pink. 21:00 Reassessment: Pt resting in with eyes closed, respirations are even and unlabored with jb4 no s/s of pain or distress noted. 22:00 Reassessment: Patient appears in no apparent distress at this time. No changes from jb4 previously documented assessment. Patient and/or family updated on plan of care and expected duration. Pain level reassessed. Vital Signs: 16:20 BP 110 / 58; Pulse 65; Resp 18; Temp 97.8; Pulse Ox 95% on R/A; Weight 60.33 kg; ph 17:30 BP 124 / 62; Pulse 67; Resp 18; Pulse Ox 96% on R/A; ph 19:45 BP 118 / 46; Pulse 63; Resp 16; Pulse Ox 99% on R/A; jb4 21:30 BP 113 / 47; Pulse 65; Resp 16; Pulse Ox 98% on R/A; jb4 ED Course: 15:49 Patient arrived in ED. ph 15:50 Nico Miller MD is Attending Physician. sp3 15:56 Suzi Coombs RN is Primary Nurse. ph 16:02 Triage completed. ph 16:02 Arm band placed on Patient placed in an exam room, on a stretcher. ph 16:03 Patient has correct armband on for positive identification. Bed in low position. Call ph light in reach. Side rails up X 1. Pulse ox on. NIBP on. Door closed. Noise minimized. Warm blanket given. 16:40 Accessed PICC line. using per hospital protocol. Clean \T\ dry. Dressing intact. Good ph blood return. Flushes easily. 16:42 CBC with Diff Sent. ph 16:42 CMP Sent. ph 16:42 Lipase Sent. ph 16:58 Urinalysis w/ reflexes Sent. ph 18:00 Tyra Villafana MD is Hospitalizing Provider. sp3 18:32 No provider procedures requiring assistance completed. ph 18:33 Patient admitted, IV remains in place. ph 18:38 CT Chest For PE Angio In Process Unspecified. EDMS Administered Medications: 18:30 Drug: Aspirin PO 325 mg PO once Route: PO; ph 19:05 Follow up: Response: No adverse reaction ph Medication: 16:03 VIS not applicable for this client. ph Outcome: 18:00 Decision to Hospitalize by Provider. sp3 22:26 Admitted to Med/surg accompanied by tech, via stretcher, room 224, with chart, jb4 22:26 Condition: stable 22:26 Discharge instructions given to patient, Instructed on the need for admit, Demonstrated understanding of instructions, 22:31 Patient left the ED. jb4 Signatures: Dispatcher [employer] EDWI Suzi Coombs, RN RN Regis Howard RN RN jb4 Nico Miller MD MD sp3
--- NOTE | 2023-07-19 18:11 | P.HP ---
Certification for Inpatient Patient admitted to: Inpatient With expected LOS: <2 Midnights Patient will require the following post-hospital care: None Practitioner: I am a practitioner with admitting privileges, knowledge of patient current condition, hospital course, and medical plan of care. Services: Services provided to patient in accordance with Admission requirements found in Title 42 Section 412.3 of the Code of Federal Regulations Patient History Date of Service: 07/20/23 Reason for admission: weakness History of Present Illness: 72-year-old female with a past medical history right hip replacement, knee replacement, depression, chronic back pain, depression, weak bladder, presents to the emergency room with weakness. She reports history of total hip replacement recieving [facility], she reports chronic low back pain. Patient reports difficulty ambulating at home. Unable to perform self-care at home. She reports multiple recent falls, she denies injury with range of motion or pain. She denies recent infection, nausea vomiting diarrhea. ER lab evaluation elevated troponin plan to admit for NSTEMI, right leg pain, weakness.Laboratory evaluation troponin 184.1 hyperal albumin 2.2 blood glucose 137, normocytic anemia 8.9 26.5, no leukocytosis UA positive for leukoesterase, CTA IMPRESSION: No evidence of acute central pulmonary emboli.Small right pleural effusion with underlying patchy airspace opacification, raising concern for pneumonia. Sclerotic lesions within the vertebral bodies of T8 and T7, nonspecific, and may represent small bone islands. Possibility of osseous metastatic disease is considered less likely but not entirely excluded. Allergies No Known Allergies Allergy (Unverified 09/20/22 10:44) Home Medications: ARIPiprazole [Abilify] 5 mg PO DAILY 08/23/22 Acetaminophen [Tylenol Extra Strength] 500 mg PO Q6HP PRN 08/23/22 Aspirin [Adult Aspirin Regimen] 81 mg PO DAILY 08/23/22 Cetirizine HCl [Zyrtec] 10 mg PO DAILYPRN PRN 08/23/22 Cholecalciferol (Vitamin D3) [Vitamin D3] 2,000 unit PO DAILY 08/23/22 Donepezil HCl [Aricept] 10 mg PO BID 08/23/22 Duloxetine HCl 2 cap PO DAILY 08/23/22 Ibuprofen 800 mg PO BID 08/23/22 Melatonin 5 mg PO BEDTIME 08/23/22 Multivitamin 1 each PO DAILY 08/23/22 Tryptophan [l-Tryptophan] 500 mg PO BEDTIME 08/23/22 clonazePAM [Clonazepam] 0.25 - 0.5 mg PO PRN PRN 08/23/22 oxyBUTYnin chloride [Oxybutynin Chloride] 5 mg PO BID 08/23/22 Docusate [Colace Cap*] 100 mg PO BID 30 Days #60 cap 09/23/22 Ferrous Sulfate [Ferrous Sulfate*] 325 mg PO DAILY 90 Days #90 tab 09/23/22 - Past Medical/Surgical History Diabetic: No -: insomnia -: depression -: arthritis -: cholecystectomy -: vaginal hysterectomy -: ankle surgery -: total right knee -: back surgery x 8, titanium in place - Family History Mother -: Hypertension, Diabetes, Cancer, Other (see notes) Notes: colon cancer Father -: Other (see notes) Notes: passed age 97 - Social History Alcohol use: No CD- Drugs: No Caffeine use: Yes Review of Systems 10-point ROS is otherwise unremarkable Physical Examination - Physical Exam General: Alert, In no apparent distress, Oriented x3, Other (Moderate generalized weakness) HEENT: Atraumatic, Normocephalic, PERRLA Neck: Supple, 2+ carotid pulse no bruit Respiratory: Normal air movement, Diminished Cardiovascular: No edema, Normal pulses, Regular rate/rhythm Capillary refill: <2 Seconds Gastrointestinal: Normal bowel sounds, Soft and benign Musculoskeletal: No clubbing, No swelling, Other (Moderate generalized weakness) Integumentary: No rashes, No breakdown Neurological: Normal speech, Sensation intact, Cranial nerves 3-12 intact - Studies Laboratory Data (last 24 hrs) 07/19/23 07/19/23 16:40 16:40 WBC 8.60 Hgb 8.9 L Hct 26.5 L Plt Count 274 Sodium 140 Potassium 4.0 BUN 16 Creatinine 0.58 Glucose 137 H Total Bilirubin 0.2 AST 37 ALT 26 Alkaline Phosphatase 63 Lipase 18 Assessment and Plan - Plan Assessment and plan NSTEMI elevated BNP Falls Chronic pain weakness Hypoalbuminemia Normocytic anemia Depression Weak bladder Assessment and plan NSTEMI elevated BNP Cardiology consult troponin 184.1 , lovenox 1 mg/kg q12, Lasix 40 mg IV x 1 Trend troponins, telemetry CTA IMPRESSION: No evidence of acute central pulmonary emboli.Small right pleural effusion with underlying patchy airspace opacification, raising concern for pneumonia. Sclerotic lesions within the vertebral bodies of T8 and T7, nonspecific, and may represent small bone islands. Possibility of osseous metastatic disease is considered less likely but not entirely excluded. Falls Chronic pain weakness PT consult, supportive care Patient reports difficulty ambulating at home. Unable to perform self-care at home. She reports multiple recent falls, she denies injury with range of motion or pain. no leukocytosis UA positive for leukoesterase, Normocytic anemia normocytic anemia 8.9 26.5 Hypoalbuminemia hyperal albumin 2.2 Depression Weak bladder Resume appropriate home meds Diet n.p.o. after midnight Full code DVT Discharge Plan: Home Plan to discharge in: 48 Hours - Advance Directives Does patient have a Living Will: No Does patient have a Durable POA for Healthcare: No - Code Status/Comfort Care Code Status: Full Code Physician Review: Patient Assessed, Agree with Above Assessment and Plan Critical Care: No Time Spent Managing Pts Care (In Minutes): 50
[2023-07-19] MEDS ORDERED: ASPIRIN 81 MG CHEWABLE TABLET ONE (18:22)
--- NOTE | 2023-07-19 19:27 | RAD REPORT ---
EXAM DESCRIPTION: CT - Chest For Pe Angio - 07/19/2023 6:36 pm CLINICAL HISTORY: elevated trop post op COMPARISON: No comparisons TECHNIQUE: Thin axial CT images of the chest were obtained following administration of 100 mL Isovue 370 IV contrast. Multiplanar reconstructions, and maximum intensity projection reconstructions were generated and reviewed. Exam utilizes a protocol for optimal evaluation of pulmonary arterial tree. All CT scans are performed using dose optimization technique as appropriate and may include automated exposure control or mA/KV adjustment according to patient size. FINDINGS: Right arm PICC in place. Pulmonary arteries are normal. No emboli or other suspicious find ing. No acute or significant aorta findings. Aberrant right subclavian artery. Variant anatomy of the left vertebral artery as well arising directly from the arch of the aorta. Small right pleural effusion and patchy opacification in the underlying dependent right lower lobe. S mall calcified granuloma in the left lower lobe No pneumothorax. No abnormal mediastinal or hilar masses or lymphadenopathy seen. No chest wall mass or abnormal axill iary lymphadenopathy. Diffuse thickening of the left adrenal gland, nonspecific. Sclerotic focus within the body of T8 pos teriorly, and another small sclerotic focus within body of T7, nonspecific, and may relate to small b one islands, although osseous metastatic disease. Healing/healed right tenth rib fracture. IMPRESSION: No evidence of acute central pulmonary emboli. Small right pleural effusion with underlying patchy airspace opacification, raising concern for pneum onia. Sclerotic lesions within the vertebral bodies of T8 and T7, nonspecific, and may represent small bone islands. Possibility of osseous metastatic disease is considered less likely but not entirely exclud ed.
[2023-07-19] MEDS ORDERED: ONDANSETRON 4 MG/2 ML VIAL IV PRN (22:31)
[2023-07-19 22:59] VITALS: BMI 25.1
[2023-07-19 23:21] LABS: Troponin High Sensitivity 128.9 pg/mL (<58.9)
[2023-07-19] MEDS ORDERED: CETIRIZINE HCL 5 MG TABLET PO PRN (23:40)
[2023-07-19] MEDS ORDERED: FUROSEMIDE 40 MG/4 ML VIAL IV ONE (23:41)
[2023-07-19] MEDS: ENOXAPARIN 60 MG/0.6 ML SQ SCH (23:45)
[2023-07-20 06:41] LABS: Absolute Lymphocytes (CBC) 1.9 K/uL (0.7-4.9); Lymphocytes % 28.6 % (15.3-44.8); MCV 88.3 fL (80-100); MPV 7.5 fL (7.6-11.3); Platelets 287 thou/uL (152-406); RBC Red Blood Cell Count 3.06 M/uL (3.86-4.86)
[2023-07-20 07:03] LABS: Magnesium 1.9 mg/dL (1.6-2.4); Potassium 3.4 mEq/L (3.5-5.1)
[2023-07-20] MEDS ORDERED: REGADENOSON 0.4 MG/5 ML SYR IV ONE (08:11)
[2023-07-20] MEDS: ENOXAPARIN 60 MG/0.6 ML SQ SCH ×2 (09:00→20:42)
[2023-07-20] MEDS: ACETAMINOPHEN 500 MG TAB PO PRN (13:04)
--- NOTE | 2023-07-20 14:18 | RAD REPORT ---
EXAM DESCRIPTION: NM - Rest Stress Cardiac Imaging - 07/20/2023 1:07 pm CLINICAL HISTORY: ELEVATED TROPONIN COMPARISON: No comparisons TECHNIQUE: The patient was administered approximately 10.8 mCi of Tc 99m Sestamibi prior to resting SPECT imaging of the heart. The patient was then administered approximately 20.6 mCi of Tc 99m Sestam ibi following exercise or pharmacologic stress. Multiplanar SPECT images were reviewed. FINDINGS: Pronounced splanchnic uptake on the stress more than the rest images limits evaluation. Ap ical anterior wall small region of reversible uptake, raises concern for ischemia. Large segments of fixed defect along the inferior wall, sparing the apical segment, as well as the adjacent lateral and septal cunningham extending from apical to basal segments are concerning for infarcts. The end diastolic volume is 63 ml, the end systolic volume is 19 ml, and the ejection fraction is 71 %. IMPRESSION: Large segments of fixed defect involving the inferior wall, and adjacent lateral and sep lizbet cunningham as above concerning for remote infarcts. Pronounced splanchnic uptake results and artifactu al limitation of evaluation. Apical anterior wall small region of reversible uptake, raising concern for stress-induced ischemia. Low end systolic volume, may be related to long-standing hypertension.
[2023-07-20] MEDS: DULOXETINE 30 MG CAP PO SCH (14:24)
[2023-07-20] MEDS: oxyBUTYnin chloride 5 MG TAB PO SCH ×2 (14:24→20:42)
[2023-07-20] MEDS: DONEPEZIL HCL 5 MG TAB PO SCH ×2 (14:24→20:42)
[2023-07-20] MEDS: FERROUS SULFATE 325 MG TAB PO SCH (14:25)
[2023-07-20] MEDS: ASPIRIN EC 81 MG TAB PO SCH (14:25)
[2023-07-20] MEDS: ARIPiprazole 5 MG TAB PO SCH (14:25)
[2023-07-20] MEDS: DOCUSATE NA 100 MG CAP PO SCH ×2 (14:25→20:42)
--- NOTE | 2023-07-20 14:42 | EKG ---
Test Date: 2023-07-19 Test Time: 16:42:40 Alumni Relations Officer: KIMBERLY MEASUREMENT RESULTS: Intervals: Rate: 67 ME: 132 QRSD: 64 QT: 410 QTc: 433 [place]: P: 88 ME: 132 QRS: 66 T: 92 INTERPRETIVE STATEMENTS: Normal sinus rhythm Septal infarct, age undetermined Abnormal ECG Compared to ECG 05/24/2023 21:37:04 Myocardial infarct finding now present Sinus bradycardia no longer present Electronically Signed On 07-20-23 14:39:54 CDT by Binh Rodgers
--- NOTE | 2023-07-20 14:47 | TREADPHA ---
DX: ELEVATED TROPONIN Date of Study: 07/20/2023 Ht: 5' 1 " Wt: 133 lb 0 oz Consulting Physician: FARA MEDICATIONS: TYLENOL, ABILIFY, ASPIRIN, ZYRTEC, COLACE, ARICEPT, CYMBALTA, LOVENOX, FEOSOL, MELATIONIN, ZOFRAN, DITROPAN HISTORY: 72 YEAR OLD FEMALE WITH COMPLAINTS OF WEAKNESS. HISTOTY OF ARTHRITIS, INSOMNIA, AND DEPRESSION. PHYSICIAL EXAMINATION: RESTING B.P.: 175/65 RESTING H.R.: 72 RESTING EKG: NORMAL SINUS RHYTHM, WITHIN NORMAL LIMITS PROTOCOL: PHARMACOLOGIC EXERCISE TIME: 3:30 B.P. AT [place] STRESS: 134/51 IMPRESSION: LEXISCAN INJECTED, FOLLOWED BY CARDIOLITE PER PROTOCOL. SEE NUCLEAR MEDICINE REPORT. NO SUPRAVENTRICULAR TACHYCARDIA, VENTRICULAR TACHYCARDIA, PREMATURE ATRIAL COMPLEXES, PREMATURE VENTRICULAR COMPLEXES. PATIENT REPORTS NO CHEST PAIN. NO ELECTROCARDIOGRAM CHANGES OF ISCHEMIA WITH LEXISAN.
--- NOTE | 2023-07-20 15:59 | P.PN ---
Subjective Date of Service: 07/20/23 Chief Complaint: weakness Patient has no new complaints. She denies any chest pain. Her troponin was mildly elevated. Physical Examination - Vital Signs Temperature: 98.2 F Blood Pressure: 142/58 Pulse: 69 Respirations: 18 Pulse Ox (%): 97 - Studies Laboratory Data (last 24 hrs) 07/19/23 07/19/23 16:40 16:40 WBC 8.60 Hgb 8.9 L Hct 26.5 L Plt Count 274 Sodium 140 Potassium 4.0 BUN 16 Creatinine 0.58 Glucose 137 H Total Bilirubin 0.2 AST 37 ALT 26 Alkaline Phosphatase 63 Lipase 18 Assessment And Plan - Plan Physical Exam General: Alert, In no apparent distress, Oriented x3, Other (Moderate generalized weakness) HEENT: Atraumatic, Normocephalic, PERRLA Neck: Supple, 2+ carotid pulse no bruit Respiratory: Normal air movement, Diminished Cardiovascular: No edema, Normal pulses, Regular rate/rhythm Gastrointestinal: Normal bowel sounds, Soft and benign Musculoskeletal: No clubbing, No swelling. Integumentary: No rashes, No breakdown Neurological: Normal speech, Sensation intact, no focal motor deficit. Diagnosis NSTEMI Falls Chronic pain Generalized weakness Hypoalbuminemia Normocytic anemia Depression Plan: NSTEMI Troponin trended flat. Patient is on anticoagulation Cardiology consulted Nuclear stress test done which shows large area of fixed defect and a small apical area showing reversible ischemia. Cardiology to follow Euvolemic. CTA IMPRESSION: No evidence of acute central pulmonary emboli.Small right pleural effusion with underlying patchy airspace opacification, raising concern for pneumonia. Sclerotic lesions within the vertebral bodies of T8 and T7, nonspecific, and may represent small bone islands. Possibility of osseous metastatic disease is considered less likely but not entirely excluded. Falls Chronic pain General weakness Alzheimer dementia PT consulted, supportive care Patient reports difficulty ambulating at home. Unable to perform self-care at home. She reports multiple recent falls, she denies injury with range of motion or pain. Social service consult for discharge planning. Patient is requesting acute rehab. Normocytic anemia normocytic anemia 8.9 26.5 Monitor H&H Depression Continue home meds. Diet: Heart healthy diet. Full code DVT: On Lovenox
--- NOTE | 2023-07-20 17:36 | CON ---
Date of Consultation: 07/20/2023 Reason For Consultation: Elevated troponin. History Of Present Illness: This is a 72-year-old female with history of depression, arthritis, pres ented to the emergency room with generalized weakness. Has chronic back pain. Denies having any y[address] pain. No shortness of breath. ER blood work showed slightly elevated troponin. Patient is not s ymptomatic with it. Past Medical History: As outlined above in HPI. Medications: Refer consult sheet for detailed list. Allergies: NO KNOWN DRUG ALLERGIES. Family History: No premature coronary artery disease or cancer. Social History: Does not smoke or drink. Does not use any drugs. Review of Systems: All systems reviewed are negative except as mentioned in HPI. Physical Examination: Vital Signs: Reviewed. Head and Neck: Pupils are equal, reactive to light. Intact eye movements. No JVD. No cervical lym phadenopathy. Neck: Supple. Thyroid is not enlarged. Lungs: Clear to auscultation bilaterally. No rhonchi, wheezing, or crackles. No accessory muscle u se. Heart: Regular rate and rhythm. No extra sounds. Abdomen: Soft, nontender. Bowel sounds positive. No organomegaly. No masses or hernia. No rigidi ty or rebound. Extremities: No edema, clubbing, cyanosis intact pulses. Skin: No rash. Neurologic: Alert, awake, oriented x3. No acute focal deficits appreciated. Investigations: BUN 14, creatinine 0.47. Troponin peaked at 184 down to 94. NT-proBNP is 1038. He moglobin is 9.1. Assessment/recommendations: 1.Elevated troponin. No chest pain. Obtain stress test and an echo. Further recommendations accor jorgely. Continue aspirin for now and Lovenox. Stress test is possible. Plan for coronary angiogram on Sunday. 2.Elevated NT-proBNP. Obtain echo looking for congestive heart failure. 3.Anemia, appears to be chronic and stable. SR/MODL Voice ID: [id number] Report ID: [id number]
[2023-07-20] MEDS: MELATONIN 5 MG TABLET PO SCH (20:42)
[2023-07-20] MEDS: clonazePAM 0.5 MG TAB PO PRN (20:47)
[2023-07-20] MEDS: TRYPTOPHAN 500 MG PO SCH (21:00)
[2023-07-20] MEDS ORDERED: IBUPROFEN 800 MG PO SCH (21:00)
[2023-07-21 04:00] LABS: Absolute Lymphocytes (CBC) 2.2 K/uL (0.7-4.9); Hematocrit 27.5 % (36.0-45.0); Lymphocytes % 29.1 % (15.3-44.8); MCV 88.8 fL (80-100); MPV 7.7 fL (7.6-11.3); Platelets 303 thou/uL (152-406)
[2023-07-21 04:06] LABS: Magnesium 1.9 mg/dL (1.6-2.4); Potassium 3.6 mEq/L (3.5-5.1)
[2023-07-21] MEDS: ENOXAPARIN 60 MG/0.6 ML SQ SCH ×2 (07:57→20:51)
[2023-07-21] MEDS: FERROUS SULFATE 325 MG TAB PO SCH (07:58)
[2023-07-21] MEDS: DONEPEZIL HCL 5 MG TAB PO SCH ×2 (07:58→20:52)
[2023-07-21] MEDS: VITAMIN D 1000 UNIT TAB PO SCH (07:58)
[2023-07-21] MEDS: DOCUSATE NA 100 MG CAP PO SCH ×2 (07:58→20:51)
[2023-07-21] MEDS: ARIPiprazole 5 MG TAB PO SCH (07:59)
[2023-07-21] MEDS: ASPIRIN EC 81 MG TAB PO SCH (07:59)
[2023-07-21] MEDS: oxyBUTYnin chloride 5 MG TAB PO SCH ×2 (07:59→20:52)
[2023-07-21] MEDS: DULOXETINE 30 MG CAP PO SCH (07:59)
[2023-07-21] MEDS ORDERED: POTASSIUM CL SA 10 MEQ TAB PO ONE (08:00)
[2023-07-21] MEDS: ACETAMINOPHEN 500 MG TAB PO PRN ×2 (11:21→17:02)
--- NOTE | 2023-07-21 14:13 | P.PN ---
Subjective Date of Service: 07/21/23 Chief Complaint: weakness Patient has no new complaints. She denies any chest pain. Her troponin was mildly elevated. Stress test resulted positive for small area of stress-induced ischemia. Physical Examination - Vital Signs Temperature: 98.1 F Blood Pressure: 141/64 Pulse: 74 Respirations: 16 Pulse Ox (%): 96 Assessment And Plan - Plan Physical Exam General: Alert, In no apparent distress, Oriented x3, Other (Moderate generalized weakness) Respiratory: Normal air movement, Diminished Cardiovascular: No edema, Normal pulses, Regular rate/rhythm Gastrointestinal: Normal bowel sounds, Soft and benign Musculoskeletal: No clubbing, No swelling. Integumentary: No rashes, No breakdown Neurological: Normal speech, no focal motor deficit. Diagnosis NSTEMI Falls Chronic pain Generalized weakness Hypoalbuminemia Normocytic anemia Depression Plan: NSTEMI Troponin trended flat. Patient is on anticoagulation Cardiology consulted Nuclear stress test done which shows large area of fixed defect and a small apical area showing reversible ischemia. Cardiology to follow Euvolemic. CTA IMPRESSION: No evidence of acute central pulmonary emboli.Small right pleural effusion with underlying patchy airspace opacification, raising concern for pneumonia. Sclerotic lesions within the vertebral bodies of T8 and T7, nonspecific, and may represent small bone islands. Possibility of osseous metastatic disease is considered less likely but not entirely excluded. Falls Chronic pain General weakness Alzheimer dementia PT consulted, supportive care Patient reports difficulty ambulating at home. Unable to perform self-care at home. She reports multiple recent falls. Social service consult for discharge planning. Patient is requesting acute rehab. Continue PT. History of septic arthritis Patient was getting IV daptomycin via PICC line at home and she is slated to complete antibiotics on August 04, 2023. Resume daptomycin Monitor CK level and BMP weekly. Normocytic anemia normocytic anemia 8.9 26.5 Monitor H&H Depression Continue home meds. Chronic pain syndrome Patient has a pain pump. As needed [place] as needed. Diet: Heart healthy diet. Full code DVT: On Lovenox
[2023-07-21] MEDS: DAPTOmycin 400 MG in NA CHLORIDE 0.9% 100 ML IVPB SCH (15:08)
[2023-07-21] MEDS: clonazePAM 0.5 MG TAB PO PRN (20:50)
[2023-07-21] MEDS: MELATONIN 5 MG TABLET PO SCH (20:52)
[2023-07-21] MEDS: TRYPTOPHAN 500 MG PO SCH (20:54)
[2023-07-22 05:09] LABS: Absolute Lymphocytes (CBC) 1.9 K/uL (0.7-4.9); Hematocrit 26.5 % (36.0-45.0); Lymphocytes % 26.2 % (15.3-44.8); MPV 7.4 fL (7.6-11.3); Platelets 292 thou/uL (152-406); RBC Red Blood Cell Count 2.98 M/uL (3.86-4.86)
[2023-07-22 05:18] LABS: Magnesium 1.9 mg/dL (1.6-2.4)
[2023-07-22] MEDS: DULOXETINE 30 MG CAP PO SCH (08:37)
[2023-07-22] MEDS: VITAMIN D 1000 UNIT TAB PO SCH (08:37)
[2023-07-22] MEDS: DONEPEZIL HCL 5 MG TAB PO SCH ×2 (08:37→20:16)
[2023-07-22] MEDS: ARIPiprazole 5 MG TAB PO SCH (08:38)
[2023-07-22] MEDS: DOCUSATE NA 100 MG CAP PO SCH ×2 (08:38→20:16)
[2023-07-22] MEDS: ASPIRIN EC 81 MG TAB PO SCH (08:38)
[2023-07-22] MEDS: ENOXAPARIN 60 MG/0.6 ML SQ SCH ×2 (08:38→20:16)
[2023-07-22] MEDS: oxyBUTYnin chloride 5 MG TAB PO SCH ×2 (08:38→20:16)
[2023-07-22] MEDS: FERROUS SULFATE 325 MG TAB PO SCH (08:38)
[2023-07-22] MEDS: ACETAMINOPHEN 500 MG TAB PO PRN (10:41)
[2023-07-22] MEDS: DAPTOmycin 400 MG in NA CHLORIDE 0.9% 100 ML IVPB SCH (13:45)
--- NOTE | 2023-07-22 13:59 | P.PN ---
Subjective Date of Service: 07/22/23 Chief Complaint: weakness Patient has no new complaints. She denies any chest pain. Physical Examination - Vital Signs Temperature: 98.5 F Blood Pressure: 135/49 Pulse: 73 Respirations: 16 Pulse Ox (%): 96 Assessment And Plan - Plan Physical Exam General: Alert, In no apparent distress, Oriented x3, Other (Moderate generalized weakness) Respiratory: Normal air movement, Diminished Cardiovascular: No edema, Normal pulses, Regular rate/rhythm Gastrointestinal: Normal bowel sounds, Soft and benign Musculoskeletal: No clubbing, No swelling. Integumentary: No rashes, No breakdown Neurological: Normal speech, no focal motor deficit. Diagnosis NSTEMI Falls Chronic pain Generalized weakness Hypoalbuminemia Normocytic anemia Depression Plan: NSTEMI Troponin trended flat. Patient is on anticoagulation Cardiology consulted Nuclear stress test done which shows large area of fixed defect and a small apical area showing reversible ischemia. Cardiology to follow Falls Chronic pain General weakness Alzheimer dementia PT consulted, supportive care Patient reports difficulty ambulating at home. Unable to perform self-care at home. She reports multiple recent falls. Social service consult for discharge planning. Patient is requesting acute rehab. Continue PT. History of septic arthritis Patient was getting IV daptomycin via PICC line at home and she is slated to complete antibiotics on August 04, 2023. Resume daptomycin Monitor CK level and BMP weekly. Normocytic anemia normocytic anemia 8.9 26.5 Monitor H&H Depression Continue home meds. Chronic pain syndrome Patient has a pain pump. As needed [place] as needed. Diet: Heart healthy diet. Full code DVT: On Lovenox. Disposition: Social service is evaluating for acute rehab.
--- NOTE | 2023-07-22 16:29 | PN ---
Date of Progress Note: 07/22/2023 Subjective: Seen by bedside. She is feeling well. She had a positive stress test with the elevated troponin. No active chest pain at the present time. Review of Systems: No chest pain, shortness of breath, orthopnea, or cough. No nausea, vomiting, or diarrhea. All othe r systems were reviewed, they were negative. Objective: Vital Signs: Reviewed. Head and Neck: Pupils are equal, reactive to light. Intact eye movements. No JVD. No cervical lym phadenopathy. Neck is supple. Thyroid is not enlarged. Lungs: Clear to auscultation bilaterally. No rhonchi, wheezing, or crackles. No accessory muscle u se. Heart: Regular rate and rhythm. No extra sounds. Abdomen: Soft, nontender. Bowel sounds positive. No organomegaly. No masses or hernia. No rigidi ty or rebound. Extremities: No edema, clubbing, cyanosis. Intact pulses. Neurologic: Alert, awake, oriented x3. No acute focal deficits appreciated. Lymph Nodes: No cervical or axillary lymphadenopathy. Investigations: Labs were reviewed. Assessment And Recommendations: 1.Elevated troponin and elevated NT-proBNP. Echo was normal. Plan for a left heart catheterization tomorrow. Stress test is positive. 2.Elevated NT-proBNP. Appears to be euvolemic. On echo, it is diastolic dysfunction. We will monitor. 3.Anemia, that is stable. SR/MODL Voice ID: [id number] Report ID: [id number]
[2023-07-22] MEDS: MELATONIN 5 MG TABLET PO SCH (20:15)
[2023-07-22] MEDS: clonazePAM 0.5 MG TAB PO PRN (20:16)
[2023-07-22] MEDS: TRYPTOPHAN 500 MG PO SCH (20:17)
[2023-07-23] MEDS ORDERED: LIDOCAINE 1% 20 ML MDV ONE (06:53)
[2023-07-23] MEDS ORDERED: HEPA 1000U/500MLS 2,000 UNIT/1,000 ML BAG IV ONE (06:53)
[2023-07-23] MEDS ORDERED: VERAPAMIL HCL 10 MG/4 ML VIAL IV ONE (06:54)
[2023-07-23] MEDS ORDERED: NITROGLYCERIN/D5W 50 MG/250 ML BTL IV ONE (06:54)
[2023-07-23] MEDS ORDERED: NITROGLYCERIN 100 MCG/ML SYR (for cath lab use only) IV ONE (06:54)
[2023-07-23] MEDS ORDERED: ATROPINE SULF 1 MG/10 ML SYR IV ONE (06:54)
[2023-07-23] MEDS ORDERED: HEPARIN 10,000 UNIT/10 ML VIAL IV ONE (06:55)
[2023-07-23] MEDS ORDERED: HEPARIN 5000 UNIT/ML 1 ML VIAL ONE (06:55)
--- NOTE | 2023-07-23 07:04 | ECHO ---
HEIGHT: 5 ft 1 in WEIGHT: 133 lb 0 oz DATE OF STUDY: 07/20/[address]: Binh Rodgers 2-DIMENSIONAL: YES M.MODE: YES DOPPLER: YES COLOR FLOW: YES TDS: PORTABLE: YES DEFINITY: BUBBLE STUDY: DIAGNOSIS: ELEVATED TROPONIN CARDIAC HISTORY: CATHERIZATION: NO SURGERY: NO PROSTHETIC VALVE: NO PACEMAKER: NO MEASUREMENTS (cm) DIASTOLIC (NORMALS) SYSTOLIC (NORMALS) IVSd 0.9 (0.6-1.2) LA Diam 2.4 (1.9-4.0) LVEF 53% LVIDd 4.0 (3.5-5.7) LVIDs 2.9 (2.0-3.5) %FS 27% LVPWd 1.0 (0.6-1.2) Ao Diam 2.5 (2.0-3.7) 2 DIMENSIONAL ASSESSMENT: RIGHT ATRIUM: NORMAL LEFT ATRIUM: NORMAL RIGHT VENTRICLE: NORMAL LEFT VENTRICLE: NORMAL TRICUSPID VALVE: MILD TRICUSPID REGURGITATION MITRAL VALVE: MILD MITRAL REGURGITATION PULMONIC VALVE: NORMAL AORTIC VALVE: NORMAL PERICARDIAL EFFUSION: NONE AORTIC ROOT: NORMAL LEFT VENTRICULAR WALL MOTION: NORMAL DOPPLER/COLOR FLOW: SEE BELOW COMMENTS: 1. NORMAL LEFT VENTRICULAR EJECTION FRACTION 55-60% WITH NORMAL WALL MOTION 2. NORMAL DIASTOLIC FUNCTION 3. MILD MITRAL REGURGITATION 4. MILD TRICUSPID REGURGITATION TECHNOLOGIST: ROBERT ESCALONA
[2023-07-23] MEDS ORDERED: MIDAZOLAM HCL 2 MG/2 ML INJ ONE (07:27)
[2023-07-23] MEDS ORDERED: FENTANYL CITR 100 MCG/2 ML ONE (07:27)
--- NOTE | 2023-07-23 07:54 | PN ---
Date of Progress Note: 07/23/2023 Subjective: The patient was seen by bedside. She is doing well. No chest pain. Review of Systems: No chest pain, shortness of breath, orthopnea, cough. No nausea, vomiting, diarrhea. All other syst ems reviewed are negative. Objective: Vital signs: Reviewed. Head and Neck: Pupils are equal, reactive to light. Intact eye movements. No JVD. No cervical lym phadenopathy. Neck: Supple. Thyroid is not enlarged. Lungs: Clear to auscultation bilaterally. Heart: Regular rate and rhythm without extra sounds. Abdomen: Soft. Bowel sounds positive. No organomegaly. No masses or hernia. No rigidity or rebou nd. Extremities: No clubbing, cyanosis. Trace edema. Neurologic: Alert, awake, oriented x3. No acute focal deficits appreciated. Lymph Nodes: No cervical or axillary lymphadenopathy. Investigations: Labs were reviewed. Assessment And Recommendations: 1.Non-ST elevation myocardial infarction, Elevated troponin. This could be demand with positive str ess test. We will plan for coronary angiogram today. 2.Elevated NT-proBNP with normal EF. This is a diastolic dysfunction. The patient appears to be eu volemic. SR/MODL Voice ID: [id number] Report ID: [id number]
--- NOTE | 2023-07-23 08:09 | OP ---
Date of Procedure: 07/23/2023 Surgeon: JESÚS CHAUDHARI Procedure Performed: Selective coronary angiogram. Indication: Non-ST elevation myocardial infarction. Access: Right radial artery 6-[place], closed with TR band. Complications: None. Bleeding: Less than 20 mL. Description Of Procedure: After risks, benefits, alternatives were explained, patient agreed to proc edure and signed informal consent. Patient was brought into the cardiac catheterization laboratory, prepped and draped in sterile fashion. Then, I accessed the right radial artery using pediatric micr opuncture kit, placed 6-[place] Irish Slender sheath and took 5-[place] 4 catheter into the aortic root , engaged left main, took standard views and then the RCA and took standard views. Then the catheter was removed and the sheath was removed and placed TR band with good hemostasis. Findings: 1.Left main: Large and normal. 2.LAD: Proximal 20% to 30%. The rest of the LAD is normal. Normal diagonal branches. 3.Left circumflex is normal proximally. In the mid segment, there is 20% stenosis. 4.RCA: Proximal 30% to mid 20%. The rest of the RCA is normal. It is dominant. Conclusion: Mild nonobstructive coronary artery disease. Plan: Medical management. SR/MODL Voice ID: [id number] Report ID: [id number]
[2023-07-23] MEDS ORDERED: ACETAMINOPHEN 325 MG TABLET ONE ×2 (08:24→11:40)
[2023-07-23] MEDS: ENOXAPARIN 60 MG/0.6 ML SQ SCH ×2 (09:00→20:27)
[2023-07-23] MEDS: VITAMIN D 1000 UNIT TAB PO SCH (13:10)
[2023-07-23] MEDS: DONEPEZIL HCL 5 MG TAB PO SCH ×2 (13:10→20:26)
[2023-07-23] MEDS: ARIPiprazole 5 MG TAB PO SCH (13:11)
[2023-07-23] MEDS: oxyBUTYnin chloride 5 MG TAB PO SCH ×2 (13:11→20:26)
[2023-07-23] MEDS: FERROUS SULFATE 325 MG TAB PO SCH (13:11)
[2023-07-23] MEDS: DOCUSATE NA 100 MG CAP PO SCH ×2 (13:11→20:26)
[2023-07-23] MEDS: DULOXETINE 30 MG CAP PO SCH (13:11)
[2023-07-23] MEDS: ASPIRIN EC 81 MG TAB PO SCH (13:11)
[2023-07-23] MEDS: DAPTOmycin 400 MG in NA CHLORIDE 0.9% 100 ML IVPB SCH (13:40)
--- NOTE | 2023-07-23 14:53 | P.PN ---
Subjective Date of Service: 07/23/23 Chief Complaint: weakness Patient has no new complaints. She denies any chest pain or shortness of breath. Physical Examination - Vital Signs Temperature: 98.1 F Blood Pressure: 123/58 Pulse: 61 Respirations: 16 Pulse Ox (%): 96 Assessment And Plan - Plan Physical Exam General: Alert, In no apparent distress, Oriented x3, Other (Moderate generalized weakness) Respiratory: Normal air movement, Diminished Cardiovascular: No edema, Normal pulses, Regular rate/rhythm Gastrointestinal: Normal bowel sounds, Soft and benign Musculoskeletal: No clubbing, No swelling. Integumentary: No rashes, No breakdown Neurological: Normal speech, no focal motor deficit. Diagnosis NSTEMI Falls Chronic pain Generalized weakness Hypoalbuminemia Normocytic anemia Depression Plan: NSTEMI Troponin trended flat. Patient is on anticoagulation Cardiology consulted Nuclear stress test done which shows large area of fixed defect and a small apical area showing reversible ischemia. Cardiac catheterization showed no significant CAD disease to warrant percutaneous intervention-medical management. Falls Chronic pain General weakness Alzheimer dementia PT consulted, supportive care Patient reports difficulty ambulating at home. Unable to perform self-care at home. She reports multiple recent falls. Social service consult for discharge planning. Disposition inpatient rehab pending insurance authorization. Continue PT. History of septic arthritis Patient was getting IV daptomycin via PICC line at home and she is slated to complete antibiotics on August 04, 2023. Continue daptomycin Monitor CK level and BMP weekly. Normocytic anemia Monitor H&H Depression Continue home meds. Chronic pain syndrome Patient has a pain pump. As needed Paola as needed. Diet: Heart healthy diet. Full code DVT: On Lovenox. Disposition: Acute rehab pending insurance authorization.
[2023-07-23] MEDS: clonazePAM 0.5 MG TAB PO PRN (20:26)
[2023-07-23] MEDS: ACETAMINOPHEN 500 MG TAB PO PRN (20:26)
[2023-07-23] MEDS: MELATONIN 5 MG TABLET PO SCH (20:26)
[2023-07-23] MEDS: TRYPTOPHAN 500 MG PO SCH (21:00)
--- NOTE | 2023-07-24 07:29 | P.PN ---
Date of Service: 07/24/23 Subjective: Feeling better today s/p heart cath yesterday without PCI no acute events overnight working with PT ROS: 10 point ROS as noted above, otherwise negative Physical Exam: GEN: Alert, oriented, NAD, Moderate generalized weakness HEENT: Normal conjunctiva, sclera anicteric CV: Regular rate and rhythm, no edema Pulm: Nonlabored respirations on room air, diminished at bases b/l ABD: Soft, nontender, nondistended MSK: sutures in place, no evidence of infection of prior surgical site Neuro: Normal speech, normal affect vitals reviewed Problem List: NSTEMI Mild non-obstructive CAD Falls Chronic pain Generalized weakness Alzheimer dementia History of septic arthritis Hypoalbuminemia Normocytic anemia Depression Chronic pain syndrome NSTEMI Mild non-obstructive CAD Troponins trended flat. monitor on tele Cardiology consulted Patient is on anticoagulation Cardiology consulted Nuclear stress test (07/21): large area of fixed defect and a small apical area showing reversible ischemia. s/p cath (07/23): mild non-obstructive CAD; no PCI Falls Chronic pain General weakness Alzheimer dementia Patient reports difficulty ambulating at home. Unable to perform self-care at home. She reports multiple recent falls. ss/cm consulted for IPR; p2p denied 07/24 pending appeal Continue PT. History of septic arthritis Patient was getting IV daptomycin via PICC line at home and she is slated to complete antibiotics on August 04, 2023. Continue daptomycin until 08/04/23 Monitor CK level and BMP weekly. Hypoalbuminemia Normocytic anemia Continue to monitor Depression Continue home meds. Chronic pain syndrome Patient has a pain pump. PRN norco VTE: Lovenox Code: Full Dispo: IPR - p2p denied 07/24 -pending appeal ss/cm consulted
[2023-07-24] MEDS: ENOXAPARIN 60 MG/0.6 ML SQ SCH ×2 (09:20→20:07)
[2023-07-24] MEDS: DOCUSATE NA 100 MG CAP PO SCH ×2 (09:20→20:07)
[2023-07-24] MEDS: ASPIRIN EC 81 MG TAB PO SCH (09:21)
[2023-07-24] MEDS: oxyBUTYnin chloride 5 MG TAB PO SCH ×2 (09:21→20:07)
[2023-07-24] MEDS: FERROUS SULFATE 325 MG TAB PO SCH (09:21)
[2023-07-24] MEDS: DONEPEZIL HCL 5 MG TAB PO SCH ×2 (09:21→20:07)
[2023-07-24] MEDS: DULOXETINE 30 MG CAP PO SCH (09:21)
[2023-07-24] MEDS: VITAMIN D 1000 UNIT TAB PO SCH (09:21)
[2023-07-24] MEDS: ARIPiprazole 5 MG TAB PO SCH (09:21)
[2023-07-24 10:58] LABS: Magnesium 1.9 mg/dL (1.6-2.4); Potassium 3.9 mEq/L (3.5-5.1)
[2023-07-24 10:59] LABS: Absolute Lymphocytes (CBC) 1.5 K/uL (0.7-4.9); Hematocrit 29.8 % (36.0-45.0); Lymphocytes % 16.9 % (15.3-44.8); MPV 7.4 fL (7.6-11.3); Platelets 383 thou/uL (152-406); RBC Red Blood Cell Count 3.35 M/uL (3.86-4.86)
[2023-07-24] MEDS: ACETAMINOPHEN 500 MG TAB PO PRN ×2 (11:15→20:07)
[2023-07-24] MEDS: DAPTOmycin 400 MG in NA CHLORIDE 0.9% 100 ML IVPB SCH (14:08)
[2023-07-24] MEDS: MELATONIN 5 MG TABLET PO SCH (20:07)
[2023-07-24] MEDS: clonazePAM 0.5 MG TAB PO PRN (20:07)
[2023-07-24] MEDS: TRYPTOPHAN 500 MG PO SCH (21:00)
[2023-07-25] MEDS: DONEPEZIL HCL 5 MG TAB PO SCH ×2 (08:08→20:56)
[2023-07-25] MEDS: ASPIRIN EC 81 MG TAB PO SCH (08:09)
[2023-07-25] MEDS: FERROUS SULFATE 325 MG TAB PO SCH (08:09)
[2023-07-25] MEDS: DOCUSATE NA 100 MG CAP PO SCH ×2 (08:10→20:56)
[2023-07-25] MEDS: DULOXETINE 30 MG CAP PO SCH (08:10)
[2023-07-25] MEDS: VITAMIN D 1000 UNIT TAB PO SCH (08:10)
[2023-07-25] MEDS: oxyBUTYnin chloride 5 MG TAB PO SCH ×2 (08:10→20:56)
[2023-07-25] MEDS: ENOXAPARIN 60 MG/0.6 ML SQ SCH ×2 (08:11→20:57)
[2023-07-25] MEDS: ARIPiprazole 5 MG TAB PO SCH (08:11)
[2023-07-25] MEDS: ACETAMINOPHEN 500 MG TAB PO PRN ×2 (09:01→21:09)
--- NOTE | 2023-07-25 13:14 | P.PN ---
Date of Service: 07/25/23 Subjective: no acute events overnight working with PT sutures removed yesterday from I&D ~1 month ago denies chest pain afebrile ROS: 10 point ROS as noted above, otherwise negative Physical Exam: GEN: Alert, oriented, NAD, Moderate generalized weakness HEENT: Normal conjunctiva, sclera anicteric CV: Regular rate and rhythm, no edema Pulm: Nonlabored respirations on room air, diminished at bases b/l ABD: Soft, nontender, nondistended MSK: sutures in place, no evidence of infection of prior surgical site Neuro: Normal speech, normal affect vitals reviewed Problem List: NSTEMI Mild non-obstructive CAD Falls Chronic pain Generalized weakness Alzheimer dementia History of septic arthritis Hypoalbuminemia Normocytic anemia Depression Chronic pain syndrome NSTEMI Mild non-obstructive CAD Troponins trended flat. monitor on tele Cardiology consulted Patient is on anticoagulation Cardiology consulted Nuclear stress test (07/21): large area of fixed defect and a small apical area showing reversible ischemia. s/p cath (07/23): mild non-obstructive CAD; no PCI Falls Chronic pain General weakness Alzheimer dementia Patient reports difficulty ambulating at home. Unable to perform self-care at home. She reports multiple recent falls. ss/cm consulted for IPR; p2p denied 07/24 pending appeal Continue PT. History of septic arthritis Patient was getting IV daptomycin via PICC line at home and she is slated to complete antibiotics on August 04, 2023. Continue daptomycin until 08/04/23 Monitor CK level and BMP weekly. Hypoalbuminemia Normocytic anemia Continue to monitor Depression Continue home meds. Chronic pain syndrome Patient has a pain pump. PRN norco VTE: Lovenox Code: Full Dispo: IPR - p2p denied 07/24 -pending appeal ss/cm consulted
[2023-07-25] MEDS: DAPTOmycin 400 MG in NA CHLORIDE 0.9% 100 ML IVPB SCH (13:50)
[2023-07-25] MEDS: TRYPTOPHAN 500 MG PO SCH (21:00)
[2023-07-25] MEDS: clonazePAM 0.5 MG TAB PO PRN (21:09)
[2023-07-25] MEDS: MELATONIN 5 MG TABLET PO SCH (21:10)
[2023-07-26] MEDS: ACETAMINOPHEN 500 MG TAB PO PRN ×2 (06:58→12:28)
[2023-07-26] MEDS: ARIPiprazole 5 MG TAB PO SCH (10:42)
[2023-07-26] MEDS: FERROUS SULFATE 325 MG TAB PO SCH (10:42)
[2023-07-26] MEDS: oxyBUTYnin chloride 5 MG TAB PO SCH ×2 (10:43→21:15)
[2023-07-26] MEDS: DONEPEZIL HCL 5 MG TAB PO SCH ×2 (10:43→21:15)
[2023-07-26] MEDS: DULOXETINE 30 MG CAP PO SCH (10:44)
[2023-07-26] MEDS: VITAMIN D 1000 UNIT TAB PO SCH (10:44)
[2023-07-26] MEDS: ASPIRIN EC 81 MG TAB PO SCH (10:44)
[2023-07-26] MEDS: DOCUSATE NA 100 MG CAP PO SCH ×2 (10:44→21:16)
[2023-07-26] MEDS: ENOXAPARIN 60 MG/0.6 ML SQ SCH ×2 (10:45→21:15)
[2023-07-26] MEDS: clonazePAM 0.5 MG TAB PO PRN ×2 (12:36→21:16)
--- NOTE | 2023-07-26 13:25 | P.PN ---
Date of Service: 07/26/23 Subjective: no new / worsening problems Working with PT - slowly improving pending rehab appeal afebrile ROS: 10 point ROS as noted above, otherwise negative Physical Exam: GEN: Alert, oriented, NAD, Moderate generalized weakness HEENT: Normal conjunctiva, sclera anicteric CV: Regular rate and rhythm, no edema Pulm: Nonlabored respirations on room air, diminished at bases b/l ABD: Soft, nontender, nondistended MSK: sutures in place, no evidence of infection of prior surgical site Neuro: Normal speech, normal affect vitals reviewed Problem List: NSTEMI Mild non-obstructive CAD Falls Chronic pain Generalized weakness Alzheimer dementia History of septic arthritis Hypoalbuminemia Normocytic anemia Depression Chronic pain syndrome NSTEMI Mild non-obstructive CAD Troponins trended flat. monitor on tele Cardiology consulted Patient is on anticoagulation Cardiology consulted Nuclear stress test (07/21): large area of fixed defect and a small apical area showing reversible ischemia. s/p cath (07/23): mild non-obstructive CAD; no PCI Falls Chronic pain General weakness Alzheimer dementia Patient reports difficulty ambulating at home. Unable to perform self-care at home. She reports multiple recent falls. ss/cm consulted for IPR; p2p denied 07/24 pending appeal Continue PT. History of septic arthritis Patient was getting IV daptomycin via PICC line at home and she is slated to complete antibiotics on August 04, 2023. Continue daptomycin until 08/04/23 Monitor CK level and BMP weekly. Hypoalbuminemia Normocytic anemia Continue to monitor Depression Continue home meds. Chronic pain syndrome Patient has a pain pump. PRN norco VTE: Lovenox Code: Full Dispo: IPR - p2p denied 07/24 -pending appeal ss/cm consulted
[2023-07-26] MEDS: DAPTOmycin 400 MG in NA CHLORIDE 0.9% 100 ML IVPB SCH (14:53)
[2023-07-26] MEDS: TRYPTOPHAN 500 MG PO SCH (21:00)
[2023-07-26] MEDS: MELATONIN 5 MG TABLET PO SCH (21:16)
[2023-07-27] MEDS: DOCUSATE NA 100 MG CAP PO SCH ×2 (09:00→20:48)
[2023-07-27] MEDS: ACETAMINOPHEN 500 MG TAB PO PRN (09:37)
[2023-07-27] MEDS: ENOXAPARIN 60 MG/0.6 ML SQ SCH ×2 (09:38→20:48)
[2023-07-27] MEDS: ARIPiprazole 5 MG TAB PO SCH (09:39)
[2023-07-27] MEDS: ASPIRIN EC 81 MG TAB PO SCH (09:39)
[2023-07-27] MEDS: DONEPEZIL HCL 5 MG TAB PO SCH ×2 (09:39→20:48)
[2023-07-27] MEDS: FERROUS SULFATE 325 MG TAB PO SCH (09:39)
[2023-07-27] MEDS: DULOXETINE 30 MG CAP PO SCH (09:39)
[2023-07-27] MEDS: oxyBUTYnin chloride 5 MG TAB PO SCH ×2 (09:39→20:48)
[2023-07-27] MEDS: VITAMIN D 1000 UNIT TAB PO SCH (09:39)
--- NOTE | 2023-07-27 13:41 | P.PN ---
Date of Service: 07/27/23 Subjective: no new / worsening problems pending rehab appeal no chest pain afebrile ROS: 10 point ROS as noted above, otherwise negative Physical Exam: GEN: Alert, oriented, NAD, Moderate generalized weakness HEENT: Normal conjunctiva, sclera anicteric CV: Regular rate and rhythm, no edema Pulm: Nonlabored respirations on room air, diminished at bases b/l ABD: Soft, nontender, nondistended MSK: sutures in place, no evidence of infection of prior surgical site Neuro: Normal speech, normal affect vitals reviewed Problem List: NSTEMI Mild non-obstructive CAD Falls Chronic pain Generalized weakness Alzheimer dementia History of septic arthritis Hypoalbuminemia Normocytic anemia Depression Chronic pain syndrome NSTEMI Mild non-obstructive CAD Troponins trended flat. monitor on tele Cardiology consulted Patient is on anticoagulation Cardiology consulted Nuclear stress test (07/21): large area of fixed defect and a small apical area showing reversible ischemia. s/p cath (07/23): mild non-obstructive CAD; no PCI Falls Chronic pain General weakness Alzheimer dementia Patient reports difficulty ambulating at home. Unable to perform self-care at home. She reports multiple recent falls. ss/cm consulted for IPR; p2p denied 07/24 pending appeal Continue PT. History of septic arthritis Patient was getting IV daptomycin via PICC line at home and she is slated to complete antibiotics on August 04, 2023. Continue daptomycin until 08/04/23 Monitor CK level and BMP weekly. Hypoalbuminemia Normocytic anemia Continue to monitor Depression Continue home meds. Chronic pain syndrome Patient has a pain pump. PRN norco VTE: Lovenox Code: Full Dispo: IPR - p2p denied 07/24 -pending appeal ss/cm consulted
[2023-07-27] MEDS: DAPTOmycin 400 MG in NA CHLORIDE 0.9% 100 ML IVPB SCH (14:37)
[2023-07-27] MEDS: TRYPTOPHAN 500 MG PO SCH (20:50)
[2023-07-27] MEDS: MELATONIN 5 MG TABLET PO SCH (21:00)
[2023-07-28] MEDS: ACETAMINOPHEN 500 MG TAB PO PRN ×2 (03:12→12:14)
[2023-07-28] MEDS: clonazePAM 0.5 MG TAB PO PRN ×2 (03:16→22:58)
[2023-07-28 03:38] LABS: Absolute Lymphocytes (CBC) 2.5 K/uL (0.7-4.9); Hematocrit 29.1 % (36.0-45.0); Lymphocytes % 24.4 % (15.3-44.8); MCV 89.2 fL (80-100); Platelets 417 thou/uL (152-406); RBC Red Blood Cell Count 3.26 M/uL (3.86-4.86)
[2023-07-28 03:57] LABS: Potassium 3.7 mEq/L (3.5-5.1)
[2023-07-28] MEDS ORDERED: POTASSIUM CL SA 10 MEQ TAB PO ONE (09:00)
[2023-07-28] MEDS: DONEPEZIL HCL 5 MG TAB PO SCH ×2 (09:10→20:51)
[2023-07-28] MEDS: DOCUSATE NA 100 MG CAP PO SCH ×2 (09:10→20:51)
[2023-07-28] MEDS: DULOXETINE 30 MG CAP PO SCH (09:10)
[2023-07-28] MEDS: oxyBUTYnin chloride 5 MG TAB PO SCH ×2 (09:10→20:51)
[2023-07-28] MEDS: FERROUS SULFATE 325 MG TAB PO SCH (09:10)
[2023-07-28] MEDS: ARIPiprazole 5 MG TAB PO SCH (09:10)
[2023-07-28] MEDS: ASPIRIN EC 81 MG TAB PO SCH (09:10)
[2023-07-28] MEDS: VITAMIN D 1000 UNIT TAB PO SCH (09:12)
[2023-07-28] MEDS: ENOXAPARIN 60 MG/0.6 ML SQ SCH (11:06)
--- NOTE | 2023-07-28 12:40 | P.PN ---
Date of Service: 07/28/23 Subjective: Doing okay no acute events overnight pending rehab appeal working with PT; slowly improving afebrile ROS: 10 point ROS as noted above, otherwise negative Physical Exam: GEN: Alert, oriented, NAD HEENT: Normal conjunctiva, sclera anicteric CV: Regular rate and rhythm, no edema Pulm: Nonlabored respirations on room air, diminished at bases b/l ABD: Soft, nontender, nondistended Neuro: Normal speech, normal affect vitals reviewed Problem List: NSTEMI Mild non-obstructive CAD Falls Chronic pain Generalized weakness Alzheimer dementia History of septic arthritis Hypoalbuminemia Normocytic anemia Depression Chronic pain syndrome NSTEMI Mild non-obstructive CAD Troponins trended flat. monitor on tele Cardiology consulted Patient is on anticoagulation Cardiology consulted Nuclear stress test (07/21): large area of fixed defect and a small apical area showing reversible ischemia. s/p cath (07/23): mild non-obstructive CAD; no PCI Falls Chronic pain General weakness Alzheimer dementia Patient reports difficulty ambulating at home. Unable to perform self-care at home. She reports multiple recent falls. ss/cm consulted for IPR; p2p denied 07/24 pending appeal Continue PT. History of septic arthritis Patient was getting IV daptomycin via PICC line at home and she is slated to complete antibiotics on August 04, 2023. Continue daptomycin until 08/04/23 Monitor CK level and BMP weekly. Hypoalbuminemia Normocytic anemia Continue to monitor Depression Continue home meds. Chronic pain syndrome Patient has a pain pump. PRN norco VTE: Lovenox Code: Full Dispo: IPR - p2p denied 07/24 -pending appeal ss/cm consulted
[2023-07-28] MEDS: DAPTOmycin 400 MG in NA CHLORIDE 0.9% 100 ML IVPB SCH (14:12)
--- NOTE | 2023-07-28 15:47 | P.PN ---
Subjective Date of Service: 07/28/23 Chief Complaint: weakness Subjective: No new changes, Doing well Physical Examination - Vital Signs Temperature: 98.8 F Blood Pressure: 136/67 Pulse: 86 Respirations: 16 Pulse Ox (%): 97 - Physical Exam General: Alert, In no apparent distress HEENT: Atraumatic Respiratory: Clear to auscultation bilaterally Cardiovascular: No edema, Regular rate/rhythm Gastrointestinal: Soft and benign Neurological: Normal speech - Studies Medications List Reviewed: Yes Assessment And Plan - Plan 1. Coronary artery disease: Nonobstructive, patient has elevated troponin and coronary angiogram showed mild CAD. Continue aspirin statin and no need for further cardiac intervention. We will change full dose Lovenox to prophylaxis dose. 2. Elevated troponin: Type II MA and not ACS, patient has coronary angiogram as above Physician Review: Patient Assessed, Agree with Above Assessment and Plan
[2023-07-28] MEDS: MELATONIN 5 MG TABLET PO SCH (20:50)
[2023-07-28] MEDS: TRYPTOPHAN 500 MG PO SCH (20:50)
[2023-07-28 23:11] VITALS: O2SAT 98
[2023-07-29] MEDS ORDERED: POTASSIUM CL SA 10 MEQ TAB PO ONE (08:00)
[2023-07-29] MEDS: ASPIRIN EC 81 MG TAB PO SCH (08:41)
[2023-07-29] MEDS: oxyBUTYnin chloride 5 MG TAB PO SCH ×2 (08:41→20:25)
[2023-07-29] MEDS: VITAMIN D 1000 UNIT TAB PO SCH (08:41)
[2023-07-29] MEDS: DULOXETINE 30 MG CAP PO SCH (08:41)
[2023-07-29] MEDS: FERROUS SULFATE 325 MG TAB PO SCH (08:41)
[2023-07-29] MEDS: ARIPiprazole 5 MG TAB PO SCH (08:42)
[2023-07-29] MEDS: ENOXAPARIN 40 MG/0.4 ML SQ SCH (08:42)
[2023-07-29] MEDS: DOCUSATE NA 100 MG CAP PO SCH ×2 (08:42→20:25)
[2023-07-29] MEDS: DONEPEZIL HCL 5 MG TAB PO SCH ×2 (08:42→20:25)
--- NOTE | 2023-07-29 10:31 | P.PN ---
Date of Service: 07/29/23 Subjective: no new / worsening problems pending rehab appeal no evidence of infection of prior surgical site afebrile ROS: 10 point ROS as noted above, otherwise negative Physical Exam: GEN: Alert, oriented, NAD HEENT: Normal conjunctiva, sclera anicteric CV: Regular rate and rhythm, no edema Pulm: Nonlabored respirations on room air, diminished at bases b/l ABD: Soft, nontender, nondistended Neuro: Normal speech, normal affect vitals reviewed Problem List: NSTEMI Mild non-obstructive CAD Falls Chronic pain Generalized weakness Alzheimer dementia History of septic arthritis Hypoalbuminemia Normocytic anemia Depression Chronic pain syndrome NSTEMI Mild non-obstructive CAD Troponins trended flat. monitor on tele Cardiology consulted Patient is on anticoagulation Cardiology consulted Nuclear stress test (07/21): large area of fixed defect and a small apical area showing reversible ischemia. s/p cath (07/23): mild non-obstructive CAD; no PCI Falls Chronic pain General weakness Alzheimer dementia Patient reports difficulty ambulating at home. Unable to perform self-care at home. She reports multiple recent falls. ss/cm consulted for IPR; p2p denied 07/24 pending appeal Continue PT. History of septic arthritis Patient was getting IV daptomycin via PICC line at home and she is slated to complete antibiotics on August 04, 2023. Continue daptomycin until 08/04/23 Monitor CK level and BMP weekly. Hypoalbuminemia Normocytic anemia Continue to monitor Depression Continue home meds. Chronic pain syndrome Patient has a pain pump. PRN norco VTE: Lovenox Code: Full Dispo: IPR - p2p denied 07/24 -pending appeal ss/cm consulted
--- NOTE | 2023-07-29 13:47 | P.PN ---
Subjective Date of Service: 07/29/23 Chief Complaint: weakness Subjective: No new changes, New changes, Doing well Physical Examination - Vital Signs Temperature: 97.5 F Blood Pressure: 147/67 Pulse: 58 Respirations: 16 Pulse Ox (%): 98 - Physical Exam General: In no apparent distress, Oriented x3 HEENT: PERRLA Neck: Supple Respiratory: Clear to auscultation bilaterally Cardiovascular: Regular rate/rhythm Gastrointestinal: Soft and benign Neurological: Normal speech External genitalia: No edema - Studies Medications List Reviewed: Yes Assessment And Plan - Plan 1. Coronary artery disease: Nonobstructive, patient has elevated troponin and coronary angiogram showed mild CAD. Continue aspirin statin and no need for further cardiac intervention. We will change full dose Lovenox to prophylaxis dose. 2. Elevated troponin: Type II CO and not ACS, patient has coronary angiogram as above Physician Review: Patient Assessed, Agree with Above Assessment and Plan
[2023-07-29] MEDS: ACETAMINOPHEN 500 MG TAB PO PRN (16:44)
[2023-07-29] MEDS: DAPTOmycin 400 MG in NA CHLORIDE 0.9% 100 ML IVPB SCH (16:46)
[2023-07-29] MEDS: clonazePAM 0.5 MG TAB PO PRN (20:24)
[2023-07-29] MEDS: MELATONIN 5 MG TABLET PO SCH (20:26)
[2023-07-29] MEDS: TRYPTOPHAN 500 MG PO SCH (20:26)
[2023-07-30 04:49] LABS: Phosphorus 3.8 mg/dL (2.5-4.9); Potassium 4.2 mEq/L (3.5-5.1)
[2023-07-30] MEDS: ARIPiprazole 5 MG TAB PO SCH (08:25)
[2023-07-30] MEDS: ENOXAPARIN 40 MG/0.4 ML SQ SCH (08:25)
[2023-07-30] MEDS: DULOXETINE 30 MG CAP PO SCH (08:26)
[2023-07-30] MEDS: FERROUS SULFATE 325 MG TAB PO SCH (08:26)
[2023-07-30] MEDS: DOCUSATE NA 100 MG CAP PO SCH ×2 (08:26→20:52)
[2023-07-30] MEDS: DONEPEZIL HCL 5 MG TAB PO SCH ×2 (08:26→20:52)
[2023-07-30] MEDS: oxyBUTYnin chloride 5 MG TAB PO SCH ×2 (08:26→20:52)
[2023-07-30] MEDS: ASPIRIN EC 81 MG TAB PO SCH (08:26)
[2023-07-30] MEDS: VITAMIN D 1000 UNIT TAB PO SCH (08:29)
[2023-07-30] MEDS: ACETAMINOPHEN 500 MG TAB PO PRN ×2 (09:52→20:52)
--- NOTE | 2023-07-30 12:01 | P.PN ---
Date of Service: 07/30/23 Subjective: no acute events overnight pending rehab appeal afebrile ROS: 10 point ROS as noted above, otherwise negative Physical Exam: GEN: Alert, oriented, NAD HEENT: Normal conjunctiva, sclera anicteric CV: Regular rate and rhythm, no edema Pulm: Nonlabored respirations on room air, diminished at bases b/l ABD: Soft, nontender, nondistended Neuro: Normal speech, normal affect vitals reviewed Problem List: NSTEMI Mild non-obstructive CAD Falls Chronic pain Generalized weakness Alzheimer dementia History of septic arthritis Hypoalbuminemia Normocytic anemia Depression Chronic pain syndrome NSTEMI Mild non-obstructive CAD Troponins trended flat. monitor on tele Cardiology consulted Patient is on anticoagulation Cardiology consulted Nuclear stress test (07/21): large area of fixed defect and a small apical area showing reversible ischemia. s/p cath (07/23): mild non-obstructive CAD; no PCI Falls Chronic pain General weakness Alzheimer dementia Patient reports difficulty ambulating at home. Unable to perform self-care at home. She reports multiple recent falls. ss/cm consulted for IPR; p2p denied 07/24 pending appeal Continue PT. History of septic arthritis Patient was getting IV daptomycin via PICC line at home and she is slated to complete antibiotics on August 04, 2023. Continue daptomycin until 08/04/23 Monitor CK level and BMP weekly. Hypoalbuminemia Normocytic anemia Continue to monitor Depression Continue home meds. Chronic pain syndrome Patient has a pain pump. PRN norco VTE: Lovenox Code: Full Dispo: IPR - p2p denied 07/24 -pending appeal ss/cm consulted
[2023-07-30] MEDS ORDERED: HYDROCODONE/APAP 5/325 MG TAB PO ONE (13:43)
[2023-07-30] MEDS: DAPTOmycin 400 MG in NA CHLORIDE 0.9% 100 ML IVPB SCH (13:54)
[2023-07-30] MEDS: clonazePAM 0.5 MG TAB PO PRN (20:53)
[2023-07-30] MEDS: MELATONIN 5 MG TABLET PO SCH (20:54)
[2023-07-30] MEDS: TRYPTOPHAN 500 MG PO SCH (20:54)
[2023-07-31] MEDS: VITAMIN D 1000 UNIT TAB PO SCH (08:42)
[2023-07-31] MEDS: DONEPEZIL HCL 5 MG TAB PO SCH ×2 (08:43→21:01)
[2023-07-31] MEDS: FERROUS SULFATE 325 MG TAB PO SCH (08:43)
[2023-07-31] MEDS: DOCUSATE NA 100 MG CAP PO SCH ×2 (08:44→21:00)
[2023-07-31] MEDS: oxyBUTYnin chloride 5 MG TAB PO SCH ×2 (08:44→21:02)
[2023-07-31] MEDS: ENOXAPARIN 40 MG/0.4 ML SQ SCH (08:44)
[2023-07-31] MEDS: ASPIRIN EC 81 MG TAB PO SCH (08:44)
[2023-07-31] MEDS: ARIPiprazole 5 MG TAB PO SCH (08:44)
[2023-07-31] MEDS: DULOXETINE 30 MG CAP PO SCH (08:44)
[2023-07-31] MEDS: ACETAMINOPHEN 500 MG TAB PO PRN (13:38)
[2023-07-31] MEDS: DAPTOmycin 400 MG in NA CHLORIDE 0.9% 100 ML IVPB SCH (14:42)
--- NOTE | 2023-07-31 16:26 | P.PN ---
Subjective Date of Service: 07/31/23 Chief Complaint: weakness Patient has no new complaints. Patient's functional status is improving. She is ambulating more distances with PT. Physical Examination - Vital Signs Temperature: 98.4 F Blood Pressure: 150/67 Pulse: 72 Respirations: 16 Pulse Ox (%): 98 - Studies Medications List Reviewed: Yes Assessment And Plan - Plan Physical Exam GEN: Alert, oriented, NAD HEENT: Normal conjunctiva, sclera anicteric CV: Regular rate and rhythm, no edema Pulm: Nonlabored respirations on room air, diminished at bases b/l ABD: Soft, nontender, nondistended Neuro: Normal speech, normal affect vitals reviewed Problem List: NSTEMI Mild non-obstructive CAD Falls Chronic pain Generalized weakness Alzheimer dementia History of septic arthritis Hypoalbuminemia Normocytic anemia Depression Chronic pain syndrome NSTEMI Mild non-obstructive CAD Troponins trended flat. Cardiology consulted Patient is on anticoagulation Nuclear stress test (07/21): large area of fixed defect and a small apical area showing reversible ischemia. s/p cath (07/23): mild non-obstructive CAD; no PCI Medical management. Falls Chronic pain General weakness Alzheimer dementia Patient reports difficulty ambulating at home. Unable to perform self-care at home. She reported multiple recent falls. ss/cm consulted for IPR; p2p denied. Continue PT. Patient slated for skilled rehab placement. Awaiting insurance authorization. History of septic arthritis Patient was getting IV daptomycin via PICC line at home and she is slated to complete antibiotics on August 04, 2023. Continue daptomycin until 08/04/23 Monitor CK level and BMP weekly. Hypoalbuminemia Normocytic anemia Continue to monitor Depression Continue home meds. Chronic pain syndrome Patient has a pain pump. PRN norco VTE: Lovenox Code: Full Dispo: Skilled rehab ss/cm is following.
[2023-07-31] MEDS: TRYPTOPHAN 500 MG PO SCH (21:00)
[2023-07-31] MEDS: MELATONIN 5 MG TABLET PO SCH (21:00)
[2023-07-31] MEDS: clonazePAM 0.5 MG TAB PO PRN (21:11)
[2023-08-01] MEDS: ACETAMINOPHEN 500 MG TAB PO PRN (00:46)
[2023-08-01 05:08] LABS: Absolute Lymphocytes (CBC) 2.5 K/uL (0.7-4.9); Hematocrit 29.7 % (36.0-45.0); Lymphocytes % 24.8 % (15.3-44.8); MCV 88.4 fL (80-100); MPV 6.9 fL (7.6-11.3); Platelets 431 thou/uL (152-406); RBC Red Blood Cell Count 3.36 M/uL (3.86-4.86)
[2023-08-01 05:21] LABS: Potassium 3.7 mEq/L (3.5-5.1)
[2023-08-01 05:43] LABS: Blood Morphology Comment NOT SEEN (NOT SEEN); Platelet Estimate ADEQ
[2023-08-01] MEDS ORDERED: POTASSIUM CL SA 10 MEQ TAB PO ONE ×2 (06:11→09:00)
[2023-08-01] MEDS: DOCUSATE NA 100 MG CAP PO SCH (09:00)
[2023-08-01] MEDS: oxyBUTYnin chloride 5 MG TAB PO SCH (09:00)
[2023-08-01] MEDS: VITAMIN D 1000 UNIT TAB PO SCH (09:00)
[2023-08-01] MEDS: FERROUS SULFATE 325 MG TAB PO SCH (09:01)
[2023-08-01] MEDS: DONEPEZIL HCL 5 MG TAB PO SCH (09:01)
[2023-08-01] MEDS: ARIPiprazole 5 MG TAB PO SCH (09:01)
[2023-08-01] MEDS: DULOXETINE 30 MG CAP PO SCH (09:02)
[2023-08-01] MEDS: ASPIRIN EC 81 MG TAB PO SCH (09:02)
[2023-08-01] MEDS: ENOXAPARIN 40 MG/0.4 ML SQ SCH (09:02)
--- NOTE | 2023-08-01 11:04 | P.DS ---
Admission Date: 07/19/23 Discharge Date: 08/01/23 Disposition: TRANSFER TO SNF - REHAB Discharge Condition: FAIR Reason for Admission: weakness Brief History of Present Illness: 72-year-old female with a past medical history right hip replacement, knee replacement, depression, chronic back pain, depression, weak bladder, presented to the emergency room with weakness. She reported history of total hip replacement receiving home health and IV antibiotic. Sse reported chronic low back pain. Patient reported difficulty ambulating at home. Unable to perform self-care at home. She reported multiple recent falls. ER lab evaluation showed elevated troponin. CTA IMPRESSION: No evidence of acute central pulmonary emboli. Small right pleural effusion with underlying patchy airspace opacification, raising concern for pneumonia. Sclerotic lesions within the vertebral bodies of T8 and T7, nonspecific, and may represent small bone islands. Patient was hospitalized for further management. Hospital Course: Diagnosis NSTEMI Mild non-obstructive CAD Falls Chronic pain Generalized weakness Alzheimer dementia History of septic arthritis Hypoalbuminemia Normocytic anemia Depression Chronic pain syndrome NSTEMI Mild non-obstructive CAD Troponins trended flat. Cardiology consulted Nuclear stress test (07/21): large area of fixed defect and a small apical area showing reversible ischemia. s/p cath (07/23): mild non-obstructive CAD; no PCI Medical management recommended. Patient has been on aspirin. Falls Chronic pain General weakness Alzheimer dementia Patient reports difficulty ambulating at home. Unable to perform self-care at home. She reported multiple recent falls. ss/cm consulted for IPR; p2p denied. Patient received PT. Patient accepted for skilled rehab placement. History of septic arthritis Patient was getting IV daptomycin via PICC line at home and she is slated to complete antibiotics on August 04, 2023. Continue daptomycin until 08/04/23. CK level has been normal. Hypoalbuminemia Normocytic anemia Continue to monitor Depression Continue home meds. Chronic pain syndrome Patient has a pain pump. PRN norco T6-T7 vertebral lesion Possibly bone islands but malignancy not ruled out. Repeat imaging as outpatient recommended. Patient has been informed of the abnormal imaging of her spine and the necessary follow-up. Vital Signs/Physical Exam: Temp Pulse Resp BP Pulse Ox 98 F 74 16 125/60 94 08/01/23 08:00 08/01/23 08:00 08/01/23 08:00 08/01/23 08:00 08/01/23 08:00 General: Alert, In no apparent distress, Oriented x3 HEENT: Mucous membr. moist/pink Neck: Supple, JVD not distended Respiratory: Clear to auscultation bilaterally, Normal air movement Cardiovascular: No edema, Regular rate/rhythm, Normal S1 S2 Gastrointestinal: Normal bowel sounds, Soft and benign, Non-distended Musculoskeletal: No swelling Integumentary: No rashes, No cyanosis Neurological: Normal strength at 5/5 x4 extr Laboratory Data at Discharge: WBC 10.00 thou/uL (4.3-10.9) 08/01/23 04:56 Hgb 10.1 g/dL (12.0-15.0) L 08/01/23 04:56 Hct 29.7 % (36.0-45.0) L 08/01/23 04:56 Plt Count 431 thou/uL (152-406) H 08/01/23 04:56 Sodium 136 mEq/L (136-145) 08/01/23 04:56 Potassium Cancelled 08/01/23 09:00 BUN 17 mg/dL (7-18) 08/01/23 04:56 Creatinine 0.58 mg/dL (0.55-1.02) 08/01/23 04:56 Glucose 154 mg/dL (74-106) H 08/01/23 04:56 Phosphorus 3.8 mg/dL (2.5-4.9) 07/30/23 04:10 Magnesium 2.0 mg/dL (1.6-2.4) 07/30/23 04:10 Total Bilirubin 0.2 mg/dL (0.2-1.0) 07/19/23 16:40 AST 37 U/L (15-37) 07/19/23 16:40 ALT 26 U/L (13-56) 07/19/23 16:40 Alkaline Phosphatase 63 U/L (45-117) 07/19/23 16:40 Lipase 18 U/L (13-75) 07/19/23 16:40 Home Medications: ARIPiprazole [Abilify*] 5 mg PO DAILY 08/23/22 Acetaminophen [Tylenol Extra Strength] 500 mg PO Q6HP PRN 08/23/22 Aspirin [Adult Aspirin Regimen] 81 mg PO DAILY 08/23/22 Cetirizine HCl [Zyrtec] 10 mg PO DAILYPRN PRN 08/23/22 Cholecalciferol (Vitamin D3) [Vitamin D3] 2,000 unit PO DAILY 08/23/22 Donepezil HCl [Aricept] 10 mg PO BID 08/23/22 Duloxetine HCl 2 cap PO DAILY 08/23/22 Melatonin 5 mg PO BEDTIME 08/23/22 Multivitamin 1 each PO DAILY 08/23/22 Tryptophan [l-Tryptophan] 500 mg PO BEDTIME 08/23/22 clonazePAM [Clonazepam] 0.25 - 0.5 mg PO PRN PRN 08/23/22 oxyBUTYnin chloride [Oxybutynin Chloride] 5 mg PO BID 08/23/22 Docusate [Colace Cap*] 100 mg PO BID 30 Days #60 cap 09/23/22 Ferrous Sulfate [Ferrous Sulfate*] 325 mg PO DAILY 90 Days #90 tab 09/23/22 Physician Discharge Instructions: Patient presented with generalized weakness, multiple recent falls. Troponins were elevated. BNP elevated. EKG without STEMI criteria. Echo noted 53% EF with mild TR/MR. Findings consistent with NSTEMI. Cardiology was consulted. Nuclear stress test done on 07/21 was positive, noting large area of fixed defect and a small apical area showing reversible ischemia. Patient then underwent heart cath on 07/[address] Rodgers and was found to have mild nonobstructive coronary artery disease. (Findings below) No PCI needed. No further cardiac workup this hospitalization. Prolonged hospitalization secondary to inpatient rehab insurance authorizations/[id number]/appeal. Patient was monitored, feeling better, and deemed stable for discharge to __ where she can continue to work on strength/endurance with PT in order to return to prior level of function before returning home. Medications: Follow up: PCP 3-5 days Cardiology 1-2 weeks Operative Report Findings: 1. Left main: Large and normal. 2. LAD: Proximal 20% to 30%. The rest of the LAD is normal. Normal diagonal branches. 3. Left circumflex is normal proximally. In the mid segment, there is 20% stenosis. 4. RCA: Proximal 30% to mid 20%. The rest of the RCA is normal. It is dominant. Diet: AHA Activity: Fall precautions Followup: NONE,NONE [Primary Care Provider] - (within 3 weeks) Time spent managing pt's care (in minutes): 38
[2023-08-01 12:24] VITALS: BP 162/72; TEMP 97.1
== END 2023-08-01 13:43 | DRG 281 ==
LOC: ER 15:43 → ERHOLD 18:16 → 2ND 21:03
PROVIDERS: ADMIT Internal Medicine; ATTEND Internal Medicine
PROC: 4A023N7 Measurement of Cardiac Sampling and Pressure, Left Heart, Percutaneous Approach (ICD-10-PCS; principal; 2023-07-23)
PROC: B2111ZZ Fluoroscopy of Multiple Coronary Arteries using Low Osmolar Contrast (ICD-10-PCS; 2023-07-23)
DX: I21.4 Non-ST elevation (NSTEMI) myocardial infarction (principal); F02.83 Dementia in other diseases classified elsewhere, unspecified severity, with mood disturbance; G30.9 Alzheimer's disease, unspecified; G89.4 Chronic pain syndrome; M54.50 Low back pain, unspecified; D64.9 Anemia, unspecified; E88.09 Other disorders of plasma-protein metabolism, not elsewhere classified; I25.10 Atherosclerotic heart disease of native coronary artery without angina pectoris; R29.6 Repeated falls; Z91.81 History of falling; Z90.49 Acquired absence of other specified parts of digestive tract; Z79.82 Long term (current) use of aspirin; Z90.710 Acquired absence of both cervix and uterus; Z96.641 Presence of right artificial hip joint; Z96.651 Presence of right artificial knee joint; Z79.899 Other long term (current) drug therapy
CPT/HCPCS: 36415; 36569; 71275; 76937; 78452; 80048; 80053; 81001; 82550; 83690; 83735; 83880; 84100; 84484; 85025; 93005; 93017; 93306; 93454; 97110; 97116; 97161; 97530; 99285; A9500; C1893; J0461; J0878; J1644; J1650; J1940; J2001; J2250; J2785; J3010; Q9966; Q9967

== ENCOUNTER 2023-09-04 17:02 | Inpatient (IN) | payer OTHER ==
[2023-09-04 17:50] LABS: Hematocrit 34.7 % (36.0-45.0); Lymphocytes % 4.8 % (15.3-44.8); MCV 86.7 fL (80-100); MPV 7.7 fL (7.6-11.3); Platelets 300 thou/uL (152-406)
[2023-09-04 17:51] LABS: Protime INR 1.44
[2023-09-04] MEDS ORDERED: ACETAMINOPHEN 500 MG TAB ONE (17:54)
[2023-09-04 18:03] LABS: Albumin 3.1 g/dL (3.4-5.0); Bilirubin Total 0.2 mg/dL (0.2-1.0); Protein, Total 7.2 g/dL (6.4-8.2)
[2023-09-04 18:12] LABS: SARS-CoV-2 Antigen Rapid Res Negative (Negative)
--- NOTE | 2023-09-04 18:14 | RAD REPORT ---
EXAM DESCRIPTION: [facility] Single View09/04/2023 5:58 pm CLINICAL HISTORY: Fever COMPARISON: July 2023 FINDINGS: Mild right lower lobe opacity Left lung appears clear. Heart is normal size IMPRESSION: Mild right lower lobe opacity likely pneumonia
--- OUTSIDE RECORDS SUMMARY | 2023-09-04 18:19 | XMS REPORT | Continuity of Care Document ---
:1950 Author Organization [facility] t Address [address] [facility] [address] [place] [id number] Care Team Providers Name Role Phone ANABELSUMIERENDIRAJEWELLACHO Primary Care Physician Unavailable [id number] Attending Clinician Unavailable SONJA PAN Attending Clinician Unavailable RUT FUENTES Attending Clinician Unavailable BRITTANY RODGERS Attending Clinician Unavailable DIMITRIS PARRY Attending Clinician Unavailable RM REEVES Attending Clinician Unavailable ELISHA WIGGINS Attending Clinician Unavailable ARY SINGH Attending Clinician Unavailable RENETTA RITTER Attending Clinician Unavailable GENARO MOORE Attending Clinician Unavailable VICTOR MANUEL MCFARLANE Attending Clinician Unavailable TERELL COREY Attending Clinician Unavailable Elisha Wiggins MD Attending Clinician [phone] Brittany Rodgers MD Attending Clinician Erica LUNA, Teresa Attending Clinician TERESA MALDONADO Attending Clinician Unavailable Dimitris Parry MD Attending Clinician [phone] Chucky Dwyer MD Attending Clinician Sandrine MONTILLA, Rodríguez Lombardo Attending Clinician [phone] Stone LUNA, Renetta Perea Attending Clinician Ary Singh MD Attending Clinician Saba Santos Attending Clinician Yordan MONTILLA, Papa Morales Attending Clinician [phone] Cj Leonard MD Attending Clinician Kris LUNA, Eden Stevenson Attending Clinician [phone] Arielle LUNA, Chito Attending Clinician Cassi LUNA, Lady Rosario Attending Clinician CHITO MCCULLOUGH Attending Clinician Unavailable FOG_A_Provider Attending Clinician Unavailable Justin Hobbs MD Attending Clinician JUSTIN HOBBS Attending Clinician Unavailable Doctor Unassigned, [place] Attending Clinician Unavailable Radiology Attending Clinician Unavailable RADIOLOGY Attending Clinician Unavailable [id number] Admitting Clinician Unavailable RUT FUENTES Admitting Clinician Unavailable ELISHA WIGGINS Admitting Clinician Unavailable ARY SINGH Admitting Clinician Unavailable RENETTA RITTER Admitting Clinician Unavailable DIMITRIS PARRY Admitting Clinician Unavailable TERELL COREY Admitting Clinician Unavailable LADY HARDWICK Admitting Clinician Unavailable FOG_A_Provider Admitting Clinician Unavailable Justin Hobbs MD Admitting Clinician JUSTIN HOBBS Admitting Clinician Unavailable Payers Payer Name Policy Type Policy Number Effective Date Expiration Date Rony cevallosflora ROB HUMM [id number] [employer] MEDICARE ADV [id number] 2023 00:00:00 HLSM HLSM [id number] [facility] [id number] 2023 00:00:00 [employer] [id number] 2022 [facility] [employer] MEDICARE PPO [id number] 2022 00:00:00 [facility] [id number] 2022 (PPO) 00:00:00 Problems Condition Condition Condition [...] [place] disorder y disorder 00 [facility] Allergies, Adverse Reactions, Alerts Allergy Allergy Status Severity Reaction(s) Onset Inactive Treating Comm ents Source Name Type Date Date Clinician NO KNOWN Allergy Active [facility] NO KNOWN Drug Active Univers ALLERGIE Class it[facility] of [facility] Family History Family Member Diagnosis Comments Start Date Stop Date Source Natural mother Cancer [facility] Natural mother Diabetes [facility] Social History Social Habit Start Date Stop Date Quantity Comments Source History of Cigarette Smoker [facility] ukmartha tobacco use Medical Cente r History SDNJ [facility]-Med Medical [facility] Alcohol intake 2023-05-28 2023-05-28 Ex-drinker [facility] 00:00:00 00:00:00 (finding) Medical Center Exposure to 2023-05-15 2023-05-[address] [facility] SARS-CoV-2 00:00:00 07:56:00 Medical Center (event) History [facility] 2023-05-25 2023-05-[address] [facility] Transport Med 00:00:00 00:00:[address] History [facility] 2023-05-25 2023-05-[address] [facility] Housing Unable to 00:00:00 00:00:00 Medical Center Pay History [facility] 2023-05-25 2023-05-[address] [facility] Housing Places 00:00:00 00:00:00 Medical Ce nter Lived History [facility] 2023-05-25 2023-05-[address] [facility] Housing Homeless 00:00:00 00:00:00 Medical Center Last Year Tobacco use and 2023-03-08 2023-03-08 Smokeless [address] [facility] exposure 00:00[facility]00 00:00:00 non-user Medical Center Tobacco Comment 2022-07-12 2022-07-12 Quit smoking in [facility] of 00:00:00 00:00:November, [facility] smoked 1- 1.5 PPD Branch X 30 years Sex Assigned At [address] [facility] k[facility] 00:00:00 00:00:00 Medical Center Smoking Status Start Date Stop Date Source Ex-smoker 2023-03-08 00:00:00 2023-03-08 00:00:00 [facility] Smokes tobacco daily 2022-07-12 00:00:00 Univers ity of [facility] Branch Medications Ordered Filled Start Stop Current [...] 2 Center (two) times daily. aspirin 81 2022-0 2023- No 81mg Q.5D Take [address] [facility] 05-27- tablet (81 [facility] tablet 00:00: 23:59 mg total) Medic al 00 :00 by mouth 2 Center (two) times daily. aspirin 81 2022-0 2023- No 81mg Q.5D Take [address] [facility] EC 05-27- tablet (81 [facility] tablet 00:00: 23:59 mg total) Medic al 00 :00 by mouth 2 Center (two) times daily. acetaminoph 2022-0 2023- No 650mg Take [address] en 05-27- tablets [facility]ukes (TYLENOL) 00:00: 23:59 (650 mg Medi haritha 325 MG 00 :00 total) by Center tablet mouth every 4 (four) hours as needed for up to 360 days. acetaminoph 2022-0 2023- No 650mg Take [address] en 05-27- tablets [facility] (TYLENOL) 00:00: 23:59 (650 mg Medi haritha 325 MG 00 :00 total) by Center tablet mouth every 4 (four) hours as needed for up to 360 days. acetaminoph 2022-0 2022- No 1{tbl} Take [address] en-codeine 05-27- tablet by Dayana es (TYLENOL 00:00: 23:59 mouth Medical #4) 300-60 00 :00 every 4 Center mg per (four) tablet hours as needed for Pain for up to 10 days. Max Daily Amount: 6 tablets acetaminoph 2022-0 3- No 1{tbl} Take [address] en-codeine 05-27- tablet by Dayana es (TYLENOL 00:00: 23:59 mouth Medical #4) 300-60 00 :00 every 4 Center mg per (four) tablet hours as needed for Pain for up to 10 days. Max Daily Amount: 6 tablets docusate 2022-0 Yes 100mg QD Take 1 [...] by Johana (SENOKOT S) 14:48: mouth in Ma dicri 8.6-50 mg 01 the Center per tablet [...] tablet by Johana (sennosides 16:30: mouth in Ma dical -docusate 58 the Center sodium) morning. [...] tablet by Johana (sennosides 16:12: mouth in Ma dical -docusate 36 the Center sodium) morning. [...] ity of e-pf 12:54: 13:55 on Sun [place] (SENSORCAIN 00 :11 07/17/22 Medi haritha E at 0754, Branch W/EPINEPHRI Until [facility]) 0.25 07/17/22 %-1:200,000 at 0855, injection Routine, [...] mouth ity of mg Tab 08:55: daily. [place] [address] Medical Branch oxybutynin 2021-10 Yes 5mg Take 5 mg Un arely chloride 5 0-17 by mouth ity o f mg tablet 08:55: in the [place] [address] morning Medical and 5 mg Branch in the evening. ibuprofen 2021-10 Yes 800mg Take 800 Uni vers 800 mg 0-17 mg by ity of tablet 08:55: mouth in [place] [address] the Medical morning Branch and 800 mg in the evening. Take with meals. donepeziL 2021-10 Yes 10mg Take 10 mg Un arely 10 mg 0-17 by mouth ity of tablet 08:55: in the [place] [address] morning Medical and 10 mg Branch in the evening. amitriptyli 2021-10 Yes 25mg Take 25 mg Univers ne 25 mg 0-17 by mouth ity of tablet 08:55: as needed. [place] [address] 1 or 2 as Medical needed at [place] bedtime aspirin 81 2021-10 Yes 81mg Take 81 mg U nivers mg EC 0-17 by mouth ity of tablet 08:55: in the [place] [address] morning. Medical Branch ARIPiprazol 2021-10 Yes 5mg Take 5 mg U nivers e 5 mg 0-17 by mouth ity of tablet 08:55: in the [place] [address] morning. Medical Branch clonazePAM 2021-10 Yes 1mg Take 1 mg Un arely (KLONOPIN) 0-17 by mouth 3 ity of 1 mg tablet 08:55: (three) Daniele as 52 times Medical daily as Branch needed. As nee DULoxetine 2021-10 Yes 120mg Take 120 Un arely (CYMBALTA) 0-17 mg by ity of 60 mg 08:55: mouth in [place] [address] the Medical morning. Branch HYDROmorpho 2021-10 Yes 8mg Take 8 mg U nivers ne 0-17 by mouth 4 ity of (DILAUDID) 08:55: (four) [place] 8 mg tablet 52 times Medical daily. Branch levomefolat 2021-10 Yes 1{capsu Take 1 Cap Univers e-algal oil 0-17 le} by mouth ity of (DEPLIN, 08:55: daily. [place] ALGAL OIL,) Medical 15-90.314 Branch mg Cap [...] it y of mg tablet 08:55: (two) [place] [address] times Medical daily. Branch meloxicam 2021-10 Yes 7.5mg Take 7.5 Uni vers (MOBIC) 7.5 0-17 mg by ity of mg tablet 08:55: mouth [place] [address] daily. Medical Branch Doxepin 2021-10 Yes 6mg Take 6 mg Unive rs (SILENOR) 6 0-17 by mouth ity of mg Tab 08:55: daily. [place] [address] Medical Branch oxybutynin 2021-10 Yes 5mg Take 5 mg Un arely chloride 5 0-17 by mouth ity o f mg tablet 08:55: in the [place] [address] morning Medical and 5 mg Branch in the evening. ibuprofen 2021-10 Yes 800mg Take 800 Uni vers 800 mg 0-17 mg by ity of tablet 08:55: mouth in [place] [address] the Medical morning Branch and 800 mg in the evening. Take with meals. donepeziL 2021-10 Yes 10mg Take 10 mg Un arely 10 mg 0-17 by mouth ity of tablet 08:55: in the [place] [address] morning Medical and 10 mg Branch in the evening. amitriptyli 2021-10 Yes 25mg Take 25 mg Univers ne 25 mg 0-17 by mouth ity of tablet 08:55: as needed. [place] [address] 1 or 2 as Medical needed at Branch bedtime aspirin 81 2021-10 Yes 81mg Take 81 mg U nivers mg EC 0-17 by mouth ity of tablet 08:55: in the [place] [address] morning. Medical Branch ARIPiprazol 2021-10 Yes 5mg Take 5 mg U nivers e 5 mg 0-17 by mouth ity of tablet 08:55: in the [place] [address] morning. Medical Branch clonazePAM 2021-10 Yes 1mg Take 1 mg Un arely (KLONOPIN) 0-17 by mouth 3 ity of 1 mg tablet 08:55: (three) [place] as 52 times Medical daily as Branch needed. As nee DULoxetine 2021-10 Yes 120mg Take 120 Un arely (CYMBALTA) 0-17 mg by ity of 60 mg 08:55: mouth in [facility] 52 the Medical morning. Branch HYDROmorpho 2021-10 Yes 8mg Take 8 mg U nivers ne 0-17 by mouth 4 ity of (DILAUDID) 08:55: (four) [place] 8 mg tablet 52 times Medical daily. Branch levomefolat 2021-10 Yes 1{capsu Take 1 Cap Univers e-algal oil 0-17 le} by mouth ity of (DEPLIN, 08:55: daily. [place] ALGAL OIL,) Medical .314 Branch mg Cap [...] by ity of mg tablet 08:55: mouth [place] 52 daily. Medical Branch Doxepin 2021-10 Yes 6mg Take 6 mg Unive rs (SILENOR) 6 0-17 by mouth ity of mg Tab 08:55: daily. [place] [address] Medical Branch oxybutynin 2021-10 Yes 5mg Take 5 mg Un arely chloride 5 0-17 by mouth ity o f mg tablet 08:55: in the [place] [address] morning Medical and 5 mg Branch in the evening. ibuprofen 2021-10 Yes 800mg Take 800 Uni vers 800 mg 0-17 mg by ity of tablet 08:55: mouth in [place] [address] the Medical morning Branch and 800 mg in the evening. Take with meals. donepeziL 2021-10 Yes 10mg Take 10 mg Un arely 10 mg 0-17 by mouth ity of tablet 08:55: in the [place] [address] morning Medical and 10 mg Branch in the evening. amitriptyli 2021-10 Yes 25mg Take 25 mg Univers ne 25 mg 0-17 by mouth ity of tablet 08:55: as needed. [place] 52 1 or 2 as Medical needed at Branch bedtime aspirin 81 2021-10 Yes 81mg Take 81 mg U nivers mg EC 0-17 by mouth ity of tablet 08:55: in the [place] [address] morning. Medical Branch ARIPiprazol 2021-10 Yes 5mg Take 5 mg U nivers e 5 mg 0-17 by mouth ity of tablet 08:55: in the [place] [address] morning. Medical Branch clonazePAM 2021-10 Yes 1mg [...] by mouth ity of (DEPLIN, 08:55: daily. [place] ALGAL OIL,) 52 Medical 15.314 Branch mg [...] WITH ity o f CP24 00:00: BREAKFAST [facility] Branch QUETIAPINE 2004- Yes 1 tab po Uni vers 300 MG ORAL 2-14 qhs ity of TAB 00:00: [place] [facility] VENLAFAXINE 2004- Yes 1 Cap Oral Univers 75 MG ORAL 2-14 QAM WITH ity o f CP24 00:00: BREAKFAST [place] [facility] QUETIAPINE 2004- Yes 1 tab po Uni vers 300 MG ORAL 2-14 qhs ity of TAB 00:00: [place] [address] Medical Branch VENLAFAXINE 2004- Yes 1 Cap Oral Univers 75 MG ORAL 2-14 QAM WITH ity o f CP24 00:00: BREAKFAST [place] [facility] QUETIAPINE 2004- Yes 1 tab po Uni vers 300 MG ORAL 2-14 qhs ity of TAB 00:00: [address] Vital Signs Vital Name Observation Time [...] 13:30:00 127 mm[Hg] Univer sity of pressure [place] [facility] Diastolic blood 2022-07-17 13:30:00 62 mm[Hg] Unive rsity of pressure [place] [facility] Heart rate 2022-07-17 13:30:00 76 /min [facility] [place] [facility] Respiratory rate 2022-07-17 13:30:00 20 /min Univ ersity of [place] [facility] Oxygen saturation in 2022-07-17 13:30:00 93 /min University of Arterial blood by [place] [employer] haritha Pulse oximetry Branch Body temperature 2022-07-17 13:10:00 36.78 Monica Univ ersity [facility] [place] [facility] Body height 2022-07-04 16:26:00 154.9 cm [facility] [place] [facility] Body weight 2022-07-04 16:26:00 78 kg [facility] [place] [facility] BMI 2022-07-04 16:26:00 32.51 kg/m2 [facility] [place] [facility] Systolic blood 2022-07-17 13:30:00 127 mm[Hg] Univer sity of pressure [place] [facility] Diastolic blood 2022-07-17 13:30:00 62 mm[Hg] Unive rsity of pressure [place] [facility] Heart rate 2022-07-17 13:30:00 76 /min [facility] [place] [facility] Respiratory rate 2022-07-17 13:30:00 20 /min Univ ersity [facility] [place] [facility] Oxygen saturation in 2022-07-17 13:30:00 93 /min University of Arterial blood by [place] Medi haritha Pulse oximetry Branch Body temperature 2022-07-17 13:10:00 36.78 Monica Univ ers[facility] [place] [facility] Body height 2022-07-04 16:26:00 154.9 cm [facility] [place] [facility] Body weight 2022-07-04 16:26:00 78 kg [facility] [place] [facility] BMI 2022-07-04 16:26:00 32.51 kg/m2 [facility] [place] [facility] Systolic blood 2023-05-27 12:00:00 161 mm[Hg] [facility] Diastolic blood 2023-05-27 12:00:00 69 mm[Hg] [facility] Heart rate 2023-05-27 12:00:00 75 /min [facility] Body temperature 2023-05-27 12:00:00 36.56 Monica [facility] Respiratory rate 2023-05-27 12:00:00 18 /min [facility] Oxygen saturation in 2023-05-27 12:00:00 96 /min [facility] Arterial blood by Medical Ce nter Pulse oximetry Body weight 2023-05-27 07:00:00 54.4 kg [facility] BMI 2023-05-27 07:00:00 22.66 kg/m2 [facility] Systolic blood 2023-04-06 07:03:00 116 mm[Hg] [facility] Diastolic blood 2023-04-06 07:03:00 48 mm[Hg] [facility] Heart rate 2023-04-06 07:03:00 62 /min [facility] Body temperature 2023-04-06 07:03:00 36.56 Monica [facility] Respiratory rate 2023-04-06 07:03:00 18 /min [facility] Oxygen saturation in 2023-04-06 07:03:00 97 /min [facility] Arterial blood by Medical Ce nter Pulse oximetry Body height 2023-03-30 23:47:42 154.9 cm [facility] Body weight 2023-03-30 23:47:42 58.196 kg [facility] BMI 2023-03-30 23:47:42 24.24 kg/m2 [facility] Systolic blood 2023-03-09 06:57:00 160 mm[Hg] [facility] Diastolic blood 2023-03-09 06:57:00 70 mm[Hg] [facility] Heart rate 2023-03-09 06:57:00 60 /min [facility] Body temperature 2023-03-09 06:57:00 36.89 Monica [facility] Respiratory rate 2023-03-09 06:57:00 18 /min [facility] Oxygen saturation in 2023-03-09 06:57:00 99 /min [facility] Arterial blood by Medical Ce nter Pulse oximetry Body height 2023-03-08 11:13:00 154.9 cm [facility] Body weight 2023-03-08 11:13:00 55.475 kg [facility] BMI 2023-03-08 11:13:00 23.11 kg/m2 [facility] Systolic blood 2023-03-08 07:16:00 132 mm[Hg] [facility] Diastolic blood 2023-03-08 07:16:00 65 mm[Hg] [facility] Heart rate 2023-03-08 07:16:00 74 /min [facility] Body temperature 2023-03-08 07:16:00 37.17 Monica [facility] Respiratory rate 2023-03-08 07:16:00 18 /min [facility] Oxygen saturation in 2023-03-08 07:16:00 97 /min [facility] Arterial blood by Medical Ce nter Pulse oximetry Systolic blood 2023-03-07 14:19:00 139 mm[Hg] [facility] Diastolic blood 2023-03-07 14:19:00 64 mm[Hg] [facility] Heart rate 2023-03-07 14:19:00 77 /min [facility] Body temperature 2023-03-07 14:19:00 37 Monica [facility] Respiratory rate 2023-03-07 14:19:00 18 /min [facility] Oxygen saturation in 2023-03-07 14:19:00 97 /min [facility] Arterial blood by Medical Ce nter Pulse oximetry Body weight 2023-03-05 07:35:00 61.508 kg [facility] BMI 2023-03-05 07:35:00 25.60 kg/m2 [facility] Body height 2023-03-02 18:26:00 155 cm [facility] Procedures Procedure Date / Time Performing Clinician Source Performed BASIC METABOLIC PANEL 2023-05-27 04:39:00 Madi Carvajal [facility] CBC (HEMOGRAM ONLY) 2023-05-27 04:39:00 Teresa Maldonado [facility] XR PELVIS 1 OR 2 VIEWS 2023-05-26 11:13:00 Madi Carvajal [facility] TISSUE EXAM 2023-05-26 09:42:00 Dimitris Parry [facility] REVISION, TOTAL 2023-05-26 08:16[facility] BASIC METABOLIC PANEL 2023-05-26 04:17:00 Brittany Rodgers [facility] CBC W/PLT COUNT & AUTO 2023-05-26 04:17:00 Brittany Rodgers [facility] CBC W/PLT COUNT & AUTO 2023-05-26 04:17:00 Vishal Brittany [facility] C-REACTIVE PROTEIN 2023-05-25 17:03:00 Madi Carvajal [facility] XR HIP 2 VIEWS RIGHT 2023-05-25 08:55:00 Rm Reeves [facility] XR PELVIS 1 OR 2 VIEWS 2023-05-25 08:54:00 Sincere Barrios [facility] CBC W/PLT COUNT & AUTO 2023-05-25 07:22:00 Elisha Wiggins [facility] COMPREHENSIVE METABOLIC 2023-05-25 07:22:00 FelicianoElisha [facility] PROTHROMBIN TIME/INR 2023-05-25 07:22:00 [place] [facility] MAGNESIUM 2023-05-25 07:22:00 [place] [facility] TYPE AND SCREEN, 2023-05-25 07:22:00 [place], [facility] AUTOMATED [facility] CBC W/PLT COUNT & AUTO 2023-05-25 07:22:00 Feliciano [facility] DIFFERENTIAL [facility] EKG-SCANNED 2023-05-25 00:00:00 Hossein Dixon [facility] XR ABDOMEN/KUB 1 VIEW 2023-04-05 16:55:27 Ary Singh [facility] CBC W/PLT COUNT & AUTO 2023-04-05 04:46:00 Ary Singh [facility] BASIC METABOLIC PANEL 2023-04-05 04:46:00 Mario Singhash Baljit [facility] CBC W/PLT COUNT & AUTO 2023-04-05 04:46:00 [place] Baljit [facility] VANCOMYCIN LEVEL, TROUGH 2023-04-04 02:39:00 Santa Sandhu [facility] CBC W/PLT COUNT & AUTO 2023-04-04 02:39:00 Ary Singh [facility] BASIC METABOLIC PANEL 2023-04-04 02:39:00 Mario Singhash Baljit [facility] CBC W/PLT COUNT & AUTO 2023-04-04 02:39:00 Ary Singh [facility] CBC W/PLT COUNT & AUTO 2023-04-03 05:18:00 Ary Singh [facility] BASIC METABOLIC PANEL 2023-04-03 05:18:00 Ary Singh [facility] CBC W/PLT COUNT & AUTO 2023-04-03 05:18:00 Aruna Singhshrenee [facility] VANCOMYCIN LEVEL, TROUGH 2023-04-02 04:38:00 Elena Hardwick [facility] CBC W/PLT COUNT & AUTO 2023-04-02 04:38:00 [place] Baljit [facility] BASIC METABOLIC PANEL 2023-04-02 04:38:00 [place] Baljit [facility] CBC W/PLT COUNT & AUTO 2023-04-02 04:38:00 FranciscoAry white Baljit [facility] XR HIP 1 VIEW RIGHT 2023-04-01 07:39:00 Alena, [facility] XR PELVIS 1 OR 2 VIEWS 2023-04-01 07:38:00 Alena [facility] CBC W/PLT COUNT & AUTO 2023-04-01 03:54:00 Francisco [facility] Baljit [facility] BASIC METABOLIC PANEL 2023-04-01 03:54:00 [facility] W/PLT COUNT & AUTO 2023-04-01 03:54:00 [facility] ARTHROPLASTY, HIP 2023-03-31 17:00:00 Sohan [facility] TISSUE EXAM 2023-03-31 16:35:00 Sohan [facility] XR PELVIS 1 OR 2 VIEWS 2023-03-31 07:07:[address] [facility] CBC (HEMOGRAM ONLY) 2023-03-31 03:27:00 antoineva [facility] BASIC METABOLIC PANEL 2023-03-31 03:27:00 [facility] PROTHROMBIN TIME/INR 2023-03-31 03:27:00 [facility] TYPE AND SCREEN, 2023-03-31 03:27:00 Steven Garcia [facility] AUTOMATED [facility] EKG-SCANNED 2023-03-30 00:00:00 Provider, [facility] Scanning [place] HEMOGLOBIN AND 2023-03-09 05:10:00 Steven Garcia [facility] HEMATOCRIT [facility] XR PELVIS 1 OR 2 VIEWS 2023-03-08 15:24:[address] [facility] ARTHROPLASTY, HIP 2023-03-08 13:33:00 Dimitris Parry [facility] ARTHROPLASTY, HIP 2023-03-08 13:30:00 Dimitris Parry [facility] ARTHROPLASTY, HIP 2023-03-08 13:28:00 Sohan Dimitris [facility] ECG 12-LEAD 2023-03-08 11:46:24 Unknown, Hl7 Doctor [facility] TYPE AND SCREEN, 2023-03-07 18:13:00 Mer Middleton [facility] AUTOMATED Center BASIC METABOLIC PANEL 2023-03-07 05:29:00 [facility] CBC W/PLT COUNT & AUTO 2023-03-07 05:29:00 [facility] DIFFERENTIAL [place] CBC W/PLT COUNT & AUTO 2023-03-07 05:29:00 [facility] CBC W/PLT COUNT & AUTO 2023-03-05 05:18:00 [facility] DIFFERENTIAL [facility] CBC W/PLT COUNT & AUTO 2023-03-05 05:18:00 [facility] DIFFERENTIAL [facility] BASIC METABOLIC PANEL 2023-03-05 05:15:00 [facility] BASIC METABOLIC PANEL 2023-03-03 12:20:00 [facility] CBC W/PLT COUNT & AUTO 2023-03-03 12:20:00 [facility] DIFFERENTIAL [facility] CBC W/PLT COUNT & AUTO 2023-03-03 12:20:00 [facility] XR HIP 1 VIEW RIGHT 2023-03-02 10:56:00 Arely Browning [facility] XR BILATERAL HIPS TO 2023-03-02 10:13:00 Lady Hardwick [facility] INCLUDE PELVIS Center ABORH, MANUAL 2023-03-02 04:38:00 Aracelis Lovett [facility] CBC W/PLT COUNT & AUTO 2023-03-02 02:53:00 Lady Hardwick [facility] DIFFERENTIAL Center COMPREHENSIVE METABOLIC 2023-03-02 02:53:00 Lady Hardwick [facility] PANEL Center PROTHROMBIN TIME/INR 2023-03-02 02:53:00 Lady Hardwick [facility] TYPE AND SCREEN, 2023-03-02 02:53:00 Lady Hardwick [facility] AUTOMATED Center CBC W/PLT COUNT & AUTO 2023-03-02 02:53:00 Lady Hardwick [facility] DIFFERENTIAL Center INTRATHECAL INFUSION 2022-07-17 12:09:00 Justin Hobbs [facility] Medical Branch DAY SURGERY - ADC 2022-07-17 05:01:00 Doctor Unassigned, No [facility] Name Medical Branch EXTERNAL PROVIDER 2022-06-21 05:01:00 Doctor Unassigned, No [facility] RECORDS Name Medical Branch EXTERNAL PROVIDER 2022-06-21 05:01:00 Doctor Unassigned, No [facility] RECORDS Name Medical Branch XR ANKLE 3+ VW RIGHT 2021-03-02 17:25:47 [facility] Planned Activity Planned Date [...] colon Medical Ce nter (procedure) [code = 713909514] Future Scheduled 1950 Screening for malignant [facility] 00:00:00 neoplasm of colon Medical Ce nter (procedure) [code = 468352616] Future Scheduled 1950 Sigmoidoscopy [facility]code [facility] Future Scheduled 1951 Screening for malignant [facility] Test 00:00:00 neoplasm of breast Medical C enter (procedure) [code = 542845521] Future Scheduled 1950 CT Colonography (combo) [facility] Test 00:00:00 [code = CT Colonography [facility] (combo)] Future Scheduled 1951 Screening for malignant [facility] Test 00:00:00 neoplasm of colon Medical Ce nter (procedure) [code = 889433018] Future Scheduled 1951 Screening for malignant [facility] Test 00:00:00 neoplasm of colon Medical Ce nter (procedure) [code = 964938164] Future Scheduled 1950 DXA SCAN [code = DXA [facility] Test 00:00:00 SCAN] [facility] Future Scheduled 1951 Screening for malignant [facility] Test 00:00:00 neoplasm of colon Medical Ce nter (procedure) [code = 639202736] Future Scheduled 1951 Screening for malignant [facility] Test 00:00:00 neoplasm of colon Medical Ce nter (procedure) [code = 100685035] Future Scheduled 1950 Sigmoidoscopy [facility]code = [facility] 1951 Screening for malignant [facility] Test 00:00:00 neoplasm of breast Medical C enter (procedure) [code = 097440400] Future Scheduled 1951 CT Colonography (combo) [facility] Test 00:00:00 [code = CT Colonography [facility] (combo)] Future Scheduled 1951 Screening for malignant [facility] Test 00:00:00 neoplasm of colon Medical Ce nter (procedure) [code = 327674053] Future Scheduled 1951 Screening for malignant [facility] Test 00:00:00 neoplasm of colon Medical Ce nter (procedure) [code = 723872116] Future Scheduled 1950 DXA SCAN [code = DXA [facility] Test 00:00:00 SCAN] [facility] Future Scheduled 1951 Screening for malignant [facility] Test 00:00:00 neoplasm of colon Medical Ce nter (procedure) [code = 455297878] Future Scheduled 1951 Screening for malignant [facility] Test 00:00:00 neoplasm of colon Medical Ce nter (procedure) [code = 550230910] Future Scheduled 1950 Sigmoidoscopy [facility]code [facility]] [facility] Future Scheduled 1951 Screening for malignant [facility] Test 00:00:00 neoplasm of breast Medical C enter (procedure) [code = 988154360] Future Scheduled 1951 CT Colonography (combo) [facility] 00:00:00 [code = CT Colonography [facility] (combo)] Future Scheduled 1951 Screening for malignant [facility] 00:00:00 neoplasm of colon Medical Ce nter (procedure) [code = 552646650] Future Scheduled 1951 Screening for malignant [facility] Test 00:00:00 neoplasm of colon Medical Ce nter (procedure) [code = 950041908] Future Scheduled 1950 DXA SCAN [code = DXA [facility] 00:00:00 SCAN] [facility] Future Scheduled 1951 Screening for malignant [facility] 00:00:00 neoplasm of colon Medical Ce nter (procedure) [code = 297557535] Future Scheduled 1951 Screening for malignant [facility] 00:00:00 neoplasm of colon Medical Ce nter (procedure) [code = 757356646] Future Scheduled 1950 Sigmoidoscopy [code = [facility] 00:[facility]oscopy] [facility] Future Scheduled 1951 Screening for malignant [facility] Test 00:00:00 neoplasm of breast Medical C enter (procedure) [code = 813600602] Future Scheduled 1951 CT Colonography (combo) [facility] 00:00:00 [code = CT Colonography [facility] (combo)] Future Scheduled 1951 Screening for malignant [facility] 00:00:00 neoplasm of colon Medical Ce nter (procedure) [code = 563436302] Future Scheduled 1951 Screening for malignant [facility] Test 00:00:00 neoplasm of colon Medical Ce nter (procedure) [code = 999914409] Future Scheduled 1950 DXA SCAN [code = DXA [facility] 00:00:00 SCAN] [facility] Future Scheduled 1951 Screening for malignant [facility] Test 00:00:00 neoplasm of colon Medical Ce nter (procedure) [code = 729927058] Future Scheduled 1951 Screening for malignant [facility] 00:00:00 neoplasm of colon Medical Ce nter (procedure) [code = 933063817] Future Scheduled 1950 Sigmoidoscopy [facility]code = [facility]] [facility] Future Scheduled 1951 Screening for malignant [facility] 00:00:00 neoplasm of breast Medical C enter (procedure) [code = 962955119] Future Scheduled 1951 CT Colonography (combo) [facility] Test 00:00:00 [code = CT Colonography [facility] (combo)] Future Scheduled 1951 Screening for malignant [facility] 00:00:00 neoplasm of colon Medical Ce nter (procedure) [code = 121970421] Future Scheduled 1951 Screening for malignant [facility] Test 00:00:00 neoplasm of colon Medical Ce nter (procedure) [code = 788624615] Future Scheduled 1950 DXA SCAN [code = DXA [facility] 00:00:00 SCAN] [facility] Future Scheduled 1951 Screening for malignant [facility] Test 00:00:00 neoplasm of colon Medical Ce nter (procedure) [code = 309487302] Future Scheduled 1951 Screening for malignant [facility] Test 00:00:00 neoplasm of colon Medical Ce nter (procedure) [code = 995541673] Future Scheduled 1950 Sigmoidoscopy [facility]code = [facility]] [facility] Future Scheduled 1951 Screening for malignant [facility] 00:00:00 neoplasm of breast Medical C enter (procedure) [code = 470829695] Future Scheduled 1951 CT Colonography (combo) [facility] 00:00:00 [code = CT Colonography [facility] (combo)] Future Scheduled 1951 Screening for malignant [facility] 00:00:00 neoplasm of colon Medical Ce nter (procedure) [code = 869098010] Future Scheduled 1951 Screening for malignant [facility] Test 00:00:00 neoplasm of colon Medical Ce nter (procedure) [code = 493451528] Future Scheduled 1950 DXA SCAN [code = DXA [facility] 00:00:00 SCAN] Medical Center Encounters Start End Encounter Admission Attending Care Care Encounter Source Date/Time Date/Time Type Type Clinicians Facility Department ID 2023-07-30 Outpatient [id number] [facility] CRD [id number] [facility] 11:42:15 [facility] [place] 2023-07-25 Outpatient 3 [id number] [facility] CRD [id number] [facility] 10:42:04 1025 [facility] [place] 2023-07-21 Outpatient 3 [id number] [facility] REF [id number] [facility] 08:40:16 1021 [facility] [place] 2023-07-03 Inpatient ESTHELA PAN, [facility] [id number] [facility] 14:01:17 AHMED 2023-06-28 Inpatient ESTHELA FUENTES, [facility] [id number] [facility] 08:06:31 RUT 2023-06-27 Outpatient 3 [id number] [place] [id number] [facility] 08:38:42 0927 [facility] [place] 2023-06-26 Outpatient 3 [id number] [facility] REF [id number] [facility] 21:08:18 0926 [facility] [place] 2023-05-26 Inpatient ER BRITTANY RODGERS [facility] SLE[facility] [id number] [facility] 10:47:03 2023-05-26 Inpatient ER SOHAN, SLEH [facility] [id number] [facility] 09:23:32 DIMITRIS 2023-05-26 Inpatient ER SOHAN, SLEH SLE[facility] [id number] [facility] 00:00:00 DIMITRIS 2023-05-26 Inpatient ER SOHAN, SLEH SLE[facility] [id number] SLE[facility] 00:00:00 DIMITRIS 2023-05-25 Inpatient ER LALA, SLEH SLEH [id number] SLE[facility] 08:45:17 RM 2023-05-25 Inpatient ER FELICIANO, SLEH SLE[facility] [id number] [facility] 07:37:02 ELISHA 2023-04-05 Inpatient ER FRANCISCO, SLEH SLE[facility] [id number] [facility] 15:46:44 [facility] 2023-04-05 Outpatient 3 [id number] [place] [id number] [facility] 11:01:43 0706 [facility] [place] 2023-04-05 Inpatient ER FRANCISCO, SLEH SLE[facility] [id number] [facility] 00:00:00 YAASH 2023-04-02 Outpatient 3 [id number] [facility] REF [id number] [facility] 15:37:03 0703 [facility] [place] 2023-04-01 Inpatient ER FRANCISCO, SLEH SLEH [id number] [facility] 06:18:59 YASHASH 2023-04-01 Inpatient ER FRANCISCO, SLEH SLEH [id number] [facility] 06:18:53 YASHASH 2023-03-31 Inpatient ER STONE, SLEH SLEH [id number] SLEH 06:15:09 RENETTA 2023-03-30 Inpatient PARRY, SLE Surgery [id number] SLEH 20:40:23 DIMITRIS 2023-03-08 Inpatient EL PARRY, SLEH SLEH [id number] SLEH 15:16:15 DIMITRIS 2023-03-08 Inpatient EL PARRY, SLEH SLEH [id number] SLEH 11:54:44 DIMITRIS 2023-06-22 2023-07-10 Inpatient UR DENYS, SLE[facility] Orthopaedic [id number] [facility] 20:54:00 18:47:00 VICTOR MANUEL 2023-06-29 2023-06-29 Outpatient EL MAXIM, SLEH SLEH [id number] SLEH 17:06:43 17:06:43 AHMED 2023-06-23 2023-06-23 Outpatient UR LEORA, SLEH SLEH [id number] [facility] 05:03:57 05:03:57 [facility] 2023-05-25 2023-05-27 Hospital ER FelicianoElisha [facility] [id number] [facility] 04:50[facility] 18:59:00 [facility]23-[facility]-25 2023-05-27 Inpatient ER ERICA, SLE Orthopaedic [id number] [facility] 04:50:00 18:59:00 [facility] 2023-05-26 2023-05-26 Surgery Sohan, [facility] [id number] 08:00:00 12:03:00 [facility] 2023-05-26 2023-05-26 Anesthesia Chucky Dwyer [facility] [id number] [facility] 08:16:00 10:37:00 Event Sandrine, Rodríguez [facility] 2023-05-25 2023-05-25 Travel [facility] [id number] [facility] 00:[facility] 00:00:00 [facility] 2023-03-30 2023-04-06 Hospital ER Renetta Ritter [facility] [id number] 23:30:00 14:35:00 Encounter Ary Singh [facility] 2023-03-30 2023-04-06 [facility] Orth[facility] [id number] SLE 23:30:00 14:35:00 [facility] 2023-03-31 2023-03-31 Surgery Sohan [facility] [id number] 17:00:00 18:55:00 [facility] 2023-03-31 2023-03-31 Anesthesia Saba Santos [facility] [id number] 14:31:00 16:54:00 Event Papa Farr [facility] 2023-03-31 2023-03-31 Travel [facility] [id number] [facility] 00:00:00 00:00:00 [facility] 2023-03-07 2023-03-09 [facility] Sohan [facility] [id number] 16:30:00 14:26:00 Encounter [facility] 2023-03-07 2023-03-09 Outpatient [facility] Orthopedics [id number] SLE 16:30:00 14:26:00 [facility] 2023-03-08 2023-03-08 Anesthesia Cj Leonard [facility] [id number] 13:30:00 15:17:00 Event Chucky Dwyer [facility] 2023-03-08 2023-03-08 Surgery Sohan [facility] [id number] 13:00:00 15:00:00 [facility] 2023-03-08 2023-03-08 Travel [facility] [id number] [facility] 00:00:00 00:00:00 [facility] 2023-03-02 2023-03-07 Hospital ER Eden Ponce [facility] [id number] [facility] 00:19:00 15:50:00 [facility] 2023-03-02 2023-03-07 Inpatient ER CIVUNKATERINEA [facility] Orthopaedic [id number] [facility] 00:19:00 15:50:00 , CHITO 2023-03-02 2023-03-02 Outpatient FOG_A_Provi AOSM AOSM [id number] Christine 00:00:00 00:00:00 ami [id number] Orthop e dic [facility] 2022-07-17 2022-07-17 [facility] [id number] Univers 06:33:00 08:54:00 Encounter Justin DE LA ROSA [id number] [facility] [id number] [id number] [facility] 0[address] Branch 2022-07-17 2022-07-17 Outpatient [facility] [id number] Univers 06:33:00 08:54:00 JUSTIN ity of [facility] 2022-07-17 2022-07-17 Surgery Replaced by [facility] [id number] Univers 07:15:00 08:52:00 Justin S RJ [id number] it[facility] [id number] [id number] [facility] 020 Branch 2022-07-17 2022-07-17 Orders Doctor LUNDBERG [id number] Univers 00:00:00 00:00:00 Only Unassigned, HARDY 350.1.13.10 ity of [place] [facility] [id number] Daniele as [id number] [place] [address] Branch 2022-07-14 2022-07-14 [facility] [id number] Univers 08:15:00 08:15:00 JUSTIN ity [facility] 2021-03-02 2021-03-02 Hospital Radiology [facility] [id number] Univers 12:13:44 23:59:00 Encounter Rj 350.1.13.10 ity [facility] [id number] [facility] [id number] [facility] 807 Branch 2021-03-02 2021-03-02 Outpatient R RADIOLOGY [facility] [id number] Univers 00:00:00 00:00:00 [facility] Results Test Description Test Time Test Comments Results Result Comments Source AFB CULTURE + SMEAR (NON-SPUTUM) 2023-08-08 10:17:24 Test Item Value Reference Range Interpretation Comme nts CULTURE (BEAKER) (test code = 1095) No acid-fast bacilli isolated i n 42 days AFB SMEAR (BEAKER) (test code = 994) No acid fast bacilli seen AFB CULTURE + SMEAR (NON-SPUTUM)2023-08-08 10:17:24 Test Item Value Reference Range Interpretation Comments CULTURE (BEAKER) (test No acid-fast bacilli code = 1095) isolated in 42 days AFB SMEAR (BEAKER) No acid fast bacilli (test code = 994) seen AFB CULTURE + SMEAR (NON-SPUTUM)2023-08-08 10:17:24 Test Item Value Reference Range Interpretation Comments CULTURE (BEAKER) (test No acid-fast bacilli code = 1095) isolated in 42 days AFB SMEAR (BEAKER) No acid fast bacilli (test code = 994) seen AFB CULTURE + SMEAR (NON-SPUTUM)2023-08-08 10:17:23 Test Item Value Reference Range Interpretation Comments CULTURE (BEAKER) (test No acid-fast bacilli code = 1095) isolated in 42 days AFB SMEAR (BEAKER) No acid fast bacilli (test code = 994) seen FUNGUS CULTURE + [id number] 08:54:08 Test Item Value Reference Range Interpretation Comments CULTURE (BEAKER) (test No fungus isolated in code = 1095) 28 days FUNGUS SMEAR (BEAKER) No fungi seen (test code = 1406) FUNGUS CULTURE + [id number] 08:54:08 Test Item Value Reference Range Interpretation Comments CULTURE (BEAKER) (test No fungus isolated in code = 1095) 28 days FUNGUS SMEAR (BEAKER) No fungi seen (test code = 1406) FUNGUS CULTURE + [id number] 08:54:08 Test Item Value Reference Range Interpretation Comments CULTURE (BEAKER) (test No fungus isolated in code = 1095) 28 days FUNGUS SMEAR (BEAKER) No fungi seen (test code = 1406) FUNGUS CULTURE + [id number] 08:54:07 Test Item Value Reference Range Interpretation Comments CULTURE (BEAKER) (test No fungus isolated in code = 1095) 28 days FUNGUS SMEAR (BEAKER) No fungi seen (test code = 1406) CBC (HEMOGRAM ONLY)2023-07-09 05:27:55 Test Item Value Reference Range Interpretation Comments WHITE BLOOD CELL COUNT (BEAKER) 9.6 K/ L 3.5-10.5 (test code = 775) RED BLOOD CELL COUNT (BEAKER) 3.50 M/ L 3.93-5.22 L (test code = 761) HEMOGLOBIN (BEAKER) (test code = 9.6 GM/DL 11.2-15.7 L 410) HEMATOCRIT (BEAKER) (test code = 32.4 % 34.1-44.9 L 411) MEAN CORPUSCULAR VOLUME (BEAKER) 93 fL 79-95 (test code = 753) MEAN CORPUSCULAR HEMOGLOBIN 27.4 pg 25.6-32.2 (BEAKER) (test code = 751) MEAN CORPUSCULAR HEMOGLOBIN CONC 29.6 GM/DL 32.2-35.5 L (BEAKER) (test code = 752) RED CELL DISTRIBUTION WIDTH 16.5 % 11.7-14.4 H (BEAKER) (test code = 412) PLATELET COUNT (BEAKER) (test 382 K/CU MM 150-450 code = 756) MEAN PLATELET VOLUME (BEAKER) 9.3 fL 9.4-12.3 L (test code = 754) NUCLEATED RED BLOOD CELLS 0 /100 WBC 0-0 (BEAKER) (test code = 413) BASIC METABOLIC [id number] 05:19:49 Test Item Value Reference Range Interpretation [...] not appl icable for dialysis patien ts Automatic Print Developer ID - adminBASIC METABOLIC [id number] 10:55:58 Test Item Value Reference Range Interpretation [...] not appl icable for dialysis patien ts Automatic Print Developer ID - EMCBC (HEMOGRAM ONLY)2023-07-05 10:42:58 Test [...] 19 U/L 29-200 L code = 380) Automatic Print Developer ID - EMBASIC METABOLIC [id number] 05:31:28 Test Item Value Reference Range Interpretation [...] not appl icable for dialysis patien ts Automatic Print Developer ID - EMCBC (HEMOGRAM ONLY)2023-07-04 05:13:40 Test [...] 0-0 (BEAKER) (test code = 413) C-REACTIVE [id number] 11:54:56 Test Item Value Reference Range Interpretation Comments C-REACTIVE PROTEIN (BEAKER) (test 0.55 mg/dL 0.00-0.50 H code = 676) Automatic Print Developer ID - EMCBC W/PLT COUNT & AUTO [id number] 03:58:24 Test Item Value Reference Range Interpretation [...] (BEAKER) (test code = 413) BASIC METABOLIC [id number] 06:28:50 Test Item Value Reference Range Interpretation [...] G3b Moderately to s everely 30-44 G4 Sever ly decreased 15-29 G5 Kidney failure <15Repo rted eGFR is based on the CKD-EPI 2020 equation t hat does not use a race coefficientEsti mated GFR is not as accur ate as Creatinine Amanda lawson in predicting glom erular filtration rate . Estimated GFR is not appl icable for dialysis patien ts Automatic Print Developer ID - emCBC (HEMOGRAM ONLY)2023-06-30 06:08:17 Test [...] 413) XR CHEST 1 VIEW PORTABLE / [id number] 17:58:32 [facility] 1950 Sex: FEXAMINATION: XR [...] Signed By: Lucy Rosales06/29/2023 18:00 CDTWorkstation Name: [id number] 12:31:01 Test Item Value Reference Range Interpretation Comments CULTURE (BEAKER) (test No anaerobes isolated code = 1095) ANAEROBIC [id number] 12:30:35 Test Item Value Reference Range Interpretation Comments CULTURE (BEAKER) (test No anaerobes isolated code = 1095) ANAEROBIC [id number] 12:30:19 Test Item Value Reference Range Interpretation Comments CULTURE (BEAKER) (test No anaerobes isolated code = 1095) ANAEROBIC [id number] 12:29:02 Test Item Value Reference Range Interpretation Comments CULTURE (BEAKER) (test No anaerobes isolated code = 1095) PERIPHERAL BLOOD SMEAR - PATHOLOGIST [id number] 17:14:45 Test Item Value Reference Range Interpretation Comments PERIPHERAL SMR Normocytic normochromic REVIEW (BEAKER) anemia with moderate (test code = 2640) anisopoikilocytosis and few schistocytes (average 1 to 2 per HPF). WBCs include predominantly mature granulocytes. Adequate platelets. [id number] [place] White, 112 (BEAKER) (test M.D code = 2849) SURGICALLY OBTAINED CULTURE + GRAM [id number] 15:13:08 Test Item Value Reference Range Interpretation Comments CULTURE (BEAKER) (test code No growth = 1095) GRAM STAIN RESULT (BEAKER) 1+ WBCs (test code = 1123) GRAM STAIN RESULT (BEAKER) No organisms seen (test code = 40573) SURGICALLY OBTAINED CULTURE + GRAM [id number] 15:13:07 Test Item Value Reference Range Interpretation Comments CULTURE (BEAKER) (test code No growth = 1095) GRAM STAIN RESULT (BEAKER) <1+ WBCs (test code = 1123) GRAM STAIN RESULT (BEAKER) No organisms seen (test code = 47628) [id number] 14:24:14 Test Item Value Reference Range Interpretation Comments HAPTOGLOBIN (BEAKER) (test code = 348 mg/dL 14-258 H 366) Automatic Print Developer ID - ADMINOperator ID - ADMINCREATINE KINASE (CK)2023-06-27 14:12:52 Test Item Value Reference Range Interpretation Comments CREATINE KINASE TOTAL (BEAKER) (test 69 U/L 29-200 code = 380) Automatic Print Developer ID - emSURGICALLY OBTAINED CULTURE + GRAM [id number] 12:06:43 Test Item Value Reference Interpretation Comments [...] No organisms seen (BEAKER) (test code = 615655) VITAMIN [id number] 06:59:00 Test Item Value Reference Range Interpretation Comments VITAMIN B12 (BEAKER) (test code = 306 pg/mL 213-816 774) Automatic Print Developer ID - [id number] 06:59:00 Test Item Value Reference Range Interpretation Comments FERRITIN (BEAKER) (test code = 71.12 ng/mL 5.00-275.00 361) Automatic Print Developer ID - emIRON, TIBC, % SAT. (WITHOUT FERRITIN)2023-06-27 06:31:54 Test Item Value Reference Range Interpretation Comments IRON (BEAKER) (test code = 547) 22.0 ug/dL 40.0-160.0 L TOTAL IRON BINDING CAPACITY 275 ug/dL 250-450 (BEAKER) (test code = 769) IRON % SATURATION (2) (BEAKER) 8 % 20-55 L (test code = 2590) Automatic Print Developer ID - emCOMPREHENSIVE METABOLIC [id number] 06:23:00 Test Item Value Reference Range Interpretation [...] not appl icable for dialysis patien ts Automatic Print Developer ID - emCBC W/PLT COUNT & AUTO [id number] 06:03:04 Test Item Value Reference Range Interpretation [...] 0.00-1.00 H PERCENT (BEAKER) (test code = 280) LACTATE DEHYDROGENASE (LDH)2023-06-26 16:00:34 Test Item Value Reference Range Interpretation Comments LACTATE DEHYDROGENASE (BEAKER) (test 164 U/L 125-220 code = 635) Automatic Print Developer ID - EOSURGICALLY OBTAINED CULTURE + GRAM [id number] 12:08:11 Test Item Value Reference Interpretation Comments [...] No organisms seen (BEAKER) (test code = 834596) CBC W/PLT COUNT & AUTO [id number] 07:08:40 Test Item Value Reference Range Interpretation [...] (BEAKER) (test code = 2801) BASIC METABOLIC [id number] 06:14:24 Test Item Value Reference Range Interpretation [...] not appl icable for dialysis patien ts Automatic Print Developer ID - ADMINCBC W/PLT COUNT & AUTO [id number] 06:02:07 Test Item Value Reference Range Interpretation [...] PERCENT (BEAKER) (test code = 2801) SPIN/CONCENTRATION [id number] 10:37:35 Test Item Value Reference Range Interpretation Comments CONCENTRATION CHARGED (BEAKER) (test Done code = 2657) SPIN/CONCENTRATION [id number] 10:37:17 Test Item Value Reference Range Interpretation Comments CONCENTRATION CHARGED (BEAKER) (test Done code = 2657) CBC W/PLT COUNT & AUTO [id number] 06:01:17 Test Item Value Reference Range Interpretation [...] (BEAKER) (test code = 2801) BASIC METABOLIC [id number] 05:53:12 Test Item Value Reference Range Interpretation [...] not appl icable for dialysis patien ts Automatic Print Developer ID - BSBASIC METABOLIC [id number] 05:10:04 Test Item Value Reference Range Interpretation [...] not appl icable for dialysis patien ts Automatic Print Developer ID - ADMINPT/[id number] 04:50:39 Test Item Value Reference Range Interpretation [...] mechanical heart valves.CBC W/PLT COUNT & AUTO [id number] 04:45:38 Test Item Value Reference Range Interpretation [...] = 2801) XR PELVIS 1 OR 2 [id number] 14:20:56 [facility] : 1950 Sex: FAP PELVISHISTORY: Right hip pain, right hip arthroplastyCOMPARISON: 05/26/2023FINDINGS:Single frontal view the pelvis was performed. Status post right hiptotal arthroplasty. No periprosthetic fracture is visualized. Alignmentof the hardware is unchanged. No dislocation.Partially imaged postoperative changes in the lumbar spine consistentwith prior posterior lumbar interbody fusion.Electronically Signed By: Robi Maloney06/23/2023 14:23 CDTWorkstation Name: [id number] NATRIURETIC FACTOR (BNP)2023-06-23 05:09:04 Test Item Value Reference Range Interpretation Comments B-TYPE NATRIURETIC PEPTIDE (BEAKER) 117 pg/mL 0-100 H (test code = 700) Automatic Print Developer ID - ADMINCOMPREHENSIVE METABOLIC [id number] 05:02:00 Test Item Value Reference Range Interpretation [...] not appl icable for dialysis patien ts Automatic Print Developer ID - [id number] 05:02:00 Test Item Value Reference Range Interpretation Comments MAGNESIUM (BEAKER) (test code = 1.8 mg/dL 1.6-2.6 627) Automatic Print Developer ID - BSCBC W/PLT COUNT & AUTO [id number] 04:35:21 Test Item Value Reference Range Interpretation [...] PERCENT (BEAKER) (test code = 2801) C-REACTIVE [id number] 23:39:19 Test Item Value Reference Range Interpretation Comments C-REACTIVE PROTEIN (BEAKER) (test 3.86 mg/dL 0.00-0.50 H code = 676) Automatic Print Developer ID - ADMINCBC W/PLT COUNT & AUTO [id number] 23:18:54 Test Item Value Reference Range Interpretation [...] PERCENT (BEAKER) (test code = 2801) Tissue [id number] 18:28:20 Test Item Value Reference Range Interpretation Comments Case Report (test Surgical Pathology code = 104) Report Case: [id number] Authorizing Provider: Dimitris Parry Collected: 05/26/2023 09:42 AM MD Marly Ordering Location: [address] Received: 05/28/2023 09:38 AM Service Pathologist: Thomas Echevarria MD Specimen: Explant, FOR IDENTIFICATION DIAGNOSIS (test code f5lurHElGQUgz9cvDXUnzDGb = 3220) ZzEwMzNcZnRuYmpcdWMxIHtc uaGuUBzbfLcdHVSzFTmeJW4c iHbbbAy8sLbnBKCrmlI0eRUd BHcxt9iiYST3w1mjrukpDLZi RTlbXm9nyCDvcXiyNfAjUNFr PTd5aA51ZIBetC3agUJeDOf1 XHBhcGVydzEyMjQwXHBhcGVy rJT4YNXrNZ7slitiDZiySBtv MVBhcoC1YQBzmCErL9JuAZOl RN1ytxkdBBA3YGwiQKJeJJH8 HuWpITZvj6Vvwni2NpHqbUVu SIjvvYRletqmzmGbFW0WENbF UEVESUMgSEFSRFdBUkUsIFJJ Z8cMQXgUKJanStPZR2NUAEjf VOVfTHItUCEzIVPqEP8vWIJU RFdBUkUgSURFTlRJRklFRCAo D6KSX4OjW90ZCAuipPDrfGgh iiKyWBqol1QwDTatULIlVP9e vTipDZZjCE1lCDOlE3miqW1n pix0QzAyYXQoTxR1EDAkwxK8 Qcm8GQYpCXsum1foj6RoLVHr URf2pClrDcGqUAUsr0ubtgUw FaZrOKIrMMAaSNTtiSOpK733 n4oeq2gjtwMruPX7TYRuPWE2 SFiajvXrxwS4OZsyiLMkPnZ3 IDtccmVkMFxncmVlbjBcYmx1 UTElP533LWC5aQeql9nqHVP7 YLJfWQIwNjBrYd1qwIMdZ040 HJCzOUKKCZRnbYp8KNNaspKu oaTpoMXLa432U408d9hbLLUy diIobPcGsrkej3nvE386JKMg cGVydzEyMjQwXHBhcGVyaDE1 IAOvOJ9dbtdaWRgnKKriHCYy kbB2NJUpbOXjY3ShTCKsWI9h ufyjVXB4RPilAYQgLLT2UpQi IAIkz6Gvhcx7EfNsnp4shg30 TCT0e9BeeUqwHYB8PHV8SzPl Yr1mpLLyZSVqXH9zQpYyzKYx ULQtmc35jOesTNdgHLB7VUKm skUry2Wru3rfPyAtrxCdO8ht B4RzZPKoJRQfCEUqGpDpstSa s3Apt4QjpRPpiJi4l3zyDBTj OHXpwGlbr7snFGQ6DJUahIFc J9bcwU0lKTZdYZ2tgemcp9uh THbiLTacXJElgMN6vpV2HYEi aIVqQ7SjkR8xODOrZKfpHQMs gdf7EaGkHp3omTSbgDqbBVxl YmtwYWdlXHBnbmNvbnRccGdu ZGVjXHBsYWluXHBsYWluXGYw XGZzMjRccWxcbGFuZzEwMzNc aGljaFxmMVxkYmNoXGYxXGxv B6bdKhPjJtKhJzo2PHQinKJc NXNcBof6ILUsfJWdNDUAjZmr oF0bAPCasYfhaI4qrOK2ANBq dmJmqXXYsC0rLBFWyS1qTpK5 CTMsHkr4KSI5ZkWmfEBetM1= CPT Code(s) (test p4jkwUWdQFEviAIoJHXdW7qe code = 3357) isAoEMHhgKAgG8TglekdVZel FV0yEX4nvFnflCVxrJFjHUDj UxVks7zcz905eCDqn0ykEOVU xxeinLr6cUixL52ih8U8Tvpo Z47vmELoBXG9YGVhDIEchFQx NGSqDJK4BBMitUKdS6wmUEJt IE7lijmmBUmgPVirLDVzwTW4 SPDbiDFzN0NsXZRmXCvhWOBi dpa6VfWfFc1ktAZftMsuIUkd YXJkXHBsYWluXGZzMjAgODgz MDBccGFyfQ== CLINICAL HISTORY p3qwzBOyMJLhkNTwOTPwQ3lp (test code = 3356) omLuNIVphXYxU5IfjrxqHZwk HP8mHV9ppCynsXTkwNTzNRNi TyTyw4azx015eRCtw6ihYGTX yhtjaUn7sQomP81fn8L2Vczx T89ndHWvNAE4JRGrLPYfqUJm VOVaAXK0YEVarPBvM8hrCDDt HP0omjvlDMtmQOksAADsfIK3 PEYsbWHvU4MpAVZiJTrtJBDj riy7InUaKz1ifMEvtGpeBHab YXJkXHBsYWluXGZzMjAgSGlw JBzwq1TdGfsvoHS1ZXOkoMqy dFxwYXJ9 GROSS DESCRIPTION p0jwqNErCMTyfAKUVWCmSCHn (test code = GF5urOdsnId1zLbdKPBnxuA7 [id number]) xNRvMUyrr8myRXM1l0umgeTF TecqGBGvLQ3eFOaeIBWqIJ2f ZmUwXGRlZmYxXHBhcGVydzEy QxVzEBFehFUdmXP1WUIsGC3k ytogVMgfZKqzKORutpM3BGQd qGApF5SmMEJkRR4vukjhKZG9 NYTTUwiqDu2pzXUjpTykJrLs ZmNoYXJzZXQwXGZuaWwgQXJp BJp3fA1MXnupASS1TLTENfrl ZuexzAzcg9QhvXDoCABjCHux aWQgNTEwMDAgXFxkYiBPVlIg JcOgYcu5ZaJ3LYNpSEx4ZUnf JzODOTC4JMOvIIerQTp9FDlt XFxuaCBcXHQgMSBcXGZsIFxc cdO3l6alOKSxjOZtZPL3OQzv d8uyCEplTMK6JWJxJhRgWJPb YB3TDlQqGFNtJdynANIwOoR1 TEn8QKLXBmNpNfTdZpBdCQX4 LKptASf7DPg1OShXFoD2CES1 SVFcPVZxJOM2TGpcJQl9QQRs SGyqceSjGMfwHixrATzzK08p cGFyZCANClxwbGFpblxmczIy KVEiSLC8qIvwpuGbdHDoCA4N QKMiriLrWShcyXgdgR3nElIu MlxsdHJjaFxlcGljTmVzdERv YzEgDQpcbHRycGFyXGxpbjBc cwsmMYSRTzoqlqLvFHMxZ7Iq dmVkIGZyZXNoIGxhYmVsZWQg o0o6rSA2fJBsjHW0tOXjiIup SfFuVB3fqGSgVO1fFKwqFHxc ivFdk8JtNN66nPLlrdVvtfLj JnM2cHjfkvNsYXyuKFMwrVlu upPgNASkdJnmDjSiJF8fzvWi SSwmCCOeJ08cmZ8jKN06JR9n PTL9mryxTgLwNwZdH69ayU0m IOqliVV6XJBogR4oP2BzJlTf HUxoxDguMlAQMNAeZB5oCB7K KcO2CSPnUc0mYhCiFUCqJyH8 sRI5FLlxWGiuuOsnkjWxWIua lWShFOUiWTL7iEMpoCqlOZCp bO9lbcZcdxFvnmfdVFSgk5v1 bMEdRtLIBTX0EAZKMXAPMGIz OCIgIHdoaWNoIGlzIHdpdGhp vrOqGHzddAWmZDQtFPF3iJNa bSjqQXFqX9W8KAV0gGUnFRBh XTcuDR8yONG7vmfwJhM0VsBc C21pgM4sHPaizRO7NGXbNH4r IDQuMSBjbSBpbiBoZWlnaHQg bO7lB7XyRaOlROgoeBakWlF8 OR4cPV2qYoQYUbGlEBIzG5Tu v2IvjXznxL7ibqJcaHGfheF1 VFriht9qZG6cRCPoT7Hwz06b UUQwITSweLVnmDY6KYXuK0Io q1Cup69zbX0rxYUtAG7GGAMr buZHXoUoMRtlTCRxB8DabV1i EB3ENnebWXFkUXRNR5FuJ21q rNBbSY0VADBoafYDWjszXIZw GUJxiWJNu1SkTCZUDzvbxRty WyIlsPEyXnH8SHVqbBQlWSI8 SI6dvTbvZTJvB8SeU0IdrtH5 QGLfwjDSEwxaEFOwCP1HJPHa MjIgDQp9 MICROSCOPIC o0fmnBIoDUBeuUAhMDNxR2nw DESCRIPTION (test ebBuUAFbjMJdY8XnqqssGQjt code = 3371) FA5oIU7qzCjcuAVnyQTvZAFs OyJtu5wjx908gYTpi3psKLWN qbyjeUh0kOapR56av5K7Fntt P13dmLAmIKZ9PQUqRFVczFEe MNArQZX9ACNlwFEmX0tnJYZt NM8dpdzlNMtiHQlbKFPlhTI4 VJFkpHUsX9OtDGSzRCnfNNYi pxn9PaGfJn6mjLKalUjvXFtd UBKpLAXvGWpcNFCwPeHaVc90 ZWJcrpYfdk5vNDmrQGP2 [facility] [id number] 18:28:20 Test Item Value Reference Range Interpretation Comments Case Report (test Surgical Pathology code = 104) Report Case: [id number] Authorizing Provider: Dimitris Parry Collected: 05/26/2023 09:42 AM MD Marly Ordering Location: [address] Received: 05/28/2023 09:38 AM Service Pathologist: Thomas Echevarria MD Specimen: Explant, FOR IDENTIFICATION DIAGNOSIS (test code p6wypWWlSNQdc1trRMBmcUDr = 3220) ZzEwMzNcZnRuYmpcdWMxIHtc xiVzFBlybMtkQCMcCVfgXN7b vGtiwGg4lNggNMGegoX7sBXr FJrbz1saNQF0x8miligqJVGu FOjpSi7ayALrhPhzJkRxIPIw CCf9qV84NHDvfG5gdSTsGQe5 XHBhcGVydzEyMjQwXHBhcGVy fQF1YQFhAS3gjldlSLaxQYjl GPJfnrL0MSTlqJRhB5YwVDTq CR5boykuOFC7NZngIAIkZHS1 AfFsQZMwq2Gbmxb3JmPldQVl LAkstDTwivyqxqCbLF8QUMiT UEVESUMgSEFSRFdBUkUsIFJJ E1wPBQtNDGcvRhUQT0IPCOdn CUNiVZZgCCMnIZCxWJ5gENMS RFdBUkUgSURFTlRJRklFRCAo B5HCH0VjY21LDAtcvACjvRom npJwSClyc4VaDDqdBUNeHY3q xFxvPQFdZT6oQDObG4lisE3w iqb1YwTyCXGnOwO3NPCmheO3 Wdi1OOVcGJfwu7iuy8NlNRCu LJb5wZfsBkTeKBRbn7xfjbDi SoLrICRkDRZhHEUreWJlC549 o9ork7xeihGhrNH8BLNuCQE5 ZNsogsHepsS1NOshuNPdMfM7 IDtccmVkMFxncmVlbjBcYmx1 KIAkW513NTJ4rWxnj5qaKSE5 OMBdXANcYrLeOz4maBOzU840 MDSpHBCXPIVgpXi6XWTijxMe gzInmROQa130H093q6jsFQEk piMrlLkGuycba6tyS897NBDc cGVydzEyMjQwXHBhcGVyaDE1 CAGmPL1qgdmvTKprTYnuDMFx vdM9AGPnzANhU3UtZTDfNB4a cmsbEZD7WIrtEZZoASO2IbDc RMNma2Teyks0DbPulf6boq91 HAM2q3YevHjhVTA7DZC1HvKv Kw7veAJeIADcTP2iHjIfhGHr MHVazi82zZhpNCdrHUQ8YGKy stMuc6Tpm1xzPaRzjcWuK9py X3TmQPQkEXEfOYIlYaXmsmNm c7Srx6IbzUTklKk7g8fnKTAj IDNctMzym7ykAVR6DIAdpZNw T8psmT8qBSSrBO3yhiwzy5ue YYijBTixWIYheOG5smP6OYMo cYVzO6AluS9mNPNdVZyaWDNv qut9AzJwAf7qsDUhhOckHQtv YmtwYWdlXHBnbmNvbnRccGdu ZGVjXHBsYWluXHBsYWluXGYw XGZzMjRccWxcbGFuZzEwMzNc aGljaFxmMVxkYmNoXGYxXGxv J3kmLiXzQyIzYvi7TMHjoNLz UIYaIcr7NKJnwEReLZFUiCne jB6sLJLymEypsP0zkBO1PVSx knTliIGUiG9xOWTLwS2pInL2 PYFxNvm1DBV7OoIgqJUujP9= CPT Code(s) (test z8wrcNGcLWJgtBCjLEDiV5si code = 3357) ekZxELJtxBMhJ7CvsyitFSdw KT9iXD8yaZgzvEGegCEdRGCw QdDzk2qwa501nQTcl9flDSCN ncfzbWx3zMiwN57ev5I9Bjvk X51feXUnJWV8CZNuAVPwlNKr UPQlLCT0PDVrkZZmC7qlCJTb AW9tquwnOJbvTEnnAZTujYN1 GSHszPKmM5TgIHUmLZdzYHRs bpi4XcTbLo9njCJegLeoFZva YXJkXHBsYWluXGZzMjAgODgz MDBccGFyfQ== CLINICAL HISTORY o4evjAAlKQDpzDHxRIHyZ1au (test code = 3356) owTcVYJcmHQxH8JrpyiwEVna RU0vWH3wmSepfNOwjWIkHFBt FiHbq3hng200oQKsf3gwAVBX asblfWy1oOhsO29os1B5Pklu L17kyTXqLKJ6BMKhRMYezHNo DWJjFYK8TQYcvUStP4nuREBi BL3wrwchDOmbHKveSGNixQW4 YNVyuVRkE4FlHBEfCZgvNYFq knj5IeKyMv5abIMvfAowFQxe YXJkXHBsYWluXGZzMjAgSGlw FIsly7XnHzperUW1EWIlmFrv dFxwYXJ9 GROSS DESCRIPTION u3bxsOFrGPQqdEPNXMMmBCVx (test code = PP2stUuthWq6kJveZXFftxO8 [id number]) wXRpGXosa7kpGGI8v6yddbSL QtglZWYwLB5qGPlcMKPoFZ6i ZmUwXGRlZmYxXHBhcGVydzEy RaYrTEQtwEKqsKX5PJXhUI6a kbovLIopWEqlMBJafaG2MRUd lSVwC5QrDLRjRB8bxpkeOVK3 UUPKHuhmGz3nnEGxcRxqJrDq ZmNoYXJzZXQwXGZuaWwgQXJp QSs8lR9DEilhIIB7LMOWLnif CdyhlKevm6AteWShPZBaGCun aWQgNTEwMDAgXFxkYiBPVlIg HjNqZrb9KmU2TZSpQOw3XLry TmQITCX7LJHtRCnkNOx3ILbd XFxuaCBcXHQgMSBcXGZsIFxc nvN4x4jbMFPkjIVsFWE8PIle t8abJIivHSA6HZQiJeEmTCGv OA2PLcRnOWHaBnmjAPWzMlJ5 TRi0YFMXVnGjCzLoBuUfLLU2 AOcrKKr3WFi7LReOOeU3QNY0 RZItRAKyGHH5THivSYa0HHDw HUeoljQvNTeaRivwTHvcL97a cGFyZCANClxwbGFpblxmczIy EKOxJBQ7sIgcqeCmlLNzHG4G ZPPkaxEpQPjyuTlsyC2oEcPt MlxsdHJjaFxlcGljTmVzdERv YzEgDQpcbHRycGFyXGxpbjBc crlhGMVGTfanubVhQNAeV8Xj dmVkIGZyZXNoIGxhYmVsZWQg b7v9hKP1hIYpxZC8aWGzwQmz WcArER4fcVZaTJ0nXYosIIhb bfKzr3IzTN93pUIsfmGavoYn ZmV8vYwtzuWxETmlRFQorVer xjChXTRryYgfEnMrKO4wmkRb PGqhRRNoP83ljG3dEM58II5t EHW8pxshOmGmEpFnK01lyW9b JLbkcIO8KKGymC2dI2HlBnBq DFziuYhzZqIIQGMeCV8mNZ5G GmT7SAVeQe6xByUgQWUpScQ6 aON8MFwmJKtayRphwvLjOJcm kIWxNPIfDWT5qSQuaQnjYSLi bA3rqrEltaBwszqyJINqm0o9 mYMxSsYVYKP5PLVZJWLIZVFb OCIgIHdoaWNoIGlzIHdpdGhp hyAzSCwznHJzWAJhAEB7yXHc oWytANMaD5Y0UFY3nCItSOHr VVpdKG3sKYY0zzwnAbD7FrIl Z84gbB4bKBqlpMS1LYCyKE0o IDQuMSBjbSBpbiBoZWlnaHQg jS0eZ5KpMdVdIZegsWgjYxI3 MA5dOO5wZrYCGvZtDPSxG7Uo x5NifGtgqQ1gbvHpsCIkqtE3 XHmbjy4vSJ9mIZRfK1Jav78b XTTvMYGviWMlgWI6PEJiL1An c2Wup65frF6cgBJdLT5JZYTl agVUDuEqMNydZJWmI1QkmJ6a DS9ZWicuKNXwIOIVT7KkU91g wNTpCE5GYYDevyCIGktvAXUk AJPoxHFIn0EyCPRFYiquyVdu RgIllIByHsL4BYFwkNHhIVE8 JL0phQioMUWlN4IwY5TofkH7 MWQwspDMIdmfZRIeFM7EEFGi MjIgDQp9 MICROSCOPIC h3fgoSZqFQDqyMKlVZRuY8kx DESCRIPTION (test gqEoNOEyhKVyG1MqcqdqYTsb code = 3371) WT4dOB6fhQzxwNLaaNOaCRZx YfCue1ucg920eJImu3gwRJOR pfwfzGt9dHnzN94ar0T2Trht P15hpWIvMCF2PDHvWAPacRQy LEAcNQR2MSEoqHUzY1wvWVKw ZU4knsylUDbcSGcsOZMktNQ5 VCNrmHMfS2LrCVJaUWlmRIPf htr1BcDqTl2ymYWtyJbyHJag IBNhKKTeKEogZHUrJtWpBj51 VKKcgkYxuh2pPMcbZNT3 [facility] HospitalTISSUE [id number] 18:28:20Surgical Pathology Report Case: [id number] Authorizing Provider: Dimitris Parry Collected: 05/26/2023 09:42 AM MD Marly Ordering Location: [address] Received: 05/28/2023 09:38 AM Service Pathologist: Thomas Echevarria MD Specimen: Explant, FOR IDENTIFICATION ORTHOPEDIC HARDWARE, RIGHT HIP, REMOVAL - HARDWARE IDENTIFIED (GROSS ONLY) Signing Pathologist Direct Phone Line: [phone] signed by Thomas Echevarria MD on 06/01/2023 at 6:28 [id number] instability, rightA. ExplantReceived fresh labeled with the [...] No sections are submitted-gross only.MARJAN Lind, KEITH ([facility])Raymundo performed BASIC METABOLIC [id number] 05:34:44 Test Item Value Reference Range Interpretation [...] not appl icable for dialysis patien ts Automatic Print Developer ID - MARCOCBC (HEMOGRAM ONLY)2023-05-27 05:17:00 Test [...] = 413) XR PELVIS 1 OR 2 [id number] 12:15:34 [facility] 1950 Sex: FRadiograph of the pelvisReason for exam: Postop EvalComparison: 3Discussion: Status post righttotal hip arthroplasty. Alignment is near-anatomic. Noacute fracture, or dislocation.Electronically Signed By: Melita Akins05/26/2023 12:17 CDTWorkstation Name: [id number] METABOLIC [id number] 05:30:57 Test Item Value Reference Range Interpretation [...] not appl icable for dialysis patien ts Automatic Print Developer ID - ADMINCBC W/PLT COUNT & AUTO [id number] 05:07:06 Test Item Value Reference Range Interpretation [...] PERCENT (BEAKER) (test code = 2801) C-REACTIVE [id number] 17:31:41 Test Item Value Reference Range Interpretation Comments C-REACTIVE PROTEIN (BEAKER) (test 1.10 mg/dL 0.00-0.50 H code = 676) Automatic Print Developer ID - ADMINXR HIP 2 VIEWS [id number] 11:09:50 [facility] : 1950 Sex: FCLINICAL [...] Signed By: Cam Barraza05/25/2023 11:11 CDTWorkstation Name: [id number] PELVIS 1 OR 2 [id number] 11:09:50 [facility] : 1950 Sex: FCLINICAL HISTORY: Right DAMIAN with dislocationTECHNIQUE: One view the pelvis and two views of the righthipCOMPARISON: NoneFINDINGS:Spinal fusion hardware extends to the L4 [...] femoral head prosthesis. Noperiprosthetic fracture.Electronically Signed By: UkmaoFsrkul2023 11:11 CDTWorkstation Name: [id number] 2023-05-25 08:25:32 Test Item Value Reference Range Interpretation Comments MAGNESIUM (BEAKER) (test code = 1.8 mg/dL 1.6-2.6 627) Automatic Print Developer ID - mmCOMPREHENSIVE METABOLIC [id number] 08:25:31 Test Item Value Reference Range Interpretation [...] not appl icable for dialysis patien ts Automatic Print Developer ID - mmPROTHROMBIN TIME/[id number] 07:57:07 Test Item Value Reference Range Interpretation Comments PROTIME (BEAKER) 14.4 seconds 11.9-14.2 H (test code = 759) INR (BEAKER) (test 1.19 See_Comment [Automat ed message] code = 370) The system [employer] generated this result transmitted ref erence range: <=5.90. The reference range was not used to int erpret this result as normal/abnormal . RECOMMENDED COUMADIN/WARFARIN INR THERAPY RANGESSTANDARD DOSE: 2.0 - 3.0 Includes: PROPHYLAXIS for venous thrombosis, systemic embolization; TREATMENT for venous thrombosis and/or pulmonary embolus.HIGH RISK: Target INR is 2.5-3.5 for patients with mechanical heart valves.CBC W/PLT COUNT & AUTO [id number] 07:48:06 Test Item Value Reference Range Interpretation [...] PERCENT (BEAKER) (test code = 2801) Tissue [id number] 13:55:50 Test Item Value Reference Range Interpretation Comments Case Report (test Surgical Pathology code = 104) Report Case: [id number] Authorizing Provider: Dimitris Parry Collected: 03/31/2023 04:35 PM MD Marly Ordering Location: [address] Received: 04/02/2023 08:34 AM Service Pathologist: Juvenal Steele MD Specimen: Explant, RIGHT HIP EXPLANTS FOR IDENTIFICATION DIAGNOSIS (test code s7silHXcMOEpd2txHDPhlFSc = 3220) ZzEwMzNcZnRuYmpcdWMxIHtc nuGwUCoxbYfgZAPsIBzcVQ5u dIegsWb4fEsbKTOhrnQ0uUIx ROxxy3khEWK0a0mewmozJACe NHctVw9hfOHqlWruBdLsJFTh TDh9kT80LZZusU4goJDnGHc8 XHBhcGVydzEyMjQwXHBhcGVy sDK3QPRyUG7vygnfQLhxFCom PRQkpaV6EVYmtNVfL3LeICIv TI3hqlekYVR4PRrgMBYnAMI5 TeSeOBPhx9Oqhvp9TbOzuURo ZFxwbGFpblxmczIwIEhJUCwg UklHSFQsIEhBUkRXQVJFIFJF JZ0VWCd0BNDxzgLxADXlKMSy SLErPEBXKLQWO8RLWTZYRQBI ASxBPRNRIAdTKq3HZxDKFigK LXeaQND0h6yloHGvVIKzcFYi ODAwMFxhbnNpXGRlZmxhbmcx XAWcNBM9dxFmJKLfOPrrDWPq FIukJi0htTDslQviCkMtYKSb a3dvkkQJpilgbFq9b8wuTKKf PxN8iEOgOVfbM9pjdiMkaUZb SRHyJEk0sV20YIPffL5poAKx IPsgwvBvKmK4EUqgXAXoSsU3 XYApaBRbNGLsC6oyCXEqQGwa JPQyYPdmmHWcGJK3jVfgn8Y2 bGVzaGVldHtcZjBcZnMyMiBO z0RkGUl3mFibP1NsUYRxCvC8 bHQgUGFyYWdyYXBoIEZvbnQ7 dU57AZbcycH3tKUmf1Cnv18c x927pX0lxTBxLZB8LHLmSTJk qYGsYOShPLW0YBBncNWrY4mv YZXgCO0hazndSBhjVHpsRHUo kSN6QREgfUVrG2VcUYHlHZzf DDUzhdp1LtGtNh5tmMRoaBxj GFngn3sny8njtVHvYzl6FXTl InOlKnqtCRiry7Mch1ouDBEv nw3cQWK2cAUarPdbn4G4gWCj CGTxvIZjRAUuFU6cmABoIKMx tJ6vxnzcSTNbJsAsimbeHKZw tFknvkDwLo9phYeyRHU5HXno Q4zakP2qQhN2OVggS1wllU8h NPf6ZSjkFZBewZK9qlX6ATHy tITqQ6VjlA4eRPNlFT1livr2 i0xhPLC6VZwbNTQhRcQ2pyD8 NIUeeXJsFBXnkFnzYHwcs534 ZRI8DvNeDCTgx0TbY5JgfDcl M51ckJklD03zNRBjaFtmzL2w gBowqD3lCbIuClMpCBaqsPju FY1nNCUpQ9dvsSIzCKThSQCc F7xsPiCesP9aaYozBQbbehLk KIRqHei4MBDkiDWvHDViJmc8 MYZeLJMnT85koqkuGXB5iJ2d i1rel8OcQQmeMNN8GVQpp11h WVbfviN8YXufRb84LCooFSO2 RAewOTD3zR== CPT Code(s) (test w0edzTGdVNCydGPeWLWrS0li code = 4488) iqLvXCDxlYVnE6DvgyeoJFks AU0pEQ6lnJrjuWNmyNStQCWx LpOby3xgl707hOAoz3inOOBV wldpqCl0wChdT88xq3A2Cslr O74oyTTcOMX3CAGrHQYdlPCk DJWdLOQ0XXBqlXNcA0vjMZHo AR0ahtwkPKiqJAgwEVOncEP6 QAGviGZuJ1DpOXRyDNetPVWk hwx2HiKmHv9moLDmmRptADbt YXJkXHBsYWluXGZzMjAgODgz MDBccGFyfQ== CLINICAL HISTORY o0amlXKtMWVkqPTpPXHnT0uj (test code = 3356) rhGqFQYwnBWgR7AkjxjpJMra AY2oWP9kwBtnsSPnzIEkWIFk XmHeo9uxb473dIDgb2niNBHU chwmiCb0mWxyM41wx3Y4Qvqa A17dyEKbGMC9ZJAnMEFziWOt ZYVsAPB8ZMEtuQNaM0bqRLJb HN2ycptsOOlmQHxhYILmhNX1 ZMIaaARuP7VuJMWqEMyuXAWj cms4EpGfCb9gcYTrfGnjMSgd KUWnLMNeCBcfHTLnZoVeMG5w lTPphDNlHUYzPZdjxY0dXJWq h28df6YvumzjnOOoiHahOLKz cn0= GROSS DESCRIPTION m1kysXGkPILktEDCIQCxQRQm (test code = ET0jwQhsaFg7kSesISBfiiY2 [id number]) pFSyEQvmh5bnNSQ3f3nbbzYP ShmgGCLlCI3tLCspGEBpEB6j ZmUwXGRlZmYxXHBhcGVydzEy PbRxLQXysMYryET6EZYuQP8d mxiuHDcyPEaxYBWqmmD2XXUo bRJlA2PvYTQlAQ8gpmebLXC6 YWKNIxqqRm1iqFJmeDvkYlCd ZmNoYXJzZXQwXGZuaWwgQXJp YYf8pA2DQzygSEV1IUMEBmju LrbyvEefy9VtcFPoYEQvSBfl aWQgNTEwMDAgXFxkYiBPVlIg LgYsQFW1IQH9FEPwRLc6AYkd InDDLTD6NyD1QPocKEi9SIco XFxuaCBcXHQgMSBcXGZsIFxc vvR6h5duQEUkoGYzNAM3PYfo p2kdMCurXKA0QVIyAiDhAJLm PT1EGeWzXOKmNaV0RkUiZoV6 IBs5FOIPYlTsYkToIjOwVGT2 RUKkRTk8EZg7CIlZUwN2SdD9 LkD7DLjlHZF2VtLxTXo2AGLj NSnnpzDfBCbhGdhrYUiwK03j cGFyZCANClxwbGFpblxmczIy KMTrMSI0lLhoquFfiIPbFQ9F EOZtpqQqXOzwsTbtoU6sQbCk MlxsdHJjaFxlcGljTmVzdERv YzEgDQpcbHRycGFyXGxpbjBc nlzwPZALErhsdyFaQUGbX9If dmVkIGZyZXNoIGxhYmVsZWQg h6n5jYZ8nQZhfDN3cFMtiUzh DoQnZS6juLWkYN8vNPuzMAxw qiWgy5NsLU96zXFlhxIyxcQi VxY6dZimiuPxEOxeHQBiy2az kZBqdRaot9FhLz5crHuxCMUb SOitZV6sWMM7azmyTrTuXrQs S24mgL1stJVyL2d4ORC0ZaBp P25gyC5wTDahmUD6NASmoFvf tVOscfCrfiBbjxpwXCPff7j6 aCAiNjkwLTEwLTIyRVQsIiAg s6nqW5pkyOQvSPNssAC8HKvc iNCgbH37GUR9ZEachCXpw1Xq wR9pYCPeBHCnyEAnihBjbJCd MVXsahU4bAE6SRynYPtzq4Gj iFXyCMQ3qDIpSJXVYmH7AbAm GFXFVEPyZW0UEvu7IyGuVEFs C7Erm1AfqQpkgR8gtjFzhESt owL0OFtrqz2iBM6eZQPgG3Pc e81mUQVkYFAqeAVunRF6LPAw H3Omz0Mqj32fbN4olXNzSV4I XHBhciANClxzYTMwXGVwaWNY c7ZaPBGEKjWtVLejMXVkI3Rr pZ3iZT5TTnoqBEHgQHCKD6Fb K89EIjvxnZjjJjJufMCmXvS3 OTJfmPFvIJF7OC6kwIvcXASb N6HvR5YpwmW8BXIqasWGXgyb WUSvDJ2VEMRjOoSbBRa5 MICROSCOPIC d3ljoFJnYPGkcTAcXNWuZ2pz DESCRIPTION (test rtKrCBQnjMJmG4ZjlkuvQJod code = 3371) AA8vMO5fdQvjgSLhgJSwHIZk IcDaw9jol218sLLyo2meDWFQ qnfvqTl5gIpvB37ss0C2Fruk N96ijHXpTAW4DZPiTUZgfEGa VQVaBCU6KULshAGaA8mjGUYy QB3aqyccXZjdTEtpXRExzLK3 BBPkcTSgL7IqKDZuUPeiBFSq nkz5HrWfDx3ymJXgtAwpHYqc JKCuALZfRQjtYKReZdDgPv95 VEGuuaTwwz7lJMngXUX6 Gross assessment was [facility]'s performed at ([facility], code = 2777) Department of Pathology, [address] [place] [address], [facility] [id number] 13:55:50Surgical Pathology Report Case: [id number] Authorizing Provider: Dimitris Parry Collected: 03/31/2023 04:35 PM MD Marly Ordering Location: [address] Received: 04/02/2023 08:34 AM Service Pathologist: Juvenal Steele MD Specimen: Explant, RIGHT HIP EXPLANTS FOR IDENTIFICATION HIP, RIGHT, HARDWARE REMOVAL: - HARDWARE IDENTIFIED (GROSS ONLY) Signing Pathologist Direct Phone Line: [phone] signed by Juvenal Steele MD on 04/10/2023 at 1:55 [id number] dislocation of right hipA. ExplantReceived fresh labeled [...] No sections are submitted-gross only.MARJAN Lind, KEITH ([facility])cmNot performedBaylor Fountain [facility], Department of Pathology, [address] [place] [address], SB ABDOMEN/KUB 1 VIEW PORTABLE 2023-04-05 17:30:07 [facility] 1950 Sex: FTECHNIQUE: XR ABDOMEN/KUB 1 VIEW PORTABLEINDICATION: constipation r/o impaction.COMPARISON: None.FINDINGS:Nonobstructive bowel gas pattern. Stool burden is low. Cholecystectomyclips are present. Thoracolumbar spinal fixation hardware and right hipreplacement. Implantable pump projects over the right abdomen withcatheter directed cephalad over the upper lumbar spine.IMPRESSION:Nonobstructive bowel gas pattern. Stool burden is low.Electronically Signed By: Arthur Lopez04/05/2023 17:32 CDTWorkstation Name: [id number] METABOLIC [id number] 06:29:53 Test Item Value Reference Range Interpretation [...] G3b Moderately to s everely 30-44 G4 Sever ly decreased 15-29 G5 Kidney failure <15Repo rted eGFR is based on the CKD-EPI 2020 equation t hat does not use a race coefficientEsti mated GFR is not as accur ate as Creatinine Amanda renny in predicting glom erular filtration rate . Estimated GFR is not appl icable for dialysis patien ts Automatic Print Developer ID - MARCOCBC W/PLT COUNT & AUTO [id number] 05:56:21 Test Item Value Reference Range Interpretation [...] (BEAKER) (test code = 2801) VANCOMYCIN LEVEL, [id number] 03:16:03 Test Item Value Reference Range Interpretation Comments VANCOMYCIN TROUGH (BEAKER) (test 8.7 ug/mL 10.0-20.0 L code = 522) Automatic Print Developer ID - bvBASIC METABOLIC [id number] 03:06:54 Test Item Value Reference Range Interpretation [...] not appl icable for dialysis patien ts Automatic Print Developer ID - bvCBC W/PLT COUNT & AUTO [id number] 02:49:38 Test Item Value Reference Range Interpretation [...] = 2801) CBC W/PLT COUNT & AUTO [id number] 06:02:31 Test Item Value Reference Range Interpretation [...] (BEAKER) (test code = 2801) BASIC METABOLIC [id number] 05:54:19 Test Item Value Reference Range Interpretation [...] not appl icable for dialysis patien ts Automatic Print Developer ID - EOOBASIC METABOLIC [id number] 05:31:27 Test Item Value Reference Range Interpretation [...] not appl icable for dialysis patien ts Automatic Print Developer ID - BVVANCOMYCIN LEVEL, [id number] 05:24:23 Test Item Value Reference Range Interpretation Comments VANCOMYCIN TROUGH (BEAKER) (test 2.7 ug/mL 10.0-20.0 L code = 522) Automatic Print Developer ID - BVCBC W/PLT COUNT & AUTO [id number] 04:51:29 Test Item Value Reference Range Interpretation [...] = 2801) XR PELVIS 1 OR 2 [id number] 08:30:38 [facility] : 1950 Sex: FXR HIP 1 VIEW RIGHT, XR PELVIS 1 OR 2 VIEWSINDICATION: Postop EvalCOMPARISON: NoneTECHNIQUE: AP view of the pelvis. AP and lateral radiographs of theright hipFINDINGS/IMPRESSION:Status post total hip arthroplasty. Arthroplasty appears well aligned.No periprostatic fracture. Electronically Signed By: Alessandra Ventura04/01/2023 08:32 CDTWorkstation Name: [id number] HIP 1 VIEW RIGHT 2023-04-01 08:30:38 [facility] : 1950 Sex: FXR HIP 1 VIEW RIGHT, XR PELVIS 1 OR 2 VIEWSINDICATION: Postop EvalCOMPARISON: NoneTECHNIQUE: AP view of the pelvis. AP and lateral radiographs of theright hipFINDINGS/IMPRESSION:Status post total hip arthroplasty. Arthroplasty appears well aligned.No periprostatic fracture. Electronically Signed By: Alessandra Ventura04/01/2023 08:32 CDTWorkstation Name: [id number] METABOLIC PANEL 2023-04-01 05:11:33 Test Item Value [...] (test code = 697) EGFR (BEAKER) 81 Interpretati on of eGFR (test code = [...] not appl icable for dialysis patien ts Automatic Print Developer ID - ADMINCBC W/PLT COUNT & AUTO [id number] 04:59:29 Test Item Value Reference Range Interpretation [...] = 2801) XR PELVIS 1 OR 2 [id number] 07:29:06 [facility] : 1950 Sex: FXR PELVIS 1 OR 2 VIEWSINDICATION: R DAMIAN dislocationCOMPARISON: NoneTECHNIQUE: AP view of the pelvis.FINDINGS/IMPRESSION:The femoral component of the right hip arthroplasty has been dislocatedfrom the acetabular component. Electronically Signed By: Alessandra Ventura03/31/2023 07:31 CDTWorkstation Name: [id number] METABOLIC [id number] 04:18:18 Test Item Value Reference Range Interpretation [...] not appl icable for dialysis patien ts Automatic Print Developer ID - ADMINPROTHROMBIN [id number] 04:02:58 Test Item Value Reference Range Interpretation [...] (BEAKER) (test code = 413) HEMOGLOBIN AND [id number] 05:43:27 Test Item Value Reference Range Interpretation Comments HEMOGLOBIN (BEAKER) (test code = 10.1 GM/DL 11.2-15.7 L 410) HEMATOCRIT (BEAKER) (test code = 31.1 % 34.1-44.9 L 411) XR PELVIS 1 OR 2 [id number] 15:30:53 [facility] : 1950 Sex: FRight hip one view:HISTORY: Postop evaluationCompared to 03/02/2023.The film was obtained with attentionto the right hip, excluding theiliac crests. The visualized bony structures appear intact, with noevidence of fracture. A new right hip replacement is now noted, with aconstraining ring projecting overthe proximal femoral neck component.BASIC METABOLIC [id number] 07:00:24 Test Item Value Reference Range Interpretation [...] G3b Moderately to s everely 30-44 G4 Sever ly decreased 15-29 G5 Kidney failure <15Repo rted eGFR is based on the CKD-EPI 2021 equation t hat does not use a race coefficientEsti mated GFR is not as accur ate as Creatinine Amanda lawson in predicting glom erular filtration rate . Estimated GFR is not appl icable for dialysis patien ts Automatic Print Developer ID - ADMINCBC W/PLT COUNT & AUTO [id number] 06:01:08 Test Item Value Reference Range Interpretation [...] (BEAKER) (test code = 2801) BASIC METABOLIC [id number] 06:31:27 Test Item Value Reference Range Interpretation [...] not appl icable for dialysis patien ts Automatic Print Developer ID - [email or web address] WCBC W/PLT COUNT & AUTO [id number] 06:09:24 Test Item Value Reference Range Interpretation [...] = 2801) CBC W/PLT COUNT & AUTO [id number] 13:08:23 Test Item Value Reference Range Interpretation [...] (BEAKER) (test code = 2801) BASIC METABOLIC [id number] 13:02:37 Test Item Value Reference Range Interpretation [...] not appl icable for dialysis patien ts Automatic Print Developer ID - mmRAD, HIPS, BILATERALTO INCLUDE [id number] 14:57:00Reason for exam:->recent right [facility] 1950 Sex: FFINAL [...] fracture or hip fracture. Signed: Frank Jimenez [facility] Verified Date/Time: 03/02/2023 14:57:54 , HIP, 1 VIEW, [id number] 14:57:00Please obtain cross table lateralReason for exam:->possible DAMIAN dislocationShould this be performed at the bedside?->No [facility] : 1950 [...] fracture or hip fracture. Signed: Frank Jimenez MDReport Verified Date/Time: 03/02/2023 14:57:54 REHENSIVE METABOLIC [id number] 05:48:30 Test Item Value Reference Range Interpretation [...] not appl icable for dialysis patien ts Automatic Print Developer ID - MMCBC W/PLT COUNT & AUTO [id number] 03:28:55 Test Item Value Reference Range Interpretation [...] PERCENT (BEAKER) (test code = 2801) PROTHROMBIN TIME/[id number] 03:25:27 Test Item Value Reference Range Interpretation Comments PROTIME (BEAKER) (test code = 13.9 seconds 11.9-14.2 759) INR (BEAKER) (test code = 370) 1.09 <=5.90 RECOMMENDED COUMADIN/WARFARIN INR THERAPY RANGESSTANDARD DOSE: 2.0 - 3.0 Includes: PROPHYLAXIS for venous thrombosis, systemic embolization; TREATMENT for venous thrombosis and/or pulmonary embolus.HIGH RISK: Target INR is 2.5-3.5 for patients with mechanical heart valves.HEMOGLOBIN [id number] 06:29:45 Test Item Value Reference Range Interpretation Comments HEMOGLOBIN A1c (test 6.7 % 4.2-5.6 H [employer]IC AN DIABETES code = 05541) ASSOCIATION IDELINES FOR HGB A1C: PREDIABETES/INC REASED [...] INDICATED, ALL TESTING PER FORMED ATCLINICAL PATH [facility], [place]. [address] [place] [address] LABORATORY DIRE CTOR: JACKELINE ANTOINE M.D. CLIA NUMBER [id number] [place]. [id number] BASIC METABOLIC [id number] 06:15:06 Test Item Value Reference Range Interpretation Comments GLUCOSE (test code 126 MG/DL 70-99 H = 2217) BUN (test code = 9 MG/DL 8-23 2207) CREATININE (test 0.69 MG/DL 0.60-1.30 code = 2214) eGFR (2020 CKD-EPI) 93 ML/MIN/1.73 >60 (test code = 81105) SODIUM (test code = 140 MEQ/L 660-047 7382) POTASSIUM (test 3.8 MEQ/L 3.5-5.4 code = 2228) CHLORIDE (test code 101 MEQ/L 95-107 = 2215) CARBON DIOXIDE 23 MEQ/L 19-31 (test code = 2206) CALCIUM (test code 9.2 MG/DL 8.5-10.5 UNLESS O THERWISE = 2209) INDICATED, ALL TESTING PERFORM ED ATCLINICAL PATH [facility], [facility]. [address] [place], [place] [id number] [place] [address] DIRECTOR: JACKELINE ANTOINE M.D. IA NUMBER [id number] CAP ACCREDITATION N O. [id number] XR ANKLE 3+ VW [id number] 17:28:50HISTORY: ?Pain. FINDINGS: AP, lateral, oblique views of right ankle showed slightlyseparated fracture at the base of the fifth metatarsal bone. No significantankle joint effusion. Soft tissue swelling noted along the lateral aspectof ankle. Metallic hardware is seen supporting calcaneum. No hardwarerelated complication seen. Mild subtalar degenerative arthritis andarthritis of the talonavicular jointnoted. CONCLUSIONS: Fracture at the base of right fifth metatarsal bone. [facility], Radiant Results Inft User - 03/02/2021 [...] at the base of right fifth metatarsal bone.[facility] Notes Date/Time Note Provider Source 2023-06-24 14:39:49 [id number]:39:49 [facility] OPERATIVE/PROCEDURE REPORTJOSE GILLISCILITY: Antonino #: [id number] Room: [facility] [address] #: [id number] : 1950ATE OF PROCEDURE: 06/24/2023SURGEON: Dimitris Parry Jr, [facility] CENTERREOPERATIVE DIAGNOSIS: Draining hematoma following righttotal hip revision.POSTOPERATIVE DIAGNOSIS: Probable infected right total hiparthroplastySURGICAL PROCEDURE: Revision of right total hip arthroplastywith exchange of head and liner, CPT code 92910-96.ASSISTANTS:1. Sam Fuentes MD.2. Philip Rondon MD.ANESTHESIA: General endotracheal anesthesia.ESTIMATED BLOOD LOSS: 250 mL.IV FLUIDS: 1500 mL crystalloid.COMPLICATIONS: None.SPECIMENS REMOVED: Prosthesis and tissue and fluid sent formicrobiology x5.FINDINGS: Probable infected hematoma.IMPLANTS: Henry Trident 0 degree constrained acetabularinsert, size E with a C-Taper LFIT femoral head size 22 mm +5offset.INDICATIONS: The patient is a 72-year-old woman with a longcomplex history related to a right total hip. She has ahistory of recurrent instability. She has had severaldislocations of constrained liners. Approximately four weeksprior, she had undergone revision with exchange of her head andplacement of a new constrained acetabular liner for recurrentinstability. She did well initially. She was seen in theoffice two weeks postoperatively where she was doing well andher wound appeared to be healing well. However, she presentedto an outside institution, referred by her home health nursesecondary to wound drainage noted around June 20 [id number]. She was subsequently transferred to [facility] for further management. The patient presentedwith a large draining hematoma and significant erythemaconsistent with probable infection. The patient was felt to beindicated for return to the operating room with an attemptedDAIR procedure with irrigation, debridement, and exchange ofthe liner and an attempt to salvage her well-fixed prostheses.Preoperatively, the nature of the procedure, the risks,benefits, and alternatives were discussed in great detail withthe patient. She is aware that she would likely require aplacement of the PICC line and long-term IV antibiotics withpossible lifetime suppression. She is aware that if thissalvage attempt is not successful that she would potentiallyrequire a two-stage reconstruction. She appeared to understandthese many issues and desired to proceed.PROCEDURE IN DETAIL: On the morning of June 24, 2023, thepatient was brought to the operating room and followingadministration of general endotracheal anesthesia by theAnesthesiology Service, the patient was given 2 g of Ancef IVand 1 g of tranexamic acid IV. She was placed on the operatingtable in a lateral decubitus position with the right side up.She was held in position using hip positioner. An axillaryroll was placed. Care was taken to pad all bony prominencesincluding the ulnar and peroneal nerves. Her right lowerextremity was then prepped and draped in the usual sterilefashion.Following time-out to again identify the appropriate operativesite which had been previously marked, the patient's previousKocher-Langenbeck incision was opened in its entirety. Therewas semi-purulent hematoma fluid noted within the wound.Specimens were sent for culture. Dissection was carriedthrough the skin and subcutaneous tissue. The deep fascia wasopened. The fascia was opened in its entirety. Severalculture specimens were sent. The wound was first debrided wellof all nonviable appearing material and irrigated with 3 L ofpulsatile lavage normal saline solution. The wound was thenthoroughly debrided. All nonviable-appearing tissues weresharply excised using scalpel, Capps elevator or curette. Theskin edges were freshened using a fresh 10 blade scalpel. Thesubcutaneous tissues and fascia were sharply debrided and thedebridement was taken down to the bone. The acetabular linerwas disengaged from the shell using an osteotome and thefemoral head was then disimpacted line removal of theconstrained head and liner as a unit. Specimens were sent frombehind the acetabular shell liner as well. The components werenoted to be well fixed and in stable condition. The wound wasthen copiously irrigated with 3 L of pulsatile lavage normalsaline solution followed by Betadine soak. The Betadine wasremoved and another debridement was performed followed byanother 3 L of irrigation and Betadine soak. The finaldebridement, irrigation and Betadine soak were performed. Thewound was examined. There was no further nonviable appearingtissue. Therefore, a new constrained liner and femoral headwere placed. The head was impacted onto the well prepared anddried Mitchell taper, and it was reduced into the constrainedliner. Attention was then turned to wound closure. A finalirrigation and Betadine soak was performed and attention wasturned to wound closure. Vancomycin powder was sprinkled deepinto the wound. The deep fascia was recreated and closed using#1 PDS sutures. Cellerate powder was sprinkled above thefascia. The subcutaneous tissues were closed in layers using 0and 2-0 Monocryl. The skin was closed with horizontal mattress2-0 nylon sutures. A medium Hemovac drain had been placeddeep. A michele incisional VAC dressing was placed. The patientwas awakened, extubated, and taken to the recovery room instable condition. The patient tolerated this procedure well.She will be allowed to ambulate weightbearing as tolerated. [facility] and begin working on dischargeplanning for her.MICHAEL/MODLDD: 06/24/2023 13:46:27DT: 06/24/2023 14:39:49Job #: [id number] signed by: DIMITRIS PARRY at 2023-06-24 13:46:27.000OPOperative [id number]:39:[id number]: 45:[id number], [id number]:45 :18 2023-04-02 08:29:03 [id number]:29:03 [facility] OPERATIVE/PROCEDURE REPORTSTALIN GILLISFACILITY: SLE[facility]illing #: [id number] Room: [address] [place] [address] #: [id number] : 1950ATE OF PROCEDURE: 03/31/2023SURGEON: Dimitris Sawyer Sohan Shaw, MDPREOPERATIVE DIAGNOSIS: Dislocated right total hiparthroplasty with wound dehiscence.POSTOPERATIVE DIAGNOSIS: Dislocated right total hiparthroplasty with wound dehiscence.SURGICAL PROCEDURE: Revision of right total hip arthroplastywith head and liner exchange, CPT code 12945-62-21.ASSISTANTS:1. Ricky Good MD.2. Madi Carvajal MD.ANESTHESIA: General endotracheal anesthesia.ESTIMATED BLOOD LOSS: 300 cc.INTRAVENOUS FLUIDS: 1500 cc crystalloid.COMPLICATIONS: None.SPECIMENS REMOVED: Prosthesis.IMPLANTS: Viola Trident constrained acetabular liner, seriesE with a 22 mm inner diameter. The femoral head is a StrykerC-taper LFIT head, size 22/+5 with a V40/C-taper adaptersleeve.INDICATIONS FOR PROCEDURE: The patient is a 72-year-old womanwith history of right total hip arthroplasty several years ago. She developed recurrent instability. [facility]. She underwent a right total hiprevision with placement of a constrained acetabular liner 3weeks previously. The patient was otherwise doing well, whenon 03/30/2023 she slipped and fell in the shower. Shesustained another dislocation of her hip with dislodging theconstrained liner from the acetabular shell and a wounddehiscence. She was transferred back to [facility] for further management. The patient was felt love indicated for return to the operating room for repeatrevision surgery and wound closure. Preoperatively, thenature of the procedure, the risks, benefits, and alternativeswere discussed in detail with the patient. She appeared tounderstand these many issues and desired to proceed withsurgery. All of her questions were answered preoperatively.DESCRIPTION OF PROCEDURE: On the afternoon of March 31, 2023,the patient was brought to the operating room and followingadministration of general endotracheal anesthesia by theAnesthesiology Service, the patient was given 2 g of Ancef IVand 1 g of tranexamic acid IV. She was placed on the operatingtable in the lateral decubitus position with the right side up. She was held in position using hip positioners. An axillaryroll was placed, and care was taken to pad all bony prominencesincluding the ulnar and peroneal nerves. Her right lowerextremity was then prepped and draped in the usual sterilefashion.Following time-out to again identify the appropriate operativesite, her hip was examined. The patient had sustained a wounddehiscence of the distal three-quarters of her incision. Thedehiscence appeared to be superficial only. The deep fasciawas intact throughout.Following time-out to again identify the appropriate operativesite, which had been previously marked, the patient's wound wascopiously irrigated with several liters of pulsatile lavagenormal saline solution. The deep fascial sutures were thendivided and the deep fascia was opened in line with theincision. The joint was visible and the liner was noted tohave dislocated from the acetabular shell. The hip was rotatedand mobilized into the wound. The femoral head was disimpactedwith the constrained liner in place. The implants wereexamined and noted to be well fixed and unchanged in position.The wound was then copiously irrigated with 3 L of pulsatilelavage normal saline solution followed by Betadine soak. Thiswas repeated 3 times for a total of 9 L. There was nononviable appearing tissue remaining. Therefore, a new Tridentsize E constrained acetabular liner was impacted into place.The liner seated well. The locking mechanism was noted to beintact. A new 22/+5 femoral head with taper was impacted ontothe well prepared and dried Mitchell taper. The hip was reducedand noted to be stable through a full range of motion.Attention was then turned to wound closure. The wound wascopiously irrigated with pulsatile lavage normal salinesolution soaked with Betadine. Hemostasis was achieved. Thedeep fascia was repaired using #1 PDS sutures. Thesubcutaneous tissues were closed in layers using 0 and 2-0Monocryl sutures. The skin was closed with 2-0 nylon staysutures and a MICHELE incisional VAC dressing wasplaced. The patient was awakened, extubated, and taken to therecovery room in stable condition. The patient tolerated thisprocedure well.MICHAEL/MODLDD: 04/02/2023 07:54:44DT: 04/02/2023 08:29:03Job #: [id number] signed by: DIMITRIS PARRY at 2023-04-02 07:54:44.000OPOperative [id number]:29:[id number]: 26:[id number], [id number]:26 :16 2023-03-09 23:16:13 [id number]:16:13 [facility] OPERATIVE/PROCEDURE REPORTSTALIN GILLISFACILITY: [facility]illing #: [id number] Room: [address] #: [id number] : 1950ATE OF PROCEDURE: 03/08/2023SURGEON: Dimitris Parry Jr, MDPREOPERATIVE DIAGNOSIS: Recurrent instability with dislocationof right total hip arthroplasty.POSTOPERATIVE DIAGNOSIS: Recurrent instability withdislocation of right total hip arthroplasty.PROCEDURE: Revision of right total hip arthroplasty withexchange of femoral head and placement of a constrainedacetabular liner. CPT code 14914-63.ASSISTANTS:1. Jose Ohara MD.2. Beau Garcia MD.ANESTHESIA: General endotracheal anesthesia.ESTIMATED BLOOD LOSS: 300 cc.IV FLUIDS: 1500 mL of crystalloid.COMPLICATIONS: None.SPECIMENS REMOVED: Prosthesis.IMPLANTS: Viola 6.5 mm bone screw placed in the acetabulumwith a Trident constrained acetabular liner size E for a 22 mmhead and a C-taper LFIT femoral head size 22 mm/+5.INDICATIONS: The patient is a 72-year-old woman with a historyof lumbar spine fusion, who underwent a right total hiparthroplasty in August 2022 at an outside institution.Postoperatively, she sustained approximately four dislocations. The initials were all treated with closed reduction in theemergency department. She sustained another dislocation aroundMarch 01 and was transferred to [facility] for further management. Radiographs demonstrated anintra-prosthetic dislocation of her dual mobility liner. Thepatient was therefore felt to be indicated for revisionsurgery. Her components appeared to be in satisfactoryposition. Given the recurrence of her instability, it was feltthat she would best be served by revision to a constrainedacetabular liner. Preoperatively, the nature of the procedure,the risks, benefits, and alternatives were discussed in detailwith the patient. She appeared to understand these many issuesand desired to proceed with surgery. All of her questions wereanswered preoperatively.DESCRIPTION OF PROCEDURE: On the afternoon of March 08, 2023,the patient was brought to the operating room and followingadministration of general endotracheal anesthesia by theanesthesiology service, the patient was given 2 g of Ancef IVas antibiotic prophylaxis. She was also given 1 g oftranexamic acid IV. She was placed on the operating table in alateral decubitus position with right side up. She was held inposition using hip positioners. An axillary roll was placed.Care was taken to pad all bony prominences including the ulnarand peroneal nerves. Her right lower extremity was thenprepped and draped in the usual sterile fashion.Following time-out to again identify the appropriate operativesite which had been previously marked, her previousKocher-Langenbeck incision was used in its entirety.Dissection was carried through the skin and subcutaneous tissuedown to the deep fascia. Distally, the IT band was divided inline with the incision proximally. The fascia and fibers ofthe gluteus tracie were identified. The hip was noted to bedislocated posteriorly. The dual mobility bearing was in theposterior soft tissues and was removed. The femoral head wasmobilized into the wound and the femoral head was disimpacted.The femoral component was noted to be well fixed. Scar tissuewas debrided around the interface for exposure and there wassome scar tissue in the anterior trochanter that was alsodebrided. The acetabulum was then exposed. The remainingintervening capsule and labral tissues were excised. The dualmobility liner was able to be removed without difficulty. Theacetabular component appeared to be well fixed. The overallposition was felt to be satisfactory. It was slightlyabducted, but anteversion was appropriate. It should be notedthat prior to removal of the implants, the hip was reduced witha trial dual mobility liner. The hip was stable for the mostpart through range of motion; however, at maximal flexion andmaximum internal rotation, there was a posterior-superiordislocation due to impingement of some scar tissue anteriorlyoff the trochanter. All of the impinging tissue was debrided.The wound was copiously irrigated with several liters ofpulsatile lavage normal saline soaked with Betadine and xeb27-wkxgnz lipped constrained liner was placed. The elevationof the liner was placed posterior superiorly at approximatelythe 10 o'clock position. The liner seated well. It waselected to place a 22 +5 mm femoral head to provide slightlengthening and more importantly increased offset to avoidimpingement. The 22 mm/+5 head was impacted onto the wellprepared and dried Mitchell taper and then reduced into theconstrained liner. The patient's hip was noted to be stablethrough a full range of motion without further impingement.This was felt to be acceptable. The wound was copiouslyirrigated with pulsatile lavage normal saline solution.Hemostasis was achieved and attention was turned to woundclosure. The deep fascia was closed with #1 PDS sutures.Subcutaneous tissues were closed in layers using 0 and 2-0Monocryl sutures. The skin was closed with 2-0 nylon suturesand a MICHELE incisional VAC dressing was placed. The patient wasawakened, extubated, and taken to the recovery room in stablecondition. The patient tolerated this procedure well.MICHAEL/CLEMLDD: 03/09/2023 18:56:24DT: 03/09/2023 23:16:13Job #: [id number] signed by: DIMITRIS PARRY at 2023-03-09 18:56:24.000OPOperative [id number]:16:[id number]: 19:[id number], [id number]:19 :46
[2023-09-04 18:26] LABS: Blood Morphology Comment NOT SEEN (NOT SEEN); Platelet Estimate ADEQ; White Blood Cell Scan OK (OK)
--- NOTE | 2023-09-04 18:30 | ER ---
Nurse's Notes [facility] Name: Suzi Vee Age: 72 yrs Sex: Female : 1950 Arrival Date: 09/04/2023 Time: 17:02 Bed 4 Private MD: Diagnosis: Pneumonia, unspecified organism;Other specified sepsis Presentation: 09/04 17:08 Chief complaint: EMS states: toned out for temp of 101.4. Coronavirus screen: Client tm6 denies travel out of the [place] in the last 14 days. Ebola Screen: Patient negative for fever greater than or equal to 101.5 degrees Fahrenheit, and additional compatible Ebola Virus Disease symptoms Patient denies exposure to infectious person. Patient denies travel to an Ebola-affected area in the 21 days before illness onset. No symptoms or risks identified at this time. Initial Sepsis Screen: Does the patient meet any 2 criteria? No. Patient's initial sepsis screen is negative. Does the patient have a suspected source of infection?. Risk Assessment: Do you want to hurt yourself or someone else? Patient reports no desire to harm self or others. Onset of symptoms was September 04, 2023. 17:08 Method Of Arrival: EMS: [facility] tm6 17:08 Acuity: NIEVES 3 tm6 Triage Assessment: 17:10 General: Appears in no apparent distress. Behavior is calm, cooperative. Pain: Denies tm6 pain. EENT: No signs and/or symptoms were reported regarding the EENT system. Neuro: Level of Consciousness is awake, alert, obeys commands, Oriented to person, place, time, situation. Cardiovascular: Capillary refill < 3 seconds Patient's skin is warm and dry. Respiratory: Airway is patent Respiratory effort is even, unlabored, Respiratory pattern is regular, symmetrical. GI: Abdomen is round non-distended. : No signs and/or symptoms were reported regarding the genitourinary system. Derm: No signs and/or symptoms reported regarding the dermatologic system. Musculoskeletal: No signs and/or symptoms reported regarding the musculoskeletal system. Historical: - Allergies: 17:10 No Known Allergies; tm6 - PMHx: 17:10 Chronic Lumbar Pain; Depression; Weak Bladder; tm6 - PSHx: 17:10 Appendectomy; back; Cholecystectomy; hysterectomy; Right hip replacement; Total Knee tm6 Replacement - Right; - Immunization history:: Adult Immunizations up to date. - Social history:: Smoking status: unknown. Screenin:11 [facility] ED Fall Risk Assessment (Adult) History of falling in the last 3 months, tm6 including since admission No falls in past 3 months (0 pts). Abuse screen: Denies threats or abuse. Denies injuries from another. Nutritional screening: No deficits noted. Tuberculosis screening: No symptoms or risk factors identified. Assessment: 17:11 Reassessment: see triage assessment. tm6 19:45 General: Appears comfortable, Behavior is calm, cooperative. Pain: Denies pain. Neuro: ha1 Level of Consciousness is awake, alert, obeys commands, Oriented to person, place, situation. Cardiovascular: Capillary refill Patient's skin is warm and dry. Respiratory: Airway is patent Respiratory effort is even, unlabored, Respiratory pattern is regular, symmetrical. Derm: Skin is pink, warm \T\ dry. 20:07 Reassessment: REPORT GIVEN TO CORETTA RESENDIZ. ha1 Vital Signs: 17:08 BP 144 / 60; Pulse 74; Resp 17; Temp 99.9(O); Pulse Ox 99% ; Weight 47.5 kg; Height 5 tm6 ft. 1 in. ; Pain 0/10; 17:48 BP 144 / 53; Pulse 72; Resp 18; Pulse Ox 97% on R/A; ph 18:50 BP 129 / 51; Pulse 66; Resp 18; Pulse Ox 98% on R/A; ld1 19:45 BP 135 / 66; Pulse 68; Resp 15 S; Pulse Ox 98% on R/A; ha1 17:08 Body Mass Index 19.79 (47.50 kg, 154.94 cm) tm6 17:08 Pain Scale: Adult tm6 ED Course: 17:06 Patient arrived in ED. bd 17:06 Nico Miller MD is Attending Physician. sp3 17:07 Lindsay Villegas, CORETTA is Primary Nurse. tm6 17:10 Triage completed. tm6 17:10 Arm band placed on right wrist. tm6 17:11 Patient has correct armband on for positive identification. Bed in low position. Call tm6 light in reach. Side rails up X2. Provided Education on: VS monitoring. Client placed on continuous cardiac and pulse oximetry monitoring. NIBP monitoring applied. Door closed. Noise minimized. 17:30 Initial lab(s) drawn, by me, sent to lab. First set of blood cultures drawn. Inserted ph saline lock: 20 gauge in right wrist, using aseptic technique. Blood collected. 17:39 Strep Sent. ph 17:39 SARS RAPID Sent. ph 17:39 Flu Sent. ph 17:39 CBC with Diff Sent. ph 17:39 CMP Sent. ph 17:39 Lactate w/ 2H reflex if indic. Sent. ph 17:39 Protime (+inr) Sent. ph 17:59 Chest Single View XRAY In Process Unspecified. EDMS 18:29 Sandeep Cedillo MD is Hospitalizing Provider. sp3 18:45 Blood Culture Adult (2) Sent. ld1 18:49 Inserted saline lock: 20 gauge in right forearm, using aseptic technique. Blood ld1 collected. Administered Medications: 17:43 Drug: Acetaminophen PO 1000 mg PO once Route: PO; ph 18:45 Drug: NS 0.9% IV 1000 ml IV at 1 bolus Per protocol; 1000 mL bolus Route: IV; Rate: 1 ld1 bolus; Site: right antecubital; 18:45 Drug: Cefepime IVPB 2 grams IVPB at 200 ml/hr once over 30 mins; (mix in NS 100 mL) ld1 Route: IVPB; Rate: 200 ml/hr; Infused Over: 30 mins; Site: right antecubital; 19:02 Drug: vancoMYCIN IVPB 1 grams IVPB once over 2 hrs Route: IVPB; Infused Over: 2 hrs; tm6 Site: right antecubital; Medication: 17:47 VIS not applicable for this client. ph Outcome: 18:29 Decision to Hospitalize by Provider. sp3 20:54 Patient left the ED. mb9 Signatures: Dispatcher [employer] EDMS Nani Mendosa Patricia RN RN ph Jessica Maharaj RN RN ld1 Nico Miller MD MD sp3 Lia Vallejo RN RN Charity Abel, RN RN mb9 Lindsay Villegas RN RN tm6
--- NOTE | 2023-09-04 18:30 | EDPHYS ---
Physician Documentation [facility] Name: Suzi Vee Age: 72 yrs Sex: Female : 1950 Arrival Date: 09/04/2023 Time: 17:02 Bed 4 Private MD: ED Physician Nico Miller HPI: 09/04 17:17 This 72 yrs old Female presents to ER via EMS with complaints of Fever. sp3 17:17 72-year-old female with multiple orthopedic surgeries, chronic lumbar pain presents via sp3 EMS for chief complaint fever that was noticed by home health physical therapy personnel. Patient has no complaints other than feeling generally weak. She denies headache, URI symptoms, cough, chest pain, shortness of breath, urinary complaints, abdominal pain, nausea, vomiting, diarrhea, known sick contacts, travel history, or any other signs or symptoms on ROS at this time.. Historical: - Allergies: 17:10 No Known Allergies; tm6 - PMHx: 17:10 Chronic Lumbar Pain; Depression; Weak Bladder; tm6 - PSHx: 17:10 Appendectomy; back; Cholecystectomy; hysterectomy; Right hip replacement; Total Knee tm6 Replacement - Right; - Immunization history:: Adult Immunizations up to date. - Social history:: Smoking status: unknown. ROS: 17:17 Eyes: Negative for injury, pain, redness, and discharge, ENT: Negative for injury, sp3 pain, and discharge, Neck: Negative for injury, pain, and swelling, Cardiovascular: Negative for chest pain, palpitations, and edema, Respiratory: Negative for shortness of breath, cough, wheezing, and pleuritic chest pain, Abdomen/GI: Negative for abdominal pain, nausea, vomiting, diarrhea, and constipation, Back: Negative for injury and pain, MS/Extremity: Negative for injury and deformity, Neuro: Negative for headache, weakness, numbness, tingling, and seizure, Psych: Negative for depression, anxiety, suicide ideation, homicidal ideation, and hallucinations, Allergy/Immunology: Negative for hives, rash, and allergies, 17:17 All other systems are negative, Exam: 17:17 Constitutional: This is a well developed, well nourished patient who is awake, alert, sp3 and in no acute distress. Head/Face: Normocephalic, atraumatic. Eyes: Pupils equal round and reactive to light, extra-ocular motions intact. Lids and lashes normal. Conjunctiva and sclera are non-icteric and not injected. Cornea within normal limits. Periorbital areas with no swelling, redness, or edema. ENT: Nares patent. No nasal discharge, no septal abnormalities noted. External auditory canals are clear. Oropharynx with no redness, swelling, or masses, exudates, or evidence of obstruction, uvula midline. Mucous membranes moist. Neck: Trachea midline, no thyromegaly or masses palpated, and no cervical lymphadenopathy. Supple, full range of motion without nuchal rigidity, or vertebral point tenderness. No Meningismus. Chest/axilla: Normal chest wall appearance and motion. Nontender with no deformity. No lesions are appreciated. Cardiovascular: Regular rate and rhythm with a normal S1 and S2. No gallops, murmurs, or rubs. Normal PMI, no JVD. No pulse deficits. Respiratory: Lungs have equal breath sounds bilaterally, clear to auscultation and percussion. No rales, rhonchi or wheezes noted. No increased work of breathing, no retractions or nasal flaring. Abdomen/GI: Soft, non-tender, with normal bowel sounds. No distension or tympany. No guarding or rebound. No evidence of tenderness throughout. Skin: Warm, dry with normal turgor. Normal color with no rashes, no lesions, and no evidence of cellulitis. 18:34 ECG was reviewed by the Attending Physician. EKG demonstrates normal sinus rhythm 71 sp3 bpm with normal intervals, QRS, normal axis, normal axis ST segments without evidence of acute ischemia. Vital Signs: 17:08 BP 144 / 60; Pulse 74; Resp 17; Temp 99.9(O); Pulse Ox 99% ; Weight 47.5 kg; Height 5 tm6 ft. 1 in. ; Pain 0/10; 17:48 BP 144 / 53; Pulse 72; Resp 18; Pulse Ox 97% on R/A; ph 18:50 BP 129 / 51; Pulse 66; Resp 18; Pulse Ox 98% on R/A; ld1 19:45 BP 135 / 66; Pulse 68; Resp 15 S; Pulse Ox 98% on R/A; ha1 17:08 Body Mass Index 19.79 (47.50 kg, 154.94 cm) tm6 17:08 Pain Scale: Adult tm6 MDM: 17:13 Patient medically screened. sp3 17:18 Data reviewed: vital signs, nurses notes, EMS record, old medical records, lab test sp3 result(s), EKG, radiologic studies. ED course: 72-year-old female with fever of unknown origin and generalized weakness. Differential is broad and includes influenza, COVID-19, other viral syndrome, URI, pneumonia, bronchitis, UTI/pyelonephritis spectrum, among others. Patient's vital signs are within normal limits and she is not hypotensive or tachycardic. Work-up will include laboratory values, blood cultures, swabs, UA, chest x-ray and further antibiotics as indicated. Disposition pending work-up and patient course.. 18:28 ED course: Patient with WBC count 20,000 and positive pneumonia on x-ray. We will start sp3 cefepime and admit to medicine.. 09/04 17:14 Order name: Blood Culture Adult (2) sp3 09/04 17:14 Order name: CBC with Diff sp3 09/04 17:14 Order name: CMP; Complete Time: 18:17 sp3 09/04 17:14 Order name: Lactate w/ 2H reflex if indic.; Complete Time: 18:17 sp3 09/04 17:14 Order name: Protime (+inr); Complete Time: 18:17 sp3 09/04 17:14 Order name: Urinalysis w/ reflexes sp3 09/04 17:14 Order name: Flu; Complete Time: 18:17 sp3 09/04 17:14 Order name: SARS RAPID; Complete Time: 18:17 sp3 09/04 17:14 Order name: Strep; Complete Time: 18:17 sp3 09/04 17:58 Order name: CBC Smear Scan EDMS 09/04 18:05 Order name: Throat Culture EDMS 09/04 18:27 Order name: Manual Differential EDMS 09/04 18:39 Order name: Urine Culture EDMS 09/04 18:50 Order name: Urinalysis w/ reflexes EDMS 09/04 18:50 Order name: CBC with Automated Diff EDMS 09/04 18:50 Order name: CBC with Automated Diff EDMS 09/04 18:50 Order name: Comprehensive Metabolic Panel EDMS 09/04 18:50 Order name: Comprehensive Metabolic Panel EDMS 09/04 17:14 Order name: Chest Single View XRAY; Complete Time: 18:17 sp3 09/04 17:14 Order name: EKG; Complete Time: 17:15 sp3 09/04 17:14 Order name: Cardiac monitoring; Complete Time: 17:27 sp3 09/04 17:14 Order name: EKG - Nurse/Tech; Complete Time: 17:29 sp3 09/04 17:14 Order name: IV Saline Lock - Large Bore; Complete Time: 17:39 sp3 09/04 17:14 Order name: Labs collected and sent; Complete Time: 17:39 sp3 09/04 17:14 Order name: O2 Per Protocol; Complete Time: 17:27 sp3 09/04 17:14 Order name: O2 Sat Monitoring; Complete Time: 17:27 sp3 09/04 17:14 Order name: Vital Signs; Complete Time: 17:27 sp3 Administered Medications: 17:43 Drug: Acetaminophen PO 1000 mg PO once Route: PO; ph 18:45 Drug: NS 0.9% IV 1000 ml IV at 1 bolus Per protocol; 1000 mL bolus Route: IV; Rate: 1 ld1 bolus; Site: right antecubital; 18:45 Drug: Cefepime IVPB 2 grams IVPB at 200 ml/hr once over 30 mins; (mix in NS 100 mL) ld1 Route: IVPB; Rate: 200 ml/hr; Infused Over: 30 mins; Site: right antecubital; 19:02 Drug: vancoMYCIN IVPB 1 grams IVPB once over 2 hrs Route: IVPB; Infused Over: 2 hrs; tm6 Site: right antecubital; Disposition Summary: 09/04/23 18:29 Hospitalization Ordered Notes: Hospitalization Status: Inpatient Admission sp3 Provider: Sandeep Cedillo spHany [facility] sp3 Condition: Stable sp3 Problem: new sp3 Symptoms: have worsened sp3 Bed/Room Type: Standard sp3 Room Assignment: 207(09/04/23 19:47) [id number] Diagnosis - Pneumonia, unspecified organism sp3 - Other specified sepsis sp3 Forms: - Medication Reconciliation Form sp3 - SBAR form sp3 - Leadership Thank You Letter sp3 Signatures: Dispatcher [employer] EDMS Suzi Coombs RN RN ph Jessica Maharaj RN RN ld1 Nico Miller MD MD sp3 Halle Lenz [email or web address] Lindsay Villegas RN RN tm6 Corrections: (The following items were deleted from the chart) 19:47 18:29 mj [id number]
[2023-09-04 18:32] LABS: Urine Bacteria <20 /HPF (<20); Urine Crystals Unidentified Few /HPF (None Seen); Urine Mucus Slight /HPF (None Seen); Urine RBC <5 /HPF (None Seen); Urine WBC Clump Rare /HPF (None Seen)
[2023-09-04 18:34] LABS: Specific Gravity 1.021 (1.005-1.030); Urine Bilirubin Negative (Negative); Urine Clarity Extremely Turbid (Clear); Urine Color Yellow (Yellow); Urine Glucose Negative (Negative)
[2023-09-04 18:35] LABS: Urine Blood Trace (Negative); Urine Protein Trace (Negative); Urine Urobilinogen Normal (Normal)
[2023-09-04] MEDS ORDERED: CEFEPIME 2 GM VIAL ONE (18:38)
[2023-09-04] MEDS ORDERED: NA CHLORIDE 0.9% 100 ML ONE (18:38)
[2023-09-04] MEDS ORDERED: MORPHINE 2 MG/ML SYR IV PRN (18:44)
[2023-09-04] MEDS ORDERED: ALBUTEROL 2.5 MG/3 ML NEB SOL NEB PRN (18:44)
[2023-09-04] MEDS ORDERED: ONDANSETRON 4 MG/2 ML VIAL IV PRN (18:44)
[2023-09-04] MEDS ORDERED: clonazePAM 0.5 MG TAB PO PRN (18:48)
[2023-09-04] MEDS ORDERED: LORATADINE 10 MG TAB PO PRN (18:48)
[2023-09-04] MEDS: AZITHROMYCIN IV 500 MG in NA CHLORIDE 0.9% 250 ML IVPB SCH (18:51)
[2023-09-04] MEDS ORDERED: VANCOMYCIN 1 GM/VIAL ONE (19:07)
[2023-09-04] MEDS ORDERED: NA CHLORIDE 0.9% 250 ML ONE (19:07)
--- NOTE | 2023-09-04 19:12 | P.HP ---
Certification for Inpatient Patient admitted to: Inpatient With expected LOS: >2 Midnights Practitioner: I am a practitioner with admitting privileges, knowledge of patient current condition, hospital course, and medical plan of care. Services: Services provided to patient in accordance with Admission requirements found in Title 42 Section 412.3 of the Code of Federal Regulations Patient History Date of Service: 09/04/23 Reason for admission: Fever History of Present Illness: 72-year-old female with past medical history of dementia, history of multiple UTIs in the past, possible CHF, history of hip surgery followed by infection and has been on multiple antibiotics and was admitted to rehab recently and was discharged from rehab 2 weeks ago brought to ER with fever and chills which has been going on for the last 2 to 3 days and has been progressively worsening. Noticed by home health and physical therapy personal. Patient is a poor historian hence most of the history is obtained from the chart review and also talking to the family member at the bedside. Denies any sick contacts. Fever is intermittent subjective associated with generalized malaise. Denies any headache. No cough. Denies any chest pain or shortness of breath. No nausea vomiting or diarrhea. Denies any dysuria. Patient was assessed in the ER and was found to have leukocytosis, fever, right sided pneumonia and UTI and was admitted for sepsis due to pneumonia and UTI. Allergies No Known Allergies Allergy (Unverified 09/20/22 10:44) Home medications list reviewed: Yes Home Medications: ARIPiprazole [Abilify*] 5 mg PO DAILY 08/23/22 Acetaminophen [Tylenol Extra Strength] 500 mg PO Q6HP PRN 08/23/22 Aspirin [Adult Aspirin Regimen] 81 mg PO DAILY 08/23/22 Cetirizine HCl [Zyrtec] 10 mg PO DAILYPRN PRN 08/23/22 Cholecalciferol (Vitamin D3) [Vitamin D3] 2,000 unit PO DAILY 08/23/22 Donepezil HCl [Aricept] 10 mg PO BID 08/23/22 Duloxetine HCl 2 cap PO DAILY 08/23/22 Melatonin 5 mg PO BEDTIME 08/23/22 Multivitamin 1 each PO DAILY 08/23/22 Tryptophan [l-Tryptophan] 500 mg PO BEDTIME 08/23/22 clonazePAM [Clonazepam] 0.25 - 0.5 mg PO PRN PRN 08/23/22 oxyBUTYnin chloride [Oxybutynin Chloride] 5 mg PO BID 08/23/22 Docusate [Colace Cap*] 100 mg PO BID 30 Days #60 cap 09/23/22 Ferrous Sulfate [Ferrous Sulfate*] 325 mg PO DAILY 90 Days #90 tab 09/23/22 - Past Medical/Surgical History Diabetic: No Past Medical History: Reviewed- Non-Contributory -: insomnia -: depression -: arthritis Past Surgical History: Reviewed- Non-Contributory -: cholecystectomy -: vaginal hysterectomy -: ankle surgery -: total right knee -: back surgery x 8, titanium in place - Family History Family History: Reviewed- Non-Contributory - Family History Mother -: Hypertension, Diabetes, Cancer, Other (see notes) Notes: colon cancer Father -: Other (see notes) Notes: passed age 97 - Social History Smoking Status: Never smoker Alcohol use: No CD- Drugs: No Caffeine use: Yes Review of Systems 10-point ROS is otherwise unremarkable General: Fever, Chills, Weakness, As per HPI Eyes: Unremarkable ENT: Unremarkable Respiratory: Unremarkable Cardiovascular: Unremarkable Gastrointestinal: Unremarkable Genitourinary: Unremarkable Musculoskeletal: Unremarkable Neurological: Unremarkable Physical Examination - Vital Signs Temperature: 100.2 F Blood Pressure: 144/92 Pulse: 74 Respirations: 18 Pulse Ox (%): 98 - Physical Exam General: Alert, In no apparent distress HEENT: Atraumatic, Normocephalic Neck: Supple, No Thyromegaly Respiratory: Normal air movement, Diminished, Crackles/rales Cardiovascular: Normal pulses, Regular rate/rhythm, Normal S1 S2 Capillary refill: <2 Seconds Gastrointestinal: Soft and benign, W/out hepatosplenomegaly Musculoskeletal: No clubbing, Other (Decreased ROM ) Integumentary: No rashes Neurological: Other (Alert, Awake ) Lymphatics: No axilla or inguinal lymphadenopathy - Studies Laboratory Data (last 24 hrs) 09/04/23 09/04/23 09/04/23 17:30 17:30 17:30 WBC 20.10 H Hgb 11.4 L Hct 34.7 L Plt Count 300 PT 15.8 H INR 1.44 Sodium 138 Potassium 4.0 BUN 12 Creatinine 0.79 Glucose 167 H Total Bilirubin 0.2 AST 60 H ALT 32 Alkaline Phosphatase 96 Microbiology Data (last 24 hrs): 09/04/23 17:33 Nasopharnyx Influenza Type A Antigen Screen - Final 09/04/23 17:33 Nasopharnyx Influenza Type B Antigen Screen - Final 09/04/23 17:33 Throat Group A Streptococcus Rapid Screen - Final Imagings Data: Xray : Right Lobe Pneumonia Assessment and Plan - Problems (Diagnosis) (1) Severe sepsis due to pneumococcus with acute organ dysfunction Current Visit: Yes Status: Acute Plan: Monitor on telemetry IV antibiotics Started on IV hydration moderation given history of CHF Obtain cultures Patient was recently been admitted to rehab and had PICC line and was on long- term IV antibiotic We will change antibiotic as per sensitivity (2) Right lower lobe pneumonia Current Visit: Yes Status: Acute Plan: Start on IV antibiotics X-ray findings noted consistent with right lower lobe pneumonia We will obtain cultures Streamline antibiotic as per the sensitivities We will get a repeat x-ray chest in a.m. (3) UTI (urinary tract infection) Current Visit: Yes Status: Acute Plan: UTI possibly due to gram-negative rods Patient had a history of recurrent UTIs Continue antibiotics for now Obtain urine culture Continue oxybutynin (4) Anemia Current Visit: No Status: Chronic Plan: Monitor CBC Transfuse as needed Qualifiers: Anemia type: unspecified type Qualified Code(s): D64.9 - Anemia, unspecified (5) Dementia Current Visit: No Status: Chronic Plan: Continue home medications and titrate as needed Supportive management Recent history of hip surgery and infection PT OT evaluation Supportive management for now GI/DVT prophylaxis with Lovenox and Protonix Qualifiers: Dementia type: unspecified type Dementia severity: moderate Dementia behavioral or psychological symptom: without behavioral, psychotic, or mood disturbance or anxiety Qualified Code(s): F03.B0 - Unspecified dementia, moderate, without behavioral disturbance, psychotic disturbance, mood disturbance, and anxiety (6) Protein-energy malnutrition Current Visit: No Status: Chronic Plan: Mild protein calorie malnutrition Dietary consult Started on diet Protein supplements Qualifiers: Protein-calorie malnutrition severity: moderate Qualified Code(s): E44.0 - Moderate protein-calorie malnutrition Discharge Plan: Home Plan to discharge in: Greater than 2 days - Advance Directives Does patient have a Living Will: No Does patient have a Durable POA for Healthcare: No - Code Status/Comfort Care Code Status Assessed: Yes Code Status: Full Code Time Spent Managing Pts Care (In Minutes): 46
[2023-09-04] MEDS: TRYPTOPHAN 500 MG PO SCH (21:00)
[2023-09-04] MEDS: DOCUSATE NA 100 MG CAP PO SCH ×2 (21:00→21:30)
[2023-09-04] MEDS: NA CHLORIDE 0.9% 1,000 ML IV SCH (21:29)
[2023-09-04] MEDS: oxyBUTYnin chloride 5 MG TAB PO SCH (21:30)
[2023-09-04] MEDS: MELATONIN 5 MG TABLET PO SCH (21:30)
[2023-09-04] MEDS: DONEPEZIL HCL 5 MG TAB PO SCH (21:30)
[2023-09-04 21:51] VITALS: BMI 26.4
[2023-09-04 22:27] LABS: Specific Gravity 1.028 (1.005-1.030); Urine Bacteria <20 /HPF (<20); Urine Bilirubin NEGATIVE (Negative); Urine Blood Negative (Negative); Urine Clarity Clear (Clear); Urine Color Light-Yellow (Yellow); Urine Glucose NEGATIVE (Negative); Urine Mucus Slight /HPF (None Seen); Urine Protein TRACE (Negative); Urine RBC <5 /HPF (None Seen); Urine Urobilinogen Normal (Normal)
[2023-09-05 02:35] LABS: Absolute Lymphocytes (CBC) 1.7 K/uL (0.7-4.9); Hematocrit 35.2 % (36.0-45.0); Lymphocytes % 12.4 % (15.3-44.8); MCV 87.7 fL (80-100); Platelets 228 thou/uL (152-406); RBC Red Blood Cell Count 4.01 M/uL (3.86-4.86)
[2023-09-05 04:54] LABS: Albumin 2.7 g/dL (3.4-5.0); Bilirubin Total 0.3 mg/dL (0.2-1.0); Potassium 3.4 mEq/L (3.5-5.1); Protein, Total 6.7 g/dL (6.4-8.2)
[2023-09-05] MEDS: ARIPiprazole 5 MG TAB PO SCH (08:38)
[2023-09-05] MEDS: DONEPEZIL HCL 5 MG TAB PO SCH ×2 (08:39→20:55)
[2023-09-05] MEDS: VITAMIN D 1000 UNIT TAB PO SCH (08:39)
[2023-09-05] MEDS: DOCUSATE NA 100 MG CAP PO SCH ×2 (08:39→20:50)
[2023-09-05] MEDS: oxyBUTYnin chloride 5 MG TAB PO SCH ×2 (08:39→20:55)
[2023-09-05] MEDS: Multi-VIT(Centravite Senior) 1 TAB TAB PO SCH (08:39)
[2023-09-05] MEDS: ASPIRIN EC 81 MG TAB PO SCH (08:39)
[2023-09-05] MEDS: FERROUS SULFATE 325 MG TAB PO SCH (08:39)
[2023-09-05] MEDS: DULOXETINE 30 MG CAP PO SCH (08:39)
[2023-09-05] MEDS: CEFTRIAXONE 1,000 MG in NA CHLORIDE 0.9% 50 ML IVPB SCH (08:39)
--- NOTE | 2023-09-05 10:51 | P.PN ---
Subjective Date of Service: 09/05/23 Chief Complaint: Fever Pt is resting comfortably in bed. Pt is feeling better this am. She is getting iv abx for UTI and right lung pneumonia. No other complaints. Review of Systems General: Unremarkable Eyes: Unremarkable ENT: Unremarkable Respiratory: Unremarkable Cardiovascular: Unremarkable Gastrointestinal: Unremarkable Genitourinary: Unremarkable Musculoskeletal: Unremarkable Integumentary: Unremarkable Neurological: Unremarkable Lymphatics: Unremarkable Physical Examination - Vital Signs Temperature: 99.6 F Blood Pressure: 152/69 Pulse: 66 Respirations: 16 Pulse Ox (%): 95 - Physical Exam General: In no apparent distress, Oriented x3, Cooperative HEENT: Atraumatic, Normocephalic, PERRLA Neck: Supple, 2+ carotid pulse no bruit, No Thyromegaly Respiratory: Clear to auscultation bilaterally, Normal air movement Cardiovascular: No edema, Normal pulses, Regular rate/rhythm, Normal S1 S2 Capillary refill: <2 Seconds Gastrointestinal: Normal bowel sounds, Soft and benign, Non-distended Musculoskeletal: No clubbing, No swelling Integumentary: No rashes, No breakdown Neurological: Normal gait, Normal speech, Normal strength at 5/5 x4 extr, Cranial nerves 3-12 intact Lymphatics: No axilla or inguinal lymphadenopathy - Studies Laboratory Data (last 24 hrs) 09/04/23 09/04/23 09/04/23 17:30 17:30 17:30 WBC 20.10 H Hgb 11.4 L Hct 34.7 L Plt Count 300 PT 15.8 H INR 1.44 Sodium 138 Potassium 4.0 BUN 12 Creatinine 0.79 Glucose 167 H Total Bilirubin 0.2 AST 60 H ALT 32 Alkaline Phosphatase 96 Microbiology Data (last 24 hrs): 09/04/23 17:33 Nasopharnyx Influenza Type A Antigen Screen - Final 09/04/23 17:33 Nasopharnyx Influenza Type B Antigen Screen - Final 09/04/23 17:33 Throat Group A Streptococcus Rapid Screen - Final Assessment And Plan - Plan Severe sepsis 2/2 UTI and Pneumonia. Will continue iv rocephin and azithromycin. Will follow up blood and urine culture. CXR shows RLL pneumonia. RLL pneumonia: Continue treatment as wilberto UTI: Continue rocephin and follow up urine cx. Htn: Continue home med Hypokalemia: K is 3.4. Will replete and monitor. Dementia: Will continue aricept. Anemia: monitor H/H. Moderate malnutrition: Pt was advised to eat. Will consult senior speech pathologist. DVT ppx: SCD Dispo: pending hospital course. Discharge Plan: Home Plan to discharge in: 24 Hours - Code Status/Comfort Care Code Status Assessed: Yes Code Status: Full Code
[2023-09-05] MEDS ORDERED: ALBUTEROL 2.5 MG/3 ML NEB SOL NEB PRN (10:58)
[2023-09-05] MEDS ORDERED: POTASSIUM CL SA 10 MEQ TAB PO ONE (11:15)
[2023-09-05] MEDS: ACETAMINOPHEN 500 MG TAB PO PRN ×2 (13:18→20:55)
[2023-09-05] MEDS ORDERED: VANCOMYCIN 1.25 GM in NA CHLORIDE 0.9% 250 ML IVPB SCH (15:00)
[2023-09-05] MEDS: NA CHLORIDE 0.9% 1,000 ML IV SCH (15:01)
[2023-09-05] MEDS: AZITHROMYCIN IV 500 MG in NA CHLORIDE 0.9% 250 ML IVPB SCH (17:25)
[2023-09-05] MEDS: TRYPTOPHAN 500 MG PO SCH (20:50)
[2023-09-05] MEDS: MELATONIN 5 MG TABLET PO SCH (22:51)
[2023-09-06 03:19] LABS: Absolute Lymphocytes (CBC) 1.6 K/uL (0.7-4.9); Hematocrit 27.5 % (36.0-45.0); Lymphocytes % 17.6 % (15.3-44.8); MCV 86.5 fL (80-100); Platelets 211 thou/uL (152-406); RBC Red Blood Cell Count 3.18 M/uL (3.86-4.86)
[2023-09-06 03:24] LABS: Potassium 3.9 mEq/L (3.5-5.1)
[2023-09-06] MEDS ORDERED: VANCOMYCIN 1 GM in NA CHLORIDE 0.9% 250 ML IVPB SCH (08:00)
[2023-09-06] MEDS: DOCUSATE NA 100 MG CAP PO SCH (09:00)
[2023-09-06] MEDS: ACETAMINOPHEN 500 MG TAB PO PRN (09:59)
[2023-09-06] MEDS: CEFTRIAXONE 1,000 MG in NA CHLORIDE 0.9% 50 ML IVPB SCH (09:59)
[2023-09-06] MEDS: DULOXETINE 30 MG CAP PO SCH (09:59)
[2023-09-06] MEDS: DONEPEZIL HCL 5 MG TAB PO SCH (09:59)
[2023-09-06] MEDS: ASPIRIN EC 81 MG TAB PO SCH (10:00)
[2023-09-06] MEDS: ARIPiprazole 5 MG TAB PO SCH (10:00)
[2023-09-06] MEDS: VITAMIN D 1000 UNIT TAB PO SCH (10:00)
[2023-09-06] MEDS: FERROUS SULFATE 325 MG TAB PO SCH (10:00)
[2023-09-06] MEDS: oxyBUTYnin chloride 5 MG TAB PO SCH (10:00)
[2023-09-06] MEDS: Multi-VIT(Centravite Senior) 1 TAB TAB PO SCH (10:00)
[2023-09-06 10:10] VITALS: O2SAT 95
--- NOTE | 2023-09-06 11:23 | P.DS ---
Admission Date: 09/04/23 Discharge Date: 09/06/23 Disposition: ROUTINE DISCHARGE Reason for Admission: Fever Brief History of Present Illness: 72-year-old female with past medical history of dementia, history of multiple UTIs in the past, possible CHF, history of hip surgery followed by infection and has been on multiple antibiotics and was admitted to rehab recently and was discharged from rehab 2 weeks ago brought to ER with fever and chills which has been going on for the last 2 to 3 days and has been progressively worsening. Noticed by home health and physical therapy personal. Patient is a poor historian hence most of the history is obtained from the chart review and also talking to the family member at the bedside. Denies any sick contacts. Fever is intermittent subjective associated with generalized malaise. Denies any headache. No cough. Denies any chest pain or shortness of breath. No nausea vomiting or diarrhea. Denies any dysuria. Patient was assessed in the ER and was found to have leukocytosis, fever, right sided pneumonia and UTI and was admitted for sepsis due to pneumonia and UTI. Hospital Course: Pt is a 72-year-old female with past medical history of dementia, CHF, hip surgery, and multiple UTIs in the past who presented with fever and chills. Of note, pt was recently discharged from rehab 2 weeks ago. Her home health and physical therapist noticed she was not doing well at home and they called EMS. On admission, lab studies showed leukocytosis, UTI and CXR showed right sided pneumonia. We admitted pt for sepsis 2/2 pneumonia and UTI. We gave rocephin and azithromycin. The symptoms resolved and pt requested to be discharged. Urine cx grew gram negative rods. We discharged pt with levaquin 500mg po daily for 5 more days. She was in NAD prior to discharge Vital Signs/Physical Exam: Temp Pulse Resp BP Pulse Ox 98.6 F 72 16 120/57 L 95 09/06/23 08:00 09/06/23 08:00 09/06/23 08:00 09/06/23 08:00 09/06/23 08:00 Laboratory Data at Discharge: WBC 9.30 thou/uL (4.3-10.9) 09/06/23 02:40 Hgb 9.2 g/dL (12.0-15.0) L D 09/06/23 02:40 Hct 27.5 % (36.0-45.0) L 09/06/23 02:40 Plt Count 211 thou/uL (152-406) 09/06/23 02:40 PT 15.8 SECONDS (9.5-12.5) H 09/04/23 17:30 INR 1.44 09/04/23 17:30 Sodium 137 mEq/L (136-145) 09/06/23 02:40 Potassium 3.9 mEq/L (3.5-5.1) D 09/06/23 02:40 BUN 11 mg/dL (7-18) 09/06/23 02:40 Creatinine 0.54 mg/dL (0.55-1.02) L 09/06/23 02:40 Glucose 152 mg/dL (74-106) H 09/06/23 02:40 Total Bilirubin 0.3 mg/dL (0.2-1.0) 09/05/23 02:14 AST 49 U/L (15-37) H 09/05/23 02:14 ALT 30 U/L (13-56) 09/05/23 02:14 Alkaline Phosphatase 91 U/L (45-117) 09/05/23 02:14 Home Medications: ARIPiprazole [Abilify*] 5 mg PO DAILY 08/23/22 Aspirin [Adult Aspirin Regimen] 81 mg PO DAILY 08/23/22 Donepezil HCl [Aricept] 10 mg PO BID 08/23/22 Duloxetine HCl 2 cap PO DAILY 08/23/22 Melatonin 5 mg PO BEDTIME 08/23/22 Multivitamin 1 each PO DAILY 08/23/22 clonazePAM [Clonazepam] 0.25 - 0.5 mg PO PRN PRN 08/23/22 oxyBUTYnin chloride [Oxybutynin Chloride] 5 mg PO BID 08/23/22 Docusate [Colace Cap*] 100 mg PO BID 30 Days #60 cap 09/23/22 Amlodipine [Norvasc*] 1 tab PO DAILY 09/04/23 Apixaban [Eliquis *] 1 tab PO BID 09/04/23 Famotidine [Pepcid*] 1 tab PO BID 09/04/23 Ibuprofen [Ibu] 600 mg PO Q6H PRN 09/04/23 Cholecalciferol (Vitamin D3) [D3-50] 1,250 mcg PO DAILY 60 Days #60 tab 09/06/23 Cholecalciferol (Vitamin D3) [Vitamin D 1000 Iu Tab*] 2,000 unit PO DAILY 90 Days #90 tab 09/06/23 Ferrous Sulfate [Feosol] 325 mg PO DAILY 90 Days #90 tab 09/06/23 Ferrous Sulfate [Ferrous Sulfate*] 325 mg PO DAILY 60 Days #60 tab 09/06/23 Levofloxacin [Levaquin] 500 mg PO 5XD #5 tab 09/06/23 New Medications: Cholecalciferol (Vitamin D3) [D3-50] 1,250 mcg PO DAILY 60 Days #60 tab Ferrous Sulfate [Ferrous Sulfate*] 325 mg PO DAILY 60 Days #60 tab Ferrous Sulfate [Feosol] 325 mg PO DAILY 90 Days #90 tab Levofloxacin [Levaquin] 500 mg PO 5XD #5 tab Cholecalciferol (Vitamin D3) [Vitamin D 1000 Iu Tab*] 2,000 unit PO DAILY 90 Days #90 tab Physician Discharge Instructions: Continue ad [place] activity. Take Levaquin 500mg po daily for 5 more days. Follow up with PCP within 1 week. Followup: NONE,NONE [Primary Care Provider] -
[2023-09-06] MEDS ORDERED: ACETAMINOPHEN 500 MG TAB PO PRN (11:36)
[2023-09-06] MEDS ORDERED: clonazePAM 0.5 MG TAB PO PRN (11:37)
[2023-09-06] MEDS ORDERED: MORPHINE 2 MG/ML SYR IV PRN (11:38)
[2023-09-06] MEDS ORDERED: LORATADINE 10 MG TAB PO PRN (11:38)
[2023-09-06] MEDS ORDERED: ONDANSETRON 4 MG/2 ML VIAL IV PRN (11:38)
[2023-09-06 11:44] VITALS: BP 123/59; TEMP 98.5
[2023-09-06] MEDS ORDERED: AZITHROMYCIN IV 500 MG in NA CHLORIDE 0.9% 250 ML IVPB SCH (12:00)
[2023-09-06] MEDS ORDERED: levoFLOXacin 750 MG TAB PO SCH (14:00)
[2023-09-06] MEDS ORDERED: DONEPEZIL HCL 5 MG TAB PO SCH (21:00)
[2023-09-06] MEDS ORDERED: MELATONIN 5 MG TABLET PO SCH (21:00)
[2023-09-06] MEDS ORDERED: DOCUSATE NA 100 MG CAP PO SCH (21:00)
[2023-09-06] MEDS ORDERED: oxyBUTYnin chloride 5 MG TAB PO SCH (21:00)
[2023-09-07] MEDS ORDERED: NA CHLORIDE 0.9% 1,000 ML IV SCH (08:00)
[2023-09-07] MEDS ORDERED: FERROUS SULFATE 325 MG TAB PO SCH (09:00)
[2023-09-07] MEDS ORDERED: ARIPiprazole 5 MG TAB PO SCH (09:00)
[2023-09-07] MEDS ORDERED: Multi-VIT(Centravite Senior) 1 TAB TAB PO SCH (09:00)
[2023-09-07] MEDS ORDERED: ASPIRIN EC 81 MG TAB PO SCH (09:00)
[2023-09-07] MEDS ORDERED: DULOXETINE 30 MG CAP PO SCH (09:00)
[2023-09-07] MEDS ORDERED: VITAMIN D 1000 UNIT TAB PO SCH (09:00)
[2023-09-07] MEDS ORDERED: CEFTRIAXONE 1,000 MG in NA CHLORIDE 0.9% 50 ML IVPB SCH (09:00)
== END 2023-09-06 14:59 | disposition home health service (06) | DRG 871 ==
LOC: ER 17:02 → ERHOLD 18:56 → 2ND 19:55
PROVIDERS: ADMIT Family Medicine; ATTEND Hospitalist
DX: A40.3 Sepsis due to Streptococcus pneumoniae (principal); J18.9 Pneumonia, unspecified organism; R65.20 Severe sepsis without septic shock; N39.0 Urinary tract infection, site not specified; E44.0 Moderate protein-calorie malnutrition; D64.9 Anemia, unspecified; E87.6 Hypokalemia; G89.29 Other chronic pain; M54.50 Low back pain, unspecified; F32.A Depression, unspecified; M19.90 Unspecified osteoarthritis, unspecified site; F03.B0 Unspecified dementia, moderate, without behavioral disturbance, psychotic disturbance, mood disturbance, and anxiety; Z90.49 Acquired absence of other specified parts of digestive tract; Z68.26 Body mass index [BMI] 26.0-26.9, adult; Z79.82 Long term (current) use of aspirin; Z90.710 Acquired absence of both cervix and uterus; Z96.641 Presence of right artificial hip joint; Z96.651 Presence of right artificial knee joint; Z79.899 Other long term (current) drug therapy
CPT/HCPCS: 36415; 71045; 80048; 80053; 81001; 83605; 85025; 85610; 87040; 87070; 87081; 87086; 87088; 87205; 87804; 87811; 93005; 94760; 96374; 96375; 97116; 97161; 97530; 99284; J0692; J0696; J7030; J7050